=== PATIENT | female | born 1980 | race Caucasian/White ===

== ENCOUNTER 2019-12-28 07:46 | Inpatient (IN) ==
[2019-12-28] MEDS ORDERED: ONDANSETRON INJ 2 MG/ML 2 ML VIAL IV STA (08:17)
[2019-12-28] MEDS ORDERED: SODIUM CHLORIDE 0.9% 1000ML 1,000 ML IV ONE (08:17)
--- NOTE | 2019-12-28 08:29 | Emergency Department Note ---
History of Present Illness General Chief complaint: Mental Health Evaluation Stated complaint: MHMR Time Seen by Provider: 12/28/19 08:00 Source: patient Mode of arrival: other (Police) Limitations: no limitations History of Present Illness Provider complaint: Nausea/vomiting, psych eval Onset (ago): hour(s) 2 This is a 39-year-old female who presents to the ED with a chief complaint of nausea and vomiting as well as psych evaluation. Her primary reason for coming was a psych evaluation. She reportedly called police this morning because she wanted her boyfriend removed from her house. She states that her boyfriend was shutting doors and slamming them. She also states that he has a collection of knives. She states that knives should not be allowed in houses unless they are butter knives. The patient also states that her cats do not like him because he feeds them animal products. The patient stated to police that she thought that she was Alana Hernandez. She also stated to them that she talks to people through televisions and also that she was the head of the universe. She does have medications for clotting disorder as well as for paranoid schizophrenia. She has not been taking her medications recently. The patient denies being suicidal or homicidal. The father reports that she has been staying at their house this weekend and had some nausea and vomiting and poor p.o. intake. The patient has no additional complaints. Home Medications Home Medications Medication Instructions Recorded Confirmed Type clozapine 100 mg PO BID 12/28/19 12/28/19 History glycopyrrolate 2 mg PO TID 12/28/19 12/28/19 History hydroxyzine pamoate 50 mg PO HS 12/28/19 12/28/19 History prazosin 1 mg PO HS 12/28/19 12/28/19 History topiramate 25 mg PO BID 12/28/19 12/28/19 History trazodone 150 mg PO HS 12/28/19 12/28/19 History zolpidem 10 mg PO HS 12/28/19 12/28/19 History Allergies Allergy/AdvReac Type Severity Reaction Status Date / Time No Known Drug Allergies Allergy Unknown Verified 12/28/19 07:58 Past Med/Surg History Social History Feels Safe at Home: Hesitant to Answer Review of Systems A total of 10 systems reviewed and were otherwise negative Physical Exam Vital Signs Vital Signs - 24 hr 12/28/19 08:11 12/28/19 09:41 Temperature 37.4 C Temperature Source Oral Pulse Rate 76 Pulse Rate [Left Finger] 78 Respiratory Rate 18 18 Respiratory Effort / Characteristics Non-Labored Spontaneous Non-Labored Spontaneous Respiratory Depth Normal Normal Blood Pressure 108/76 Blood Pressure [Right Arm] 113/67 Blood Pressure Mean 86 Blood Pressure Mean [Right Arm] 82 Pulse Oximetry 96 100 Oxygen Delivery Method Room Air Room Air Sepsis Recent Fever Within 48 Hours No Sepsis New/Unexplained Change in Mental Status No Sepsis Action Taken by Nursing No Action Required CONSTITUTIONAL/VITAL SIGNS: Reviewed / noted above. GENERAL: Non-toxic in appearance. Somewhat unkempt appearance. INTEGUMENTARY: Warm, dry, and [place]. HEAD: Normocephalic. EYES: without scleral icterus or trauma. ENT/OROPHARYNX: clear and moist. LYMPHADENOPATHY/NECK: Is supple without lymphadenopathy or meningismus. RESPIRATORY: Lungs clear and equal. CARDIOVASCULAR: Regular rate and rhythm. GI/ABDOMEN: Soft and nontender. No organomegaly or pulsatile mass. No rebound or guarding. Normal bowel sounds. EXTREMITIES: Warm and well perfused. BACK: No CVA tenderness. NEUROLOGICAL: Intact without focal deficits. PSYCHIATRIC: Patient seems slightly withdrawn. Mildly paranoid. States that her father is her adopted father (not true). When asked about Alana Hernandez, she speaks as if she was Alana Hernandez and states that people were throwing her up in the air and that she was tired. Denies being suicidal or homicidal. MUSCULOSKELETAL: Normally developed with good muscle tone. TRIAGE NURSING DOCUMENTATION REVIEWED. Course Administered Medications Discontinued Medications Sodium Chloride (Nss 1000ml) 1,000 mls @ 999 mls/hr IV .Q1H1M ONE Stop: 12/28/19 09:17 Last Infusion: 12/28/19 09:56 Dose: 0 mls/hr Documented by: [id number] Admin: 12/28/19 08:48 Dose: 999 mls/hr Documented by: [id number] Ondansetron HCl (Zofran) 4 mg IV NOW STA Stop: 12/28/19 08:18 Last Admin: 12/28/19 08:51 Dose: 4 mg Documented by: [id number] Potassium Chloride (Klor-Con M10) 40 meq PO NOW STA Stop: 12/28/19 10:59 Last Admin: 12/28/19 11:21 Dose: 40 meq Documented by: [id number] Medical Decision Making Differential Diagnosis Gastroenteritis, food borne illness, infections, appendicitis, diverticulitis, inflammatory bowel disease, obstruction, GI bleed, biliary pathology, volvulus, as well as other pathologies. Mood disorder, infection, hypoglycemia, electrolyte abnormalities, cardiac sources, intracerebral event, toxicologic, trauma, neurologic, as well as other pathologies. Medical Records Attestation: I reviewed the patient's medical records. Home Medications Current Medication List: was personally reviewed by me Laboratory Data Attestation: I reviewed the patient's lab results. Result diagrams: 12/28/19 08:39 12/28/19 12:15 Lab Results 12/28/19 12/28/19 12/28/19 Range/Units 08:39 08:39 08:39 WBC 10.47 (4.8-10.8) K/uL RBC 4.45 (4.2-5.4) M/uL Hgb 15.4 (12.0-16.0) g/dL Hct 43.4 (37-47) % MCV 97.5 (80-100) fL MCH 34.6 H (25-34) pg MCHC 35.5 (32-36) g/dL RDW Std Deviation 44.7 (36.4-46.3) fL RDW Coeff of Ashanti 12.5 (11.5-14.5) % Plt Count 372 (130-400) K/uL MPV 9.0 (7.4-10.4) fL Immature Gran % (Auto) 0.3 % Neut % (Auto) 81.7 % Lymph % (Auto) 11.7 % Hood % (Auto) 6.1 % Eos % (Auto) 0.0 % Baso % (Auto) 0.2 % Immature Gran # (Auto) 0.03 H (0.00-0.02) K/uL Neut # (Auto) 8.55 H (1.4-6.5) K/uL Lymph # (Auto) 1.23 (1.2-3.4) K/uL Hood # (Auto) 0.64 H (0.11-0.59) K/uL Eos # (Auto) 0.00 (0-0.5) K/uL Baso # (Auto) 0.02 (0-0.2) K/uL Sodium 135 L (136-145) mmol/L Potassium 2.7 L (3.5-5.1) mmol/L Chloride 104 (98-107) mmol/L Carbon Dioxide 23 (21-32) mmol/L Anion Gap 9.0 (3-11) BUN 2 L (7-18) mg/dl Creatinine 0.91 (0.6-1.2) mg/dl Est Cr Clr Drug Dosing 68.8 ml/min Est GFR ( Amer) 91.5 Est GFR (Non-Af Amer) 78.9 BUN/Creatinine Ratio 1.7 L (10-20) Glucose 110 H (70-99) mg/dl Calcium 8.7 (8.5-10.1) mg/dl Total Bilirubin 0.6 (0.2-1) mg/dl AST 10 L (15-37) U/L ALT 18 (12-78) U/L Alkaline Phosphatase 101 (45-117) U/L Total Protein 7.1 (6.4-8.2) gm/dl Albumin 4.2 (3.4-5.0) gm/dl Globulin 2.9 (2.5-4.0) gm/dl Albumin/Globulin Ratio 1.4 (0.9-2) Lipase 140 (73-393) U/L TSH 1.330 (0.300-4.500) uIu/ml HCG, Qual Negative (Negative) Urine Color Urine Appearance (Clear) Urine pH (4.5-7.5) Ur Specific Elsie (1.000-1.030) Urine Protein (Negative) Urine Glucose (UA) (Negative) Urine Ketones (Negative) Urine Blood (Negative) Urine Nitrite (Negative) Urine Bilirubin (Negative) Urine Urobilinogen (Negative) Ur Leukocyte Esterase (Negative) Urine WBC (Auto) (0-5) /hpf Urine RBC (Auto) (0-4) /hpf U Hyaline Cast (Auto) (0-5) /lpf U Epithel Cells (Auto) (0-5) /lpf Urine Bacteria (Auto) (Negative) Urine Yeast Salicylates (2.8-20) mg/dl Urine Opiates Screen (Neg) Ur Methadone, Qual (Neg) Acetaminophen (10-30) ug/ml Urine Barbiturates (Neg) Ur Phencyclidine (PCP) (Neg) U Amphetamin/Meth Scrn (Neg) MDMA (Ecstasy) Screen (Neg) U Benzodiazepines Scrn (Neg) Ur Cocaine Metabolite (Neg) U Marijuana (THC) Screen (Neg) Ethyl Alcohol mg/dL (0-3) mg/dl 12/28/19 12/28/19 12/28/19 Range/Units 08:39 08:39 09:00 WBC (4.8-10.8) K/uL RBC (4.2-5.4) M/uL Hgb (12.0-16.0) g/dL Hct (37-47) % MCV (80-100) fL MCH (25-34) pg MCHC (32-36) g/dL RDW Std Deviation (36.4-46.3) fL RDW Coeff of Ashanti (11.5-14.5) % Plt Count (130-400) K/uL MPV (7.4-10.4) fL Immature Gran % (Auto) % Neut % (Auto) % Lymph % (Auto) % Hood % (Auto) % Eos % (Auto) % Baso % (Auto) % Immature Gran # (Auto) (0.00-0.02) K/uL Neut # (Auto) (1.4-6.5) K/uL Lymph # (Auto) (1.2-3.4) K/uL Hood # (Auto) (0.11-0.59) K/uL Eos # (Auto) (0-0.5) K/uL Baso # (Auto) (0-0.2) K/uL Sodium (136-145) mmol/L Potassium (3.5-5.1) mmol/L Chloride (98-107) mmol/L Carbon Dioxide (21-32) mmol/L Anion Gap (3-11) BUN (7-18) mg/dl Creatinine (0.6-1.2) mg/dl Est Cr Clr Drug Dosing ml/min Est GFR ( Amer) Est GFR (Non-Af Amer) BUN/Creatinine Ratio (10-20) Glucose (70-99) mg/dl Calcium (8.5-10.1) mg/dl Total Bilirubin (0.2-1) mg/dl AST (15-37) U/L ALT (12-78) U/L Alkaline Phosphatase (45-117) U/L Total Protein (6.4-8.2) gm/dl Albumin (3.4-5.0) gm/dl Globulin (2.5-4.0) gm/dl Albumin/Globulin Ratio (0.9-2) Lipase (73-393) U/L TSH (0.300-4.500) uIu/ml HCG, Qual (Negative) Urine Color Urine Appearance (Clear) Urine pH (4.5-7.5) Ur Specific Elsie (1.000-1.030) Urine Protein (Negative) Urine Glucose (UA) (Negative) Urine Ketones (Negative) Urine Blood (Negative) Urine Nitrite (Negative) Urine Bilirubin (Negative) Urine Urobilinogen (Negative) Ur Leukocyte Esterase (Negative) Urine WBC (Auto) (0-5) /hpf Urine RBC (Auto) (0-4) /hpf U Hyaline Cast (Auto) (0-5) /lpf U Epithel Cells (Auto) (0-5) /lpf Urine Bacteria (Auto) (Negative) Urine Yeast Salicylates 3.8 (2.8-20) mg/dl Urine Opiates Screen Neg (Neg) Ur Methadone, Qual Neg (Neg) Acetaminophen < 2 L (10-30) ug/ml Urine Barbiturates Neg (Neg) Ur Phencyclidine (PCP) Neg (Neg) U Amphetamin/Meth Scrn Neg (Neg) MDMA (Ecstasy) Screen Neg (Neg) U Benzodiazepines Scrn Neg (Neg) Ur Cocaine Metabolite Neg (Neg) U Marijuana (THC) Screen Neg (Neg) Ethyl Alcohol mg/dL < 3.0 (0-3) mg/dl 12/28/19 12/28/19 Range/Units 09:00 12:15 WBC (4.8-10.8) K/uL RBC (4.2-5.4) M/uL Hgb (12.0-16.0) g/dL Hct (37-47) % MCV (80-100) fL MCH (25-34) pg MCHC (32-36) g/dL RDW Std Deviation (36.4-46.3) fL RDW Coeff of Ashanti (11.5-14.5) % Plt Count (130-400) K/uL MPV (7.4-10.4) fL Immature Gran % (Auto) % Neut % (Auto) % Lymph % (Auto) % Hood % (Auto) % Eos % (Auto) % Baso % (Auto) % Immature Gran # (Auto) (0.00-0.02) K/uL Neut # (Auto) (1.4-6.5) K/uL Lymph # (Auto) (1.2-3.4) K/uL Hood # (Auto) (0.11-0.59) K/uL Eos # (Auto) (0-0.5) K/uL Baso # (Auto) (0-0.2) K/uL Sodium (136-145) mmol/L Potassium 3.2 L D (3.5-5.1) mmol/L Chloride (98-107) mmol/L Carbon Dioxide (21-32) mmol/L Anion Gap (3-11) BUN (7-18) mg/dl Creatinine (0.6-1.2) mg/dl Est Cr Clr Drug Dosing ml/min Est GFR ( Amer) Est GFR (Non-Af Amer) BUN/Creatinine Ratio (10-20) Glucose (70-99) mg/dl Calcium (8.5-10.1) mg/dl Total Bilirubin (0.2-1) mg/dl AST (15-37) U/L ALT (12-78) U/L Alkaline Phosphatase (45-117) U/L Total Protein (6.4-8.2) gm/dl Albumin (3.4-5.0) gm/dl Globulin (2.5-4.0) gm/dl Albumin/Globulin Ratio (0.9-2) Lipase (73-393) U/L TSH (0.300-4.500) uIu/ml HCG, Qual (Negative) Urine Color Yellow Urine Appearance Clear (Clear) Urine pH 5.5 (4.5-7.5) Ur Specific Elsie 1.005 (1.000-1.030) Urine Protein Negative (Negative) Urine Glucose (UA) Negative (Negative) Urine Ketones Negative (Negative) Urine Blood 3+ H (Negative) Urine Nitrite Negative (Negative) Urine Bilirubin Negative (Negative) Urine Urobilinogen Negative (Negative) Ur Leukocyte Esterase 1+ H (Negative) Urine WBC (Auto) >30 H (0-5) /hpf Urine RBC (Auto) 5-10 H (0-4) /hpf U Hyaline Cast (Auto) 1-5 (0-5) /lpf U Epithel Cells (Auto) >30 H (0-5) /lpf Urine Bacteria (Auto) 1+ H (Negative) Urine Yeast Not Reportable Salicylates (2.8-20) mg/dl Urine Opiates Screen (Neg) Ur Methadone, Qual (Neg) Acetaminophen (10-30) ug/ml Urine Barbiturates (Neg) Ur Phencyclidine (PCP) (Neg) U Amphetamin/Meth Scrn (Neg) MDMA (Ecstasy) Screen (Neg) U Benzodiazepines Scrn (Neg) Ur Cocaine Metabolite (Neg) U Marijuana (THC) Screen (Neg) Ethyl Alcohol mg/dL (0-3) mg/dl Imaging Data Attestation: I personally reviewed and interpreted this imaging study as follows: My Impression: No acute disease. Radiologist's Impression: Chest x-ray: IMPRESSION: No acute cardiopulmonary findings. ECG Data Attestation: I personally reviewed and interpreted this ECG as follows: Indication: + weakness Rate (beats per minute): 67 Rhythm: + normal sinus ECG ST segments: no ST elevation ECG Findings: no PVCs Blood Pressure Blood Pressure Findings: Normal blood pressure MDM Narrative This is a 39-year-old female who presents to the ED with a chief complaint of nausea and vomiting as well as psych evaluation. Her primary reason for coming was a psych evaluation. She reportedly called police this morning because she wanted her boyfriend removed from her house. She states that her boyfriend was shutting doors and slamming them. She also states that he has a collection of knives. She states that knives should not be allowed in houses unless they are butter knives. The patient also states that her cats do not like him because he feeds them animal products. The patient stated to police that she thought that she was Alana Hernandez. She also stated to them that she talks to people t [employer] and also that she was the head of the universe. She does have medications for clotting disorder as well as for paranoid schizophrenia. She has not been taking her medications recently. The patient denies being suicidal or homicidal. The father reports that she has been staying at their house this weekend and had some nausea and vomiting and poor p.o. intake. The patient has no additional complaints. The patient has a relatively benign exam. She appears unkempt. She is in no distress. She is not suicidal. She seems slightly or mildly paranoid. She has normal exam. Normal abdominal exam. The patient's EKG shows a normal sinus rhythm. CBC and chemistry panel was relatively unremarkable with exception of a potassium of 2.7. hCG was negative. Salicylate level was within normal limits. Tylenol and alcohol are negative. Urine appears to be contaminated. No clinical symptoms of UTI. Urine drug screen was negative. Chest x-ray is negative. The patient was evaluated by mental health delegate and because of the patient's paranoid schizophrenia, lack of medications and her acute symptoms, she will require inpatient evaluation via 302. She was treated orally with potassium here. A repeat potassium level was higher at 3.2. The patient will be admitted to 3 S. Impression & Plan Paranoid schizophrenia, Nausea & vomiting, Hypokalemia Discharge Plan Visit Data Chief Complaint: Mental Health Evaluation Stated Complaint: [facility] ED Provider: Yobani Phan Discharge Problem: Paranoid schizophrenia, Nausea & vomiting, Hypokalemia Patient Disposition: Transfer Behavioral Health Fac Forms Stand Alone Forms: [facility], Suicide Prevention Resources Prescriptions Prescriptions: No Action hydroxyzine pamoate 50 mg Capsule 50 mg PO HS RF: 0 zolpidem 10 mg Tablet 10 mg PO HS RF: 0 glycopyrrolate 2 mg Tablet 2 mg PO TID RF: 0 topiramate 25 mg Tablet 25 mg PO BID RF: 0 trazodone 150 mg Tablet 150 mg PO HS RF: 0 clozapine 100 mg Tablet 100 mg PO BID RF: 0 prazosin 1 mg Capsule 1 mg PO HS RF: 0 Referrals Referrals: Darci Cuello MD [Primary Care Provider] - Discharge Problem: Nausea & vomiting Qualifiers: Vomiting type: unspecified Vomiting Intractability: non-intractable Qualified Code(s): R11.2 - Nausea with vomiting, unspecified
--- NOTE | 2019-12-28 08:38 | XRay Report ---
XR chest 1V portable CLINICAL HISTORY: Weakness. COMPARISON STUDY: Chest CT December 13, 2015. FINDINGS: Lung volumes are normal. Lungs are clear. There is no pneumothorax or pleural effusion. Car diac size is normal. Mediastinal contours are normal. There is no evidence for pulmonary edema. Nippl e shadows project over the lower lungs. IMPRESSION: No acute cardiopulmonary findings. ACT 112: Negative or not required by law. Electronically signed by: Fredis Castellanos M.D. 12/28/2019 8:37 AM
[2019-12-28 08:55] LABS: Basophils # (auto) 0.02 K/uL (0-0.2); Basophils % (auto) 0.2 %; Hematocrit (blood only) 43.4 % (37-47); Hemoglobin 15.4 g/dL (12.0-16.0); Immature Granulocytes # (auto) 0.03 K/uL (0.00-0.02); Immature Granulocytes % (auto) 0.3 %; Lymphocytes # (auto) 1.23 K/uL (1.2-3.4); Lymphocytes % (auto) 11.7 %; Mean Corpuscular Hemoglobin 34.6 pg (25-34); Mean Corpuscular Hgb Conc 35.5 g/dL (32-36); Mean Corpuscular Volume 97.5 fL (80-100); Monocytes # (auto) 0.64 K/uL (0.11-0.59); Monocytes % (auto) 6.1 %; Neutrophils # (auto) 8.55 K/uL (1.4-6.5); Neutrophils % (auto) 81.7 %; Platelet Count 372 K/uL (130-400); RDW Coefficient of Variation 12.5 % (11.5-14.5); RDW Standard Deviation 44.7 fL (36.4-46.3); Red Blood Count 4.45 M/uL (4.2-5.4); White Blood Count 10.47 K/uL (4.8-10.8)
[2019-12-28 09:11] LABS: Appearance Urine Clear (Clear); Bilirubin Urine Negative (Negative); Blood Urine 3+ (Negative); Color Urine Yellow; Glucose Urine UA Negative (Negative); Ketones Urine Negative (Negative); Leukocyte Esterase Urine 1+ (Negative); Nitrite Urine Negative (Negative); Protein Urine Negative (Negative); Specific Gravity Urine 1.005 (1.000-1.030); Urobilinogen Urine Negative (Negative); pH Urine 5.5 (4.5-7.5)
[2019-12-28 09:17] LABS: Albumin Level 4.2 gm/dl (3.4-5.0); BUN Creatinine Ratio 1.7 (10-20); Calcium 8.7 mg/dl (8.5-10.1); Creatinine Clr Calc Pharmacy 68.8 ml/min; Est GFR (African American) 91.5; Est GFR (Non-African American) 78.9; Potassium 2.7 mmol/L (3.5-5.1)
[2019-12-28 09:24] LABS: Epithelial Cell Urine Auto >30 /lpf (0-5)
[2019-12-28 09:25] LABS: Bacteria Urine Automated 1+ (Negative); WBC Urine Automated >30 /hpf (0-5)
[2019-12-28 09:28] LABS: Albumin Globulin Ratio 1.4 (0.9-2); Bilirubin,Total 0.6 mg/dl (0.2-1); Globulin 2.9 gm/dl (2.5-4.0); Pregnancy Test, Serum Negative (Negative); Thyroid Stimulating Hormone 1.33 uIu/ml (0.300-4.500); Total Protein 7.1 gm/dl (6.4-8.2)
--- NOTE | 2019-12-28 09:38 | Electrocardiogram Report ---
Test Reason : Blood Pressure : / mmHG Vent. Rate : 067 BPM Atrial Rate : 067 BPM P-R Int : 154 ms QRS Dur : 084 ms QT Int : 404 ms P-R-T Axes : 044 071 059 degrees QTc Int : 426 ms Poor data quality, interpretation may be adversely affected Normal sinus rhythm Normal ECG When compared with ECG of 14-DEC-2015 06:34, Vent. rate has decreased BY 40 BPM T wave inversion no longer evident in Inferior leads T wave inversion no longer evident in Anterolateral leads Confirmed by Reece Pate ([id number]) on 12/28/2019 9:37:38 AM Referred By: REFERRED SELF Confirmed By:Reece Pate
[2019-12-28 09:47] LABS: Amphetamines+Metham, Urine Neg (Neg); Barbiturates, Urine Neg (Neg); Benzodiazepine, Urine Neg (Neg); Cocaine, Urine Neg (Neg); MDMA (Ecstacy), Urine Neg (Neg); Methadone, Urine Neg (Neg); Opiate, Urine Neg (Neg); Phencyclidine, Urine Neg (Neg)
[2019-12-28 09:53] LABS: Acetaminophen < 2 ug/ml (10-30); Salicylate 3.8 mg/dl (2.8-20)
[2019-12-28] MEDS ORDERED: POTASSIUM CHLORIDE 10 MEQ TABCR PO STA (10:58)
[2019-12-28] MEDS ORDERED: BISMUTH SUBSALICYLATE PER ML OMNICELL CHARGE PO PRN (12:58)
[2019-12-28] MEDS ORDERED: SODIUM CHLORIDE 0.65% NA SOLN 45 ML (OCEAN) PRN (12:58)
[2019-12-28] MEDS ORDERED: ALUMINUM/MAGNESIUM SUSP 30 ML UDC PO PRN (12:58)
[2019-12-28] MEDS ORDERED: ACETAMINOPHEN 325 MG TAB PO PRN (12:58)
[2019-12-28] MEDS ORDERED: MAGNESIUM HYDROXIDE SUSP 30 ML UDC PO PRN (12:58)
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
[2019-12-28] MEDS ORDERED: TRAZODONE HCL 50 MG TAB PO PRN (17:46)
[2019-12-28] MEDS ORDERED: ZOLPIDEM TARTRATE 10 MG TAB PO PRN (17:46)
[2019-12-28] MEDS ORDERED: haloperidoL 5 MG TAB PO PRN (17:47)
[2019-12-28] MEDS: cloZAPine 25 MG TAB PO SCH (20:28)
[2019-12-29 07:49] LABS: Glucose Fasting 95 mg/dl (70-99)
[2019-12-29 07:54] LABS: Chol HDL Ratio 3; Cholesterol 84 mg/dl (0-200); HDL Cholesterol 31 mg/dl; LDL Cholesterol Calculated 34 mg/dl; Triglycerides 94 mg/dl (0-150); VLDL Cholesterol 19 mg/dl
--- NOTE | 2019-12-29 08:20 | Psychiatric Progress Note ---
Date of Service December 29, 2019 Impression / Recommendations Impression 39-year-old female admitted involuntarily for inpatient psychiatric treatment on 12/28/2019 after being brought to the ED by police due to worsening psychosis and inability to care for herself. She had stopped all of her psychiatric medications, had increased delusions, paranoia, and disorganization, was not eating or sleeping, with increasingly erratic behavior, walking her boyfriend whom she lives with out of the house, telling police she was Alana Hernandez, and referring to herself as "the ruler of the world" in the ER. She had laboratory evidence of poor p.o. intake (potassium 2.7). She does not feel she needs medications or hospitalization, although did take clozapine as ordered last evening. She reports stopping her medication several days ago, but family believes it has been longer. She is refusing to sign releases for family, boyfriend, or outpatient psychiatrist. She recently fired her case specialist, and does not have a therapist. 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 She was on numerous psychotropic medications, but for now we have resumed the antipsychotic as it is the most important to target her current symptoms. She will have a 303 hearing on Thursday. She remains gravely disabled and unable to provide for her own basic needs without the care and assistance of others, and inpatient treatment is the least restrictive and appropriate venue available for treatment to occur. (1) Paranoid schizophrenia: 12/27 - Admitted to a locked inpatient behavioral health unit, on q15 minute safety checks - Recommending that patient resume medications to target her paranoia and delusions. Will attempt to gather collateral information from family and will request a current medication list from her outpatient psychiatrist. - In the interim, we will re-titrate clozapine beginning at 25mg BID. Re- titrate to home dose of 100mg BID. Will order prn doses of zolpidem and trazodone for sleep. Haloperidol will be available as needed for psychosis. - Encourage participation in group and recreational therapies - Gather collateral information from outpatient providers - Suggest family meeting to involve outpatient supports in safety planning - Arrange appropriate aftercare - re-establish case management services 12/28 -Continue clozapine titration, increasing to 50 mg twice daily. -FLP and fasting glucose reviewed today and within normal limits. -Patient has refused to sign releases for her parents, boyfriend, or outpatient psychiatrist. She indicates willingness to have a family meeting with her boyfriend. -File for a 303 involuntary commitment, and consider need for a 304 IOC, as she would benefit from case management and therapy, but has been noncompliant with all aspects of treatment, leading to her decompensation. (2) MTHFR mutation: 12/27 - Historical diagnosis of MTHFR mutation. Pt historically had been on Xarelto for chronic anticoagulation - It appears patient has not been taking the medication recently, as no re cord of the medication on external medication history - Will gather collateral information from family/outpatient providers regarding recommendations 12/28 -No outpatient records available from PCP in EMR to determine current medications/recommendations. Nursing staff contacted PCPs office to clarify whether she is supposed to be on an anticoagulant currently. She has reportedly been nonadherent with treatment, and PCP recommended inpatient medical consultation which will be requested today. -She will need a follow-up appointment after discharge. (3) Hypokalemia: 12/28 -potassium was 2.7 on presentation, likely due to poor oral intake for several days prior to admission. Repleted in the ER and improved slightly. Continue to monitor and encourage good nutrition. (4) Abnormal urinalysis: 12/28 - UA on admission notable for 3+ blood, 1+ leukocyte esterase, > 30 WBCs, 5-10 RBCs, > 30 epithelial cells, and 1+ bacteria. Asymptomatic, likely contaminated sample, antibiotics not currently indicated, but will follow up on culture results when available. Risk Factors Assessment Male: No : Yes Do You Have Access To A Gun?: No Mental Health Diagnoses: Yes Substance Use Disorders: No Previous Attempt: No Previous Psychiatric Hospitalization: Yes Hopelessness: No Smoker: Yes Protective Factors Assessment Pentecostal Beliefs: No : No Responsible for Young Children: No Employed: No (Pt is on disability due to MH DX) Supportive Family: Yes Interval History Identifying Information ROSMERY TALBERT is a 39-year-old F who currently lives in [place], [place] with her boyfriend, has a history of paranoid schizophrenia, and was admitted on 12/28/2019 on a 302 involuntary commitment for psychosis, inability to care for self, and non-compliance with psychiatric medications. Chief Complaint " Living a normal life". Review of Systems Sleep Information Total Hours of Sleep: 8 Meal Information Percent Meal Consumed - Dinner: 65 Subjective Subjective Patient was seen & assessed and interval progress reviewed with nursing and social work. Staff report she refused to sign ROIs for family and refused to sign her treatment plan, but talked with her mother on the phone. Although she said she didn't want to take medication, she did take the HS clozapine that was ordered with staff encouragement. She reported feeling depressed, paranoid, and suspicious. On my assessment, she was seen in her room, where she remains in bed midmorning. She states that she had not slept for days prior to coming into the hospital, but sleep has improved since admission. She says she has no idea why she is in the hospital, and is not sure if she has a mental illness, stating "I don't even know what that is" when asked about her previous diagnosis of schizophrenia. She admits to being on multiple psychotropic medications, but states she stopped them all "because I wanted to see how my head felt without taking them." She is noncommittal regarding her willingness to resume the clozapine at this time, but adamantly states she does not want to resume any of the other medications. She does not believe she is having any symptoms of mental illness, and states she called the police herself because she wanted her boyfriend to leave her apartment, and "they brought me here instead. They turned things around to make me look like the crazy one. I'm just a happy normal person, some people think they know more, labile, schooling is good." She reports improved p.o. intake, although refused breakfast this morning as she was tired. She is willing for a meeting with her boyfriend, stating she thinks it would be helpful if staff could sit with her while she calls him. She says that they have been together for a couple of years, met when they were residents at the [facility], and she has been trying to break up with him "lots of times," but feels bad asking him to leave as he has nowhere else to go. She states that her name is on the lease, but his is not. She says they got into an argument the day of presentation because he was upset that she did not want to be with him anymore, so was slamming doors, which "was kind of worrying me, so I locked him out of the house, and called the police." She says she asked her parents about moving into their basement with her 5 cats, and they initially said no, but then said they would think about it. The 302 petition was completed by her father and states the patient was not eating anything for 3 days prior to admission, was not sleeping, not taking any medications, locked doors to her apartment and locked her boyfriend out, state police had to break in 12/28/2019. In the ER, the case specialist contacted the patient's mother, who stated the patient had been noncompliant with medications for an unknown amount of time, fired her case specialist through [employer] a few months ago, and stopped taking a blood thinning medication which is required due to a blood clotting disorder. She had not been sleeping for the past week, and locked her boyfriend out of the apartment, who called the police. When the police arrived, she said she was Triny Hernandez. She had been living at the [facility] until 2 years ago, when she and her boyfriend got their own apartment. She has not been admitted psychiatrically since 01/2014. In the ER, when staff asked the patient why she locked her boyfriend out, she said "I am the ruler of the universe and he has a collection of knives, he should only have butter knives." She admitted to stopping her psychotropic medications, and that she had not been sleeping. Nursing staff contacted her PCPs office to determine if she is supposed to be on an anticoagulant. PCP reported concerns for noncompliance, and recommended inpatient medical consult. Physical Exam Psychiatric Orientation: alert and cooperative; + not oriented x 3 Did not know the day or date, thought she just arrived at the hospital this morning Apperance: appropriately dressed Thin, dressed in sweatpants and a hooded sweatshirt with a del angel pulled up, nose pierced. Seated in bed awake and in no acute distress. Eye Contact: + fair eye contact Motor Behavior: no abnormal motor movements Slowed, halting Affect: + blunted affect; + mood not congruent with affect "Fine" Thought Process: + tangential thought process and + looseness of associations Thought Content: + cognitive distortions Suicidal Thoughts: denies suicidal thoughts Homicidal Thoughts: denies homicidal thoughts Hallucinations: no auditory hallucinations Cognition: language grossly intact; + recent memory not intact and + attention not intact Insight: + impaired insight Judgement: + impaired judgement Vital Signs (Past 24 Hours) Last Vital Signs Temp 36.8 C 12/29/19 06:55 Pulse 79 12/29/19 06:56 Resp 16 12/29/19 06:55 BP 95/61 L 12/29/19 06:56 Pulse Ox 99 12/28/19 13:56 Results & Data ([facility]) Laboratory Results Laboratory Results - last 24 hr 12/28/19 12/28/19 12/28/19 08:39 08:39 08:39 WBC 10.47 RBC 4.45 Hgb 15.4 Hct 43.4 MCV 97.5 MCH 34.6 H MCHC 35.5 RDW Std Deviation 44.7 RDW Coeff of Ashanti 12.5 Plt Count 372 MPV 9.0 Immature Gran % (Auto) 0.3 Neut % (Auto) 81.7 Lymph % (Auto) 11.7 [place] % (Auto) 6.1 Eos % (Auto) 0.0 Baso % (Auto) 0.2 Immature Gran # (Auto) 0.03 H Neut # (Auto) 8.55 H Lymph # (Auto) 1.23 [place] # (Auto) 0.64 H Eos # (Auto) 0.00 Baso # (Auto) 0.02 Sodium 135 L Potassium 2.7 L Chloride 104 Carbon Dioxide 23 Anion Gap 9.0 BUN 2 L Creatinine 0.91 Est Cr Clr Drug Dosing 68.8 Est GFR ( Amer) 91.5 Est GFR (Non-Af Amer) 78.9 BUN/Creatinine Ratio 1.7 L Glucose 110 H Fasting Glucose Calcium 8.7 Total Bilirubin 0.6 AST 10 L ALT 18 Alkaline Phosphatase 101 Total Protein 7.1 Albumin 4.2 Globulin 2.9 Albumin/Globulin Ratio 1.4 Triglycerides Cholesterol LDL Cholesterol, Calc VLDL Cholesterol, Calc HDL Cholesterol Cholesterol/HDL Ratio Lipase 140 TSH 1.330 HCG, Qual Negative Urine Color Urine Appearance Urine pH Ur Specific [place] Urine Protein Urine Glucose (UA) Urine Ketones Urine Blood Urine Nitrite Urine Bilirubin Urine Urobilinogen Ur Leukocyte Esterase Urine WBC (Auto) Urine RBC (Auto) U Hyaline Cast (Auto) U Epithel Cells (Auto) Urine Bacteria (Auto) Urine Yeast Salicylates Urine Opiates Screen Ur Methadone, Qual Acetaminophen Urine Barbiturates Ur Phencyclidine (PCP) U Amphetamin/Meth Scrn MDMA (Ecstasy) Screen U Benzodiazepines Scrn Ur Cocaine Metabolite U Marijuana (THC) Screen Ethyl Alcohol mg/dL 12/28/19 12/28/19 12/28/19 08:39 08:39 09:00 WBC RBC Hgb Hct MCV MCH MCHC RDW Std Deviation RDW Coeff of Ashanti Plt Count MPV Immature Gran % (Auto) Neut % (Auto) Lymph % (Auto) [place] % (Auto) Eos % (Auto) Baso % (Auto) Immature Gran # (Auto) Neut # (Auto) Lymph # (Auto) [place] # (Auto) Eos # (Auto) Baso # (Auto) Sodium Potassium Chloride Carbon Dioxide Anion Gap BUN Creatinine Est Cr Clr Drug Dosing Est GFR ( Amer) Est GFR (Non-Af Amer) BUN/Creatinine Ratio Glucose Fasting Glucose Calcium Total Bilirubin AST ALT Alkaline Phosphatase Total Protein Albumin Globulin Albumin/Globulin Ratio Triglycerides Cholesterol LDL Cholesterol, Calc VLDL Cholesterol, Calc HDL Cholesterol Cholesterol/HDL Ratio Lipase TSH HCG, Qual Urine Color Urine Appearance Urine pH Ur Specific [place] Urine Protein Urine Glucose (UA) Urine Ketones Urine Blood Urine Nitrite Urine Bilirubin Urine Urobilinogen Ur Leukocyte Esterase Urine WBC (Auto) Urine RBC (Auto) U Hyaline Cast (Auto) U Epithel Cells (Auto) Urine Bacteria (Auto) Urine Yeast Salicylates 3.8 Urine Opiates Screen Neg Ur Methadone, Qual Neg Acetaminophen < 2 L Urine Barbiturates Neg Ur Phencyclidine (PCP) Neg U Amphetamin/Meth Scrn Neg MDMA (Ecstasy) Screen Neg U Benzodiazepines Scrn Neg Ur Cocaine Metabolite Neg U Marijuana (THC) Screen Neg Ethyl Alcohol mg/dL < 3.0 12/28/19 12/28/19 12/29/19 09:00 12:15 07:09 WBC RBC Hgb Hct MCV MCH MCHC RDW Std Deviation RDW Coeff of Ashanti Plt Count MPV Immature Gran % (Auto) Neut % (Auto) Lymph % (Auto) [place] % (Auto) Eos % (Auto) Baso % (Auto) Immature Gran # (Auto) Neut # (Auto) Lymph # (Auto) [place] # (Auto) Eos # (Auto) Baso # (Auto) Sodium Potassium 3.2 L D Chloride Carbon Dioxide Anion Gap BUN Creatinine Est Cr Clr Drug Dosing Est GFR ( Amer) Est GFR (Non-Af Amer) BUN/Creatinine Ratio Glucose Fasting Glucose 95 Calcium Total Bilirubin AST ALT Alkaline Phosphatase Total Protein Albumin Globulin Albumin/Globulin Ratio Triglycerides 94 Cholesterol 84 LDL Cholesterol, Calc 34 VLDL Cholesterol, Calc 19 HDL Cholesterol 31 Cholesterol/HDL Ratio 3 Lipase TSH HCG, Qual Urine Color Yellow Urine Appearance Clear Urine pH 5.5 Ur Specific [place] 1.005 Urine Protein Negative Urine Glucose (UA) Negative Urine Ketones Negative Urine Blood 3+ H Urine Nitrite Negative Urine Bilirubin Negative Urine Urobilinogen Negative Ur Leukocyte Esterase 1+ H Urine WBC (Auto) >30 H Urine RBC (Auto) 5-10 H U Hyaline Cast (Auto) 1-5 U Epithel Cells (Auto) >30 H Urine Bacteria (Auto) 1+ H Urine Yeast Not Reportable Salicylates Urine Opiates Screen Ur Methadone, Qual Acetaminophen Urine Barbiturates Ur Phencyclidine (PCP) U Amphetamin/Meth Scrn MDMA (Ecstasy) Screen U Benzodiazepines Scrn Ur Cocaine Metabolite U Marijuana (THC) Screen Ethyl Alcohol mg/dL Current Inpatient Medications Current Inpatient Medications: Current Inpatient Medications Acetaminophen (Tylenol) 650 mg PO Q4H PRN PRN Reason: Headache or Minor Fever Stop: 01/27/20 12:57 Al Hydrox/Mg Hydrox/Simethicone (Maalox) 30 ml PO Q4H PRN PRN Reason: GI Upset Stop: 01/27/20 12:57 Bismuth Subsalicylate (Kaopectate) 15 ml PO PRN PRN PRN Reason: Loose Stool Stop: 01/27/20 12:57 Clozapine (Clozaril) 25 mg PO BID SIMONA Stop: 01/27/20 20:59 Last Admin: 12/28/19 20:28 Dose: 25 mg Documented by: Haloperidol (Haldol) 5 mg PO Q4H PRN PRN Reason: psychosis Stop: 01/27/20 17:46 Hydroxyzine HCl (Vistaril) 50 mg PO HSZ PRN PRN Reason: Insomnia Stop: 01/27/20 12:57 Hydroxyzine HCl (Vistaril) 25 mg PO Q4H PRN PRN Reason: Anxiety Stop: 01/27/20 12:57 Magnesium Hydroxide (Milk Of Magnesia) 30 ml PO DAILY PRN PRN Reason: Constipation Stop: 01/27/20 12:57 Sodium Chloride ([place] Nasal) 1 - 2 sprays NA PRN PRN PRN Reason: Nasal Dryness/Congestion Stop: 01/27/20 12:57 Trazodone HCl (Desyrel) 150 mg PO HS PRN PRN Reason: insomnia Stop: 01/27/20 21:59 Zolpidem Tartrate (Ambien) 10 mg PO HS PRN PRN Reason: insomnia Stop: 01/27/20 21:59 Mental Health & Subst Abuse Tx Psychiatrist Name of Psychiatrist: [facility] - Dr. Williamson Psychiatrist's Psychiatric Appointment Comment: Luis Landerly [facility] [id number], [place] [address] Therapist Name of Therapist: None Instrument Assembler Name of Instrument Assembler: Previously had [facility] Discharge Appointments Primary Care Physician Name Of Family Doctor: KENAN Mcdowell Primary Care Provider Appointment Comment: Poncho Zafar, [place] Contact Information Discharge Discharge Address: [facility] [address] [place] [id number]
[2019-12-29] MEDS: cloZAPine 25 MG TAB PO SCH ×2 (11:04→21:04)
--- NOTE | 2019-12-29 12:26 | Hospitalist Consultation ---
Date of Consultation December 29, 2019 Assessment & Plan (1) Paranoid schizophrenia: Appears to largely be compliant, but stresses have caused her to stop taking her psychiatric medications. - Per primary team (2) DVT (deep venous thrombosis): Recurrent VTE with at least 3 separate episodes, all presumed to be unprovoked. The patient has a reported MTHFR mutation, though I do not see current evidence that this confers any real increased VTE risk. - NO indication of current VTE (legs non-swollen and equal in size, no shortness of breath or chest pain). - While hospitalized, would recommend VTE prophylaxis dosing with either: * Lovenox 40 mg SQ daily * or * Xarelto 20 mg PO daily * Of note, the Lovenox is DVT prophylaxis dosing while the Xarelto is full anticoagulation dosing. I believe this is acceptable as she does not have any evidence of active DVT/PE at present, and therapeutic Lovenox dosing would entail either large injections or BID dosing which poses more patient inconvenience and discomfort. - On discharge, would recommend return to therapeutic anticoagulation with either warfarin or Xarelto. * Warfarin pros: * Cheaper * Can miss a dose here or there without loss of treatment * Could be monitored for compliance * Can easily be reversed in case of overdose * Xarelto pros: * No monitoring required * Con: If the patient misses occasional doses, she actually is mildly hyper coagulable after the missed dose. * Con: Possibly more expensive Warfarin dosing would start at 2.5 mg PO daily and Xarelto at 20 mg PO daily. If warfarin is decided on, she would need follow up within 3-4 days to have an INR checked and adjusted. The [facility] could assist if the patient is willing to go. These factors will have to be weighed and considered with the patient. At present, she is not in a mental state to be able to discuss these options and was quite paranoid of me and only willing to speak for a limited time. (3) Vitamin B12 deficiency: Folate and B12 deficiency are associated with high homocysteine levels which is also associated with VTE. However, the causal link is unclear, and I am not sure if treating any defiency would reduce her chances of recurrent VTE. Regardless, her MCV is borderline elevated, and she could benefit from B12 and/or folic acid supplement if either is low. - Ordered B12/folate for AM labs. - If low, supplement with folic acid 1 mg PO daily and/or B12 500 mcg PO daily. Given medical stability, Hospital Medicine team will sign off. Please re-consult with any questions or concerns. Thank you for letting us assist in the care of this patient! History of Present Illness Attending Physician: Tiana Bustillos MD History of Present Illness 39yo F w/ hx of recurrent VTE (PE 2012, LLE DVT in 2015, and another subsequent PE) as well as paranoid schizophrenia who presents as a consult for recommendations on anticoagulation. Her last VTE event seems to have been prior to 2017. Per her PCP, she has been o n both warfarin and Xarelto in the past. Most recently, she appears to have been on Xarelto, but has been off it for at least a year. (The patient only reports "months" when asked how long she has been off of it.) When asked about having blood clots in the legs or lungs, she responded with, "No, I'm fine." but eventually does relent and say she thinks she had a clot in the legs or lungs in 2012. When asked if she had any issues with her blood thinner, she says, "No, why should I?" and denies any bleeding events. However, then, she follows this by saying, "I don't even see how you can thin my blood." She reports some weight gain and mild swelling in the legs, but reports no unilateral change in leg swelling, then follows by denying any leg swelling at all. Reports no fevers/chills, chest pain, shortness of breath, abdominal pain, nausea, or vomiting. Allergies Allergy/AdvReac Type Severity Reaction Status Date / Time No Known Drug Allergies Allergy Unknown Verified 12/28/19 07:58 Home Medications Home Medications Medication Instructions Recorded Confirmed Type clozapine 100 mg PO BID 12/28/19 12/28/19 History glycopyrrolate 2 mg PO TID 12/28/19 12/28/19 History hydroxyzine pamoate 50 mg PO HS 12/28/19 12/28/19 History prazosin 1 mg PO HS 12/28/19 12/28/19 History topiramate 25 mg PO BID 12/28/19 12/28/19 History trazodone 150 mg PO HS 12/28/19 12/28/19 History zolpidem 10 mg PO HS 12/28/19 12/28/19 History Patient History Medical History Abnormal urinalysis DVT (deep venous thrombosis) (Acute) In 2012, 2016, along with multiple PEs. Migraine (Acute) Paranoid schizophrenia (Acute) Family History Unknown VTE (venous thromboembolism) Unknown if any VTE in family Social History Preferred Language: Nepali Communication Ability: Effective Cuffing Machine Operator Required: No Beliefs That Will Affect Care: None Feels Safe at Home: Hesitant to Answer Smoking Status: Current every day smoker Tobacco Type: cigarettes (reports smoking 1ppd ) ; Review of Systems Review of Systems: All systems reviewed & are unremarkable except as noted in HPI & below Physical Exam Constitutional: WD/WN, vitals as above + behavioral limitations and + disheveled Eyes: EOM intact bilaterally; no conjunctival abnormality ENMT: external ear and nose normal, oropharynx normal Neck: trachea midline, no thyromegaly normal visual inspection Respiratory: normal respiratory effort, lungs clear to auscultation no respiratory distress Cardiovascular: Rate/Rhythm: regular rate Extremities: + edema (None in either leg) Gastrointestinal (Abdomen): Inspection/Auscultation: abdomen normal to inspection; abdomen not distended Musculoskeletal: no cyanosis or clubbing, extremities motor strength 5/5 Skin: no rashes, warm and dry Neurologic: moves all extremities and awake Psychiatric: Orientation: alert and oriented to person; + uncooperative Apperance: + disheveled Eye Contact: + fair eye contact Affect: + irritable affect and + constricted affect Mood: + anxious mood Results & Data Results & Data ([facility]) Vital Signs (Past 12 Hours) Vital Signs Temp Pulse Resp BP 12/29/19 06:56 79 95/61 L 12/29/19 06:55 36.8 C 71 16 93/60 L PG Care Time/CCT Total # of Minutes Spent Total Time Spent with Patient: Total time spent is greater than 50% in coordination of care (as documented) at patient's floor/unit and/or counseling patient: Coding Level of Care Code 83150 Inpt Consult Level 4 Diagnoses Paranoid schizophrenia F20.0 DVT (deep venous thrombosis) I82.409 Vitamin B12 deficiency E53.8
[2019-12-30 08:40] LABS: Folate (Folic Acid) 3.42 ng/ml (>5.38)
[2019-12-30] MEDS: cloZAPine 25 MG TAB PO SCH ×2 (08:51→20:45)
--- NOTE | 2019-12-30 09:39 | Psychiatric Progress Note ---
Date of Service December 30, 2019 Impression / Recommendations Impression 39-year-old female admitted involuntarily for inpatient psychiatric treatment on 12/28/2019 after being brought to the ED by police due to worsening psychosis and inability to care for herself. She had stopped all of her psychiatric medications, had increased delusions, paranoia, and disorganization, was not eating or sleeping, with increasingly erratic behavior, walking her boyfriend whom she lives with out of the house, telling police she was Alana Hernandez, and referring to herself as "the ruler of the world" in the ER. She had laboratory evidence of poor p.o. intake (potassium 2.7). She does not feel she needs medications or hospitalization, although did take clozapine as ordered last evening. She reports stopping her medication several days ago, but family believes it has been longer. She is refusing to sign releases for family, boyfriend, or outpatient psychiatrist. She recently fired her manager case, and does not have a therapist. 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 Evaluated by hospitalist yesterday, who suggested resuming anticoagulant and supplementation for B12 and folate deficiencies. She was on numerous psychotropic medications, but for now we have resumed the antipsychotic as it is the most important to target her current symptoms - planning to re-titrate clozapine to her home dose. She will have a 303 hearing on Thursday. She remains gravely disabled and unable to provide for her own basic needs without the care and assistance of others, and inpatient treatment is the least restrictive and appropriate venue available for treatment to occur. (1) Paranoid schizophrenia: 12/27 - Admitted to a locked inpatient behavioral health unit, on q15 minute safety checks - Recommending that patient resume medications to target her paranoia and delusions. Will attempt to gather collateral information from family and will request a current medication list from her outpatient psychiatrist. - In the interim, we will re-titrate clozapine beginning at 25mg BID. Re- titrate to home dose of 100mg BID. Will order prn doses of zolpidem and trazodone for sleep. Haloperidol will be available as needed for psychosis. - Encourage participation in group and recreational therapies - Gather collateral information from outpatient providers - Suggest family meeting to involve outpatient supports in safety planning - Arrange appropriate aftercare - re-establish case management services 12/28 -Continue clozapine titration, increasing to 50 mg twice daily. -FLP and fasting glucose reviewed today and within normal limits. -Patient has refused to sign releases for her parents, boyfriend, or outpatient psychiatrist. She indicates willingness to have a family meeting with her boyfriend. -File for a 303 involuntary commitment, and consider need for a 304 IOC, as she would benefit from case management and therapy, but has been noncompliant with all aspects of treatment, leading to her decompensation. 12/29 - Continue clozapine titration - will increase to 75mg BID; CBC w/diff ordered fro 01/03. - 303 hearing scheduled for 01/01. - Pt remains somewhat paranoid and suspicious, but admits to perceived improvement in clarity of thought after her evening dose last night. (2) MTHFR mutation: 12/27 - Historical diagnosis of MTHFR mutation. Pt historically had been on Xarelto for chronic anticoagulation - It appears patient has not been taking the medication recently, as no record of the medication on external medication history - Will gather collateral information from family/outpatient providers regarding recommendations 12/28 -No outpatient records available from PCP in EMR to determine current medications/recommendations. Nursing staff contacted PCPs office to clarify whether she is supposed to be on an anticoagulant currently. She has reportedly been nonadherent with treatment, and PCP recommended inpatient medical consultation which will be requested today. -She will need a follow-up appointment after discharge. 12/29 - Appreciate hospitalist consult and recommendations - B12 and Folate levels ordered - both levels are low at 130 and 3.42 respectively - see treatment below - Discussed recommendations with patient who continued to be somewhat suspicious of the need for a blood thinner, but was ultimately agreeable with Xarelto - Will need to monitor patient's willingness while in the hospital, as hospitalist recommendations suggest concern associated with inconsistent dosing of Xarelto and a hypercoagulable state. Pt was able to at least acknowledge that she is not interested in Warfarin or Lovenox due to her aversion to needles and limited willingness for routine monitoring. Pt did seem to understanding the importance of consistent use of Xarelto during conversation. (3) Hypokalemia: 12/28 -potassium was 2.7 on presentation, likely due to poor oral intake for several days prior to admission. Repleted in the ER and improved slightly. Con tinue to monitor and encourage good nutrition. (4) Abnormal urinalysis: 12/28 - UA on admission notable for 3+ blood, 1+ leukocyte esterase, > 30 WBCs, 5-10 RBCs, > 30 epithelial cells, and 1+ bacteria. Asymptomatic, likely contaminated sample, antibiotics not currently indicated, but will follow up on culture results when available. 12/29 - Preliminary culture resulting in pin-point growth, re-incubating (5) Vitamin B12 deficiency: 12/29 - Vitamin B12 is deficient at 130 (nml 211-911) - Ensuring adequate level may offer benefit for treatment of patient's MTHFR mutation - Vegetarian diet is likely also contributing to this deficiency - Will offer patient Vitamine B12 at 500mcg daily - at this time patient is agreeable - This level should continue to be monitored on an outpatient basis (6) Folate deficiency: 12/29 - Folic acid level is deficient at 3.42 (nml >5.38) - Again, deficiency may also be related to dietary choices - Will supplement with Folic acid 1mg daily - at this time patient is agreeable - This too should be monitored on an outpatient basis Risk Factors Assessment Male: No : Yes Do You Have Access To A Gun?: No Mental Health Diagnoses: Yes Substance Use Disorders: No Previous Attempt: No Previous Psychiatric Hospitalization: Yes Hopelessness: No Smoker: Yes Protective Factors Assessment Hoahaoism Beliefs: No : No Responsible for Young Children: No Employed: No (Pt is on disability due to MH DX) Supportive Family: Yes Interval History Identifying Information ROSMERY TALBERT is a 39-year-old F who currently lives in [place], [place] with her boyfriend, has a history of paranoid schizophrenia, and was admitted on 12/28/2019 on a 302 involuntary commitment for psychosis, inability to care for self, and non-compliance with psychiatric medications. Chief Complaint "Um, I'm ok. What's your name again?" Review of Systems Notes Constitutional: denied Cardiovascular: denied Respiratory: denied Gastrointestinal: denied Neurological: denied Psychiatric: denies symptoms other than stated above Total of at least 10 systems reviewed, pertinent positives as above and in HPI. Sleep Information Total Hours of Sleep: 7.25 Meal Information Percent Meal Consumed - Breakfast: 0 Percent Meal Consumed - Lunch: 90 Percent Meal Consumed - Dinner: 70 Subjective Subjective Patient was seen & assessed and interval progress reviewed with treatment team. Staff report the patient has been going to group programming, but continues to be confused about how she came to be in the hospital. Pt is scheduled for a 303 hearing on 01/01. Pt was evaluated by our hospitalist service yesterday, recommendations are appreciated. Pt was seen today to assess progress since admission. Pt states that she is "ok", but continues to ask this provider how she ended up in the hospital. Pt did participate in a conversation regarding recommendations made by hospitalist service. Pt continued to state that she does not need any medications, that "Dr. Williamson told me my medications were perfect. I was functioning, I was going to the store, I was seeing my family." This provider continued to offer that this reasoning is exactly why she would benefit from consistency with her medications. Pt states, "yeah, yeah...I have this conversation with my parents and sister all the time." This provider offered praise to the patient for being able to maintain stability for the period of time that she did, but encouraged her to return to this pattern by recognizing the importance of medications. Likewise, we discussed how poor compliance is affecting her medical issues - as she has not been taking her Xarelto either. Pt was able to participate in conversation about the importance of anticoagulant medications, and options for Lovenox, Xarelto, and Warfarin were reviewed. Pt declined Warfarin and Lovenox due to aversion to needles and limited interest in regular monitoring. Although patient agreed to Xarelto, verbalizing willingness for consistency with the medication, she also stated "I don't even think blood clots are a real thing, like, how does that even make sense?" Reviewed that patient had had several PE's in the past, and questioning her understanding of the risks of her genetic mutation and clotting concerns. Pt continued to state "I don't think that's even real." Pt denies SI today, and states she is willing to follow recommendations as "I'd like to get out of the hospital soon." Pt denies other needs or concerns from staff at this time. Physical Exam Psychiatric Orientation: alert and + guarded (superficially cooperative, but remains somewhat suspicious) Apperance: appropriately dressed (casually dressed, in hoodie and sweatpants ) Eye Contact: + fair eye contact Motor Behavior: no abnormal motor movements (observed while sitting on bed) Speech: normal rate/rhythm/volume of speech (questioning tone at times) Affect: + blunted affect Mood: no depressed mood ("I'm fine. Can you tell me again why I'm here?") Thought Process: goal directed thought process Thought Content: + preoccupation (with belief she does not need medications), + paranoid (suspicious, questioning why she was hospitalized) and + delusions Suicidal Thoughts: denies suicidal thoughts and denies suicidal intent Homicidal Thoughts: denies homicidal thoughts Hallucinations: no auditory hallucinations and no visual hallucinations Cognition: attention grossly intact and language grossly intact Estimated Intelligence: consistent with education level Insight: + impaired insight Judgement: + impaired judgement Vital Signs (Past 24 Hours) Last Vital Signs Temp 36.8 C 12/30/19 06:52 Pulse 88 12/30/19 06:53 Resp 16 12/30/19 06:52 BP 97/64 L 12/30/19 06:53 Pulse Ox 99 12/28/19 13:56 Results & Data ([facility]) Laboratory Results Laboratory Results - last 24 hr 12/30/19 07:47 Vitamin B12 130 L Folate 3.42 L Current Inpatient Medications Current Inpatient Medications: Current Inpatient Medications Acetaminophen (Tylenol) 650 mg PO Q4H PRN PRN Reason: Headache or Minor Fever Stop: 01/27/20 12:57 Al Hydrox/Mg Hydrox/Simethicone (Maalox) 30 ml PO Q4H PRN PRN Reason: GI Upset Stop: 01/27/20 12:57 Bismuth Subsalicylate (Kaopectate) 15 ml PO PRN PRN PRN Reason: Loose Stool Stop: 01/27/20 12:57 Clozapine (Clozaril) 50 mg PO BID SIMONA Stop: 01/28/20 20:59 Last Admin: 12/30/19 08:51 Dose: 50 mg Documented by: Haloperidol (Haldol) 5 mg PO Q4H PRN PRN Reason: psychosis Stop: 01/27/20 17:46 Hydroxyzine HCl (Vistaril) 50 mg PO HSZ PRN PRN Reason: Insomnia Stop: 01/27/20 12:57 Hydroxyzine HCl (Vistaril) 25 mg PO Q4H PRN PRN Reason: Anxiety Stop: 01/27/20 12:57 Magnesium Hydroxide (Milk Of Magnesia) 30 ml PO DAILY PRN PRN Reason: Constipation Stop: 01/27/20 12:57 Sodium Chloride ([place] Nasal) 1 - 2 sprays NA PRN PRN PRN Reason: Nasal Dryness/Congestion Stop: 01/27/20 12:57 Trazodone HCl (Desyrel) 150 mg PO HS PRN PRN Reason: insomnia Stop: 01/27/20 21:59 Zolpidem Tartrate (Ambien) 10 mg PO HS PRN PRN Reason: insomnia Stop: 01/27/20 21:59 Mental Health & Subst Abuse Tx Psychiatrist Name of Psychiatrist: [facility] - Dr. Williamson Psychiatrist's Psychiatric Appointment Comment: [id number], [place] [address] Therapist Name of Therapist: None Whip Operator Name of Whip Operator: Previously had [place] [facility] Discharge Appointments Primary Care Physician Name Of Family Doctor: KENAN Mcdowell Primary Care Provider Appointment Comment: [facility], [place] Contact Information Discharge Discharge Address: [facility] [address] [place] [id number]
[2019-12-30] MEDS: CYANOCOBALAMIN 500 MCG TABLET (VITAMIN B-12) PO SCH (10:55)
[2019-12-30] MEDS: FOLIC ACID 1 MG TAB PO SCH (10:55)
[2019-12-30] MEDS: RIVAROXABAN 20 MG TAB PO SCH (10:55)
--- NOTE | 2019-12-31 09:06 | Psychiatric Progress Note ---
Date of Service December 31, 2019 Impression / Recommendations Impression 39-year-old female admitted involuntarily for inpatient psychiatric treatment on 12/28/2019 after being brought to the ED by police due to worsening psychosis and inability to care for herself. She had stopped all of her psychiatric medications, had increased delusions, paranoia, and disorganization, was not eating or sleeping, with increasingly erratic behavior, walking her boyfriend whom she lives with out of the house, telling police she was Aalna Hernandez, and referring to herself as "the ruler of the world" in the ER. She had laboratory evidence of poor p.o. intake (potassium 2.7). She does not feel she needs medications or hospitalization, although did take clozapine as ordered last evening. She reports stopping her medication several days ago, but family believes it has been longer. She is refusing to sign releases for family, boyfriend, or outpatient psychiatrist. She recently fired her counseling case manager, and does not have a therapist. 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 Evaluated by hospitalist yesterday, who suggested resuming anticoagulant and supplementation for B12 and folate deficiencies. She was on numerous psychotropic medications, but for now we have resumed the antipsychotic as it is the most important to target her current symptoms - planning to re-titrate clozapine to her home dose. She will have a 303 hearing on Thursday. She remains gravely disabled and unable to provide for her own basic needs without the care and assistance of others, and inpatient treatment is the least restrictive and appropriate venue available for treatment to occur. (1) Paranoid schizophrenia: 12/27 - Admitted to a locked inpatient behavioral health unit, on q15 minute safety checks - Recommending that patient resume medications to target her paranoia and delusions. Will attempt to gather collateral information from family and will request a current medication list from her outpatient psychiatrist. - In the interim, we will re-titrate clozapine beginning at 25mg BID. Re- titrate to home dose of 100mg BID. Will order prn doses of zolpidem and trazodone for sleep. Haloperidol will be available as needed for psychosis. - Encourage participation in group and recreational therapies - Gather collateral information from outpatient providers - Suggest family meeting to involve outpatient supports in safety planning - Arrange appropriate aftercare - re-establish case management services 12/28 -Continue clozapine titration, increasing to 50 mg twice daily. -FLP and fasting glucose reviewed today and within normal limits. -Patient has refused to sign releases for her parents, boyfriend, or outpatient psychiatrist. She indicates willingness to have a family meeting with her boyfriend. -File for a 303 involuntary commitment, and consider need for a 304 IOC, as she would benefit from case management and therapy, but has been noncompliant with all aspects of treatment, leading to her decompensation. 12/29 - Continue clozapine titration - will increase to 75mg BID; CBC w/diff ordered fro 01/03. - 303 hearing scheduled for 01/01. - Pt remains somewhat paranoid and suspicious, but admits to perceived improvement in clarity of thought after her evening dose last night. 12/30 - Clozapine titrated back to recorded home dose of 100mg BID, to begin with this evening's dose - 303 hearing on 01/01 - Pt participated in a family meeting with her mother today, she continues to appears suspicious and paranoid and remains unable to articulate events that contributed to her decompensation and subsequent admission. (2) MTHFR mutation: 12/27 - Historical diagnosis of MTHFR mutation. Pt historically had been on Xarelto for chronic anticoagulation - It appears patient has not been taking the medication recently, as no record of the medication on external medication history - Will gather collateral information from family/outpatient providers regarding recommendations 12/28 -No outpatient records available from PCP in EMR to determine current medications/recommendations. Nursing staff contacted PCPs office to clarify whether she is supposed to be on an anticoagulant currently. She has reportedly been nonadherent with treatment, and PCP recommended inpatient medical consultation which will be requested today. -She will need a follow-up appointment after discharge. 12/29 - Appreciate hospitalist consult and recommendations - B12 and Folate levels ordered - both levels are low at 130 and 3.42 respectively - see treatment below - Discussed recommendations with patient who continued to be somewhat suspicious of the need for a blood thinner, but was ultimately agreeable with Xarelto - Will need to monitor patient's willingness while in the hospital, as hospitalist recommendations suggest concern associated with inconsistent dosing of Xarelto and a hypercoagulable state. Pt was able to at least acknowledge that she is not interested in Warfarin or Lovenox due to her aversion to needles and limited willingness for routine monitoring. Pt did seem to understanding the importance of consistent use of Xarelto during conversation. (3) Hypokalemia: 12/28 -potassium was 2.7 on presentation, likely due to poor oral intake for several days prior to admission. Repleted in the ER and improved slightly. Continue to monitor and encourage good nutrition. (4) Abnormal urinalysis: 12/28 - UA on admission notable for 3+ blood, 1+ leukocyte esterase, > 30 WBCs, 5-10 RBCs, > 30 epithelial cells, and 1+ bacteria. Asymptomatic, likely contaminated sample, antibiotics not currently indicated, but will follow up on culture results when available. 12/29 - Preliminary culture resulting in pin-point growth, re-incubating (5) Vitamin B12 deficiency: 12/29 - Vitamin B12 is deficient at 130 (nml 211-911) - Ensuring adequate level may offer benefit for treatment of patient's MTHFR mutation - Vegetarian diet is likely also contributing to this deficiency - Will offer patient Vitamine B12 at 500mcg daily - at this time patient is agreeable - This level should continue to be monitored on an outpatient basis (6) Folate deficiency: 12/29 - Folic acid level is deficient at 3.42 (nml >5.38) - Again, deficiency may also be related to dietary choices - Will supplement with Folic acid 1mg daily - at this time patient is agreeable - This too should be monitored on an outpatient basis Risk Factors Assessment Male: No : Yes Do You Have Access To A Gun?: No Mental Health Diagnoses: Yes Substance Use Disorders: No Previous Attempt: No Previous Psychiatric Hospitalization: Yes Hopelessness: No Smoker: Yes Protective Factors Assessment Sabianist Beliefs: No : No Responsible for Young Children: No Employed: No (Pt is on disability due to MH DX) Supportive Family: Yes Interval History Identifying Information ROSMERY TALBERT is a 39-year-old F who currently lives in [place], [place] with her boyfriend, has a history of paranoid schizophrenia, and was admitted on 12/28/2019 on a 302 involuntary commitment for psychosis, inability to care for self, and non-compliance with psychiatric medications. Chief Complaint "I'm still not quite yet awake." Review of Systems Notes Constitutional: reports increased fatigue Cardiovascular: denied Respiratory: denied Gastrointestinal: denied Neurological: denied Psychiatric: denies symptoms other than stated above Total of at least 10 systems reviewed, pertinent positives as above and in HPI. Sleep Information Total Hours of Sleep: 6.5 Sleep Comments: pt on q-15 minute checks Meal Information Percent Meal Consumed - Breakfast: 100 Percent Meal Consumed - Lunch: 90 Percent Meal Consumed - Dinner: 80 Subjective Subjective Patient was seen & assessed and interval progress reviewed with nursing and social work. Staff report the patient did not attend any group programming yesterday. She was reportedly rather isolative and slept most of the day. Pt implies she would like a meeting with her boyfriend to request that he move out, but states to staff she is not willing to do this before speaking with her brother who is an district attorney first. Pt was seen today to assess progress since admission. She states that she is still not yet awake, despite being seen after lunchtime. She continues to report confusion related to medication recommendations, stating she is not sure why her medications are increasing. She continues to appear confused even after this provider explained that our first step is simply to increase the clozapine to her home dose - which even she claims was "perfect just as it was." Pt remains suspicious of medication conversations, but is ultimately agreeable to increasing the clozapine back to 100mg BID. This provider attempted to discuss her family meeting with her mother, which the patient described as "great." This provider asked if her mother had provided any indication of the concerns leading to the patient's admission (this PA-C knowing that she had), to which the patient stated "I don't think so." Specifically patient was lead by questions to discuss her occasional belief that her father is not truly her father. Rather than commenting on this directly, the patient states "you know when people get in trouble so they change their names? 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 She states "this is just so unfair. Why can't everyone just do the right things. I'm the one that called the police because my boyfriend wouldn't leave, and now I'm the one in the hospital. It's just not fair." Pt denied other questions at this time and was reassured we are working with her toward a timely, but safe, discharge. She denied other needs and was offered to participate in the group activity occurring at that time, which she did. Physical Exam Psychiatric Orientation: alert, oriented to person, oriented to place and + guarded (remains suspicious and only superficially cooperative ) Apperance: appropriately dressed (casually, in a hoodie and sweat pants), appropriately groomed and appeared stated age Eye Contact: + fair eye contact Motor Behavior: no abnormal motor movements (observed while sitting crosslegged on her bed) Speech: normal rate/rhythm/volume of speech Affect: + blunted affect and + constricted affect Mood: no depressed mood ("I'm always happy, except when I'm sad") Thought Process: goal directed thought process and + concrete thought process Thought Content: + paranoid and + delusions Suicidal Thoughts: denies suicidal thoughts and denies suicidal intent Homicidal Thoughts: denies homicidal thoughts Hallucinations: no auditory hallucinations and no visual hallucinations Cognition: attention grossly intact and language grossly intact; + recent memory not intact Insight: + impaired insight Judgement: + impaired judgement Vital Signs (Past 24 Hours) Last Vital Signs Temp 36.7 C 12/31/19 06:45 Pulse 134 H 12/31/19 06:46 Resp 18 12/31/19 06:45 BP 118/81 12/31/19 06:46 Pulse Ox 99 12/28/19 13:56 Results & Data ([facility]) Current Inpatient Medications Current Inpatient Medications: Current Inpatient Medications Acetaminophen (Tylenol) 650 mg PO Q4H PRN PRN Reason: Headache or Minor Fever Stop: 01/27/20 12:57 Al Hydrox/Mg Hydrox/Simethicone (Maalox) 30 ml PO Q4H PRN PRN Reason: GI Upset Stop: 01/27/20 12:57 Bismuth Subsalicylate (Kaopectate) 15 ml PO PRN PRN PRN Reason: Loose Stool Stop: 01/27/20 12:57 Clozapine (Clozaril) 75 mg PO BID SIMONA Stop: 01/29/20 20:59 Last Admin: 12/30/19 20:45 Dose: 75 mg Documented by: Cyanocobalamin (Vitamin B-12) 500 mcg PO QAM SIMONA Stop: 01/29/20 10:29 Last Admin: 12/30/19 10:55 Dose: 500 mcg Documented by: Folic Acid (Folvite) 1 mg PO QAM SIMONA Stop: 01/29/20 10:29 Last Admin: 12/30/19 10:55 Dose: 1 mg Documented by: Haloperidol (Haldol) 5 mg PO Q4H PRN PRN Reason: psychosis Stop: 01/27/20 17:46 Hydroxyzine HCl (Vistaril) 50 mg PO HSZ PRN PRN Reason: Insomnia Stop: 01/27/20 12:57 Hydroxyzine HCl (Vistaril) 25 mg PO Q4H PRN PRN Reason: Anxiety Stop: 01/27/20 12:57 Magnesium Hydroxide (Milk Of Magnesia) 30 ml PO DAILY PRN PRN Reason: Constipation Stop: 01/27/20 12:57 Rivaroxaban (Xarelto) 20 mg PO DAILY SIMONA Stop: 01/29/20 10:29 Last Admin: 12/30/19 10:55 Dose: 20 mg Documented by: Sodium Chloride ([place] Nasal) 1 - 2 sprays NA PRN PRN PRN Reason: Nasal Dryness/Congestion Stop: 01/27/20 12:57 Trazodone HCl (Desyrel) 150 mg PO HS PRN PRN Reason: insomnia Stop: 01/27/20 21:59 Zolpidem Tartrate (Ambien) 10 mg PO HS PRN PRN Reason: insomnia Stop: 01/27/20 21:59 Mental Health & Subst Abuse Tx Psychiatrist Name of Psychiatrist: [facility] - Dr. Williamson Psychiat[facility]ment [facility] [id number] [place] [address] Therapist Name of Therapist: None Associate Professor Of Physics Name of Associate Professor Of Physics: Previously had [facility] Discharge Appointments Primary Care Physician Name Of Family Doctor: KENAN - Dr. Mcdowell Primary Care Provider Appointment Comment: [address], [place] Contact Information Discharge Discharge Address: [facility] [address] [place] [id number]
[2019-12-31] MEDS: RIVAROXABAN 20 MG TAB PO SCH (10:25)
[2019-12-31] MEDS: cloZAPine 25 MG TAB PO SCH (10:26)
[2019-12-31] MEDS: CYANOCOBALAMIN 500 MCG TABLET (VITAMIN B-12) PO SCH (10:26)
[2019-12-31] MEDS: FOLIC ACID 1 MG TAB PO SCH (10:30)
[2019-12-31] MEDS: cloZAPine 100 MG TAB PO SCH (21:38)
--- NOTE | 2020-01-01 09:37 | Psychiatric Progress Note ---
Date of Service January 01, 2020 Impression / Recommendations Impression 39-year-old female admitted involuntarily for inpatient psychiatric treatment on 12/28/2019 after being brought to the ED by police due to worsening psychosis and inability to care for herself. She had stopped all of her psychiatric medications, had increased delusions, paranoia, and disorganization, was not eating or sleeping, with increasingly erratic behavior, walking her boyfriend whom she lives with out of the house, telling police she was Alana Hernandez, and referring to herself as "the ruler of the world" in the ER. She had laboratory evidence of poor p.o. intake (potassium 2.7). She does not feel she needs medications or hospitalization, although did take clozapine as ordered last evening. She reports stopping her medication several days ago, but family believes it has been longer. She is refusing to sign releases for family, boyfriend, or outpatient psychiatrist. She recently fired her vocational case manager, and does not have a therapist. 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 Evaluated by hospitalist yesterday, who suggested resuming anticoagulant and supplementation for B12 and folate deficiencies. She was on numerous psychotropic medications, but for now we have resumed the antipsychotic as it is the most important to target her current symptoms - planning to re-titrate clozapine to her home dose. She will have a 303 hearing on Thursday. She remains gravely disabled and unable to provide for her own basic needs without the care and assistance of others, and inpatient treatment is the least restrictive and appropriate venue available for treatment to occur. (1) Paranoid schizophrenia: 12/27 - Admitted to a locked inpatient behavioral health unit, on q15 minute safety checks - Recommending that patient resume medications to target her paranoia and delusions. Will attempt to gather collateral information from family and will request a current medication list from her outpatient psychiatrist. - In the interim, we will re-titrate clozapine beginning at 25mg BID. Re- titrate to home dose of 100mg BID. Will order prn doses of zolpidem and trazodone for sleep. Haloperidol will be available as needed for psychosis. - Encourage participation in group and recreational therapies - Gather collateral information from outpatient providers - Suggest family meeting to involve outpatient supports in safety planning - Arrange appropriate aftercare - re-establish case management services 12/28 -Continue clozapine titration, increasing to 50 mg twice daily. -FLP and fasting glucose reviewed today and within normal limits. -Patient has refused to sign releases for her parents, boyfriend, or outpatient psychiatrist. She indicates willingness to have a family meeting with her boyfriend. -File for a 303 involuntary commitment, and consider need for a 304 IOC, as she would benefit from case management and therapy, but has been noncompliant with all aspects of treatment, leading to her decompensation. 12/29 - Continue clozapine titration - will increase to 75mg BID; CBC w/diff ordered fro 01/03. - 303 hearing scheduled for 01/01. - Pt remains somewhat paranoid and suspicious, but admits to perceived improvement in clarity of thought after her evening dose last night. 12/30 - Clozapine titrated back to recorded home dose of 100mg BID, to begin with this evening's dose - 303 hearing on 01/01 - Pt participated in a family meeting with her mother today, she continues to appears suspicious and paranoid and remains unable to articulate events that contributed to her decompensation and subsequent admission. 12/31 - Continue current medication regimen - pt back to home dose of clozapine at 100mg BID - 303 hearing scheduled for tomorrow morning - Discharge plans remain uncertain at this time; it is unclear if she will be able to stay with parents. She has an apartment, but would benefit from assistance from family. (2) MTHFR mutation: 12/27 - Historical diagnosis of MTHFR mutation. Pt historically had been on Xa relto for chronic anticoagulation - It appears patient has not been taking the medication recently, as no record of the medication on external medication history - Will gather collateral information from family/outpatient providers regarding recommendations 12/28 -No outpatient records available from PCP in EMR to determine current medications/recommendations. Nursing staff contacted PCPs office to clarify whether she is supposed to be on an anticoagulant currently. She has reportedly been nonadherent with treatment, and PCP recommended inpatient medical consultation which will be requested today. -She will need a follow-up appointment after discharge. 12/29 - Appreciate hospitalist consult and recommendations - B12 and Folate levels ordered - both levels are low at 130 and 3.42 respe ctively - see treatment below - Discussed recommendations with patient who continued to be somewhat suspicious of the need for a blood thinner, but was ultimately agreeable with Xarelto - Will need to monitor patient's willingness while in the hospital, as hospitalist recommendations suggest concern associated with inconsistent dosing of Xarelto and a hypercoagulable state. Pt was able to at least acknowledge that she is not interested in Warfarin or Lovenox due to her aversion to needles and limited willingness for routine monitoring. Pt did seem to understanding the importance of consistent use of Xarelto during conversation. 12/31 - Pt has been compliant with prescribed dosing of Xarelto (3) Hypokalemia: 12/28 -potassium was 2.7 on presentation, likely due to poor oral intake for several days prior to admission. Repleted in the ER and improved slightly. Continue to monitor and encourage good nutrition. (4) Abnormal urinalysis: 12/28 - UA on admission notable for 3+ blood, 1+ leukocyte esterase, > 30 WBCs, 5-10 RBCs, > 30 epithelial cells, and 1+ bacteria. Asymptomatic, likely contaminated sample, antibiotics not currently indicated, but will follow up on culture results when available. 12/29 - Preliminary culture resulting in pin-point growth, re-incubating (5) Vitamin B12 deficiency: 12/29 - Vitamin B12 is deficient at 130 (nml 211-911) - Ensuring adequate level may offer benefit for treatment of patient's MTHFR mutation - Vegetarian diet is likely also contributing to this deficiency - Will offer patient Vitamine B12 at 500mcg daily - at this time patient is agreeable - This level should continue to be monitored on an outpatient basis (6) Folate deficiency: 12/29 - Folate level is deficient at 3.42 (nml >5.38) - Again, deficiency may also be related to dietary choices - Will supplement with Folic acid 1mg daily - at this time patient is agreeable - This too should be monitored on an outpatient basis 12/31 - Pt has been refusing folic acid with morning medications - unable to provide explanation as to why this is the case other than "I feel fine" - Education was again provided to the patient on the recommendation for Folic acid. She verbalized understanding, but did not convincingly state she would take the medication moving forward - Continue to offer education and encouragement Risk Factors Assessment Male: No : Yes Do You Have Access To A Gun?: No Mental Health Diagnoses: Yes Substance Use Disorders: No Previous Attempt: No Previous Psychiatric Hospitalization: Yes Hopelessness: No Smoker: Yes Protective Factors Assessment Scientologist Beliefs: No : No Responsible for Young Children: No Employed: No (Pt is on disability due to MH DX) Supportive Family: Yes Interval History Identifying Information ROSMERY TALBERT is a 39-year-old F who currently lives in [place], [place] with her boyfriend, has a history of paranoid schizophrenia, and was admitted on 12/28/2019 on a 302 involuntary commitment for psychosis, inability to care for self, and non-compliance with psychiatric medications. Chief Complaint "In two days I'm gonna be shopping with my sister, shopping in [place]." Review of Systems Notes Constitutional: reports mild fatigue today Cardiovascular: denied Respiratory: denied Gastrointestinal: denied Neurological: denied Psychiatric: denies symptoms other than stated above Total of at least 10 systems reviewed, pertinent positives as above and in HPI. Sleep Information Total Hours of Sleep: 7.75 Sleep Comments: pt on q-15 minute checks Meal Information Percent Meal Consumed - Breakfast: 25 Percent Meal Consumed - Lunch: 100 Percent Meal Consumed - Dinner: 50 Subjective Subjective Patient was seen & assessed and interval progress reviewed with nursing and social work. Staff report the patient participated in a meeting with her mom yesterday, but there were conflicting opinions on how the meeting went. Pt felt the meeting went very well, but mother reported significant concerns that the patient was unable to address. Pt was out of her room yesterday afternoon and reportedly appeared more alert. Pt has a 303 hearing tomorrow. Pt was seen today to assess progress since admission. Pt is still under the impression that she will be discharged in time to attend her outpatient psychiatric appointment on Thursday, stating "in two days I'm gonna be shopping with my sister, shopping in [place]." Pt continues to be preoccupied with the idea of discharge. She states "I'm taking my medications, my mood is feeling more stable, I just want to go home." Pt reports feeling comfortable with continuing clozapine at her home dose of 100mg BID. We discussed her other scheduled medications: Xarelto, folic acid, and vitamin B12. Pt continues to refuse the folic acid, but does not provide explanation as to why this is the case. The only reason she provides is "I feel fine." Education was again provided regarding the reasons for these medications being added. Pt does request that her diet is switched to vegan as opposed to vegetarian. Pt denies SI/HI, but continues to be unable to recognize the reasons leading to her admission or any ways that her situation has improved over the course of her admission. Pt denies other needs or concerns today. Physical Exam Psychiatric Orientation: alert, oriented to person, oriented to place and + guarded (superficially cooperative ) Apperance: appropriately dressed (casually, wearing same hoodie and sweatpants since admission) and appropriately groomed Eye Contact: + fair eye contact Motor Behavior: no abnormal motor movements (observed while laying on bed) Speech: normal rate/rhythm/volume of speech Affect: + blunted affect Mood: + depressed mood (related to being in the hospital longer than she anticipated) Thought Process: + concrete thought process; + thought process not linear or logical Thought Content: + paranoid (remains suspicious) and + delusions Suicidal Thoughts: denies suicidal thoughts Homicidal Thoughts: denies homicidal thoughts Hallucinations: no auditory hallucinations and no visual hallucinations Cognition: attention grossly intact and language grossly intact Insight: + impaired insight Judgement: + impaired judgement Vital Signs (Past 24 Hours) Last Vital Signs Temp 36.9 C 01/01/20 06:50 Pulse 112 H 01/01/20 06:51 Resp 18 01/01/20 06:50 BP 93/66 L 01/01/20 06:51 Pulse Ox 99 12/28/19 13:56 Results & Data ([facility]) Current Inpatient Medications Current Inpatient Medications: Current Inpatient Medications Acetaminophen (Tylenol) 650 mg PO Q4H PRN PRN Reason: Headache or Minor Fever Stop: 01/27/20 12:57 Al Hydrox/Mg Hydrox/Simethicone (Maalox) 30 ml PO Q4H PRN PRN Reason: GI Upset Stop: 01/27/20 12:57 Bismuth Subsalicylate (Kaopectate) 15 ml PO PRN PRN PRN Reason: Loose Stool Stop: 01/27/20 12:57 Clozapine (Clozapine) 100 mg PO BID SIMONA Stop: 01/30/20 20:59 Last Admin: 12/31/19 21:38 Dose: 100 mg Documented by: Cyanocobalamin (Vitamin B-12) 500 mcg PO QAM SIMONA Stop: 01/29/20 10:29 Last Admin: 12/31/19 10:26 Dose: 500 mcg Documented by: Folic Acid (Folvite) 1 mg PO QAM SIMONA Stop: 01/29/20 10:29 Last Admin: 12/31/19 10:30 Dose: Not Given Documented by: Haloperidol (Haldol) 5 mg PO Q4H PRN PRN Reason: psychosis Stop: 01/27/20 17:46 Hydroxyzine HCl (Vistaril) 50 mg PO HSZ PRN PRN Reason: Insomnia Stop: 01/27/20 12:57 Hydroxyzine HCl (Vistaril) 25 mg PO Q4H PRN PRN Reason: Anxiety Stop: 01/27/20 12:57 Magnesium Hydroxide (Milk Of Magnesia) 30 ml PO DAILY PRN PRN Reason: Constipation Stop: 01/27/20 12:57 Rivaroxaban (Xarelto) 20 mg PO DAILY SIMONA Stop: 01/29/20 10:29 Last Admin: 12/31/19 10:25 Dose: 20 mg Documented by: Sodium Chloride ([place] Nasal) 1 - 2 sprays NA PRN PRN PRN Reason: Nasal Dryness/Congestion Stop: 01/27/20 12:57 Trazodone HCl (Desyrel) 150 mg PO HS PRN PRN Reason: insomnia Stop: 01/27/20 21:59 Zolpidem Tartrate (Ambien) 10 mg PO HS PRN PRN Reason: insomnia Stop: 01/27/20 21:59 Mental Health & Subst Abuse Tx Psychiatrist Name of Psychiatrist: [facility] - Dr. Williamson Psychiatrist's Psychiatric Appointment Comment: [id number], [place] [address] Therapist Name of Therapist: None Hot Stick Worker Name of Hot Stick Worker: Previously had [facility] Discharge Appointments Primary Care Physician Name Of Family Doctor: [facility] - Dr. Mcdowell Primary Care Provider Appointment Comment: [facility], [place] Contact Information Discharge Discharge Address: [facility] [address] [place] [id number]
[2020-01-01] MEDS: cloZAPine 100 MG TAB PO SCH ×2 (09:44→21:07)
[2020-01-01] MEDS: RIVAROXABAN 20 MG TAB PO SCH (09:44)
[2020-01-01] MEDS: CYANOCOBALAMIN 500 MCG TABLET (VITAMIN B-12) PO SCH (09:44)
[2020-01-01] MEDS: FOLIC ACID 1 MG TAB PO SCH (09:47)
[2020-01-01] MEDS ORDERED: NICOTINE POLACRILEX 2 MG GUM MT PRN (16:35)
--- NOTE | 2020-01-02 08:21 | Psychiatric Progress Note ---
Date of Service January 02, 2020 Impression / Recommendations Impression 39-year-old female admitted involuntarily for inpatient psychiatric treatment on 12/28/2019 after being brought to the ED by police due to worsening psychosis and inability to care for herself. She had stopped all of her psychiatric and medical medications, had increased delusions, paranoia, and disorganization, was not eating or sleeping, with increasingly erratic behavior, locking her boyfriend whom she lives with out of the house, telling police she was Alana Hernandez, and referring to herself as "the ruler of the world" in the ER. She had not been sleeping for several days, and had laboratory evidence of poor p.o. intake (potassium 2.7). She does not feel she needs medications or hospitalization, although she has been taking clozapine as ordered. She reports stopping her medication several days prior to admission, but family believes it has been longer. 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 Evaluated by hospitalist who recommended resuming anticoagulant and supplementation for B12 and folate deficiencies. She was on numerous psychotropic medications, but for now we have resumed the antipsychotic as it is the most important to target her current symptoms. She had a meeting with her mother who reported worsening delusions, and is on a 303 as of today. She remains gravely disabled and unable to provide for her own basic needs without the care and assistance of others, and inpatient treatment is the least restrictive and appropriate venue for treatment to occur. (1) Paranoid schizophrenia: 12/27 - Admitted to a locked inpatient behavioral health unit, on q15 minute safety checks - Recommending that patient resume medications to target her paranoia and delusions. Will attempt to gather collateral information from family and will request a current medication list from her outpatient psychiatrist. - In the interim, we will re-titrate clozapine beginning at 25mg BID. Re- titrate to home dose of 100mg BID. Will order prn doses of zolpidem and trazodone for sleep. Haloperidol will be available as needed for psychosis. - Encourage participation in group and recreational therapies - Gather collateral information from outpatient providers - Suggest family meeting to involve outpatient supports in safety planning - Arrange appropriate aftercare - re-establish case management services 12/28 -Continue clozapine titration, increasing to 50 mg twice daily. -FLP and fasting glucose reviewed today and within normal limits. -Patient has refused to sign releases for her parents, boyfriend, or outpatient psychiatrist. She indicates willingness to have a family meeting with her boyfriend. -File for a 303 involuntary commitment, and consider need for a 304 IOC, as she would benefit from case management and therapy, but has been noncompliant with all aspects of treatment, leading to her decompensation. 12/29 - Continue clozapine titration - will increase to 75mg BID; CBC w/diff ordered fro 01/03. - 303 hearing scheduled for 01/01. - Pt remains somewhat paranoid and suspicious, but admits to perceived improvement in clarity of thought after her evening dose last night. 12/30 - Clozapine titrated back to recorded home dose of 100mg BID, to begin with this evening's dose - 303 hearing on 01/01 - Pt participated in a family meeting with her mother today, she continues to appears suspicious and paranoid and remains unable to articulate events that contributed to her decompensation and subsequent admission. 12/31 - Continue current medication regimen - pt back to home dose of clozapine at 100mg BID - 303 hearing scheduled for tomorrow morning - Discharge plans remain uncertain at this time; it is unclear if she will be able to stay with parents. She has an apartment, but would benefit from ass istance from family. 01/01 - 303 hearing held and granted. - Continue clozapine and zolpidem. - Discharge plans remain unclear, patient vacillates in her stated plans (to stay w/ parents, return home w/ BF, or return home but live alone - although has not addressed issues w/ boyfriend directly. - Re-refer for BCM through [facility], where she previously had services. Recommend OP therapy, which she is declining. Consider 304 IOC due to severity of illness and lack of insight. (2) MTHFR mutation: 12/27 - Historical diagnosis of MTHFR mutation. Pt historically had been on Xarelto for chronic anticoagulation - It appears patient has not been taking the medication recently, as no record of the medication on external medication history - Will gather collateral information from family/outpatient providers regarding recommendations 12/28 -No outpatient records available from PCP in EMR to determine current medications/recommendations. Nursing staff contacted PCPs office to clarify whether she is supposed to be on an anticoagulant currently. She has reportedly been nonadherent with treatment, and PCP recommended inpatient medical consultation which will be requested today. -She will need a follow-up appointment after discharge. 12/29 - Appreciate hospitalist consult and recommendations - B12 and Folate levels ordered - both levels are low at 130 and 3.42 respectively - see treatment below - Discussed recommendations with patient who continued to be somewhat suspicious of the need for a blood thinner, but was ultimately agreeable with Xarelto - Will need to monitor patient's willingness while in the hospital, as hospitalist recommendations suggest concern associated with inconsistent dosing of Xarelto and a hypercoagulable state. Pt was able to at least acknowledge that she is not interested in Warfarin or Lovenox due to her aversion to needles and limited willingness for routine monitoring. Pt did seem to understanding the importance of consistent use of Xarelto during conversation. 12/31 - Pt has been compliant with prescribed dosing of Xarelto (3) Hypokalemia: 12/28 -potassium was 2.7 on presentation, likely due to poor oral intake for several days prior to admission. Repleted in the ER and improved slightly. Continue to monitor and encourage good nutrition. (4) Abnormal urinalysis: 12/28 - UA on admission notable for 3+ blood, 1+ leukocyte esterase, > 30 WBCs, 5-10 RBCs, > 30 epithelial cells, and 1+ bacteria. Asymptomatic, likely contaminated sample, antibiotics not currently indicated, but will follow up on culture results when available. 12/29 - Preliminary culture resulting in pin-point growth, re-incubating 01/01 - lactobacillus per culture, asymptomatic, no treatment indicated. (5) Vitamin B12 deficiency: 12/29 - Vitamin B12 is deficient at 130 (nml 211-911) - Ensuring adequate level may offer benefit for treatment of patient's MTHFR mutation - Vegetarian diet is likely also contributing to this deficiency - Will offer patient Vitamine B12 at 500mcg daily - at this time patient is agreeable - This level should continue to be monitored on an outpatient basis (6) Folate deficiency: 12/29 - Folate level is deficient at 3.42 (nml >5.38) - Again, deficiency may also be related to dietary choices - Will supplement with Folic acid 1mg daily - at this time patient is agreeable - This too should be monitored on an outpatient basis 12/31 - Pt has been refusing folic acid with morning medications - unable to provide explanation as to why this is the case other than "I feel fine" - Education was again provided to the patient on the recommendation for Folic acid. She verbalized understanding, but did not convincingly state she would take the medication moving forward - Continue to offer education and encouragement Risk Factors Assessment Male: No : Yes Do You Have Access To A Gun?: No Mental Health Diagnoses: Yes Substance Use Disorders: No Previous Attempt: No Previous Psychiatric Hospitalization: Yes Hopelessness: No Smoker: Yes Protective Factors Assessment Latter-Day Beliefs: No : No Responsible for Young Children: No Employed: No (Pt is on disability due to MH DX) Supportive Family: Yes Interval History Identifying Information ROSMERY TALBERT is a 39-year-old F who currently lives in [place], [place] with her boyfriend, has a history of paranoid schizophrenia, and was admitted on 12/28/2019 on a 302 involuntary commitment for psychosis, treatment noncompliance, inability to care for self, in the context of going off her medications. She is on a 303 as of 01/02/2020. Chief Complaint "I wasn't aware of this hearing, no one told me". Review of Systems Sleep Information Total Hours of Sleep: 7.5 Sleep Comments: pt on q-15 minute checks Meal Information Percent Meal Consumed - Breakfast: 10 Percent Meal Consumed - Lunch: 40 Percent Meal Consumed - Dinner: 90 Subjective Subjective Patient was seen & assessed and interval progress reviewed with treatment team. Staff report she refused lab work this morning (BMP ordered to recheck electrolytes), met with the public health social worker and participated in a phone call to the [facility] to establish case management services (awaiting callback from them to complete referral), and called her legal support manager in reference to her 303 hearing. She complained to staff that no one had told her about the need to call her legal support manager, although that information had been provided to her previously, and stated she did not want to have a hearing and refused to meet with me, stating she did not want to see the doctor. She ultimately did participate in the interview, was focused on her hearing and stating no one had told her about it. Reminded her of our conversation about it last week, and that staff also discussed it with her on multiple occasions since then, and gave her contact information for her legal support manager. She repeatedly states no one here has talked to her about "anything," that she doesn't know why she is here, doesn't have a mental illness and doesn't need treatment (although all of these issues have been discussed on a daily basis by multiple staff and clinicians). When asked about her understanding of the treatment recommendations, she states "I feel fi ne." "I understand when a parent is worried about their child, and have them come to a hospital." "I called the po-pos myself to get him off my property." She says no one has talked to her about her desire to have her boyfriend move out, and reminded her we discussed this extensively during her initial evaluation. Asked about progress on this, and states she is just going to return to her apartment where boyfriend is still living, and the situation has not been addressed at all. Asked about concerns her mother expressed during their meeting, including paranoia/delusions that her father is not really her father, and that she is the ruler of the universe, which she has had when acutely psychotic in the past. She denies that she ever made statements about being the ruler of the universe, and says people told her she was adopted and she isn't sure what is true. She says she hasn't had a case making machine operator for a year, but the [facility] reports she just recently dropped out of treatment within the past couple of months. Patient states she doesn't need a therapist, and really does not need any treatment at all. Asked about her noncompliance with anticoagulant medication, and she states she doesn't know what the medication is for, stating "they said I had sticky blood, I don't know what that is." Reviewed her diagnosis and h/o at least 3 episodes of VTE, which she acknowledges. Says she doesn't take her meds sometimes, "just if I need them to sleep." She continues to state she doesn't need or want treatment and wants to leave, would probably return home to her apartment. She attended her 303 hearing and requested that her mother be involved as well (by conference call). She stated she doesn't know why she's in the hospital, doesn't understand why the police brought her to the hospital. Brought a stack of papers and said she had "a lot of questions, but that probably isn't appropriate for the hearing." She repeatedly stated no one has told her why she's here, and that she is not ill so does not need to be here. Physical Exam Psychiatric Orientation: alert; + uncooperative Thin female, casually dressed, wearing a hooded sweatshirt with the del angel up. Eye Contact: + poor eye contact Filling out her menu throughout the assessment, ignores me at times. Motor Behavior: no abnormal motor movements minimal, irritated tone Affect: + irritable affect and + constricted affect; + mood not congruent with affect "Fine" Thought Process: + tangential thought process; + thought association not intact Thought Content: + paranoid, + delusions and + persecution; + delusional Suicidal Thoughts: denies suicidal thoughts Homicidal Thoughts: denies homicidal thoughts Hallucinations: no auditory hallucinations Cognition: + recent memory not intact (does not recall multiple conversations with staff since admission) and + attention not intact Insight: + impaired insight Judgement: + impaired judgement Vital Signs (Past 24 Hours) Last Vital Signs Temp 36.7 C 01/02/20 06:43 Pulse 114 H 01/02/20 06:43 Resp 18 01/02/20 06:43 BP 104/69 01/02/20 06:43 Pulse Ox 99 12/28/19 13:56 Results & Data (U) Current Inpatient Medications Current Inpatient Medications: Current Inpatient Medications Acetaminophen (Tylenol) 650 mg PO Q4H PRN PRN Reason: Headache or Minor Fever Stop: 01/27/20 12:57 Al Hydrox/Mg Hydrox/Simethicone (Maalox) 30 ml PO Q4H PRN PRN Reason: GI Upset Stop: 01/27/20 12:57 Bismuth Subsalicylate (Kaopectate) 15 ml PO PRN PRN PRN Reason: Loose Stool Stop: 01/27/20 12:57 Clozapine (Clozapine) 100 mg PO BID SIMONA Stop: 01/30/20 20:59 Last Admin: 01/01/20 21:07 Dose: 100 mg Documented by: Cyanocobalamin (Vitamin B-12) 500 mcg PO QAM SIMONA Stop: 01/29/20 10:29 Last Admin: 01/01/20 09:44 Dose: 500 mcg Documented by: Folic Acid (Folvite) 1 mg PO QAM SIMONA Stop: 01/29/20 10:29 Last Admin: 01/01/20 09:47 Dose: Not Given Documented by: Haloperidol (Haldol) 5 mg PO Q4H PRN PRN Reason: psychosis Stop: 01/27/20 17:46 Hydroxyzine HCl (Vistaril) 50 mg PO HSZ PRN PRN Reason: Insomnia Stop: 01/27/20 12:57 Hydroxyzine HCl (Vistaril) 25 mg PO Q4H PRN PRN Reason: Anxiety Stop: 01/27/20 12:57 Magnesium Hydroxide (Milk Of Magnesia) 30 ml PO DAILY PRN PRN Reason: Constipation Stop: 01/27/20 12:57 Nicotine Polacrilex (Nicorette 2mg) 1 piece MT PRN PRN PRN Reason: nicotine cravings Stop: 01/31/20 16:34 Rivaroxaban (Xarelto) 20 mg PO DAILY SIMONA Stop: 01/29/20 10:29 Last Admin: 01/01/20 09:44 Dose: 20 mg Documented by: Sodium Chloride ([place] Nasal) 1 - 2 sprays NA PRN PRN PRN Reason: Nasal Dryness/Congestion Stop: 01/27/20 12:57 Trazodone HCl (Desyrel) 150 mg PO HS PRN PRN Reason: insomnia Stop: 01/27/20 21:59 Zolpidem Tartrate (Ambien) 10 mg PO HS PRN PRN Reason: insomnia Stop: 01/27/20 21:59 Mental Health & Subst Abuse Tx Psychiatrist Name of Psychiatrist: [facility] - Dr. Williamson Psychiatrist's Psychiatric Appointment Comment: [phone], [place] [address] Therapist Name of Therapist: None Nursing Services Manager Name of Nursing Services Manager: Previously worked with Ciel[facility] at [facility] Post Discharge Appointments Primary Care Physician Name Of Family Doctor: [facility] - Dr. Mcdowell Primary Care Provider Appointment Comment: [phone], [place] Contact Information Discharge Discharge Address: [facility] [address] [place] [phone]
[2020-01-02] MEDS: CYANOCOBALAMIN 500 MCG TABLET (VITAMIN B-12) PO SCH (08:22)
[2020-01-02] MEDS: FOLIC ACID 1 MG TAB PO SCH (08:22)
[2020-01-02] MEDS: RIVAROXABAN 20 MG TAB PO SCH (08:22)
[2020-01-02] MEDS: cloZAPine 100 MG TAB PO SCH ×2 (08:22→21:07)
[2020-01-03 07:50] LABS: BUN Creatinine Ratio 7.8 (10-20); Calcium 8.7 mg/dl (8.5-10.1); Creatinine Clr Calc Pharmacy 85.7 ml/min; Est GFR (African American) 119.4
[2020-01-03] MEDS: RIVAROXABAN 20 MG TAB PO SCH (08:44)
[2020-01-03] MEDS: FOLIC ACID 1 MG TAB PO SCH ×2 (08:44→08:47)
[2020-01-03] MEDS: cloZAPine 100 MG TAB PO SCH ×2 (08:44→20:58)
[2020-01-03] MEDS: CYANOCOBALAMIN 500 MCG TABLET (VITAMIN B-12) PO SCH (08:44)
--- NOTE | 2020-01-03 09:05 | Psychiatric Progress Note ---
Date of Service January 03, 2020 Impression / Recommendations Impression 39-year-old female admitted involuntarily for inpatient psychiatric treatment on 12/28/2019 after being brought to the ED by police due to worsening psychosis and inability to care for herself. She had stopped all of her psychiatric and medical medications, had increased delusions, paranoia, and disorganization, was not eating or sleeping, with increasingly erratic behavior, locking her boyfriend whom she lives with out of the house, telling police she was Alana Hernandez, and referring to herself as "the ruler of the world" in the ER. She had not been sleeping for several days, and had laboratory evidence of poor p.o. intake (potassium 2.7). She does not feel she needs medications or hospitalization, although she has been taking clozapine as ordered. She reports stopping her medication several days prior to admission, but family believes it has been longer. She recently fired her case management director, and does not have a therapist. 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 Evaluated by hospitalist who recommended resuming anticoagulant and supplementation for B12 and folate deficiencies. She was on numerous psychotropic medications, but for now we have resumed the antipsychotic as it is the most important to target her current symptoms. She had a meeting with her mother who reported worsening delusions, and is on a 303 as of 01/01. It is anticipated that a 304 IOC will be pursued. She remains gravely disabled and unable to provide for her own basic needs without the care and assistance of others, and inpatient treatment is the least restrictive and appropriate venue for treatment to occur. (1) Paranoid schizophrenia: 12/27 - Admitted to a locked inpatient behavioral health unit, on q15 minute safety checks - Recommending that patient resume medications to target her paranoia and delusions. Will attempt to gather collateral information from family and will request a current medication list from her outpatient psychiatrist. - In the interim, we will re-titrate clozapine beginning at 25mg BID. Re- titrate to home dose of 100mg BID. Will order prn doses of zolpidem and trazodone for sleep. Haloperidol will be available as needed for psychosis. - Encourage participation in group and recreational therapies - Gather collateral information from outpatient providers - Suggest family meeting to involve outpatient supports in safety planning - Arrange appropriate aftercare - re-establish case management services 12/28 -Continue clozapine titration, increasing to 50 mg twice daily. -FLP and fasting glucose reviewed today and within normal limits. -Patient has refused to sign releases for her parents, boyfriend, or outpatient psychiatrist. She indicates willingness to have a family meeting with her boyfriend. -File for a 303 involuntary commitment, and consider need for a 304 IOC, as she would benefit from case management and therapy, but has been noncompliant with all aspects of treatment, leading to her decompensation. 12/29 - Continue clozapine titration - will increase to 75mg BID; CBC w/diff ordered fro 01/03. - 303 hearing scheduled for 01/01. - Pt remains somewhat paranoid and suspicious, but admits to perceived improvement in clarity of thought after her evening dose last night. 12/30 - Clozapine titrated back to recorded home dose of 100mg BID, to begin with this evening's dose - 303 hearing on 01/01 - Pt participated in a family meeting with her mother today, she continues to appears suspicious and paranoid and remains unable to articulate events that contributed to her decompensation and subsequent admission. 12/31 - Continue current medication regimen - pt back to home dose of clozapine at 100mg BID - 303 hearing scheduled for tomorrow morning - Discharge plans remain uncertain at this time; it is unclear if she will be able to stay with parents. She has an apartment, but would benefit from assistance from family. 01/01 - 303 hearing held and granted. - Continue clozapine and zolpidem. - Discharge plans remain unclear, patient vacillates in her stated plans (to stay w/ parents, return home w/ BF, or return home but live alone - although has not addressed issues w/ boyfriend directly. - Re-refer for BCM through [facility], where she previously had services. Recommend OP therapy, which she is declining. Consider 304 IOC due to severity of illness and lack of insight. 01/02 - Continue clozapine 100mg BID - Although patient continues to request rapid discharge, she lacks insight into the level of support necessary to develop a safe discharge plan. She remains unmotivated to involve her boyfriend in a meeting. - Pt did sit with our social work and fulfillment representative from the [facility] to complete case management intake, but was too suspicious of the paperwork to be willing to sign at this time. - Ongoing consideration to pursue 304 [facility] (2) MTHFR mutation: 12/27 - Historical diagnosis of MTHFR mutation. Pt historically had been on Xarelto for chronic anticoagulation - It appears patient has not been taking the medication recently, as no record of the medication on external medication history - Will gather collateral information from family/outpatient providers regarding recommendations 12/28 -No outpatient records available from PCP in EMR to determine current medications/recommendations. Nursing staff contacted PCPs office to clarify whether she is supposed to be on an anticoagulant currently. She has reportedly been nonadherent with treatment, and PCP recommended inpatient medical consultation which will be requested today. -She will need a follow-up appointment after discharge. 12/29 - Appreciate hospitalist consult and recommendations - B12 and Folate levels ordered - both levels are low at 130 and 3.42 respectively - see treatment below - Discussed recommendations with patient who continued to be somewhat suspicious of the need for a blood thinner, but was ultimately agreeable with Xarelto - Will need to monitor patient's willingness while in the hospital, as hospitalist recommendations suggest concern associated with inconsistent dosing of Xarelto and a hypercoagulable state. Pt was able to at least acknowledge that she is not interested in Warfarin or Lovenox due to her aversion to needles and limited willingness for routine monitoring. Pt did seem to understanding the importance of consistent use of Xarelto during conversation. 12/31 - Pt has been compliant with prescribed dosing of Xarelto (3) Hypokalemia: 12/28 -potassium was 2.7 on presentation, likely due to poor oral intake for several days prior to admission. Repleted in the ER and improved slightly. Continue to monitor and encourage good nutrition. 01/02 - BMP was ordered, with patient initially refusing to complete the blood work - She did complete this morning - potassium improved to 4.0 - Pt has been eating meals appropriately (4) Abnormal urinalysis: 12/28 - UA on admission notable for 3+ blood, 1+ leukocyte esterase, > 30 WBCs, 5-10 RBCs, > 30 epithelial cells, and 1+ bacteria. Asymptomatic, likely contaminated sample, antibiotics not currently indicated, but will follow up on culture results when available. 12/29 - Preliminary culture resulting in pin-point growth, re-incubating 01/01 - lactobacillus per culture, asymptomatic, no treatment indicated. (5) Vitamin B12 deficiency: 12/29 - Vitamin B12 is deficient at 130 (nml 211-911) - Ensuring adequate level may offer benefit for treatment of patient's MTHFR mutation - Vegetarian diet is likely also contributing to this deficiency - Will offer patient Vitamine B12 at 500mcg daily - at this time patient is agreeable - This level should continue to be monitored on an outpatient basis (6) Folate deficiency: 12/29 - Folate level is deficient at 3.42 (nml >5.38) - Again, deficiency may also be related to dietary choices - Will supplement with Folic acid 1mg daily - at this time patient is agreeable - This too should be monitored on an outpatient basis 12/31 - Pt has been refusing folic acid with morning medications - unable to provide explanation as to why this is the case other than "I feel fine" - Education was again provided to the patient on the recommendation for Folic acid. She verbalized understanding, but did not convincingly state she would take the medication moving forward - Continue to offer education and encouragement 01/02 - Pt continues to refuse folic acid - no explanation provided for this refusa l Risk Factors Assessment Male: No : Yes Do You Have Access To A Gun?: No Mental Health Diagnoses: Yes Substance Use Disorders: No Previous Attempt: No Previous Psychiatric Hospitalization: Yes Hopelessness: No Smoker: Yes Protective Factors Assessment Anabaptist Beliefs: No : No Responsible for Young Children: No Employed: No (Pt is on disability due to MH DX) Supportive Family: Yes Interval History Identifying Information ROSMERY TALBERT is a 39-year-old F who currently lives in [place], [place] with her boyfriend, has a history of paranoid schizophrenia, and was admitted on 12/28/2019 on a 302 involuntary commitment for psychosis, treatment noncompliance, inability to care for self, in the context of going off her medications. She is on a 303 as of 01/02/2020. Chief Complaint "Um, I'm fine. They were going to print off paperwork for me." Review of Systems Notes Constitutional: denied Cardiovascular: denied Respiratory: denied Gastrointestinal: denied Neurological: denied Psychiatric: denies symptoms other than stated above Total of at least 10 systems reviewed, pertinent positives as above and in HPI. Sleep Information Total Hours of Sleep: 7.25 Sleep Comments: pt on q-15 minute checks Meal Information Percent Meal Consumed - Breakfast: 100 Percent Meal Consumed - Lunch: 75 Percent Meal Consumed - Dinner: 75 Subjective Subjective Patient was seen & assessed and interval progress reviewed with nursing and social work. Staff report the patient continues to be frustrated with the fact that she is in the hospital, but has continued to attend groups. Pt continues to be paranoid with poor insight. She did complete requested blood work this morning, finally agreeing a day after it was originally ordered. Pt is on a 303 as of 01/01. Pt reports that she is fine and continues to verbalize a desire to return home. She states the meeting with the social media marketer and [facility] staff went "ok. They were going to print off paperwork for me." Pt admits that she was confused during the meeting and refused to sign any paperwork until she could review it herself. Pt states she is aware of the benefits a case management director has to offer, and she remains agreeable to participate in a meeting that has been rescheduled for tomorrow. Pt states that she had phone conversations with both her mother and her boyfriend yesterday. She states she has still not discussed her desire for her boyfriend to move out, but states "we decided we were just going to do whatever makes us both happy and work it out." Pt states she is happiest "when I'm left alone with my cats...and that doesn't make me a crazy cat lady!" Pt continues to have limited understanding of our safety concerns related to discharge. When discussing ways patient could ensure she is taking her medications regularly, she makes a confused face and said "I'm still not really sure I need them. I'm a natural girl." Pt continues to verbalize complaints about "everyone telling me what to do." This provider discussed patient's desire for independence, but encouraged her to consider that additional support may be necessary to help with her transition [facility]. Pt does not seem interested in considering this. Results of BMP reviewed with the patient, who was happy her results improved but is now upset that she has a CBC scheduled for tomorrow. Pt was reminded the CBC is a requirement of being on clozapine and that over time, with consistent medication compliance, the frequency of the blood work would likely decrease. Pt denies other needs or concerns today. Physical Exam Psychiatric Orientation: alert and oriented x 3 Apperance: appropriately dressed, + disheveled (hair appearing greasy, same clothes for several days) and appeared stated age Eye Contact: good eye contact Motor Behavior: no abnormal motor movements (observed while sitting in bed ) Speech: normal rate/rhythm/volume of speech Affect: + blunted affect Mood: + depressed mood (admits to feeling low, upset as she was supposed to go shopping today) Thought Process: goal directed thought process and + concrete thought process Thought Content: + preoccupation (with discharge and not needing medications) and + paranoid (remains suspicious) Suicidal Thoughts: denies suicidal thoughts Homicidal Thoughts: denies homicidal thoughts Hallucinations: no auditory hallucinations and no visual hallucinations Cognition: attention grossly intact and language grossly intact Insight: + impaired insight Judgement: + impaired judgement Vital Signs (Past 24 Hours) Last Vital Signs Temp 36.7 C 01/03/20 06:51 Pulse 116 H 01/03/20 06:51 Resp 18 01/03/20 06:51 BP 108/75 01/03/20 06:51 Pulse Ox 99 12/28/19 13:56 Results & Data ([facility]) Laboratory Results Laboratory Results - last 24 hr 01/03/20 06:52 Sodium 140 Potassium 4.0 Chloride 109 H Carbon Dioxide 24 Anion Gap 7.0 BUN 6 L Creatinine 0.73 Est Cr Clr Drug Dosing 85.7 Est GFR ( Amer) 119.4 Est GFR (Non-Af Amer) 103.0 BUN/Creatinine Ratio 7.8 L Glucose 90 Calcium 8.7 Current Inpatient Medications Current Inpatient Medications: Current Inpatient Medications Acetaminophen (Tylenol) 650 mg PO Q4H PRN PRN Reason: Headache or Minor Fever Stop: 01/27/20 12:57 Al Hydrox/Mg Hydrox/Simethicone (Maalox) 30 ml PO Q4H PRN PRN Reason: GI Upset Stop: 01/27/20 12:57 Bismuth Subsalicylate (Kaopectate) 15 ml PO PRN PRN PRN Reason: Loose Stool Stop: 01/27/20 12:57 Clozapine (Clozapine) 100 mg PO BID SIMONA Stop: 01/30/20 20:59 Last Admin: 01/03/20 08:44 Dose: 100 mg Documented by: Cyanocobalamin (Vitamin B-12) 500 mcg PO QAM SIMONA Stop: 01/29/20 10:29 Last Admin: 01/03/20 08:44 Dose: 500 mcg Documented by: Folic Acid (Folvite) 1 mg PO QAM SIMONA Stop: 01/29/20 10:29 Last Admin: 01/03/20 08:47 Dose: Not Given Documented by: Haloperidol (Haldol) 5 mg PO Q4H PRN PRN Reason: psychosis Stop: 01/27/20 17:46 Hydroxyzine HCl (Vistaril) 50 mg PO HSZ PRN PRN Reason: Insomnia Stop: 01/27/20 12:57 Hydroxyzine HCl (Vistaril) 25 mg PO Q4H PRN PRN Reason: Anxiety Stop: 01/27/20 12:57 Magnesium Hydroxide (Milk Of Magnesia) 30 ml PO DAILY PRN PRN Reason: Constipation Stop: 01/27/20 12:57 Nicotine Polacrilex (Nicorette 2mg) 1 piece MT PRN PRN PRN Reason: nicotine cravings Stop: 01/31/20 16:34 Rivaroxaban (Xarelto) 20 mg PO DAILY SIMONA Stop: 01/29/20 10:29 Last Admin: 01/03/20 08:44 Dose: 20 mg Documented by: Sodium Chloride ([place] Nasal) 1 - 2 sprays NA PRN PRN PRN Reason: Nasal Dryness/Congestion Stop: 01/27/20 12:57 Trazodone HCl (Desyrel) 150 mg PO HS PRN PRN Reason: insomnia Stop: 01/27/20 21:59 Zolpidem Tartrate (Ambien) 10 mg PO HS PRN PRN Reason: insomnia Stop: 01/27/20 21:59 Mental Health & Subst Abuse Tx Psychiatrist Name of Psychiatrist: [facility] - Dr. Williamson Psychiatrist's Psychiatric Appointment Comment: [id number], [place] [id number] Therapist Name of Therapist: None Barrel Rifler Name of Barrel Rifler: Previously worked with Cielo at [facility] Post Discharge Appointments Primary Care Physician Name Of Family Doctor: KEANN - Dr. Mcdowell Primary Care Provider Appointment Comment: [place] [facility], [place] Contact Information Discharge Discharge Address: [facility] [address] [place] [id number]
[2020-01-04] MEDS: CYANOCOBALAMIN 500 MCG TABLET (VITAMIN B-12) PO SCH (09:04)
[2020-01-04] MEDS: cloZAPine 100 MG TAB PO SCH ×2 (09:04→20:56)
[2020-01-04] MEDS: RIVAROXABAN 20 MG TAB PO SCH (09:04)
[2020-01-04] MEDS: FOLIC ACID 1 MG TAB PO SCH (09:08)
--- NOTE | 2020-01-04 10:54 | Psychiatric Progress Note ---
Date of Service January 04, 2020 Impression / Recommendations Impression 39-year-old female admitted involuntarily for inpatient psychiatric treatment on 12/28/2019 after being brought to the ED by police due to worsening psychosis and inability to care for herself. She had stopped all of her psychiatric and medical medications, had increased delusions, paranoia, and disorganization, was not eating or sleeping, with increasingly erratic behavior, locking her boyfriend whom she lives with out of the house, telling police she was Alana Hernandez, and referring to herself as "the ruler of the world" in the ER. She had not been sleeping for several days, and had laboratory evidence of poor p.o. intake (potassium 2.7). She does not feel she needs medications or hospitalization, although she has been taking clozapine as ordered. She reports stopping her medication several days prior to admission, but family believes it has been longer. She recently fired her case operator, and does not have a therapist. 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 Evaluated by hospitalist who recommended resuming anticoagulant and supplementation for B12 and folate deficiencies. She was on numerous psychotropic medications, but for now we have resumed the antipsychotic as it is the most important to target her current symptoms. She had a meeting with her mother who reported worsening delusions, and is on a 303 as of 01/01. It is anticipated that a 304 IOC will be pursued. She remains gravely disabled and unable to provide for her own basic needs without the care and assistance of others, and inpatient treatment is the least restrictive and appropriate venue for treatment to occur. (1) Paranoid schizophrenia: 12/27 - Admitted to a locked inpatient behavioral health unit, on q15 minute safety checks - Recommending that patient resume medications to target her paranoia and delusions. Will attempt to gather collateral information from family and will request a current medication list from her outpatient psychiatrist. - In the interim, we will re-titrate clozapine beginning at 25mg BID. Re- titrate to home dose of 100mg BID. Will order prn doses of zolpidem and trazodone for sleep. Haloperidol will be available as needed for psychosis. - Encourage participation in group and recreational therapies - Gather collateral information from outpatient providers - Suggest family meeting to involve outpatient supports in safety planning - Arrange appropriate aftercare - re-establish case management services 12/28 -Continue clozapine titration, increasing to 50 mg twice daily. -FLP and fasting glucose reviewed today and within normal limits. -Patient has refused to sign releases for her parents, boyfriend, or outpatient psychiatrist. She indicates willingness to have a family meeting with her boyfriend. -File for a 303 involuntary commitment, and consider need for a 304 IOC, as she would benefit from case management and therapy, but has been noncompliant with all aspects of treatment, leading to her decompensation. 12/29 - Continue clozapine titration - will increase to 75mg BID; CBC w/diff ordered fro 01/03. - 303 hearing scheduled for 01/01. - Pt remains somewhat paranoid and suspicious, but admits to perceived improvement in clarity of thought after her evening dose last night. 12/30 - Clozapine titrated back to recorded home dose of 100mg BID, to begin with this evening's dose - 303 hearing on 01/01 - Pt participated in a family meeting with her mother today, she continues to appears suspicious and paranoid and remains unable to articulate events that contributed to her decompensation and subsequent admission. 12/31 - Continue current medication regimen - pt back to home dose of clozapine at 100mg BID - 303 hearing scheduled for tomorrow morning - Discharge plans remain uncertain at this time; it is unclear if she will be able to stay with parents. She has an apartment, but would benefit from assistance from family. 01/01 - 303 hearing held and granted. - Continue clozapine and zolpidem. - Discharge plans remain unclear, patient vacillates in her stated plans (to stay w/ parents, return home w/ BF, or return home but live alone - although has not addressed issues w/ boyfriend directly. - Re-refer for BCM through [facility], where she previously had services. Recommend OP therapy, which she is declining. Consider 304 IOC due to severity of illness and lack of insight. 01/02 - Continue clozapine 100mg BID - Although patient continues to request rapid discharge, she lacks insight into the level of support necessary to develop a safe discharge plan. She remains unmotivated to involve her boyfriend in a meeting. - Pt did sit with our social work and outbound sales representative from the [facility] to complete case management intake, but was too suspicious of the paperwork to be willing to sign at this time. - Ongoing consideration to pursue 304 [facility] 01/03 - Continue clozapine 100mg BID - Pt refused CBC w/ diff ordered for this morning - phlebotomy plans to return intermittently to attempt again - Pt continues to be suspicious of paperwork for the case management process, and therefore has not signed - She continues to report suspicion of staff and is unable to appreciate the serious concerns related to her being discharged without an adequate safety plan (2) MTHFR mutation: 12/27 - Historical diagnosis of MTHFR mutation. Pt historically had been on Xarelto for chronic anticoagulation - It appears patient has not been taking the medication recently, as no record of the medication on external medication history - Will gather collateral information from family/outpatient providers regardi ng recommendations 12/28 -No outpatient records available from PCP in EMR to determine current medications/recommendations. Nursing staff contacted PCPs office to clarify whether she is supposed to be on an anticoagulant currently. She has reportedly been nonadherent with treatment, and PCP recommended inpatient medical consultation which will be requested today. -She will need a follow-up appointment after discharge. 12/29 - Appreciate hospitalist consult and recommendations - B12 and Folate levels ordered - both levels are low at 130 and 3.42 respectively - see treatment below - Discussed recommendations with patient who continued to be somewhat suspicious of the need for a blood thinner, but was ultimately agreeable with Xarelto - Will need to monitor patient's willingness while in the hospital, as hospitalist recommendations suggest concern associated with inconsistent dosing of Xarelto and a hypercoagulable state. Pt was able to at least acknowledge that she is not interested in Warfarin or Lovenox due to her aversion to needles and limited willingness for routine monitoring. Pt did seem to understanding the importance of consistent use of Xarelto during conversation. 12/31 - Pt has been compliant with prescribed dosing of Xarelto (3) Hypokalemia: 12/28 -potassium was 2.7 on presentation, likely due to poor oral intake for several days prior to admission. Repleted in the ER and improved slightly. Continue to monitor and encourage good nutrition. 01/02 - BMP was ordered, with patient initially refusing to complete the blood work - She did complete this morning - potassium improved to 4.0 - Pt has been eating meals appropriately (4) Abnormal urinalysis: 12/28 - UA on admission notable for 3+ blood, 1+ leukocyte esterase, > 30 WBCs, 5-10 RBCs, > 30 epithelial cells, and 1+ bacteria. Asymptomatic, likely contaminated sample, antibiotics not currently indicated, but will follow up on culture results when available. 12/29 - Preliminary culture resulting in pin-point growth, re-incubating 01/01 - lactobacillus per culture, asymptomatic, no treatment indicated. (5) Vitamin B12 deficiency: 12/29 - Vitamin B12 is deficient at 130 (nml 211-911) - Ensuring adequate level may offer benefit for treatment of patient's MTHFR mutation - Vegetarian diet is likely also contributing to this deficiency - Will offer patient Vitamine B12 at 500mcg daily - at this time patient is agreeable - This level should continue to be monitored on an outpatient basis (6) Folate deficiency: 12/29 - Folate level is deficient at 3.42 (nml >5.38) - Again, deficiency may also be related to dietary choices - Will supplement with Folic acid 1mg daily - at this time patient is agreeable - This too should be monitored on an outpatient basis 12/31 - Pt has been refusing folic acid with morning medications - unable to provide explanation as to why this is the case other than "I feel fine" - Education was again provided to the patient on the recommendation for Folic acid. She verbalized understanding, but did not convincingly state she would take the medication moving forward - Continue to offer education and encouragement 01/02 - Pt continues to refuse folic acid - no explanation provided for this refusal Risk Factors Assessment Male: No : Yes Do You Have Access To A Gun?: No Mental Health Diagnoses: Yes Substance Use Disorders: No Previous Attempt: No Previous Psychiatric Hospitalization: Yes Hopelessness: No Smoker: Yes Protective Factors Assessment Jew Beliefs: No : No Responsible for Young Children: No Employed: No (Pt is on disability due to MH DX) Supportive Family: Yes Interval History Identifying Information ROSMERY TALBERT is a 39-year-old F who currently lives in [place], [place] with her boyfriend, has a history of paranoid schizophrenia, and was admitted on 12/28/2019 on a 302 involuntary commitment for psychosis, treatment noncompliance, inability to care for self, in the context of going off her medications. She is on a 303 as of 01/02/2020. Chief Complaint "Um, I mean. I'm ok. I slept the whole night last night." Review of Systems Notes Constitutional: denied Cardiovascular: denied Respiratory: denied Gastrointestinal: denied Neurological: denied Psychiatric: denies symptoms other than stated above Total of at least 10 systems reviewed, pertinent positives as above and in HPI. Sleep Information Total Hours of Sleep: 7.5 Sleep Comments: pt on q-15 minute check Meal Information Percent Meal Consumed - Breakfast: 50 Percent Meal Consumed - Lunch: 75 Percent Meal Consumed - Dinner: 100 Subjective Subjective Patient was seen & assessed and interval progress reviewed with treatment team. Staff report the patient has been in good behavioral control, but remains suspicious. Pt is scheduled to meet with our licensed master social worker and case operator today to attempt to review referral information again. Pt remained suspicious, so this was cancelled for today. Pt refused to have her blood work taken for clozapine monitoring. Pt was seen today to assess progress since admission. Pt states she is "ok" today and reports "I slept the whole night last night." She indicates that at home, she generally does not go to bed until 4:00am and that she believes the sleep routine here has been helping. Pt rates her mood an 8/10 this morning. She continues to believe that she does not need hospitalization as "I was doing everything to take care of myself before I came here, why am I here?" Pt continues to believe that she is here unfairly and that she shouldn't have been brought to the hospital since she was the one to call police. Pt continues to have little insight as to what led to her recent decompensation. Pt reports willingness to continue medications as currently prescribed, but otherwise does not believe there is anything going wrong. Pt remains uninterested in allowing us to support her in a family meeting with her mother and (ex)boyfriend, stating "I can do that on my own." Pt denies physical concerns presently. She denies SI, stating "I've never thought that way." After our encounter, it was reported by staff that patient was commenting on the conversation with this provider. She had informed staff that the conversation was ok, but that she is still trying to figure out if this PA-C is "a good or bad person." Physical Exam Psychiatric Orientation: alert and oriented x 3 Apperance: appropriately dressed, + disheveled (appearing somewhat unkempt) and appeared stated age Eye Contact: good eye contact Motor Behavior: no abnormal motor movements (observed while sitting on bed) Speech: normal rate/rhythm/volume of speech Affect: + blunted affect Mood: no depressed mood ("Fine, I'm always happy") Thought Process: goal directed thought process, + perseveration (on discharge ) and + concrete thought process Thought Content: + preoccupation (with discharge ), + paranoid (ongoing suspicions ) and + persecution (still believes she is unfairly targeted; unsure of reason for admission ); no hopelessness Suicidal Thoughts: denies suicidal thoughts ("I've never had those thoughts") Homicidal Thoughts: denies homicidal thoughts Hallucinations: no auditory hallucinations and no visual hallucinations Cognition: attention grossly intact and language grossly intact Estimated Intelligence: consistent with education level Insight: + impaired insight Judgement: + impaired judgement Vital Signs (Past 24 Hours) Last Vital Signs Temp 36.6 C 01/04/20 06:44 Pulse 88 01/04/20 06:44 Resp 18 01/04/20 06:44 BP 110/78 01/04/20 06:44 Pulse Ox 99 12/28/19 13:56 Results & Data ([facility]) Current Inpatient Medications Current Inpatient Medications: Current Inpatient Medications Acetaminophen (Tylenol) 650 mg PO Q4H PRN PRN Reason: Headache or Minor Fever Stop: 01/27/20 12:57 Al Hydrox/Mg Hydrox/Simethicone (Maalox) 30 ml PO Q4H PRN PRN Reason: GI Upset Stop: 01/27/20 12:57 Bismuth Subsalicylate (Kaopectate) 15 ml PO PRN PRN PRN Reason: Loose Stool Stop: 01/27/20 12:57 Clozapine (Clozapine) 100 mg PO BID [facility] Stop: 01/30/20 20:59 Last Admin: 01/04/20 09:04 Dose: 100 mg Documented by: Cyanocobalamin (Vitamin B-12) 500 mcg PO QAM SIMONA Stop: 01/29/20 10:29 Last Admin: 01/04/20 09:04 Dose: 500 mcg Documented by: Folic Acid (Folvite) 1 mg PO QAM SIMONA Stop: 01/29/20 10:29 Last Admin: 01/04/20 09:08 Dose: Not Given Documented by: Haloperidol (Haldol) 5 mg PO Q4H PRN PRN Reason: psychosis Stop: 01/27/20 17:46 Hydroxyzine HCl (Vistaril) 50 mg PO HSZ PRN PRN Reason: Insomnia Stop: 01/27/20 12:57 Hydroxyzine HCl (Vistaril) 25 mg PO Q4H PRN PRN Reason: Anxiety Stop: 01/27/20 12:57 Magnesium Hydroxide (Milk Of Magnesia) 30 ml PO DAILY PRN PRN Reason: Constipation Stop: 01/27/20 12:57 Nicotine Polacrilex (Nicorette 2mg) 1 piece MT PRN PRN PRN Reason: nicotine cravings Stop: 01/31/20 16:34 Rivaroxaban (Xarelto) 20 mg PO DAILY SIMONA Stop: 01/29/20 10:29 Last Admin: 01/04/20 09:04 Dose: 20 mg Documented by: Sodium Chloride ([place] Nasal) 1 - 2 sprays NA PRN PRN PRN Reason: Nasal Dryness/Congestion Stop: 01/27/20 12:57 Trazodone HCl (Desyrel) 150 mg PO HS PRN PRN Reason: insomnia Stop: 01/27/20 21:59 Zolpidem Tartrate (Ambien) 10 mg PO HS PRN PRN Reason: insomnia Stop: 01/27/20 21:59 Mental Health & Subst Abuse Tx Psychiatrist Name of Psychiatrist: [facility] - Dr. Williamson Psychiatrist's Date of Appointment with Psychiatrist: 01/12/20 Time of Appointment with Psychiatrist: 4:10 p.m. Psychiatric Appointment Comment: [phone], [place] [address] Therapist Name of Therapist: None Automotive Instructor Name of Automotive Instructor: [employer] Phone Number for Automotive Instructor: [phone] Post Discharge Appointments Primary Care Physician Name Of Family Doctor: KENAN Mcdowell Primary Care Provider Appointment Comment: [phone], [place] Contact Information Discharge Discharge Address: [facility] [address] [place] [id number]
[2020-01-05] MEDS: FOLIC ACID 1 MG TAB PO SCH (08:58)
[2020-01-05] MEDS: CYANOCOBALAMIN 500 MCG TABLET (VITAMIN B-12) PO SCH (08:58)
[2020-01-05] MEDS: RIVAROXABAN 20 MG TAB PO SCH (08:58)
[2020-01-05] MEDS: cloZAPine 100 MG TAB PO SCH ×2 (08:58→21:19)
[2020-01-05 11:11] LABS: Basophils # (auto) 0.02 K/uL (0-0.2); Basophils % (auto) 0.5 %; Hematocrit (blood only) 43.1 % (37-47); Hemoglobin 14.8 g/dL (12.0-16.0); Immature Granulocytes # (auto) 0.01 K/uL (0.00-0.02); Immature Granulocytes % (auto) 0.2 %; Lymphocytes # (auto) 1.35 K/uL (1.2-3.4); Lymphocytes % (auto) 30.9 %; Mean Corpuscular Hemoglobin 34.5 pg (25-34); Mean Corpuscular Hgb Conc 34.3 g/dL (32-36); Mean Corpuscular Volume 100.5 fL (80-100); Monocytes # (auto) 0.37 K/uL (0.11-0.59); Monocytes % (auto) 8.5 %; Neutrophils # (auto) 2.62 K/uL (1.4-6.5); Neutrophils % (auto) 59.9 %; Platelet Count 251 K/uL (130-400); RDW Coefficient of Variation 12.3 % (11.5-14.5); RDW Standard Deviation 45.1 fL (36.4-46.3); Red Blood Count 4.29 M/uL (4.2-5.4); White Blood Count 4.37 K/uL (4.8-10.8)
--- NOTE | 2020-01-05 12:15 | Psychiatric Progress Note ---
Date of Service January 05, 2020 Impression / Recommendations Impression 39-year-old female admitted involuntarily for inpatient psychiatric treatment on 12/28/2019 after being brought to the ED by police due to worsening psychosis and inability to care for herself. She had stopped all of her psychiatric and medical medications, had increased delusions, paranoia, and disorganization, was not eating or sleeping, with increasingly erratic behavior, locking her boyfriend whom she lives with out of the house, telling police she was Alana Hernandez, and referring to herself as "the ruler of the world." She had not been sleeping for several days, and had laboratory evidence of poor p.o. intake (potassium 2.7). She does not believe she has schizophrenia, needs medications or hospitalization, and although she has been taking clozapine as ordered, indicates she does not like medications and would very likely be noncompliant with it if discharged at this time. She recently fired her case finishing machine adjuster, and does not have a therapist. 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 Evaluated by hospitalist who recommended resuming Xarelto and supplementation for B12 and folate deficiencies. She was on numerous psychotropic medications, but for now we have resumed the antipsychotic as it is the most important to target her current symptoms. She had a meeting with her mother who reported worsening delusions, and is on a 303 as of 01/01. She is refusing recommendations for a family meeting with her boyfriend, and increased outpatient treatment including a case finishing machine adjuster and therapist. We are recommending a 304 IOC. She remains paranoid, delusional, gravely disabled and unable to provide for her own basic needs without the care and assistance of others, and inpatient treatment is the least restrictive and appropriate venue for treatment to occur. (1) Paranoid schizophrenia: 12/27 - Admitted to a locked inpatient behavioral health unit, on q15 minute safety checks - Recommending that patient resume medications to target her paranoia and delusions. Will attempt to gather collateral information from family and will request a current medication list from her outpatient psychiatrist. - In the interim, we will re-titrate clozapine beginning at 25mg BID. Re- titrate to home dose of 100mg BID. Will order prn doses of zolpidem and trazodone for sleep. Haloperidol will be available as needed for psychosis. - Encourage participation in group and recreational therapies - Gather collateral information from outpatient providers - Suggest family meeting to involve outpatient supports in safety planning - Arrange appropriate aftercare - re-establish case management services 12/28 -Continue clozapine titration, increasing to 50 mg twice daily. -FLP and fasting glucose reviewed today and within normal limits. -Patient has refused to sign releases for her parents, boyfriend, or [facility]. She indicates willingness to have a family meeting with her boyfriend. -File for a 303 involuntary commitment, and consider need for a 304 IOC, as she would benefit from case management and therapy, but has been noncompliant with all aspects of treatment, leading to her decompensation. 12/29 - Continue clozapine titration - will increase to 75mg BID; CBC w/diff ordered fro 01/03. - 303 hearing scheduled for 01/01. - Pt remains somewhat paranoid and suspicious, but admits to perceived improvement in clarity of thought after her evening dose last night. 12/30 - Clozapine titrated back to recorded home dose of 100mg BID, to begin with this evening's dose - 303 hearing on 01/01 - Pt participated in a family meeting with her mother today, she continues to appears suspicious and paranoid and remains unable to articulate events that contributed to her decompensation and subsequent admission. 12/31 - Continue current medication regimen - pt back to home dose of clozapine at 100mg BID - 303 hearing scheduled for tomorrow morning - Discharge plans remain uncertain at this time; it is unclear if she will be able to stay with parents. She has an apartment, but would benefit from assistance from family. 01/01 - 303 hearing held and granted. - Continue clozapine and zolpidem. - Discharge plans remain unclear, patient vacillates in her stated plans (to stay w/ parents, return home w/ BF, or return home but live alone - although has not addressed issues w/ boyfriend directly. - Re-refer for BCM through [facility], where she previously had services. Recommend OP therapy, which she is declining. Consider 304 IOC due to severity of illness and lack of insight. 01/02 - Continue clozapine 100mg BID - Although patient continues to request rapid discharge, she lacks insight into the level of support necessary to develop a safe discharge plan. She remains unmotivated to involve her boyfriend in a meeting. - Pt did sit with our social work and fuels sales representative from the [facility] to complete case management intake, but was too suspicious of the paperwork to be willing to sign at this time. - Ongoing consideration to pursue 304 IOC 01/03 - Continue clozapine 100mg BID - Pt refused CBC w/ diff ordered for this morning - phlebotomy plans to return intermittently to attempt again - Pt continues to be suspicious of paperwork for the case management process, and therefore has not signed - She continues to report suspicion of staff and is unable to appreciate the serious concerns related to her being discharged without an adequate safety plan. 01/04 -With staff encouragement, patient consented to blood draw for CBC: ANC 2.62. Continue clozapine. Discussed the need for medication with her, she continues to display very poor insight, stating she does not have schizophrenia nor does she need medication. Discussed recommendations for a long-acting injectable antipsychotic, which she is opposed to. If at any time she is uncooperative with the clozapine or required blood draws, would recommend transition to an RAMON, and medications over objection if necessary, as she has a longstanding diagnosis of schizophrenia, has active psychotic symptoms, and her symptoms have responded well to antipsychotic medication in the past. She is unlikely to recover without medication. -Social work will try to complete the case management referral with her again today; this is the third attempt, as she has been resistant and uncooperative. -She continues to refuse outpatient therapy and a family meeting with her boyfriend. We are recommending a 304 involuntary outpatient commitment, given the severity of her symptoms, lack of insight, and unwillingness for treatment. (2) MTHFR mutation: 12/27 - Historical diagnosis of MTHFR mutation. Pt historically had been on Xarelto for chronic anticoagulation - It appears patient has not been taking the medication recently, as no record of the medication on external medication history - Will gather collateral information from family/outpatient providers regarding recommendations 12/28 -No outpatient records available from PCP in EMR to determine current medications/recommendations. Nursing staff contacted PCPs office to clarify whether she is supposed to be on an anticoagulant currently. She has reportedly been nonadherent with treatment, and PCP recommended inpatient medical consultation which will be requested today. -She will need a follow-up appointment after discharge. 12/29 - Appreciate hospitalist consult and recommendations - B12 and Folate levels ordered - both levels are low at 130 and 3.42 respectively - see treatment below - Discussed recommendations with patient who continued to be somewhat suspicious of the need for a blood thinner, but was ultimately agreeable with Xarelto - Will need to monitor patient's willingness while in the hospital, as hospitalist recommendations suggest concern associated with inconsistent dosing of Xarelto and a hypercoagulable state. Pt was able to at least acknowledge that she is not interested in Warfarin or Lovenox due to her aversion to needles and limited willingness for routine monitoring. Pt did seem to understanding the importance of consistent use of Xarelto during conversation. 12/31 - Pt has been compliant with prescribed dosing of Xarelto (3) Hypokalemia: 12/28 -potassium was 2.7 on presentation, likely due to poor oral intake for several days prior to admission. Repleted in the ER and improved slightly. Continue to monitor and encourage good nutrition. 01/02 - BMP was ordered, with patient initially refusing to complete the blood work - She did complete this morning - potassium improved to 4.0 - Pt has been eating meals appropriately (4) Abnormal urinalysis: 12/28 - UA on admission notable for 3+ blood, 1+ leukocyte esterase, > 30 WBCs, 5-10 RBCs, > 30 epithelial cells, and 1+ bacteria. Asymptomatic, likely contaminated sample, antibiotics not currently indicated, but will follow up on culture results when available. 12/29 - Preliminary culture resulting in pin-point growth, re-incubating 01/01 - lactobacillus per culture, asymptomatic, no treatment indicated. (5) Vitamin B12 deficiency: 12/29 - Vitamin B12 is deficient at 130 (nml 211-911) - Ensuring adequate level may offer benefit for treatment of patient's MTHFR mutation - Vegetarian diet is likely also contributing to this deficiency - Will offer patient Vitamine B12 at 500mcg daily - at this time patient is agreeable - This level should continue to be monitored on an outpatient basis (6) Folate deficiency: 12/29 - Folate level is deficient at 3.42 (nml >5.38) - Again, deficiency may also be related to dietary choices - Will supplement with Folic acid 1mg daily - at this time patient is agreeable - This too should be monitored on an outpatient basis 12/31 - Pt has been refusing folic acid with morning medications - unable to provide explanation as to why this is the case other than "I feel fine" - Education was again provided to the patient on the recommendation for Folic acid. She verbalized understanding, but did not convincingly state she would take the medication moving forward - Continue to offer education and encouragement 01/02 - Pt continues to refuse folic acid - no explanation provided for this refusal Risk Factors Assessment Male: No : Yes Do You Have Access To A Gun?: No Mental Health Diagnoses: Yes Substance Use Disorders: No Previous Attempt: No Previous Psychiatric Hospitalization: Yes Hopelessness: No Smoker: Yes Protective Factors Assessment Rastafari Beliefs: No : No Responsible for Young Children: No Employed: No (Pt is on disability due to MH DX) Supportive Family: Yes Interval History Identifying Information ROSMERY TALBERT is a 39-year-old F who currently lives in [place], [place] with her boyfriend, has a history of paranoid schizophrenia, and was admitted on 12/28/2019 on a 302 involuntary commitment for psychosis, treatment noncompliance, inability to care for self, in the context of going off her medications. She is on a 303 as of 01/02/2020. Chief Complaint " Good". Review of Systems Sleep Information Total Hours of Sleep: 6.5 Sleep Comments: pt on q-15 minute check Meal Information Percent Meal Consumed - Breakfast: 100 Percent Meal Consumed - Lunch: 95 Percent Meal Consumed - Dinner: 85 Subjective Subjective Patient was seen & assessed and interval progress reviewed with nursing and social work. Staff reports she refused to complete the case management referral (has had 2 attempts, uncooperative with both), refused to allow a blood draw for her CBC due to being on clozapine, and continues to refuse recommendations for a family meeting involving her boyfriend whom she lives with. She met with a counselor last evening and reiterated her believes that she does not have a mental illness or need treatment. She stated that a high school classmate can control her thoughts and tell her to do things she does not want to do, like have sex with someone. This high school classmate used to follow the band [employer], and the patient believes she and other fans of [employer] can communicate with her telepathically, read her thoughts, and choose her boyfriends. She said that she cannot break-up with her current boyfriend even though she wants to, because they have not told her to do so. She hears voices of the members of [facility], which tell her to do things, and states they told her to go for a walk at 4 AM the night prior to presentation. She did this, and in the process let her cats out, which led to the fight between she and her boyfriend. On my assessment, she states that she is fine, and does not need to be here. She says she has been talking to her mother and boyfriend on the phone, and does not want to have a meeting with her boyfriend because things are "good," although later says that things between them are "the same." She says she is unsure if they will break up or if she still wants him to move out, stating "we need to talk about it," and will not explain why she does not want to address that issue here. She denies side effects to medications, but states she does not want to put anything that is "not natural" in her body, including medications or needles. She says she will not get any blood work because she does not need it, and claims her outpatient psychiatrist told her she no longer needed to get CBCs despite being on clozapine. Explained the clozapine REMS program and that due to the risk of agranulocytosis, CBCs are required in order to get the medication, and that per hospital policy they must be done weekly. Discussed alternatives if she is unwilling to comply with this, including switching to a different antipsychotic, as well as recommendations for a long-acting injectable antipsychotic. She decl ined to discuss this further, stating she does not believe she has schizophrenia and "I don't believe in putting anything unnatural in my body." Nursing staff was eventually able to get her to consent to the blood draw. Physical Exam Psychiatric Orientation: alert and cooperative (Partially, vague answers at times) Apperance: appropriately dressed (Wearing the same clothes since admission, hooded sweatshirt with a del angel pulled up), appropriately groomed and appeared stated age Thin WF seated crosslegged on bed in NAD Eye Contact: + poor eye contact Motor Behavior: no abnormal motor movements Speech: normal rate/rhythm/volume of speech Affect: + blunted affect and + irritable affect; + mood not congruent with affect appears suspicious "Fine" Thought Process: goal directed thought process; + thought process not clear or coherent Thought Content: + paranoid, + delusions and + persecution Suicidal Thoughts: denies suicidal thoughts Homicidal Thoughts: denies homicidal thoughts Hallucinations: no auditory hallucinations (but told staff she hears the voices of [employer] band members telling her to do) Cognition: attention grossly intact and language grossly intact Estimated Intelligence: consistent with education level Insight: + poor insight Judgement: + poor judgement Vital Signs (Past 24 Hours) Last Vital Signs Temp 36.6 C 01/05/20 06:47 Pulse 94 H 01/05/20 06:48 Resp 16 01/05/20 06:47 BP 99/70 L 01/05/20 06:48 Pulse Ox 99 12/28/19 13:56 Results & Data ([facility]) Laboratory Results Laboratory Results - last 24 hr 01/05/20 11:00 WBC 4.37 L RBC 4.29 Hgb 14.8 Hct 43.1 MCV 100.5 H MCH 34.5 H MCHC 34.3 RDW Std Deviation 45.1 RDW Coeff of Ashanti 12.3 Plt Count 251 MPV 9.0 Immature Gran % (Auto) 0.2 Neut % (Auto) 59.9 Lymph % (Auto) 30.9 [place] % (Auto) 8.5 Eos % (Auto) 0.0 Baso % (Auto) 0.5 Immature Gran # (Auto) 0.01 Neut # (Auto) 2.62 Lymph # (Auto) 1.35 [place] # (Auto) 0.37 Eos # (Auto) 0.00 Baso # (Auto) 0.02 Current Inpatient Medications Current Inpatient Medications: Current Inpatient Medications Acetaminophen (Tylenol) 650 mg PO Q4H PRN PRN Reason: Headache or Minor Fever Stop: 01/27/20 12:57 Al Hydrox/Mg Hydrox/Simethicone (Maalox) 30 ml PO Q4H PRN PRN Reason: GI Upset Stop: 01/27/20 12:57 Bismuth Subsalicylate (Kaopectate) 15 ml PO PRN PRN PRN Reason: Loose Stool Stop: 01/27/20 12:57 Clozapine (Clozapine) 100 mg PO BID SIMONA Stop: 01/30/20 20:59 Last Admin: 01/05/20 08:58 Dose: 100 mg Documented by: Cyanocobalamin (Vitamin B-12) 500 mcg PO QAM SIMONA Stop: 01/29/20 10:29 Last Admin: 01/05/20 08:58 Dose: 500 mcg Documented by: Folic Acid (Folvite) 1 mg PO QAM SIMONA Stop: 01/29/20 10:29 Last Admin: 01/05/20 08:58 Dose: 1 mg Documented by: Haloperidol (Haldol) 5 mg PO Q4H PRN PRN Reason: psychosis Stop: 01/27/20 17:46 Hydroxyzine HCl (Vistaril) 50 mg PO HSZ PRN PRN Reason: Insomnia Stop: 01/27/20 12:57 Hydroxyzine HCl (Vistaril) 25 mg PO Q4H PRN PRN Reason: Anxiety Stop: 01/27/20 12:57 Magnesium Hydroxide (Milk Of Magnesia) 30 ml PO DAILY PRN PRN Reason: Constipation Stop: 01/27/20 12:57 Nicotine Polacrilex (Nicorette 2mg) 1 piece MT PRN PRN PRN Reason: nicotine cravings Stop: 01/31/20 16:34 Rivaroxaban (Xarelto) 20 mg PO DAILY SIMONA Stop: 01/29/20 10:29 Last Admin: 01/05/20 08:58 Dose: 20 mg Documented by: Sodium Chloride ([place] Nasal) 1 - 2 sprays NA PRN PRN PRN Reason: Nasal Dryness/Congestion Stop: 01/27/20 12:57 Trazodone HCl (Desyrel) 150 mg PO HS PRN PRN Reason: insomnia Stop: 01/27/20 21:59 Zolpidem Tartrate (Ambien) 10 mg PO HS PRN PRN Reason: insomnia Stop: 01/27/20 21:59 Mental Health & Subst Abuse Tx Psychiatrist Name of Psychiatrist: [facility] - Dr. Williamson Psychiatrist's Date of Appointment with Psychiatrist: 01/12/20 Time of Appointment with Psychiatrist: 4:10 p.m. Psychiatric Appointment Comment: [id number], [place] [address] Therapist Name of Therapist: None Manufacturing Operations Manager Name of Manufacturing Operations Manager: [employer] Phone Number for Manufacturing Operations Manager: [phone] Post Discharge Appointments Primary Care Physician Name Of Family Doctor: KENAN Mcdowell Primary Care Provider Appointment Comment: [address]John Zafar, [place] Contact Information Discharge Discharge Address: [facility] [address] [place] [id number]
--- NOTE | 2020-01-06 09:16 | Psychiatric Progress Note ---
Date of Service January 06, 2020 Impression / Recommendations Impression 39-year-old female admitted involuntarily for inpatient psychiatric treatment on 12/28/2019 after being brought to the ED by police due to worsening psychosis and inability to care for herself. She had stopped all of her psychiatric and medical medications, had increased delusions, paranoia, and disorganization, was not eating or sleeping, with increasingly erratic behavior, locking her boyfriend whom she lives with out of the house, telling police she was Alana Hernandez, and referring to herself as "the ruler of the world." She had not been sleeping for several days, and had laboratory evidence of poor p.o. intake (potassium 2.7). She does not believe she has schizophrenia, needs medications or hospitalization, and although she has been taking clozapine as ordered, indicates she does not like medications and would very likely be noncompliant with it if discharged at this time. She recently fired her test case developer, and does not have a therapist. 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 Evaluated by hospitalist who recommended resuming Xarelto and supplementation for B12 and folate deficiencies. She was on numerous psychotropic medications, but for now we have resumed the antipsychotic as it is the most important to target her current symptoms. She had a meeting with her mother who reported worsening delusions, and is on a 303 as of 01/01. She is refusing recommendations for a family meeting with her boyfriend, and increased outpatient treatment including a test case developer and therapist. We are recommending a 304 IOC. She remains paranoid, delusional, gravely disabled and unable to provide for her own basic needs without the care and assistance of others, and inpatient treatment is the least restrictive and appropriate venue for treatment to occur. (1) Paranoid schizophrenia: 12/27 - Admitted to a locked inpatient behavioral health unit, on q15 minute safety checks - Recommending that patient resume medications to target her paranoia and delusions. Will attempt to gather collateral information from family and will request a current medication list from her outpatient psychiatrist. - In the interim, we will re-titrate clozapine beginning at 25mg BID. Re- titrate to home dose of 100mg BID. Will order prn doses of zolpidem and trazodone for sleep. Haloperidol will be available as needed for psychosis. - Encourage participation in group and recreational therapies - Gather collateral information from outpatient providers - Suggest family meeting to involve outpatient supports in safety planning - Arrange appropriate aftercare - re-establish case management services 12/28 -Continue clozapine titration, increasing to 50 mg twice daily. -FLP and fasting glucose reviewed today and within normal limits. -Patient has refused to sign releases for her parents, boyfriend, or [facility]. She indicates willingness to have a family meeting with her boyfriend. -File for a 303 involuntary commitment, and consider need for a 304 IOC, as she would benefit from case management and therapy, but has been noncompliant with all aspects of treatment, leading to her decompensation. 12/29 - Continue clozapine titration - will increase to 75mg BID; CBC w/diff ordered fro 01/03. - 303 hearing scheduled for 01/01. - Pt remains somewhat paranoid and suspicious, but admits to perceived improvement in clarity of thought after her evening dose last night. 12/30 - Clozapine titrated back to recorded home dose of 100mg BID, to begin with this evening's dose - 303 hearing on 01/01 - Pt participated in a family meeting with her mother today, she continues to appears suspicious and paranoid and remains unable to articulate events that contributed to her decompensation and subsequent admission. 12/31 - Continue current medication regimen - pt back to home dose of clozapine at 100mg BID - 303 hearing scheduled for tomorrow morning - Discharge plans remain uncertain at this time; it is unclear if she will be able to stay with parents. She has an apartment, but would benefit from assistance from family. 01/01 - 303 hearing held and granted. - Continue clozapine and zolpidem. - Discharge plans remain unclear, patient vacillates in her stated plans (to stay w/ parents, return home w/ BF, or return home but live alone - although has not addressed issues w/ boyfriend directly. - Re-refer for BCM through [facility], where she previously had services. Recommend OP therapy, which she is declining. Consider 304 IOC due to severity of illness and lack of insight. 01/02 - Continue clozapine 100mg BID - Although patient continues to request rapid discharge, she lacks insight into the level of support necessary to develop a safe discharge plan. She remains unmotivated to involve her boyfriend in a meeting. - Pt did sit with our social work and commercial sales representative from the [facility] to complete case management intake, but was too suspicious of the paperwork to be willing to sign at this time. - Ongoing consideration to pursue 304 IOC 01/03 - Continue clozapine 100mg BID - Pt refused CBC w/ diff ordered for this morning - phlebotomy plans to return intermittently to attempt again - Pt continues to be suspicious of paperwork for the case management process, and therefore has not signed - She continues to report suspicion of staff and is unable to appreciate the serious concerns related to her being discharged without an adequate safety plan. 01/04 -With staff encouragement, patient consented to blood draw for CBC: ANC 2.62. Continue clozapine. Discussed the need for medication with her, she continues to display very poor insight, stating she does not have schizophrenia nor does she need medication. Discussed recommendations for a long-acting injectable antipsychotic, which she is opposed to. If at any time she is uncooperative with the clozapine or required blood draws, would recommend transition to an RAMON, and medications over objection if necessary, as she has a longstanding diagnosis of schizophrenia, has active psychotic symptoms, and her symptoms have responded well to antipsychotic medication in the past. She is unlikely to recover without medication. -Social work will try to complete the case management referral with her again today; this is the third attempt, as she has been resistant and uncooperative. -She continues to refuse outpatient therapy and a family meeting with her boyfriend. We are recommending a 304 involuntary outpatient commitment, given the severity of her symptoms, lack of insight, and unwillingness for treatment. 01/05 - Titrating clozapine to 100mg qAM and 150mg qHS - ongoing titration as indicated. Pt continues to verbalize that she feels "stable and normal" on present dose, limited insight continues. Pt did consent to CBC w/ diff yesterday. Agree with above, patient may require conversion to an atypical antipsychotic and eventual conversion to an RAMON (though patient has an aversion to needles). - Pt did complete intake with [facility] for case management after several attempted meetings and significant suspicion. She remains reluctant to agree with other treatment recommendations, including proper adjustments of medications, referral for a therapist, and a phone meeting to involve mother and boyfriend in discharge planning - as patient maintains she plans to return to her apartment. (2) MTHFR mutation: 12/27 - Historical diagnosis of MTHFR mutation. Pt historically had been on Xarelto for chronic anticoagulation - It appears patient has not been taking the medication recently, as no record of the medication on external medication history - Will gather collateral information from family/outpatient providers regarding recommendations 12/28 -No outpatient records available from PCP in EMR to determine current medications/recommendations. Nursing staff contacted PCPs office to clarify whether she is supposed to be on an anticoagulant currently. She has reportedly been nonadherent with treatment, and PCP recommended inpatient medical consultation which will be requested today. -She will need a follow-up appointment after discharge. 12/29 - Appreciate hospitalist consult and recommendations - B12 and Folate levels ordered - both levels are low at 130 and 3.42 respectively - see treatment below - Discussed recommendations with patient who continued to be somewhat suspicious of the need for a blood thinner, but was ultimately agreeable with Xarelto - Will need to monitor patient's willingness while in the hospital, as hospitalist recommendations suggest concern associated with inconsistent dosing of Xarelto and a hypercoagulable state. Pt was able to at least acknowledge that she is not interested in Warfarin or Lovenox due to her aversion to needles and limited willingness for routine monitoring. Pt did seem to understanding the importance of consistent use of Xarelto during conversation. 12/31 - Pt has been compliant with prescribed dosing of Xarelto (3) Hypokalemia: 12/28 -potassium was 2.7 on presentation, likely due to poor oral intake for several days prior to admission. Repleted in the ER and improved slightly. Continue to monitor and encourage good nutrition. 01/02 - BMP was ordered, with patient initially refusing to complete the blood work - She did complete this morning - potassium improved to 4.0 - Pt has been eating meals appropriately (4) Abnormal urinalysis: 12/28 - UA on admission notable for 3+ blood, 1+ leukocyte esterase, > 30 WBCs, 5-10 RBCs, > 30 epithelial cells, and 1+ bacteria. Asymptomatic, likely contaminated sample, antibiotics not currently indicated, but will follow up on culture results when available. 12/29 - Preliminary culture resulting in pin-point growth, re-incubating 01/01 - lactobacillus per culture, asymptomatic, no treatment indicated. (5) Vitamin B12 deficiency: 12/29 - Vitamin B12 is deficient at 130 (nml 211-911) - Ensuring adequate level may offer benefit for treatment of patient's MTHFR mutation - Vegetarian diet is likely also contributing to this deficiency - Will offer patient Vitamine B12 at 500mcg daily - at this time patient is agreeable - This level should continue to be monitored on an outpatient basis (6) Folate deficiency: 12/29 - Folate level is deficient at 3.42 (nml >5.38) - Again, deficiency may also be related to dietary choices - Will supplement with Folic acid 1mg daily - at this time patient is agreeable - This too should be monitored on an outpatient basis 12/31 - Pt has been refusing folic acid with morning medications - unable to provide explanation as to why this is the case other than "I feel fine" - Education was again provided to the patient on the recommendation for Folic acid. She verbalized understanding, but did not convincingly state she would take the medication moving forward - Continue to offer education and encouragement 01/02 - Pt continues to refuse folic acid - no explanation provided for this refusal Risk Factors Assessment Male: No : Yes Do You Have Access To A Gun?: No Mental Health Diagnoses: Yes Substance Use Disorders: No Previous Attempt: No Previous Psychiatric Hospitalization: Yes Hopelessness: No Smoker: Yes Protective Factors Assessment Orthodoxy Beliefs: No : No Responsible for Young Children: No Employed: No (Pt is on disability due to MH DX) Supportive Family: Yes Interval History Identifying Information ROSMERY TALBERT is a 39-year-old F who currently lives in [place], [place] with her boyfriend, has a history of paranoid schizophrenia, and was admitted on 12/28/2019 on a 302 involuntary commitment for psychosis, treatment noncompliance, inability to care for self, in the context of going off her medications. She is on a 303 as of 01/02/2020. Chief Complaint "I don't know how much more stable and normal I can get." Review of Systems Notes Constitutional: denied Cardiovascular: denied Respiratory: denied Gastrointestinal: denied Neurological: denied Psychiatric: denies symptoms other than stated above Total of at least 10 systems reviewed, pertinent positives as above and in HPI. Sleep Information Total Hours of Sleep: 6.25 Sleep Comments: pt on q-15 minute check Meal Information Percent Meal Consumed - Breakfast: 100 Percent Meal Consumed - Lunch: 75 Percent Meal Consumed - Dinner: 80 Subjective Subjective Patient was seen & assessed and interval progress reviewed with treatment team. Staff report the patient has been behaviorally appropriate, but remains suspicious of staff. She reported to staff that she believes our psychiatrist is a "Phish girl" and continues to discuss belief that the "Phish kids" are controlling her life. Pt was seen today to assess progress since admission. Pt continues to verbalize frustration related to her continued hospitalization. She maintains that she is doing well and is ready for discharge, stating "I don't know how much more stable and normal I can get." This provider candidly discussed her reports to staff that she is suspicious of her treatment and believes we are affiliated with the "Phish kids." Pt states, "well...that doctor was about the right age..." When asked about her reports that these individuals are controlling her life, she initially states "I shouldn't even be talking about this with you." Pt was encouraged to share her thoughts and was reminded she can discuss stressors with clinicians, or any unit staff as necessary. Pt states "everyone just keeps wanting me to join them, and people aren't nice." Pt was asked how these "people" are contacting her (i.e. phone, text, voices in her head, speaking through devices, etc.). She deflects the question by stating only "I don't like to think about people who have hurt me." Pt continues to state "I feel good. I'm supposed to be honest with people, and you're supposed to listen to me. I feel good. What more do you want?" We discussed our concerns that her thoughts are not yet as stable as she believes them to be and that additional medication is recommended. This provider gave a clear explanation of concerns related to the thoughts she is reporting. Pt was observed to be taking notes on our conversation, but when attempting to summarize would only report "so you're saying you want to give me more medication so I will sleep...? 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 Pt continues to report feeling this is unnecessary, but does not refuse the change. She denies other needs or concerns at this time. Physical Exam Psychiatric Orientation: alert, oriented to person, oriented to place and + guarded (superficially pleasant, but argumentative ) Apperance: appropriately dressed, + disheveled and appeared stated age Eye Contact: + fair eye contact Motor Behavior: no abnormal motor movements (observed while sitting upright in bed) Speech: normal rate/rhythm/volume of speech Affect: + blunted affect Mood: no depressed mood (states she is "happy", "stable" and "normal", but frustrated with admission) Thought Process: goal directed thought process; + thought process not clear or coherent Thought Content: + paranoid, + delusions and + persecution Suicidal Thoughts: denies suicidal thoughts and denies suicidal intent Homicidal Thoughts: denies homicidal thoughts Hallucinations: no auditory hallucinations (but has informed staff that "Phish kids" are telling her what to do ) and no visual hallucinations Cognition: attention grossly intact and language grossly intact Insight: + poor insight Judgement: + poor judgement Vital Signs (Past 24 Hours) Last Vital Signs Temp 36.5 C 01/06/20 06:40 Pulse 114 H 01/06/20 06:41 Resp 16 01/06/20 06:40 BP 111/78 01/06/20 06:41 Pulse Ox 99 12/28/19 13:56 Results & Data ([facility]) Laboratory Results Laboratory Results - last 24 hr 01/05/20 11:00 WBC 4.37 L RBC 4.29 Hgb 14.8 Hct 43.1 MCV 100.5 H MCH 34.5 H MCHC 34.3 RDW Std Deviation 45.1 RDW Coeff of Ashanti 12.3 Plt Count 251 MPV 9.0 Immature Gran % (Auto) 0.2 Neut % (Auto) 59.9 Lymph % (Auto) 30.9 [place] % (Auto) 8.5 Eos % (Auto) 0.0 Baso % (Auto) 0.5 Immature Gran # (Auto) 0.01 Neut # (Auto) 2.62 Lymph # (Auto) 1.35 [place] # (Auto) 0.37 Eos # (Auto) 0.00 Baso # (Auto) 0.02 Current Inpatient Medications Current Inpatient Medications: Current Inpatient Medications Acetaminophen (Tylenol) 650 mg PO Q4H PRN PRN Reason: Headache or Minor Fever Stop: 01/27/20 12:57 Al Hydrox/Mg Hydrox/Simethicone (Maalox) 30 ml PO Q4H PRN PRN Reason: GI Upset Stop: 01/27/20 12:57 Bismuth Subsalicylate (Kaopectate) 15 ml PO PRN PRN PRN Reason: Loose Stool Stop: 01/27/20 12:57 Clozapine (Clozapine) 100 mg PO BID [facility] Stop: 01/30/20 20:59 Last Admin: 01/05/20 21:19 Dose: 100 mg Documented by: Cyanocobalamin (Vitamin B-12) 500 mcg PO QAM [facility] Stop: 01/29/20 10:29 Last Admin: 01/05/20 08:58 Dose: 500 mcg Documented by: Folic Acid (Folvite) 1 mg PO QAM [facility] Stop: 01/29/20 10:29 Last Admin: 01/05/20 08:58 Dose: 1 mg Documented by: Haloperidol (Haldol) 5 mg PO Q4H PRN PRN Reason: psychosis Stop: 01/27/20 17:46 Hydroxyzine HCl (Vistaril) 50 mg PO HSZ PRN PRN Reason: Insomnia Stop: 01/27/20 12:57 Hydroxyzine HCl (Vistaril) 25 mg PO Q4H PRN PRN Reason: Anxiety Stop: 01/27/20 12:57 Magnesium Hydroxide (Milk Of Magnesia) 30 ml PO DAILY PRN PRN Reason: Constipation Stop: 01/27/20 12:57 Nicotine Polacrilex (Nicorette 2mg) 1 piece MT PRN PRN PRN Reason: nicotine cravings Stop: 01/31/20 16:34 Rivaroxaban (Xarelto) 20 mg PO DAILY [facility] Stop: 01/29/20 10:29 Last Admin: 01/05/20 08:58 Dose: 20 mg Documented by: Sodium Chloride ([place] Nasal) 1 - 2 sprays NA PRN PRN PRN Reason: Nasal Dryness/Congestion Stop: 01/27/20 12:57 Trazodone HCl (Desyrel) 150 mg PO HS PRN PRN Reason: insomnia Stop: 01/27/20 21:59 Zolpidem Tartrate (Ambien) 10 mg PO HS PRN PRN Reason: insomnia Stop: 01/27/20 21:59 Mental Health & Subst Abuse Tx Psychiatrist Name of Psychiatrist: [facility] - Dr. Williamson Psychiatrist's Date of Appointment with Psychiatrist: 01/12/20 Time of Appointment with Psychiatrist: 4:10 p.m. Psychiatric Appointment Comment: [facility] [id number], [place] [address] Therapist Name of Therapist: None Packaging Assembler Name of Packaging Assembler: [facility] - [place] (Melvin Amador) Phone Number for Packaging Assembler: [phone] Post Discharge Appointments Primary Care Physician Name Of Family Doctor: KENAN - Dr. Mcdowell Primary Care Provider Appointment Comment: Poncho Zafar, [place] Contact Information Discharge Discharge Address: [facility] [address] [place] [id number]
[2020-01-06] MEDS: CYANOCOBALAMIN 500 MCG TABLET (VITAMIN B-12) PO SCH (09:31)
[2020-01-06] MEDS: RIVAROXABAN 20 MG TAB PO SCH (09:31)
[2020-01-06] MEDS: cloZAPine 100 MG TAB PO SCH ×2 (09:31→21:26)
[2020-01-06] MEDS: FOLIC ACID 1 MG TAB PO SCH (09:36)
[2020-01-06] MEDS: cloZAPine 25 MG TAB PO SCH (21:26)
[2020-01-07] MEDS: FOLIC ACID 1 MG TAB PO SCH (08:30)
[2020-01-07] MEDS: cloZAPine 100 MG TAB PO SCH (08:30)
[2020-01-07] MEDS: CYANOCOBALAMIN 500 MCG TABLET (VITAMIN B-12) PO SCH (08:30)
[2020-01-07] MEDS: RIVAROXABAN 20 MG TAB PO SCH (08:30)
--- NOTE | 2020-01-07 15:39 | Psychiatric Progress Note ---
Date of Service January 07, 2020 Impression / Recommendations Impression 39-year-old female admitted involuntarily for inpatient psychiatric treatment on 12/28/2019 after being brought to the ED by police due to worsening psychosis and inability to care for herself. She had stopped all of her psychiatric and medical medications, had increased delusions, paranoia, and disorganization, was not eating or sleeping, with increasingly erratic behavior, locking her boyfriend whom she lives with out of the house, telling police she was Alana Hernandez, and referring to herself as "the ruler of the world." She had not been sleeping for several days, and had laboratory evidence of poor p.o. intake (potassium 2.7). She does not believe she has schizophrenia, needs medications or hospitalization, and although she has been taking clozapine as ordered, indicates she does not like medications and would very likely be noncompliant with it if discharged at this time. She recently fired her watch case polisher, and does not have a therapist. 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 Evaluated by hospitalist who recommended resuming Xarelto and supplementation for B12 and folate deficiencies. She was on numerous psychotropic medications, but for now we have resumed the antipsychotic as it is the most important to target her current symptoms. She had a meeting with her mother who reported worsening delusions, and is on a 303 as of 01/01. She is refusing recommendations for a family meeting with her boyfriend, and increased outpatient treatment including a watch case polisher and therapist. We are recommending a 304 IOC. She remains paranoid, delusional, gravely disabled and unable to provide for her own basic needs without the care and assistance of others, and inpatient treatment is the least restrictive and appropriate venue for treatment to occur. (1) Paranoid schizophrenia: 12/27 - Admitted to a locked inpatient behavioral health unit, on q15 minute safety checks - Recommending that patient resume medications to target her paranoia and delusions. Will attempt to gather collateral information from family and will request a current medication list from her outpatient psychiatrist. - In the interim, we will re-titrate clozapine beginning at 25mg BID. Re- titrate to home dose of 100mg BID. Will order prn doses of zolpidem and trazodone for sleep. Haloperidol will be available as needed for psychosis. - Encourage participation in group and recreational therapies - Gather collateral information from outpatient providers - Suggest family meeting to involve outpatient supports in safety planning - Arrange appropriate aftercare - re-establish case management services 12/28 -Continue clozapine titration, increasing to 50 mg twice daily. -FLP and fasting glucose reviewed today and within normal limits. -Patient has refused to sign releases for her parents, boyfriend, or [facility]. She indicates willingness to have a family meeting with her boyfriend. -File for a 303 involuntary commitment, and consider need for a 304 IOC, as she would benefit from case management and therapy, but has been noncompliant with all aspects of treatment, leading to her decompensation. 12/29 - Continue clozapine titration - will increase to 75mg BID; CBC w/diff ordered fro 01/03. - 303 hearing scheduled for 01/01. - Pt remains somewhat paranoid and suspicious, but admits to perceived improvement in clarity of thought after her evening dose last night. 12/30 - Clozapine titrated back to recorded home dose of 100mg BID, to begin with this evening's dose - 303 hearing on 01/01 - Pt participated in a family meeting with her mother today, she continues to appears suspicious and paranoid and remains unable to articulate events that contributed to her decompensation and subsequent admission. 12/31 - Continue current medication regimen - pt back to home dose of clozapine at 100mg BID - 303 hearing scheduled for tomorrow morning - Discharge plans remain uncertain at this time; it is unclear if she will be able to stay with parents. She has an apartment, but would benefit from assistance from family. 01/01 - 303 hearing held and granted. - Continue clozapine and zolpidem. - Discharge plans remain unclear, patient vacillates in her stated plans (to stay w/ parents, return home w/ BF, or return home but live alone - although has not addressed issues w/ boyfriend directly. - Re-refer for BCM through [facility], where she previously had services. Recommend OP therapy, which she is declining. Consider 304 IOC due to severity of illness and lack of insight. 01/02 - Continue clozapine 100mg BID - Although patient continues to request rapid discharge, she lacks insight into the level of support necessary to develop a safe discharge plan. She remains unmotivated to involve her boyfriend in a meeting. - Pt did sit with our social work and dental detail representative from the [facility] to complete case management intake, but was too suspicious of the paperwork to be willing to sign at this time. - Ongoing consideration to pursue 304 IOC 01/03 - Continue clozapine 100mg BID - Pt refused CBC w/ diff ordered for this morning - phlebotomy plans to return intermittently to attempt again - Pt continues to be suspicious of paperwork for the case management process, and therefore has not signed - She continues to report suspicion of staff and is unable to appreciate the serious concerns related to her being discharged without an adequate safety plan. 01/04 -With staff encouragement, patient consented to blood draw for CBC: ANC 2.62. Continue clozapine. Discussed the need for medication with her, she continues to display very poor insight, stating she does not have schizophrenia nor does she need medication. Discussed recommendations for a long-acting injectable antipsychotic, which she is opposed to. If at any time she is uncooperative with the clozapine or required blood draws, would recommend transition to an RAMON, and medications over objection if necessary, as she has a longstanding diagnosis of schizophrenia, has active psychotic symptoms, and her symptoms have responded well to antipsychotic medication in the past. She is unlikely to recover without medication. -Social work will try to complete the case management referral with her again today; this is the third attempt, as she has been resistant and uncooperative. -She continues to refuse outpatient therapy and a family meeting with her boyfriend. We are recommending a 304 involuntary outpatient commitment, given the severity of her symptoms, lack of insight, and unwillingness for treatment. 01/05 - Titrating clozapine to 100mg qAM and 150mg qHS - ongoing titration as indicated. Pt continues to verbalize that she feels "stable and normal" on present dose, limited insight continues. Pt did consent to CBC w/ diff yesterday. Agree with above, patient may require conversion to an atypical antipsychotic and eventual conversion to an RAMON (though patient has an aversion to needles). - Pt did complete intake with [facility] for case management after several attempted meetings and significant suspicion. She remains reluctant to agree with other treatment recommendations, including proper adjustments of medications, referral for a therapist, and a phone meeting to involve mother and boyfriend in discharge planning - as patient maintains she plans to return to her apartment. 01/06 -Continue clozapine as above. Patient complains of feeling a little more drowsy today but appears fully alert and conversant (2) MTHFR mutation: 12/27 - Historical diagnosis of MTHFR mutation. Pt historically had been on Xarelto for chronic anticoagulation - It appears patient has not been taking the medication recently, as no record of the medication on external medication history - Will gather collateral information from family/outpatient providers regarding recommendations 12/28 -No outpatient records available from PCP in EMR to determine current medications/recommendations. Nursing staff contacted PCPs office to clarify whether she is supposed to be on an anticoagulant currently. She has reportedly been nonadherent with treatment, and PCP recommended inpatient medical consultation which will be requested today. -She will need a follow-up appointment after discharge. 12/29 - Appreciate hospitalist consult and recommendations - B12 and Folate levels ordered - both levels are low at 130 and 3.42 respectively - see treatment below - Discussed recommendations with patient who continued to be somewhat suspicious of the need for a blood thinner, but was ultimately agreeable with Xarelto - Will need to monitor patient's willingness while in the hospital, as hospitalist recommendations suggest concern associated with inconsistent dosing of Xarelto and a hypercoagulable state. Pt was able to at least acknowledge that she is not interested in Warfarin or Lovenox due to her aversion to needles and limited willingness for routine monitoring. Pt did seem to understanding the importance of consistent use of Xarelto during conversation. 12/31 - Pt has been compliant with prescribed dosing of Xarelto (3) Hypokalemia: 12/28 -potassium was 2.7 on presentation, likely due to poor oral intake for several days prior to admission. Repleted in the ER and improved slightly. Continue to monitor and encourage good nutrition. 01/02 - BMP was ordered, with patient initially refusing to complete the blood work - She did complete this morning - potassium improved to 4.0 - Pt has been eating meals appropriately (4) Abnormal urinalysis: 12/28 - UA on admission notable for 3+ blood, 1+ leukocyte esterase, > 30 WBCs, 5-10 RBCs, > 30 epithelial cells, and 1+ bacteria. Asymptomatic, likely contaminated sample, antibiotics not currently indicated, but will follow up on culture results when available. 12/29 - Preliminary culture resulting in pin-point growth, re-incubating 01/01 - lactobacillus per culture, asymptomatic, no treatment indicated. (5) Vitamin B12 deficiency: 12/29 - Vitamin B12 is deficient at 130 (nml 211-911) - Ensuring adequate level may offer benefit for treatment of patient's MTHFR mutation - Vegetarian diet is likely also contributing to this deficiency - Will offer patient Vitamine B12 at 500mcg daily - at this time patient is agreeable - This level should continue to be monitored on an outpatient basis (6) Folate deficiency: 12/29 - Folate level is deficient at 3.42 (nml >5.38) - Again, deficiency may also be related to dietary choices - Will supplement with Folic acid 1mg daily - at this time patient is agreeable - This too should be monitored on an outpatient basis 12/31 - Pt has been refusing folic acid with morning medications - unable to provide explanation as to why this is the case other than "I feel fine" - Education was again provided to the patient on the recommendation for Folic acid. She verbalized understanding, but did not convincingly state she would take the medication moving forward - Continue to offer education and encouragement 01/02 - Pt continues to refuse folic acid - no explanation provided for this refusal Risk Factors Assessment Male: No : Yes Do You Have Access To A Gun?: No Mental Health Diagnoses: Yes Substance Use Disorders: No Previous Attempt: No Previous Psychiatric Hospitalization: Yes Hopelessness: No Smoker: Yes Protective Factors Assessment Zoroastrian Beliefs: No : No Responsible for Young Children: No Employed: No (Pt is on disability due to MH DX) Supportive Family: Yes Interval History Identifying Information ROSMERY TALBERT is a 39-year-old F who currently lives in [place], [place] with her boyfriend, has a history of paranoid schizophrenia, and was admitted on 12/28/2019 on a 302 involuntary commitment for psychosis, treatment noncompliance, inability to care for self, in the context of going off her medications. She is on a 303 as of 01/02/2020. Chief Complaint " They adjusted my medicine again and now I am more sleepy". Review of Systems Sleep Information Total Hours of Sleep: 7.5 Sleep Comments: pt on q-15 minute check Meal Information Percent Meal Consumed - Breakfast: 100 Percent Meal Consumed - Lunch: 100 Percent Meal Consumed - Dinner: 90 Subjective Subjective Patient was seen & assessed and interval progress reviewed with treatment team. Clozapine titrated to 100 mg in the morning and 150 mg at bedtime yesterday. Patient was compliant with oral medication (apart from folic acid.) CBC's drawn on 12/28/2019 and 01/05/2020. Neut's ok. Apart from feeling a little sleepier this morning patient is without acute complaints. She describes her mood as good but states that she is sad to have to be in the hospital. Physical Exam Psychiatric Orientation: alert and cooperative Apperance: + disheveled Eye Contact: + fair eye contact Motor Behavior: no abnormal motor movements Speech: normal rate/rhythm/volume of speech Affect: + blunted affect Mood: no depressed mood (But feels to be in the hospital) Thought Process: + tangential thought process Thought Content: + paranoid Suicidal Thoughts: denies suicidal thoughts Homicidal Thoughts: denies homicidal thoughts Hallucinations: no auditory hallucinations Cognition: language grossly intact Insight: + poor insight Judgement: + poor judgement Vital Signs (Past 24 Hours) Last Vital Signs Temp 36.6 C 01/07/20 06:00 Pulse 70 01/07/20 06:00 Resp 16 01/07/20 06:00 BP 103/69 01/07/20 06:00 Pulse Ox 99 12/28/19 13:56 Results & Data ([facility]) Current Inpatient Medications Current Inpatient Medications: Current Inpatient Medications Acetaminophen (Tylenol) 650 mg PO Q4H PRN PRN Reason: Headache or Minor Fever Stop: 01/27/20 12:57 Al Hydrox/Mg Hydrox/Simethicone (Maalox) 30 ml PO Q4H PRN PRN Reason: GI Upset Stop: 01/27/20 12:57 Bismuth Subsalicylate (Kaopectate) 15 ml PO PRN PRN PRN Reason: Loose Stool Stop: 01/27/20 12:57 Clozapine (Clozapine) 100 mg PO QAM SIMONA Stop: 02/06/20 08:59 Last Admin: 01/07/20 08:30 Dose: 100 mg Documented by: Clozapine (Clozaril) 150 mg PO HS SIMONA Stop: 02/05/20 21:59 Last Admin: 01/06/20 21:26 Dose: 150 mg Documented by: Cyanocobalamin (Vitamin B-12) 500 mcg PO QAM SIMONA Stop: 01/29/20 10:29 Last Admin: 01/07/20 08:30 Dose: 500 mcg Documented by: Folic Acid (Folvite) 1 mg PO QAM SIMONA Stop: 01/29/20 10:29 Last Admin: 01/07/20 08:30 Dose: 1 mg Documented by: Haloperidol (Haldol) 5 mg PO Q4H PRN PRN Reason: psychosis Stop: 01/27/20 17:46 Hydroxyzine HCl (Vistaril) 50 mg PO HSZ PRN PRN Reason: Insomnia Stop: 01/27/20 12:57 Hydroxyzine HCl (Vistaril) 25 mg PO Q4H PRN PRN Reason: Anxiety Stop: 01/27/20 12:57 Magnesium Hydroxide (Milk Of Magnesia) 30 ml PO DAILY PRN PRN Reason: Constipation Stop: 01/27/20 12:57 Nicotine Polacrilex (Nicorette 2mg) 1 piece MT PRN PRN PRN Reason: nicotine cravings Stop: 01/31/20 16:34 Rivaroxaban (Xarelto) 20 mg PO DAILY SIMONA Stop: 01/29/20 10:29 Last Admin: 01/07/20 08:30 Dose: 20 mg Documented by: Sodium Chloride ([place] Nasal) 1 - 2 sprays NA PRN PRN PRN Reason: Nasal Dryness/Congestion Stop: 01/27/20 12:57 Trazodone HCl (Desyrel) 150 mg PO HS PRN PRN Reason: insomnia Stop: 01/27/20 21:59 Zolpidem Tartrate (Ambien) 10 mg PO HS PRN PRN Reason: insomnia Stop: 01/27/20 21:59 Mental Health & Subst Abuse Tx Psychiatrist Name of Psychiatrist: [facility] - Dr. Williamson Psychiatrist's Date of Appointment with Psychiatrist: 01/12/20 Time of Appointment with Psychiatrist: 4:10 p.m. Psychiatric Appointment Comment: [id number], [place] [address] Therapist Name of Therapist: None Non Ferrous Material Handler Name of Non Ferrous Material Handler: [facility] [place] (Melvin Amador) Phone Number for Non Ferrous Material Handler: [phone] Post Discharge Appointments Primary Care Physician Name Of Family Doctor: KENAN - Dr. Mcdowell Primary Care Provider Appointment Comment: Poncho Zafar, [place] Contact Information Discharge Discharge Address: [facility] [address] [place] [address], [place] [address]
[2020-01-07] MEDS: cloZAPine 25 MG TAB PO SCH (21:18)
[2020-01-08] MEDS: cloZAPine 100 MG TAB PO SCH (08:17)
[2020-01-08] MEDS: FOLIC ACID 1 MG TAB PO SCH (08:17)
[2020-01-08] MEDS: CYANOCOBALAMIN 500 MCG TABLET (VITAMIN B-12) PO SCH (08:18)
[2020-01-08] MEDS: RIVAROXABAN 20 MG TAB PO SCH (08:18)
--- NOTE | 2020-01-08 11:39 | Psychiatric Progress Note ---
Date of Service January 08, 2020 Impression / Recommendations Impression 39-year-old female admitted involuntarily for inpatient psychiatric treatment on 12/28/2019 after being brought to the ED by police due to worsening psychosis and inability to care for herself. She had stopped all of her psychiatric and medical medications, had increased delusions, paranoia, and disorganization, was not eating or sleeping, with increasingly erratic behavior, locking her boyfriend whom she lives with out of the house, telling police she was Alana Hernandez, and referring to herself as "the ruler of the world." She had not been sleeping for several days, and had laboratory evidence of poor p.o. intake (potassium 2.7). She does not believe she has schizophrenia, needs medications or hospitalization, and although she has been taking clozapine as ordered, indicates she does not like medications and would very likely be noncompliant with it if discharged at this time. She recently fired her case managers, and does not have a therapist. 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 Evaluated by hospitalist who recommended resuming Xarelto and supplementation for B12 and folate deficiencies. She was on numerous psychotropic medications, but for now we have resumed the antipsychotic as it is the most important to target her current symptoms. She had a meeting with her mother who reported worsening delusions, and is on a 303 as of 01/01. She is refusing recommendations for a family meeting with her boyfriend, and increased outpatient treatment including a case managers and therapist. We are recommending a 304 IOC. She remains paranoid, delusional, gravely disabled and unable to provide for her own basic needs without the care and assistance of others, and inpatient treatment is the least restrictive and appropriate venue for treatment to occur. (1) Paranoid schizophrenia: 12/27 - Admitted to a locked inpatient behavioral health unit, on q15 minute safety checks - Recommending that patient resume medications to target her paranoia and delusions. Will attempt to gather collateral information from family and will request a current medication list from her outpatient psychiatrist. - In the interim, we will re-titrate clozapine beginning at 25mg BID. Re- titrate to home dose of 100mg BID. Will order prn doses of zolpidem and trazodone for sleep. Haloperidol will be available as needed for psychosis. - Encourage participation in group and recreational therapies - Gather collateral information from outpatient providers - Suggest family meeting to involve outpatient supports in safety planning - Arrange appropriate aftercare - re-establish case management services 12/28 -Continue clozapine titration, increasing to 50 mg twice daily. -FLP and fasting glucose reviewed today and within normal limits. -Patient has refused to sign releases for her parents, boyfriend, or [facility]. She indicates willingness to have a family meeting with her boyfriend. -File for a 303 involuntary commitment, and consider need for a 304 IOC, as she would benefit from case management and therapy, but has been noncompliant with all aspects of treatment, leading to her decompensation. 12/29 - Continue clozapine titration - will increase to 75mg BID; CBC w/diff ordered fro 01/03. - 303 hearing scheduled for 01/01. - Pt remains somewhat paranoid and suspicious, but admits to perceived improvement in clarity of thought after her evening dose last night. 12/30 - Clozapine titrated back to recorded home dose of 100mg BID, to begin with this evening's dose - 303 hearing on 01/01 - Pt participated in a family meeting with her mother today, she continues to appears suspicious and paranoid and remains unable to articulate events that contributed to her decompensation and subsequent admission. 12/31 - Continue current medication regimen - pt back to home dose of clozapine at 100mg BID - 303 hearing scheduled for tomorrow morning - Discharge plans remain uncertain at this time; it is unclear if she will be able to stay with parents. She has an apartment, but would benefit from assistance from family. 01/01 - 303 hearing held and granted. - Continue clozapine and zolpidem. - Discharge plans remain unclear, patient vacillates in her stated plans (to stay w/ parents, return home w/ BF, or return home but live alone - although has not addressed issues w/ boyfriend directly. - Re-refer for BCM through [facility], where she previously had services. Recommend OP therapy, which she is declining. Consider 304 IOC due to severity of illness and lack of insight. 01/02 - Continue clozapine 100mg BID - Although patient continues to request rapid discharge, she lacks insight into the level of support necessary to develop a safe discharge plan. She remains unmotivated to involve her boyfriend in a meeting. - Pt did sit with our social work and lead customer service representative from the [facility] to complete case management intake, but was too suspicious of the paperwork to be willing to sign at this time. - Ongoing consideration to pursue 304 IOC 01/03 - Continue clozapine 100mg BID - Pt refused CBC w/ diff ordered for this morning - phlebotomy plans to return intermittently to attempt again - Pt continues to be suspicious of paperwork for the case management process, and therefore has not signed - She continues to report suspicion of staff and is unable to appreciate the serious concerns related to her being discharged without an adequate safety plan. 01/04 -With staff encouragement, patient consented to blood draw for CBC: ANC 2.62. Continue clozapine. Discussed the need for medication with her, she continues to display very poor insight, stating she does not have schizophrenia nor does she need medication. Discussed recommendations for a long-acting injectable antipsychotic, which she is opposed to. If at any time she is uncooperative with the clozapine or required blood draws, would recommend transition to an RAMON, and medications over objection if necessary, as she has a longstanding diagnosis of schizophrenia, has active psychotic symptoms, and her symptoms have responded well to antipsychotic medication in the past. She is unlikely to recover without medication. -Social work will try to complete the case management referral with her again today; this is the third attempt, as she has been resistant and uncooperative. -She continues to refuse outpatient therapy and a family meeting with her boyfriend. We are recommending a 304 involuntary outpatient commitment, given the severity of her symptoms, lack of insight, and unwillingness for treatment. 01/05 - Titrating clozapine to 100mg qAM and 150mg qHS - ongoing titration as indicated. Pt continues to verbalize that she feels "stable and normal" on present dose, limited insight continues. Pt did consent to CBC w/ diff yesterday. Agree with above, patient may require conversion to an atypical antipsychotic and eventual conversion to an RAMON (though patient has an aversion to needles). - Pt did complete intake with [facility] for case management after several attempted meetings and significant suspicion. She remains reluctant to agree with other treatment recommendations, including proper adjustments of medications, referral for a therapist, and a phone meeting to involve mother and boyfriend in discharge planning - as patient maintains she plans to return to her apartment. 01/06 -Continue clozapine as above. Patient complains of feeling a little more drowsy today but appears fully alert and conversant 01/07 -Patient remains somewhat illogical and paranoid but sounds to be significantly improved from initial presentation and has been compliant with oral medication over the weekend. -When the primary team is back on Thursday we can try to assess" she is to her typical baseline (2) MTHFR mutation: 12/27 - Historical diagnosis of MTHFR mutation. Pt historically had been on Xarelto for chronic anticoagulation - It appears patient has not been taking the medication recently, as no record of the medication on external medication history - Will gather collateral information from family/outpatient providers regarding recommendations 12/28 -No outpatient records available from PCP in EMR to determine current medic ations/recommendations. Nursing staff contacted PCPs office to clarify whether she is supposed to be on an anticoagulant currently. She has reportedly been nonadherent with treatment, and PCP recommended inpatient medical consultation which will be requested today. -She will need a follow-up appointment after discharge. 12/29 - Appreciate hospitalist consult and recommendations - B12 and Folate levels ordered - both levels are low at 130 and 3.42 respectively - see treatment below - Discussed recommendations with patient who continued to be somewhat suspicious of the need for a blood thinner, but was ultimately agreeable with Xarelto - Will need to monitor patient's willingness while in the hospital, as hospitalist recommendations suggest concern associated with inconsistent dosing of Xarelto and a hypercoagulable state. Pt was able to at least acknowledge that she is not interested in Warfarin or Lovenox due to her aversion to needles and limited willingness for routine monitoring. Pt did seem to understanding the importance of consistent use of Xarelto during conversation. 12/31 - Pt has been compliant with prescribed dosing of Xarelto (3) Hypokalemia: 12/28 -potassium was 2.7 on presentation, likely due to poor oral intake for several days prior to admission. Repleted in the ER and improved slightly. Continue to monitor and encourage good nutrition. 01/02 - BMP was ordered, with patient initially refusing to complete the blood work - She did complete this morning - potassium improved to 4.0 - Pt has been eating meals appropriately (4) Abnormal urinalysis: 12/28 - UA on admission notable for 3+ blood, 1+ leukocyte esterase, > 30 WBCs, 5-10 RBCs, > 30 epithelial cells, and 1+ bacteria. Asymptomatic, likely contaminated sample, antibiotics not currently indicated, but will follow up on culture results when available. 12/29 - Preliminary culture resulting in pin-point growth, re-incubating 01/01 - lactobacillus per culture, asymptomatic, no treatment indicated. (5) Vitamin B12 deficiency: 12/29 - Vitamin B12 is deficient at 130 (nml 211-911) - Ensuring adequate level may offer benefit for treatment of patient's MTHFR mutation - Vegetarian diet is likely also contributing to this deficiency - Will offer patient Vitamine B12 at 500mcg daily - at this time patient is agreeable - This level should continue to be monitored on an outpatient basis (6) Folate deficiency: 12/29 - Folate level is deficient at 3.42 (nml >5.38) - Again, deficiency may also be related to dietary choices - Will supplement with Folic acid 1mg daily - at this time patient is agreeable - This too should be monitored on an outpatient basis 12/31 - Pt has been refusing folic acid with morning medications - unable to provide explanation as to why this is the case other than "I feel fine" - Education was again provided to the patient on the recommendation for Folic acid. She verbalized understanding, but did not convincingly state she would take the medication moving forward - Continue to offer education and encouragement 01/02 - Pt continues to refuse folic acid - no explanation provided for this refusal 01/07 -Last 2 days has accepted oral supplement Risk Factors Assessment Male: No : Yes Do You Have Access To A Gun?: No Mental Health Diagnoses: Yes Substance Use Disorders: No Previous Attempt: No Previous Psychiatric Hospitalization: Yes Hopelessness: No Smoker: Yes Protective Factors Assessment Cheondoism Beliefs: No : No Responsible for Young Children: No Employed: No (Pt is on disability due to MH DX) Supportive Family: Yes Interval History Identifying Information ROSMERY TALBERT is a 39-year-old F who currently lives in [place], [place] with her boyfriend, has a history of paranoid schizophrenia, and was admitted on 12/28/2019 on a 302 involuntary commitment for psychosis, treatment noncompliance, inability to care for self, in the context of going off her medications. She is on a 303 as of 01/02/2020. Chief Complaint " I feel great, perfectly normal". Review of Systems Notes Denies command hallucinations, suicidal or homicidal ideations Sleep Information Total Hours of Sleep: 7 Sleep Comments: pt on q-15 minute check Meal Information Percent Meal Consumed - Breakfast: 75 Percent Meal Consumed - Lunch: 100 Percent Meal Consumed - Dinner: 75 Subjective Subjective Patient was seen & assessed and interval progress reviewed with treatment team. Patient doing well within the context of milieu per staff. Going to programming. Taking oral medications. She is pleasant and appears eager to talk this morning on interview. Superficially she is calm and euthymic but appears sad when discussing her cats and missing her apartment. She minimizes discord with boyfriend but confirms that they plan for him to move out. She minimizes any concerns regarding safety and feels she is ready for discharge. She demonstrates evidence of residual mild paranoia and delusions this morning identifying the nursing staff as possibly related to the band [employer] but does not directly relate this to herself this morning. 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." Physical Exam Psychiatric Orientation: alert and cooperative Apperance: + disheveled Eye Contact: + fair eye contact Motor Behavior: steady gait and station and no abnormal motor movements Speech: normal rate/rhythm/volume of speech Affect is mildly labile appearing initially quite tearful and then abruptly saddened but appropriate within the context of conversation "Perfectly normal" Thought Process: + tangential thought process Thought Content: + paranoid Suicidal Thoughts: denies suicidal thoughts Homicidal Thoughts: denies homicidal thoughts Hallucinations: no auditory hallucinations Cognition: language grossly intact Insight: + limited insight Judgement: + limited judgement Vital Signs (Past 24 Hours) Last Vital Signs Temp 36.7 C 01/08/20 06:34 Pulse 104 H 01/08/20 06:34 Resp 16 01/08/20 06:34 BP 104/74 01/08/20 06:34 Pulse Ox 99 12/28/19 13:56 Results & Data (U) Current Inpatient Medications Current Inpatient Medications: Current Inpatient Medications Acetaminophen (Tylenol) 650 mg PO Q4H PRN PRN Reason: Headache or Minor Fever Stop: 01/27/20 12:57 Al Hydrox/Mg Hydrox/Simethicone (Maalox) 30 ml PO Q4H PRN PRN Reason: GI Upset Stop: 01/27/20 12:57 Bismuth Subsalicylate (Kaopectate) 15 ml PO PRN PRN PRN Reason: Loose Stool Stop: 01/27/20 12:57 Clozapine (Clozapine) 100 mg PO QAM [facility] Stop: 02/06/20 08:59 Last Admin: 01/08/20 08:17 Dose: 100 mg Documented by: Clozapine (Clozaril) 150 mg PO HS SIMONA Stop: 02/05/20 21:59 Last Admin: 01/07/20 21:18 Dose: 150 mg Documented by: Cyanocobalamin (Vitamin B-12) 500 mcg PO QAM [facility] Stop: 01/29/20 10:29 Last Admin: 01/08/20 08:18 Dose: 500 mcg Documented by: Folic Acid (Folvite) 1 mg PO QAM [facility] Stop: 01/29/20 10:29 Last Admin: 01/08/20 08:17 Dose: 1 mg Documented by: Haloperidol (Haldol) 5 mg PO Q4H PRN PRN Reason: psychosis Stop: 01/27/20 17:46 Hydroxyzine HCl (Vistaril) 50 mg PO HSZ PRN PRN Reason: Insomnia Stop: 01/27/20 12:57 Hydroxyzine HCl (Vistaril) 25 mg PO Q4H PRN PRN Reason: Anxiety Stop: 01/27/20 12:57 Magnesium Hydroxide (Milk Of Magnesia) 30 ml PO DAILY PRN PRN Reason: Constipation Stop: 01/27/20 12:57 Nicotine Polacrilex (Nicorette 2mg) 1 piece MT PRN PRN PRN Reason: nicotine cravings Stop: 01/31/20 16:34 Rivaroxaban (Xarelto) 20 mg PO DAILY [facility] Stop: 01/29/20 10:29 Last Admin: 01/08/20 08:18 Dose: 20 mg Documented by: Sodium Chloride (Driggs Nasal) 1 - 2 sprays NA PRN PRN PRN Reason: Nasal Dryness/Congestion Stop: 01/27/20 12:57 Trazodone HCl (Desyrel) 150 mg PO HS PRN PRN Reason: insomnia Stop: 01/27/20 21:59 Zolpidem Tartrate (Ambien) 10 mg PO HS PRN PRN Reason: insomnia Stop: 01/27/20 21:59 Mental Health & Subst Abuse Tx Psychiatrist Name of Psychiatrist: [facility] - Dr. Williamson Psychiatrist's Date of Appointment with Psychiatrist: 01/12/20 Time of Appointment with Psychiatrist: 4:10 p.m. Psychiatric Appointment Comment: [id number], [place] [address] Therapist Name of Therapist: None Shoe Cleaner Name of Shoe Cleaner: [facility] - Yuliet (Melvin Amador) Phone Number for Shoe Cleaner: [phone] Post Discharge Appointments Primary Care Physician Name Of Family Doctor: KENAN - Dr. Mcdowell Primary Care Provider Appointment Comment: [id number], [place] Contact Information Discharge Discharge Address: [facility] [address] [place] [id number]
[2020-01-08] MEDS: cloZAPine 25 MG TAB PO SCH (20:59)
[2020-01-09] MEDS: FOLIC ACID 1 MG TAB PO SCH (09:02)
[2020-01-09] MEDS: CYANOCOBALAMIN 500 MCG TABLET (VITAMIN B-12) PO SCH (09:02)
[2020-01-09] MEDS: RIVAROXABAN 20 MG TAB PO SCH (09:02)
[2020-01-09] MEDS: cloZAPine 100 MG TAB PO SCH (09:02)
--- NOTE | 2020-01-09 09:58 | Psychiatric Progress Note ---
Date of Service January 09, 2020 Impression / Recommendations Impression 39-year-old female admitted involuntarily for inpatient psychiatric treatment on 12/28/2019 after being brought to the ED by police due to worsening psychosis and inability to care for herself. She had stopped all of her psychiatric and medical medications, had increased delusions, paranoia, and disorganization, was not eating or sleeping, with increasingly erratic behavior, locking her boyfriend whom she lives with out of the house, telling police she was Alana Hernandez, and referring to herself as "the ruler of the world." She had not been sleeping for several days, and had laboratory evidence of poor p.o. intake (potassium 2.7). She does not believe she has schizophrenia, needs medications or hospitalization, and although she has been taking clozapine as ordered, indicates she does not like medications and would very likely be noncompliant with it if discharged at this time. She recently fired her manager case management, and does not have a therapist. 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 Evaluated by hospitalist who recommended resuming Xarelto and supplementation for B12 and folate deficiencies. She was on numerous psychotropic medications, but for now we have resumed the antipsychotic as it is the most important to target her current symptoms. She had a meeting with her mother who reported worsening delusions, and is on a 303 as of 01/01. She is refusing recommendations for a family meeting with her boyfriend, and increased outpatient treatment including a manager case management and therapist. We are recommending a 304 IOC. Paranoia and delusions are less prominent; however, patient continues to demonstrate limited insight into the need for various steps in the discharge planning process. She is not yet agreeable with an additional support meeting and continues to refuse outpatient therapy referral. At this time, inpatient treatment remains the leas t restrictive and appropriate venue for treatment to occur. (1) Paranoid schizophrenia: 12/27 - Admitted to a locked inpatient behavioral health unit, on q15 minute safety checks - Recommending that patient resume medications to target her paranoia and delusions. Will attempt to gather collateral information from family and will request a current medication list from her outpatient psychiatrist. - In the interim, we will re-titrate clozapine beginning at 25mg BID. Re- titrate to home dose of 100mg BID. Will order prn doses of zolpidem and traz odone for sleep. Haloperidol will be available as needed for psychosis. - Encourage participation in group and recreational therapies - Gather collateral information from outpatient providers - Suggest family meeting to involve outpatient supports in safety planning - Arrange appropriate aftercare - re-establish case management services 12/28 -Continue clozapine titration, increasing to 50 mg twice daily. -FLP and fasting glucose reviewed today and within normal limits. -Patient has refused to sign releases for her parents, boyfriend, or outpatient psychiatrist. She indicates willingness to have a family meeting with her boyfriend. -File for a 303 involuntary commitment, and consider need for a 304 IOC, as she would benefit from case management and therapy, but has been noncompliant with all aspects of treatment, leading to her decompensation. 12/29 - Continue clozapine titration - will increase to 75mg BID; CBC w/diff ordered fro 01/03. - 303 hearing scheduled for 01/01. - Pt remains somewhat paranoid and suspicious, but admits to perceived improvement in clarity of thought after her evening dose last night. 12/30 - Clozapine titrated back to recorded home dose of 100mg BID, to begin with this evening's dose - 303 hearing on 01/01 - Pt participated in a family meeting with her mother today, she continues to appears suspicious and paranoid and remains unable to articulate events that contributed to her decompensation and subsequent admission. 12/31 - Continue current medication regimen - pt back to home dose of clozapine at 100mg BID - 303 hearing scheduled for tomorrow morning - Discharge plans remain uncertain at this time; it is unclear if she will be able to stay with parents. She has an apartment, but would benefit from assistance from family. 01/01 - 303 hearing held and granted. - Continue clozapine and zolpidem. - Discharge plans remain unclear, patient vacillates in her stated plans (to stay w/ parents, return home w/ BF, or return home but live alone - although has not addressed issues w/ boyfriend directly. - Re-refer for BCM through [facility], where she previously had services. Recommend OP therapy, which she is declining. Consider 304 IOC due to severity of illness and lack of insight. 01/02 - Continue clozapine 100mg BID - Although patient continues to request rapid discharge, she lacks insight into the level of support necessary to develop a safe discharge plan. She remains unmotivated to involve her boyfriend in a meeting. - Pt did sit with our social work and quality audit representative from the [facility] to complete case management intake, but was too suspicious of the paperwork to be willing to sign at this time. - Ongoing consideration to pursue 304 IO 01/03 - Continue clozapine 100mg BID - Pt refused CBC w/ diff ordered for this morning - phlebotomy plans to return intermittently to attempt again - Pt continues to be suspicious of paperwork for the case management process, and therefore has not signed - She continues to report suspicion of staff and is unable to appreciate the serious concerns related to her being discharged without an adequate safety plan. 01/04 -With staff encouragement, patient consented to blood draw for CBC: ANC 2.62. Continue clozapine. Discussed the need for medication with her, she continues to display very poor insight, stating she does not have schizophrenia nor does she need medication. Discussed recommendations for a long-acting injectable antipsychotic, which she is opposed to. If at any time she is uncooperative with the clozapine or required blood draws, would recommend transition to an RAMON, and medications over objection if necessary, as she has a longstanding diagnosis of schizophrenia, has active psychotic symptoms, and her symptoms have responded well to antipsychotic medication in the past. She is unlikely to recover without medication. -Social work will try to complete the case management referral with her again today; this is the third attempt, as she has been resistant and uncooperative. -She continues to refuse outpatient therapy and a family meeting with her boyfriend. We are recommending a 304 involuntary outpatient commitment, given the severity of her symptoms, lack of insight, and unwillingness for treatment. 01/05 - Titrating clozapine to 100mg qAM and 150mg qHS - ongoing titration as indicated. Pt continues to verbalize that she feels "stable and normal" on present dose, limited insight continues. Pt did consent to CBC w/ diff yesterday. Agree with above, patient may require conversion to an atypical antipsychotic and eventual conversion to an RAMON (though patient has an aversion to needles). - Pt did complete intake with [facility] for case management after several attempted meetings and significant suspicion. She remains reluctant to agree with other treatment recommendations, including proper adjustments of medications, referral for a therapist, and a phone meeting to involve mother and boyfriend in discharge planning - as patient maintains she plans to return to her apartment. 01/06 -Continue clozapine as above. Patient complains of feeling a little more drowsy today but appears fully alert and conversant 01/07 -Patient remains somewhat illogical and paranoid but sounds to be significantly improved from initial presentation and has been compliant with oral medication over the weekend. -When the primary team is back on Thursday we can try to assess" she is to her typical baseline 01/08 - Continue clozapine at 100mg qAM and 150mg qHS, patient has been compliant with medications - Pt scheduled to meet again with [facility] staff regarding case management and anticipated 304 IOC. Pt continues to report limited willingness for outpatient therapy or assistance with medication management. She is only agreeable with continued visits with Dr. Williamson. - Pt encouraged to consider another support meeting to discuss discharge and safety planning. It is likely she will involve her boyfriend, with whom she lives, though has yet to be willing to schedule this meeting. (2) MTHFR mutation: 12/27 - Historical diagnosis of MTHFR mutation. Pt historically had been on Xarel to for chronic anticoagulation - It appears patient has not been taking the medication recently, as no record of the medication on external medication history - Will gather collateral information from family/outpatient providers regarding recommendations 12/28 -No outpatient records available from PCP in EMR to determine current medications/recommendations. Nursing staff contacted PCPs office to clarify whether she is supposed to be on an anticoagulant currently. She has reportedly been nonadherent with treatment, and PCP recommended inpatient medical consultation which will be requested today. -She will need a follow-up appointment after discharge. 12/29 - Appreciate hospitalist consult and recommendations - B12 and Folate levels ordered - both levels are low at 130 and 3.42 respectively - see treatment below - Discussed recommendations with patient who continued to be somewhat suspicious of the need for a blood thinner, but was ultimately agreeable with Xarelto - Will need to monitor patient's willingness while in the hospital, as hospitalist recommendations suggest concern associated with inconsistent dosing of Xarelto and a hypercoagulable state. Pt was able to at least acknowledge that she is not interested in Warfarin or Lovenox due to her aversion to needles and limited willingness for routine monitoring. Pt did seem to understanding the importance of consistent use of Xarelto during conversation. 12/31 - Pt has been compliant with prescribed dosing of Xarelto (3) Hypokalemia: 12/28 -potassium was 2.7 on presentation, likely due to poor oral intake for several days prior to admission. Repleted in the ER and improved slightly. Continue to monitor and encourage good nutrition. 01/02 - BMP was ordered, with patient initially refusing to complete the blood work - She did complete this morning - potassium improved to 4.0 - Pt has been eating meals appropriately (4) Abnormal urinalysis: 12/28 - UA on admission notable for 3+ blood, 1+ leukocyte esterase, > 30 WBCs, 5-10 RBCs, > 30 epithelial cells, and 1+ bacteria. Asymptomatic, likely contaminated sample, antibiotics not currently indicated, but will follow up on culture results when available. 12/29 - Preliminary culture resulting in pin-point growth, re-incubating 01/01 - lactobacillus per culture, asymptomatic, no treatment indicated. (5) Vitamin B12 deficiency: 12/29 - Vitamin B12 is deficient at 130 (nml 211-911) - Ensuring adequate level may offer benefit for treatment of patient's MTHFR mutation - Vegetarian diet is likely also contributing to this deficiency - Will offer patient Vitamine B12 at 500mcg daily - at this time patient is agreeable - This level should continue to be monitored on an outpatient basis 01/08 - Pt has demonstrated compliance with scheduled doses of Vitamin B12 (6) Folate deficiency: 12/29 - Folate level is deficient at 3.42 (nml >5.38) - Again, deficiency may also be related to dietary choices - Will supplement with Folic acid 1mg daily - at this time patient is agreeable - This too should be monitored on an outpatient basis 12/31 - Pt has been refusing folic acid with morning medications - unable to provide explanation as to why this is the case other than "I feel fine" - Education was again provided to the patient on the recommendation for Folic acid. She verbalized understanding, but did not convincingly state she would take the medication moving forward - Continue to offer education and encouragement 01/02 - Pt continues to refuse folic acid - no explanation provided for this refusal 01/07 -Last 2 days has accepted oral supplement 01/08 - Continue compliance with scheduled folic acid supplementation Risk Factors Assessment Male: No : Yes Do You Have Access To A Gun?: No Mental Health Diagnoses: Yes Substance Use Disorders: No Previous Attempt: No Previous Psychiatric Hospitalization: Yes Hopelessness: No Smoker: Yes Protective Factors Assessment Mosque Beliefs: No : No Responsible for Young Children: No Employed: No (Pt is on disability due to MH DX) Supportive Family: Yes Interval History Identifying Information ROSMERY TALBERT is a 39-year-old F who currently lives in [place], [place] with her boyfriend, has a history of paranoid schizophrenia, and was admitted on 12/28/2019 on a 302 involuntary commitment for psychosis, treatment noncompliance, inability to care for self, in the context of going off her medications. She is on a 303 as of 01/02/2020. Chief Complaint "I'm ok. I was just up writing a little bit, but my back hurt so I laid down." Review of Systems Notes Constitutional: denied Cardiovascular: denied Respiratory: denied Gastrointestinal: denied Neurological: denied Psychiatric: denies symptoms other than stated above Total of at least 10 systems reviewed, pertinent positives as above and in HPI. Sleep Information Total Hours of Sleep: 6.75 Sleep Comments: pt on q-15 minute check Meal Information Percent Meal Consumed - Breakfast: 100 Percent Meal Consumed - Lunch: 100 Percent Meal Consumed - Dinner: 95 Subjective Subjective Patient was seen & assessed and interval progress reviewed with treatment team. Staff report the patient continues to be pleasant, but limited in her willingness to comply with discharge planning recommendations. Pt continues to speak with her boyfriend via phone, but remains hesitant to involve him in a support meeting. Pt is scheduled to participate in a phone call with the [facility] regarding case management services tomorrow. Pt was seen today to assess progress since admission. Pt states she is doing well. She reports that the weekend went well and denies any concerns related to her clozapine being titrated prior to the weekend. She continues to states "I just don't get why...I thought I was fine with the dose Dr. Williamson had me on." We discussed potential to return to the previous dose, if her outpatient provider should agree, once she has transitioned home and is stable. Pt states she is to have another phone call about case management tomorrow, and feels "Dr. Williamson and the [facility] are enough, I don't need therapy or anything else right now." Pt was again reminded of recommendation to have a discharge planning meeting with a support (offered either mother or boyfriend). Pt did not commit to a meeting at this time, but did suggest she would consider. Pt remains largely focused on discharge, but seemed happy to review the steps she has already completed and tolerated review of steps we are still working toward. Pt did direct this provider to a letter she had given to staff this morning outlining her mood, appetite and activity level for 01/07/2020. Pt reported on this paper that her mood was "great" and that she is "friendly, talkative, nice." She reports her activity is good - documenting that she is attending groups, reading magazines, walking, and doing puzzles. Pt states "I am sleeping through the night" on the paper as well. Pt continues to deny SI or other mood related concerns. Pt did mention today "I'm starting to feel like myself again, and that feels really nice." Pt denied other needs or concerns at this time. Physical Exam Psychiatric Orientation: alert, oriented x 3 and cooperative Apperance: appropriately dressed, appropriately groomed and appeared stated age Eye Contact: good eye contact Motor Behavior: no abnormal motor movements (observed while sitting in bed) Speech: normal rate/rhythm/volume of speech Affect: + blunted affect and mood congruent with affect Mood: no depressed mood Thought Process: goal directed thought process and + concrete thought process Thought Content: + preoccupation (with discharge ); no delusions (no overt delusional statements made during encounter) and no hopelessness Suicidal Thoughts: denies suicidal thoughts Homicidal Thoughts: denies homicidal thoughts Hallucinations: no auditory hallucinations and no visual hallucinations Cognition: attention grossly intact and language grossly intact Insight: + limited insight Judgement: + limited judgement Vital Signs (Past 24 Hours) Last Vital Signs Temp 36.6 C 01/09/20 06:50 Pulse 89 01/09/20 06:50 Resp 16 01/09/20 06:50 BP 118/84 01/09/20 06:50 Pulse Ox 99 12/28/19 13:56 Results & Data ([facility]) Current Inpatient Medications Current Inpatient Medications: Current Inpatient Medications Acetaminophen (Tylenol) 650 mg PO Q4H PRN PRN Reason: Headache or Minor Fever Stop: 01/27/20 12:57 Al Hydrox/Mg Hydrox/Simethicone (Maalox) 30 ml PO Q4H PRN PRN Reason: GI Upset Stop: 01/27/20 12:57 Bismuth Subsalicylate (Kaopectate) 15 ml PO PRN PRN PRN Reason: Loose Stool Stop: 01/27/20 12:57 Clozapine (Clozapine) 100 mg PO QAM [facility] Stop: 02/06/20 08:59 Last Admin: 01/09/20 09:02 Dose: 100 mg Documented by: Clozapine (Clozaril) 150 mg PO HS [facility] Stop: 02/05/20 21:59 Last Admin: 01/08/20 20:59 Dose: 150 mg Documented by: Cyanocobalamin (Vitamin B-12) 500 mcg PO QAM [facility] Stop: 01/29/20 10:29 Last Admin: 01/09/20 09:02 Dose: 500 mcg Documented by: Folic Acid (Folvite) 1 mg PO QAM [facility] Stop: 01/29/20 10:29 Last Admin: 01/09/20 09:02 Dose: 1 mg Documented by: Haloperidol (Haldol) 5 mg PO Q4H PRN PRN Reason: psychosis Stop: 01/27/20 17:46 Hydroxyzine HCl (Vistaril) 50 mg PO HSZ PRN PRN Reason: Insomnia Stop: 01/27/20 12:57 Hydroxyzine HCl (Vistaril) 25 mg PO Q4H PRN PRN Reason: Anxiety Stop: 01/27/20 12:57 Magnesium Hydroxide (Milk Of Magnesia) 30 ml PO DAILY PRN PRN Reason: Constipation Stop: 01/27/20 12:57 Nicotine Polacrilex (Nicorette 2mg) 1 piece MT PRN PRN PRN Reason: nicotine cravings Stop: 01/31/20 16:34 Rivaroxaban (Xarelto) 20 mg PO DAILY [facility] Stop: 01/29/20 10:29 Last Admin: 01/09/20 09:02 Dose: 20 mg Documented by: Sodium Chloride ([place] Nasal) 1 - 2 sprays NA PRN PRN PRN Reason: Nasal Dryness/Congestion Stop: 01/27/20 12:57 Trazodone HCl (Desyrel) 150 mg PO HS PRN PRN Reason: insomnia Stop: 01/27/20 21:59 Zolpidem Tartrate (Ambien) 10 mg PO HS PRN PRN Reason: insomnia Stop: 01/27/20 21:59 Mental Health & Subst Abuse Tx Psychiatrist Name of Psychiatrist: [facility] - Dr. Williamson Psychiatrist's Date of Appointment with Psychiatrist: 01/12/20 Time of Appointment with Psychiatrist: 4:10 p.m. [facility]iatric [facility]ment [facility] [id number] [place] [address] Therapist Name of Therapist: None Civil Engineering Design Draftsperson Name of Civil Engineering Design Draftsperson: [facility] - [place] (Melvin Amador) Phone Number for Civil Engineering Design Draftsperson: [phone] Post Discharge Appointments Primary Care Physician Name Of Family Doctor: KENAN - Dr. Mcdowell Primary Care Provider Appointment Comment: Poncho Zafar, [place] Contact Information Discharge Discharge Address: [facility] [address] [place] [id number]
[2020-01-09] MEDS: cloZAPine 25 MG TAB PO SCH (21:22)
[2020-01-10] MEDS: CYANOCOBALAMIN 500 MCG TABLET (VITAMIN B-12) PO SCH (08:36)
[2020-01-10] MEDS: RIVAROXABAN 20 MG TAB PO SCH (08:36)
[2020-01-10] MEDS: FOLIC ACID 1 MG TAB PO SCH (08:36)
--- NOTE | 2020-01-10 08:36 | Psychiatric Progress Note ---
Date of Service January 10, 2020 Impression / Recommendations Impression 39-year-old female admitted involuntarily for inpatient psychiatric treatment on 12/28/2019 after being brought to the ED by police due to worsening psychosis and inability to care for herself. She had stopped all of her psychiatric and medical medications, had increased delusions, paranoia, and disorganization, was not eating or sleeping, with increasingly erratic behavior, locking her boyfriend whom she lives with out of the house, telling police she was Alana Hernandez, and referring to herself as "the ruler of the world." She had not been sleeping for several days, and had laboratory evidence of poor p.o. intake (potassium 2.7). She does not believe she has schizophrenia, needs medications or hospitalization, and although she has been taking clozapine as ordered, indicates she does not like medications and is at high risk for noncompliance with it if discharged at this time. She recently fired her transplant case manager, and does not have a therapist. 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 Evaluated by hospitalist who recommended resuming Xarelto and supplementation for B12 and folate deficiencies. She was on numerous psychotropic medications, but for now we have resumed the antipsychotic as it is the most important to target her current symptoms. She had a meeting with her mother who reported worsening delusions, and is on a 303 as of 01/01. Due to her lack of insight and poor treatment compliance, we have filed for a 304 IOC. She is refusing recommendations for increased outpatient supports/treatment including therapy and mobile med management. Paranoia and delusions are less prominent; however, patient continues to demonstrate limited insight, stating she does not have a mental illness or need treatment. At this time, inpatient treatment remains the least restrictive and appropriate venue for treatment to occur. (1) Paranoid schizophrenia: 12/27 - Admitted to a locked inpatient behavioral health unit, on q15 minute safety checks - Recommending that patient resume medications to target her paranoia and delusions. Will attempt to gather collateral information from family and will request a current medication list from her outpatient psychiatrist. - In the interim, we will re-titrate clozapine beginning at 25mg BID. Re- titrate to home dose of 100mg BID. Will order prn doses of zolpidem and trazodone for sleep. Haloperidol will be available as needed for psychosis. - Encourage participation in group and recreational therapies - Gather collateral information from outpatient providers - Suggest family meeting to involve outpatient supports in safety planning - Arrange appropriate aftercare - re-establish case management services 12/28 -Continue clozapine titration, increasing to 50 mg twice daily. -FLP and fasting glucose reviewed today and within normal limits. -Patient has refused to sign releases for her parents, boyfriend, or outpatient psychiatrist. She indicates willingness to have a family meeting with her boyfriend. -File for a 303 involuntary commitment, and consider need for a 304 IOC, as she would benefit from case management and therapy, but has been noncompliant with all aspects of treatment, leading to her decompensation. 12/29 - Continue clozapine titration - will increase to 75mg BID; CBC w/diff ordered fro 01/03. - 303 hearing scheduled for 01/01. - Pt remains somewhat paranoid and suspicious, but admits to perceived improvement in clarity of thought after her evening dose last night. 12/30 - Clozapine titrated back to recorded home dose of 100mg BID, to begin with this evening's dose - 303 hearing on 01/01 - Pt participated in a family meeting with her mother today, she continues to appears suspicious and paranoid and remains unable to articulate events that contributed to her decompensation and subsequent admission. 12/31 - Continue current medication regimen - pt back to home dose of clozapine at 100mg BID - 303 hearing scheduled for tomorrow morning - Discharge plans remain uncertain at this time; it is unclear if she will be able to stay with parents. She has an apartment, but would benefit from assistance from family. 01/01 - 303 hearing held and granted. - Continue clozapine and zolpidem. - Discharge plans remain unclear, patient vacillates in her stated plans (to stay w/ parents, return home w/ BF, or return home but live alone - although has not addressed issues w/ boyfriend directly. - Re-refer for BCM through [facility], where she previously had services. Recommend OP therapy, which she is declining. Consider 304 IOC due to severity of illness and lack of insight. 01/02 - Continue clozapine 100mg BID - Although patient continues to request rapid discharge, she lacks insight into the level of support necessary to develop a safe discharge plan. She remains unmotivated to involve her boyfriend in a meeting. - Pt did sit with our social work and operations support representative from the [facility] to complete case management intake, but was too suspicious of the paperwork to be willing to sign at this time. - Ongoing consideration to pursue 304 [facility] 01/03 - Continue clozapine 100mg BID - Pt refused CBC w/ diff ordered for this morning - phlebotomy plans to return intermittently to attempt again - Pt continues to be suspicious of paperwork for the case management process, and therefore has not signed - She continues to report suspicion of staff and is unable to appreciate the serious concerns related to her being discharged without an adequate safety plan. 01/04 -With staff encouragement, patient consented to blood draw for CBC: ANC 2.62. Continue clozapine. Discussed the need for medication with her, she continues to display very poor insight, stating she does not have schizophrenia nor does she need medication. Discussed recommendations for a long-acting injectable antipsychotic, which she is opposed to. If at any time she is uncooperative with the clozapine or required blood draws, would recommend transition to an RAMON, and medications over objection if necessary, as she has a longstanding diagnosis of schizophrenia, has active psychotic symptoms, and her symptoms have responded well to antipsychotic medication in the past. She is unlikely to recover without medication. -Social work will try to complete the case management referral with her again today; this is the third attempt, as she has been resistant and uncooperative. -She continues to refuse outpatient therapy and a family meeting with her boyfriend. We are recommending a 304 involuntary outpatient commitment, given the severity of her symptoms, lack of insight, and unwillingness for treatment. 01/05 - Titrating clozapine to 100mg qAM and 150mg qHS - ongoing titration as indicated. Pt continues to verbalize that she feels "stable and normal" on present dose, limited insight continues. Pt did consent to CBC w/ diff yesterday. Agree with above, patient may require conversion to an atypical antipsychotic and eventual conversion to an RAMON (though patient has an aversion to needles). - Pt did complete intake with [facility] for case management after several attempted meetings and significant suspicion. She remains reluctant to agree with other treatment recommendations, including proper adjustments of medications, referral for a therapist, and a phone meeting to involve mother and boyfriend in discharge planning - as patient maintains she plans to return to her apartment. 01/06 -Continue clozapine as above. Patient complains of feeling a little more drowsy today but appears fully alert and conversant 01/07 -Patient remains somewhat illogical and paranoid but sounds to be significantly improved from initial presentation and has been compliant with oral medication over the weekend. -When the primary team is back on Thursday we can try to assess" she is to her typical baseline 01/08 - Continue clozapine at 100mg qAM and 150mg qHS, patient has been compliant with medications - Pt scheduled to meet again with [facility] staff regarding case management and anticipated 304 IOC. Pt continues to report limited willingness for outpatient therapy or assistance with medication management. She is only agreeable with continued visits with Dr. Williamson. - Pt encouraged to consider another support meeting to discuss discharge and safety planning. It is likely she will involve her boyfriend, with whom she lives, though has yet to be willing to schedule this meeting. 01/09 -Patient completed intake for outpatient blended case management services. Filed for a 304 IOC hearing. Continue to encourage increased outpatient supports, including individual psychotherapy, mobile med management, and a disch arge planning meeting with her boyfriend, which she has so far refused. (2) MTHFR mutation: 12/27 - Historical diagnosis of MTHFR mutation. Pt historically had been on Xarelto for chronic anticoagulation - It appears patient has not been taking the medication recently, as no record of the medication on external medication history - Will gather collateral information from family/outpatient providers regarding recommendations 12/28 -No outpatient records available from PCP in EMR to determine current medications/recommendations. Nursing staff contacted PCPs office to clarify whether she is supposed to be on an anticoagulant currently. She has reportedly been nonadherent with treatment, and PCP recommended inpatient medical consultation which will be requested today. -She will need a follow-up appointment after discharge. 12/29 - Appreciate hospitalist consult and recommendations - B12 and Folate levels ordered - both levels are low at 130 and 3.42 respectively - see treatment below - Discussed recommendations with patient who continued to be somewhat suspicious of the need for a blood thinner, but was ultimately agreeable with Xarelto - Will need to monitor patient's willingness while in the hospital, as hospitalist recommendations suggest concern associated with inconsistent dosing of Xarelto and a hypercoagulable state. Pt was able to at least acknowledge that she is not interested in Warfarin or Lovenox due to her aversion to needles and limited willingness for routine monitoring. Pt did seem to understanding the importance of consistent use of Xarelto during conversation. 12/31 - Pt has been compliant with prescribed dosing of Xarelto (3) Hypokalemia: 12/28 -potassium was 2.7 on presentation, likely due to poor oral intake for several days prior to admission. Repleted in the ER and improved slightly. Continue to monitor and encourage good nutrition. 01/02 - BMP was ordered, with patient initially refusing to complete the blood work - She did complete this morning - potassium improved to 4.0 - Pt has been eating meals appropriately (4) Abnormal urinalysis: 12/28 - UA on admission notable for 3+ blood, 1+ leukocyte esterase, > 30 WBCs, 5-10 RBCs, > 30 epithelial cells, and 1+ bacteria. Asymptomatic, likely contaminated sample, antibiotics not currently indicated, but will follow up on culture results when available. 12/29 - Preliminary culture resulting in pin-point growth, re-incubating 01/01 - lactobacillus per culture, asymptomatic, no treatment indicated. (5) Vitamin B12 deficiency: 12/29 - Vitamin B12 is deficient at 130 (nml 211-911) - Ensuring adequate level may offer benefit for treatment of patient's MTHFR mutation - Vegetarian diet is likely also contributing to this deficiency - Will offer patient Vitamine B12 at 500mcg daily - at this time patient is agreeable - This level should continue to be monitored on an outpatient basis 01/08 - Pt has demonstrated compliance with scheduled doses of Vitamin B12 (6) Folate deficiency: 12/29 - Folate level is deficient at 3.42 (nml >5.38) - Again, deficiency may also be related to dietary choices - Will supplement with Folic acid 1mg daily - at this time patient is agreeable - This too should be monitored on an outpatient basis 12/31 - Pt has been refusing folic acid with morning medications - unable to provide explanation as to why this is the case other than "I feel fine" - Education was again provided to the patient on the recommendation for Folic acid. She verbalized understanding, but did not convincingly state she would take the medication moving forward - Continue to offer education and encouragement 01/02 - Pt continues to refuse folic acid - no explanation provided for this refusal 01/07 -Last 2 days has accepted oral supplement 01/08 - Continue compliance with scheduled folic acid supplementation Risk Factors Assessment Male: No : Yes Do You Have Access To A Gun?: No Mental Health Diagnoses: Yes Substance Use Disorders: No Previous Attempt: No Previous Psychiatric Hospitalization: Yes Hopelessness: No Smoker: Yes Protective Factors Assessment Christian Beliefs: No : No Responsible for Young Children: No Employed: No (Pt is on disability due to MH DX) Supportive Family: Yes Interval History Identifying Information ROSMERY TALBERT is a 39-year-old F who currently lives in [place], [place] with her boyfriend, has a history of paranoid schizophrenia, and was admitted on 12/28/2019 on a 302 involuntary commitment for psychosis, treatment noncompliance, inability to care for self, in the context of going off her medications. She is on a 303 as of 01/02/2020. Chief Complaint "Um, good". Review of Systems Sleep Information Total Hours of Sleep: 5.5 Sleep Comments: pt on q-15 minute checks Meal Information Percent Meal Consumed - Breakfast: 100 Percent Meal Consumed - Lunch: 100 Percent Meal Consumed - Dinner: 100 Subjective Subjective Patient was seen & assessed and interval progress reviewed with nursing and social work. Staff report she is now agreeing to a meeting with her boyfriend whom she lives with, but said she does not want to discuss her wish for him to move out. She is still refusing recommendations for mobile med management and outpatient therapy, stating she doesn't have a mental illness and doesn't need it. She completed a phone intake for outpatient case management today. On my assessment, she reports she is "doing good," denies problems with sleep and appetite, and states she is ready to leave the hospital. She states she is willing to have a phone call with her boyfriend Tunde, but says they are "more like just friends now." She denies hallucinations and thoughts of harming herself or others. She states she is only in the hospital because of a fight with her boyfriend and wanting him to move out, stating "I wasn't brought in here because of anything psychotic." She continues to state she does not have a mental illness, and is upset that she is involuntarily committed. Reviewed the recommendations for a 304 IOC, and she asks to know why this is recommended. Reviewed her presenting symptoms and nonadherence with medications and outpatient treatment, which she denies, stating she only stopped 1 medication, gabapentin, prior to admission. She had previously reported that she was not taking any of her psychotropic medications. She insists that "everyone else told me I was leaving in a day or 2," and asks "why are you pushing for this? You do not like me." Again explained our concerns for relapse if she does not adhere to treatment, and that the [facility] is to assist her in engaging in services/treatment so that she can stay stable and stay out of the hospital. Physical Exam Psychiatric Orientation: alert and cooperative Thin female dressed in a baggy sweatshirt with a del angel pulled up. Seated crosslegged in no acute distress. Has stacks of papers and notes that she refers to throughout the interview. Eye Contact: + fair eye contact Motor Behavior: steady gait and station and no abnormal motor movements Speech: normal rate/rhythm/volume of speech Affect: + irritable affect; + mood not congruent with affect "Good." Thought Process: goal directed thought process Thought Content: + preoccupation (With discharge) Suicidal Thoughts: denies suicidal thoughts Homicidal Thoughts: denies homicidal thoughts Hallucinations: no auditory hallucinations and no visual hallucinations Cognition: + recent memory not intact (Does not remember conversations we had last week, or details reviewed in her treatment plan as recently as yesterday) and + attention not intact (Asks the same questions repeatedly) Insight: + impaired insight Judgement: + impaired judgement Vital Signs (Past 24 Hours) Last Vital Signs Temp 36.6 C 01/10/20 06:50 Pulse 93 H 01/10/20 06:50 Resp 18 01/10/20 06:50 BP 101/73 01/10/20 06:50 Pulse Ox 99 12/28/19 13:56 Results & Data ([facility]) Current Inpatient Medications Current Inpatient Medications: Current Inpatient Medications Acetaminophen (Tylenol) 650 mg PO Q4H PRN PRN Reason: Headache or Minor Fever Stop: 01/27/20 12:57 Al Hydrox/Mg Hydrox/Simethicone (Maalox) 30 ml PO Q4H PRN PRN Reason: GI Upset Stop: 01/27/20 12:57 Bismuth Subsalicylate (Kaopectate) 15 ml PO PRN PRN PRN Reason: Loose Stool Stop: 01/27/20 12:57 Clozapine (Clozapine) 100 mg PO QAM [facility] Stop: 02/06/20 08:59 Last Admin: 01/09/20 09:02 Dose: 100 mg Documented by: Clozapine (Clozaril) 150 mg PO HS [facility] Stop: 02/05/20 21:59 Last Admin: 01/09/20 21:22 Dose: 150 mg Documented by: Cyanocobalamin (Vitamin B-12) 500 mcg PO QAM [facility] Stop: 01/29/20 10:29 Last Admin: 01/09/20 09:02 Dose: 500 mcg Documented by: Folic Acid (Folvite) 1 mg PO QAM [facility] Stop: 01/29/20 10:29 Last Admin: 01/09/20 09:02 Dose: 1 mg Documented by: Haloperidol (Haldol) 5 mg PO Q4H PRN PRN Reason: psychosis Stop: 01/27/20 17:46 Hydroxyzine HCl (Vistaril) 50 mg PO HSZ PRN PRN Reason: Insomnia Stop: 01/27/20 12:57 Hydroxyzine HCl (Vistaril) 25 mg PO Q4H PRN PRN Reason: Anxiety Stop: 01/27/20 12:57 Magnesium Hydroxide (Milk Of Magnesia) 30 ml PO DAILY PRN PRN Reason: Constipation Stop: 01/27/20 12:57 Nicotine Polacrilex (Nicorette 2mg) 1 piece MT PRN PRN PRN Reason: nicotine cravings Stop: 01/31/20 16:34 Rivaroxaban (Xarelto) 20 mg PO DAILY [facility] Stop: 01/29/20 10:29 Last Admin: 01/09/20 09:02 Dose: 20 mg Documented by: Sodium Chloride ([place] Nasal) 1 - 2 sprays NA PRN PRN PRN Reason: Nasal Dryness/Congestion Stop: 01/27/20 12:57 Trazodone HCl (Desyrel) 150 mg PO HS PRN PRN Reason: insomnia Stop: 01/27/20 21:59 Zolpidem Tartrate (Ambien) 10 mg PO HS PRN PRN Reason: insomnia Stop: 01/27/20 21:59 Mental Health & Subst Abuse Tx Psychiatrist Name of Psychiatrist: [facility] - Dr. Williamson Psychiatrist's Date of Appointment with Psychiatrist: 01/17/20 Time of Appointment with Psychiatrist: 4:10 p.m. Psychiatric Appointment Comment: [id number], [place] [address] Therapist Name of Therapist: None Aluminum Welder Name of Aluminum Welder: [facility] - [facility] (Melvin Amador) Phone Number for Aluminum Welder: [phone] Post Discharge Appointments Primary Care Physician Name Of Family Doctor: KENAN - Dr. Mcdowell Primary Care Provider Appointment Comment: [address], [place] Contact Information Discharge Discharge Address: [facility] [address] [place] [id number]
[2020-01-10] MEDS: cloZAPine 100 MG TAB PO SCH (08:37)
[2020-01-10] MEDS: cloZAPine 25 MG TAB PO SCH (21:08)
[2020-01-11] MEDS: CYANOCOBALAMIN 500 MCG TABLET (VITAMIN B-12) PO SCH (09:11)
[2020-01-11] MEDS: cloZAPine 100 MG TAB PO SCH (09:11)
[2020-01-11] MEDS: RIVAROXABAN 20 MG TAB PO SCH (09:11)
[2020-01-11] MEDS: FOLIC ACID 1 MG TAB PO SCH (09:11)
--- NOTE | 2020-01-11 09:14 | Psychiatric Progress Note ---
Date of Service January 11, 2020 Impression / Recommendations Impression 39-year-old female admitted involuntarily for inpatient psychiatric treatment on 12/28/2019 after being brought to the ED by police due to worsening psychosis and inability to care for herself. She had stopped all of her psychiatric and medical medications, had increased delusions, paranoia, and disorganization, was not eating or sleeping, with increasingly erratic behavior, locking her boyfriend whom she lives with out of the house, telling police she was Alana Hernandez, and referring to herself as "the ruler of the world." She had not been sleeping for several days, and had laboratory evidence of poor p.o. intake (potassium 2.7). She does not believe she has schizophrenia, needs medications or hospitalization, and although she has been taking clozapine as ordered, indicates she does not like medications and is at high risk for noncompliance with it if discharged at this time. She recently fired her case loader operator, and does not have a therapist. 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 Evaluated by hospitalist who recommended resuming Xarelto and supplementation for B12 and folate deficiencies. She was on numerous psychotropic medications, but for now we have resumed the antipsychotic as it is the most important to target her current symptoms. She had a meeting with her mother who reported worsening delusions, and is on a 303 as of 01/01. Due to her lack of insight and poor treatment compliance, we have filed for a 304 IOC. She is refusing recommendations for increased outpatient supports/treatment including therapy and mobile med management. Paranoia and delusions are less prominent; however, patient continues to demonstrate limited insight, stating she does not have a mental illness or need treatment. 304 IOC hearing has been scheduled for 01/11/2020 with discharge tomorrow following the hearing. (1) Paranoid schizophrenia: 12/27 - Admitted to a locked inpatient behavioral health unit, on q15 minute safety checks - Recommending that patient resume medications to target her paranoia and delusions. Will attempt to gather collateral information from family and will request a current medication list from her outpatient psychiatrist. - In the interim, we will re-titrate clozapine beginning at 25mg BID. Re- titrate to home dose of 100mg BID. Will order prn doses of zolpidem and trazodone for sleep. Haloperidol will be available as needed for psychosis. - Encourage participation in group and recreational therapies - Gather collateral information from outpatient providers - Suggest family meeting to involve outpatient supports in safety planning - Arrange appropriate aftercare - re-establish case management services 12/28 -Continue clozapine titration, increasing to 50 mg twice daily. -FLP and fasting glucose reviewed today and within normal limits. -Patient has refused to sign releases for her parents, boyfriend, or outpatient psychiatrist. She indicates willingness to have a family meeting with her boyfriend. -File for a 303 involuntary commitment, and consider need for a 304 IOC, as she would benefit from case management and therapy, but has been noncompliant with all aspects of treatment, leading to her decompensation. 12/29 - Continue clozapine titration - will increase to 75mg BID; CBC w/diff ordered fro 01/03. - 303 hearing scheduled for 01/01. - Pt remains somewhat paranoid and suspicious, but admits to perceived improvement in clarity of thought after her evening dose last night. 12/30 - Clozapine titrated back to recorded home dose of 100mg BID, to begin with this evening's dose - 303 hearing on 01/01 - Pt participated in a family meeting with her mother today, she continues to appears suspicious and paranoid and remains unable to articulate events that contributed to her decompensation and subsequent admission. 12/31 - Continue current medication regimen - pt back to home dose of clozapine at 100mg BID - 303 hearing scheduled for tomorrow morning - Discharge plans remain uncertain at this time; it is unclear if she will be able to stay with parents. She has an apartment, but would benefit from assistance from family. 01/01 - 303 hearing held and granted. - Continue clozapine and zolpidem. - Discharge plans remain unclear, patient vacillates in her stated plans (to stay w/ parents, return home w/ BF, or return home but live alone - although has not addressed issues w/ boyfriend directly. - Re-refer for BCM through [facility], where she previously had services. Recommend OP therapy, which she is declining. Consider 304 IOC due to severity of illness and lack of insight. 01/02 - Continue clozapine 100mg BID - Although patient continues to request rapid discharge, she lacks insight into the level of support necessary to develop a safe discharge plan. She remains unmotivated to involve her boyfriend in a meeting. - Pt did sit with our social work and airline security representative from the [facility] to complete case management intake, but was too suspicious of the paperwork to be willing to sign at this time. - Ongoing consideration to pursue 304 IOC 01/03 - Continue clozapine 100mg BID - Pt refused CBC w/ diff ordered for this morning - phlebotomy plans to return intermittently to attempt again - Pt continues to be suspicious of paperwork for the case management process, and therefore has not signed - She continues to report suspicion of staff and is unable to appreciate the serious concerns related to her being discharged without an adequate safety plan. 01/04 -With staff encouragement, patient consented to blood draw for CBC: ANC 2.62. Continue clozapine. Discussed the need for medication with her, she continues to display very poor insight, stating she does not have schizophrenia nor does she need medication. Discussed recommendations for a long-acting injectable antipsychotic, which she is opposed to. If at any time she is uncooperative with the clozapine or required blood draws, would recommend transition to an RAMON, and medications over objection if necessary, as she has a longstanding diagnosis of schizophrenia, has active psychotic symptoms, and her symptoms have responded well to antipsychotic medication in the past. She is unlikely to recover without medication. -Social work will try to complete the case management referral with her again today; this is the third attempt, as she has been resistant and uncooperative. -She continues to refuse outpatient therapy and a family meeting with her boyfriend. We are recommending a 304 involuntary outpatient commitment, given the severity of her symptoms, lack of insight, and unwillingness for treatment. 01/05 - Titrating clozapine to 100mg qAM and 150mg qHS - ongoing titration as indicated. Pt continues to verbalize that she feels "stable and normal" on present dose, limited insight continues. Pt did consent to CBC w/ diff yesterday. Agree with above, patient may require conversion to an atypical antipsychotic and eventual conversion to an RAMON (though patient has an aversion to needles). - Pt did complete intake with [facility] for case management after several attempted meetings and significant suspicion. She remains reluctant to agree with other treatment recommendations, including proper adjustments of medications, referral for a therapist, and a phone meeting to involve mother and boyfriend in discharge planning - as patient maintains she plans to return to her apartment. 01/06 -Continue clozapine as above. Patient complains of feeling a little more drowsy today but appears fully alert and conversant 01/07 -Patient remains somewhat illogical and paranoid but sounds to be significantly improved from initial presentation and has been compliant with oral medication over the weekend. -When the primary team is back on Thursday we can try to assess" she is to her typical baseline 01/08 - Continue clozapine at 100mg qAM and 150mg qHS, patient has been compliant with medications - Pt scheduled to meet again with [facility] staff regarding case management and anticipated 304 IOC. Pt continues to report limited willingness for outpatient therapy or assistance with medication management. She is only agreeable with continued visits with Dr. Williamson. - Pt encouraged to consider another support meeting to discuss discharge and safety planning. It is likely she will involve her boyfriend, with whom she lives, though has yet to be willing to schedule this meeting. 01/09 -Patient completed intake for outpatient blended case management services. Filed for a 304 IOC hearing. Continue to encourage increased outpatient supports, including individual psychotherapy, mobile med management, and a discharge planning meeting with her boyfriend, which she has so far refused. 01/10 - Continue current medication regimen. - 304 IOC hearing scheduled for 01/12/2020 at 09:30 - pt to be discharged following hearing (2) MTHFR mutation: 12/27 - Historical diagnosis of MTHFR mutation. Pt historically had been on Xarelto for chronic anticoagulation - It appears patient has not been taking the medication recently, as no record of the medication on external medication history - Will gather collateral information from family/outpatient providers regarding recommendations 12/28 -No outpatient records available from PCP in EMR to determine current medications/recommendations. Nursing staff contacted PCPs office to clarify whether she is supposed to be on an anticoagulant currently. She has reportedly been nonadherent with treatment, and PCP recommended inpatient medical consultation which will be requested today. -She will need a follow-up appointment after discharge. 12/29 - Appreciate hospitalist consult and recommendations - B12 and Folate levels ordered - both levels are low at 130 and 3.42 respectively - see treatment below - Discussed recommendations with patient who continued to be somewhat suspicious of the need for a blood thinner, but was ultimately agreeable with Xarelto - Will need to monitor patient's willingness while in the hospital, as ho spitalist recommendations suggest concern associated with inconsistent dosing of Xarelto and a hypercoagulable state. Pt was able to at least acknowledge that she is not interested in Warfarin or Lovenox due to her aversion to needles and limited willingness for routine monitoring. Pt did seem to understanding the importance of consistent use of Xarelto during conversation. 12/31 - Pt has been compliant with prescribed dosing of Xarelto 01/10 - Will call to schedule PCP appointment for ongoing management (3) Hypokalemia: 12/28 -potassium was 2.7 on presentation, likely due to poor oral intake for several days prior to admission. Repleted in the ER and improved slightly. Continue to monitor and encourage good nutrition. 01/02 - BMP was ordered, with patient initially refusing to complete the blood work - She did complete this morning - potassium improved to 4.0 - Pt has been eating meals appropriately (4) Abnormal urinalysis: 12/28 - UA on admission notable for 3+ blood, 1+ leukocyte esterase, > 30 WBCs, 5-10 RBCs, > 30 epithelial cells, and 1+ bacteria. Asymptomatic, likely contaminated sample, antibiotics not currently indicated, but will follow up on culture results when available. 12/29 - Preliminary culture resulting in pin-point growth, re-incubating 01/01 - lactobacillus per culture, asymptomatic, no treatment indicated. (5) Vitamin B12 deficiency: 12/29 - Vitamin B12 is deficient at 130 (nml 211-911) - Ensuring adequate level may offer benefit for treatment of patient's MTHFR mutation - Vegetarian diet is likely also contributing to this deficiency - Will offer patient Vitamine B12 at 500mcg daily - at this time patient is agreeable - This level should continue to be monitored on an outpatient basis 01/08 - Pt has demonstrated compliance with scheduled doses of Vitamin B12 (6) Folate deficiency: 12/29 - Folate level is deficient at 3.42 (nml >5.38) - Again, deficiency may also be related to dietary choices - Will supplement with Folic acid 1mg daily - at this time patient is agreeable - This too should be monitored on an outpatient basis 12/31 - Pt has been refusing folic acid with morning medications - unable to provide explanation as to why this is the case other than "I feel fine" - Education was again provided to the patient on the recommendation for Folic acid. She verbalized understanding, but did not convincingly state she would take the medication moving forward - Continue to offer education and encouragement 01/02 - Pt continues to refuse folic acid - no explanation provided for this refusal 01/07 -Last 2 days has accepted oral supplement 01/08 - Continue compliance with scheduled folic acid supplementation Risk Factors Assessment Male: No : Yes Do You Have Access To A Gun?: No Mental Health Diagnoses: Yes Substance Use Disorders: No Previous Attempt: No Previous Psychiatric Hospitalization: Yes Hopelessness: No Smoker: Yes Protective Factors Assessment Zoroastrian Beliefs: No : No Responsible for Young Children: No Employed: No (Pt is on disability due to MH DX) Supportive Family: Yes Interval History Identifying Information ROSMERY TALBERT is a 39-year-old F who currently lives in [place], [place] with her boyfriend, has a history of paranoid schizophrenia, and was admitted on 12/28/2019 on a 302 involuntary commitment for psychosis, treatment noncompliance, inability to care for self, in the context of going off her medications. She is on a 303 as of 01/02/2020 - 304 IO hearing scheduled for 01/12/2020. Chief Complaint "I'm ok. How are you?" Review of Systems Notes Constitutional: denied Cardiovascular: denied Respiratory: denied Gastrointestinal: denied Neurological: denied Psychiatric: denies symptoms other than stated above Total of at least 10 systems reviewed, pertinent positives as above and in HPI. Sleep Information Total Hours of Sleep: 6.5 Sleep Comments: pt on q-15 minute checks Meal Information Percent Meal Consumed - Breakfast: 100 Percent Meal Consumed - Lunch: 90 Percent Meal Consumed - Dinner: 75 Subjective Subjective Patient was seen & assessed and interval progress reviewed with treatment team. Staff report the patient has continued to engage in group programming. She did agree to a discharge planning meeting with her boyfriend this afternoon. Pt states she is doing well and is aware of 304 IO hearing scheduled for tomorrow. Pt was seen today to assess progress since admission. Pt states that she is "so excited" to return to her apartment. Pt did admit that she is still upset with the statements written on her 303 paperwork, but was able to appreciate that these statements were written over a week ago and that she has demonstrated some improvement since that time. Pt denies any paranoia or delusions and continues to report feeling "stable". Pt remains agreeable to a meeting with her boyfriend to discuss discharge planning and reports ongoing willingness to work with her outpatient psychiatrist and the [facility] after discharge. She continues to decline our attempts to make referrals for therapy, though is aware this is a recommendation for her [address] [place] [address]. Pt continues to deny SI/HI and denies other needs at this time. Physical Exam Psychiatric Orientation: alert, oriented x 3 and cooperative Apperance: appropriately dressed and appropriately groomed Eye Contact: good eye contact Motor Behavior: no abnormal motor movements (observed while sitting upright in bed) Speech: normal rate/rhythm/volume of speech Affect: + blunted affect (appearing mildly sedated this morning) Mood: no depressed mood and no anxious mood Thought Process: goal directed thought process and thought association intact Thought Content: reality based without delusions (does not verbalize any delusional statements today) Suicidal Thoughts: denies suicidal thoughts Homicidal Thoughts: denies homicidal thoughts Hallucinations: no auditory hallucinations and no visual hallucinations Cognition: attention grossly intact and language grossly intact Insight: + limited insight Judgement: + limited judgement Vital Signs (Past 24 Hours) Last Vital Signs Temp 36.7 C 01/11/20 06:43 Pulse 102 H 01/11/20 06:44 Resp 18 01/11/20 06:43 BP 102/73 01/11/20 06:44 Pulse Ox 99 12/28/19 13:56 Results & Data ([facility]) Current Inpatient Medications Current Inpatient Medications: Current Inpatient Medications Acetaminophen (Tylenol) 650 mg PO Q4H PRN PRN Reason: Headache or Minor Fever Stop: 01/27/20 12:57 Al Hydrox/Mg Hydrox/Simethicone (Maalox) 30 ml PO Q4H PRN PRN Reason: GI Upset Stop: 01/27/20 12:57 Bismuth Subsalicylate (Kaopectate) 15 ml PO PRN PRN PRN Reason: Loose Stool Stop: 01/27/20 12:57 Clozapine (Clozapine) 100 mg PO QAM SIMONA Stop: 02/06/20 08:59 Last Admin: 01/11/20 09:11 Dose: 100 mg Documented by: Clozapine (Clozaril) 150 mg PO HS SIMONA Stop: 02/05/20 21:59 Last Admin: 01/10/20 21:08 Dose: 150 mg Documented by: Cyanocobalamin (Vitamin B-12) 500 mcg PO QAM SIMONA Stop: 01/29/20 10:29 Last Admin: 01/11/20 09:11 Dose: 500 mcg Documented by: Folic Acid (Folvite) 1 mg PO QAM SIMONA Stop: 01/29/20 10:29 Last Admin: 01/11/20 09:11 Dose: 1 mg Documented by: Haloperidol (Haldol) 5 mg PO Q4H PRN PRN Reason: psychosis Stop: 01/27/20 17:46 Hydroxyzine HCl (Vistaril) 50 mg PO HSZ PRN PRN Reason: Insomnia Stop: 01/27/20 12:57 Hydroxyzine HCl (Vistaril) 25 mg PO Q4H PRN PRN Reason: Anxiety Stop: 01/27/20 12:57 Magnesium Hydroxide (Milk Of Magnesia) 30 ml PO DAILY PRN PRN Reason: Constipation Stop: 01/27/20 12:57 Nicotine Polacrilex (Nicorette 2mg) 1 piece MT PRN PRN PRN Reason: nicotine cravings Stop: 01/31/20 16:34 Rivaroxaban (Xarelto) 20 mg PO DAILY SIMONA Stop: 01/29/20 10:29 Last Admin: 01/11/20 09:11 Dose: 20 mg Documented by: Sodium Chloride ([place] Nasal) 1 - 2 sprays NA PRN PRN PRN Reason: Nasal Dryness/Congestion Stop: 01/27/20 12:57 Trazodone HCl (Desyrel) 150 mg PO HS PRN PRN Reason: insomnia Stop: 01/27/20 21:59 Zolpidem Tartrate (Ambien) 10 mg PO HS PRN PRN Reason: insomnia Stop: 01/27/20 21:59 Mental Health & Subst Abuse Tx Psychiatrist Name of Psychiatrist: [facility] - Dr. Williamson Psychiatrist's Date of Appointment with Psychiatrist: 01/17/20 Time of Appointment with Psychiatrist: 4:10 p.m. Psychiatric Appointment Comment: [id number], [place] [address] Therapist Name of Therapist: None Supervisor [employer] Name of Supervisor [employer] Efficiency: [facility] - [place] (Melvin Amador) Phone Number for Supervisor Cell Efficiency: [phone] Date of Appointment with Supervisor [employer] Efficiency: 01/13/20 Time of Appointment with Supervisor [employer] Efficiency: 10:30am Case Management Appointment Comment: They will call you Thursday at 10:30am Post Discharge Appointments Primary Care Physician Name Of Family Doctor: KENAN Mcdowell Primary Care Provider Appointment Comment: [address], [place] Contact Information Discharge Discharge Address: [facility] [address] [place] [id number]
[2020-01-11] MEDS: cloZAPine 25 MG TAB PO SCH (21:20)
[2020-01-12] MEDS: cloZAPine 100 MG TAB PO SCH (08:59)
[2020-01-12] MEDS: FOLIC ACID 1 MG TAB PO SCH (08:59)
[2020-01-12] MEDS: CYANOCOBALAMIN 500 MCG TABLET (VITAMIN B-12) PO SCH (08:59)
[2020-01-12] MEDS: RIVAROXABAN 20 MG TAB PO SCH (08:59)
--- NOTE | 2020-01-12 09:43 | Discharge Summary ---
Date of Service January 12, 2020 History of Present Illness Arianna Sierra is a 39-year-old female admitted involuntarily for inpatient psychiatric treatment on 12/28/2019 after presenting to the ED for a mental health evaluation. It is reported that a 302 petitioning statement was completed by the patient's father due to increased delusions and paranoia related to poor compliance with psychotropic medication regimen. It was reported that patient had significantly decompensated and she is demonstrating evidence of inability to care for self. ED documentation suggests the patient had been living with her boyfriend in an apartment in [place]. It is reported that the patient offered several unrelated reasons as to why she could not longer live with him, and apparently at one point locked him out of their apartment. Documentation suggests the patient had been living with her parents most recently, but her mental health continued to deteriorate. Although cooperative in the ED, she was unwilling for psychiatric admission and was therefore referred for admission on a 302 involuntary commitment. Father's 302 petitioning statement reads: "Not eating anything last (3) days. 5-3-20, 5-4-20, 5-5-20. Sick and dry heaving. Not taking any med. Locked doors to her apt. 12/28/19. State police had to break-in 12/28/19. (Locked boyfriend out) (Tunde Hutchison). No sleep?" Pt was cooperative with psychiatric evaluation, though is a rather poor historian. She reports frustration regarding her admission, stating "I can't believe I'm back here again." Pt was observed to be asking all staff members "is someone going to explain to me why I'm here and what's going on?" This estevan cruz inquired of the patient why she felt hospitalization would have been recommended. She states "it's because I can't just stay by myself. Pt states she has a lot of interests she would like to pursue, but gets frustrated that "they keep saying, 'come do this with me, come meet us here, can we come see you?' Pt admits that she has not been sleeping well, believing this is because, "it's the only time I'm not bothered by people, I can be by myself." Pt states "I don't know how long it's been since I've slept." Pt states that she does not feel tired, and even states "I don't even know if I'm sleeping, how do you know if you sleep?" Pt frequently pauses during our conversation to state "I lost my thought, sorry." Pt implies "I think Mago and Nikki started messing with my head. Someone said they learned out to read minds, that's so weird." She repeatedly says, "I also think that people are trying to hear my thoughts without me knowing it." When patient was asked to explain this thought, she is only able to state "it's like when you're sitting next to someone having a conversation. They say 'what are you looking at?' and you're like both looking a t the same thing...I don't know what I'm saying. I lost my thought, I'm sorry." Pt denies SI at this time, and is not able to clearly describe any auditory or visual hallucinations. She does frequently mention statements including "they", but is unable to explain who "they" are. She denies history of suicide attempts or self harm behavior. Pt states that she stopped her medications "3 days ago" stating "I think they make me sick." Pt does admit to dry heaving for several days, but states this is now resolved. Pt is not convinced that she requires medications, as "I am me, my mind is clear." Pt states "I don't even think the medications were doing anything." Pt was strongly encouraged to resume medications, and was informed that her family was concerned about some of the changes they were noticing prior to admission. Pt states "I'm the one that called the police. I called cause my boyfriend was yelling. And somehow I'm the one that is handcuffed and dragged out of my apartment." Physical Exam Psychiatric Orientation: alert, oriented x 3 and cooperative Apperance: appropriately dressed, appropriately groomed and appeared stated age Eye Contact: + fair eye contact Motor Behavior: steady gait and station and no abnormal motor movements Speech: normal rate/rhythm/volume of speech Affect: euthymic affect and mood congruent with affect "Really good." Thought Process: goal directed thought process Thought Content: reality based without delusions Suicidal Thoughts: denies suicidal thoughts Homicidal Thoughts: denies homicidal thoughts Hallucinations: no auditory hallucinations and no visual hallucinations Cognition: attention grossly intact and language grossly intact; + recent memory not intact (poor recall of events leading up to hospitalization ) Estimated Intelligence: average estimated intelligence Insight: + impaired insight Judgement: + impaired judgement Vital Signs (Past 24 Hours) Last Vital Signs Temp 36.8 C 01/12/20 09:11 Pulse 79 01/12/20 09:11 Resp 18 01/12/20 09:11 BP 103/69 01/12/20 09:11 Pulse Ox 99 01/12/20 09:11 Principal Diagnosis Schizophrenia Treatment nonadherence Psychiatric Data The patient was hospitalized for 15 days. On admission, she endorsed paranoia, believes that others could read her mind/hear her thoughts, disorganized thinking, and delusions of persecution. She said she had stopped all me dications several days prior to presentation, although her family reported she had been noncompliant for a longer period of time. She was restarted on clozapine, and as it was unclear how long she had been off the medication, was re-titrated while monitoring neutrophil count. She had been on 100 mg twice daily at home, and while here the medication was increased to 100 mg every morning and 150 mg at bedtime to target psychotic symptoms. She tolerated this medication well. She had been prescribed several other psychotropic medications, including prazosin, hydroxyzine, trazodone, topiramate, and zolpidem, which initially she stated she did not need and had not been taking, so none of them were resumed, as it was felt that the clozapine was the most crucial medication for her to be taking in order to control psychotic symptoms. On the day of discharge, she indicated that she takes these medications as needed, so her home supplies were returned to her. She was initially admitted on a 302 involuntary commitment, and had a 303 hearing on 01/02/2020, and a 304 involuntary outpatient commitment hearing on the day of discharge. This was done due to persistent poor insight, repeatedly stating she did not have a mental illness and did not believe she needed treatment, and resistance to recommendations for outpatient mental health services. She improved throughout her hospitalization, and ultimately agreed to re-referral for case management services. We also recommended psych rehab, individual therapy, and mobile medication management, all of which she declined. She was somewhat guarded with staff, trying to rationalize the reasons for her hospitalization, and maintained that she did not have a psychotic illness. At one point, she disclosed to staff that she believed that a high school classmate can control her thoughts and tell her to do things she does not want to do, like have sex with someone. This high school classmate used to follow the band [employer], and the patient believes she and other fans of [employer] can communicate with her telepathically, read her thoughts, and choose her boyfriends. She said that she cannot break-up with her current boyfriend even though she wants to, because they have not told her to do so. She hears voices of the members of [employer], which tell her to do things, and states they told her to go for a walk at 4 AM the night prior to presentation. She did this, and in the process let her cats out, which led to the fight between she and her boyfriend. She initially stated that she wanted her boyfriend to leave, but by the end of her hospital stay, stated they had reconciled and would continue to live together. She had a family meeting with her mother and the elementary school social worker, during which her mother stated the patient had been more paranoid and delusional, expressing believes that her father was not really her father, which she has had in the past when psychotic. She had also been talking about being the ruler of the universe. She had a family meeting with her boyfriend the day prior to discharge, during which they discussed safety concerns (both denied acute safety concerns with the patient coming home), importance of medication adherence (discussed use of her daily pillbox as a way to keep track and monitor medications), and a fight that they had prior to admission, triggered by 2 of their cats getting out of the house. On admission, it was noted that she had previously been prescribed Xarelto for a clotting disorder, and had a history of DVTs and PEs, but was no longer on the medication. Her PCP was contacted and indicated the patient had missed multiple appointments, needed to be on medication to prevent further blood clots, and recommended a hospitalist consultation which was obtained on 12/29/2019. Xarelto was resumed, and outpatient follow-up with her PCP was scheduled. Day of Discharge Assessment Staff report the patient is attending a participating in groups and therapy, and stating excitement for discharge and return home. She is taking medication as prescribed and tolerating it well, eating and sleeping well, and performing ADLs independently. On my assessment, she states that her mood is "really good, excited." She denies paranoia, hallucinations, and thoughts of harming herself or others. She denies side effects to medications. She states agreement with the recommendations for outpatient treatment, and states she was taking almost all of her psychotropic medications as needed, although they were not all prescribed that way. Advised her to discuss this with her outpatient psychiatrist at her appointment in 5 days, as some of these medications may be discontinued if she does not feel she needs them (glycopyrrolate, prazosin, topiramate, zolpidem, hydroxyzine). Advised her of recommendations for individual therapy, and that this can be arranged with the assistance of her director case. She states she is looking forward to spending time with her cats, and a family camping trip this weekend. The patient attended her 304 involuntary outpatient commitment hearing, and testified that she "had a hearing on the 11 while in the hospital, and my registered nursing professor, magistrate judge and most of the doctors said I would be getting out in 7-10 days, and today is the 10th day, so everyone has kept their word on that." She stated willingness to follow up with outpatient treatment as outlined, and read a several page statement stating treatment was helpful and she was excited to go home. Transition of Care Transition Of Care Record: was reviewed with the patient Advance Directives Advance Directives Information Provided: Yes Advance Directives: No Mental Health Advance Directive: No Advance Directives on File: No Living Will: No Power of Broaching Machine Repairer: No Advance Directives Reason:: Declines as Mental Health Visit. Risk Factors Assessment Risk factors were mitigated by admission to the locked inpatient unit, resumption of antipsychotic medication, psychoeducation about her diagnosis and treatment recommendations, involvement of her family and boyfriend in treatment, medical consult and resumption of medications needed for medical conditions, re- referral to outpatient case management, involvement in groups and therapy, and working on healthy coping skills and a discharge safety plan. The patient is taking medications as prescribed, actively participating in groups and therapy, has been calm and cooperative, and consistently denying thoughts of harming herself or anyone else. She is on a 304 involuntary outpatient commitment as of today, so will have mandated outpatient treatment, which hopefully will result in improved adherence and oversight. She is no longer endorsing psychotic symptoms, is more organized and reality based in her thinking and speech. She is no longer at acute risk of harm to herself, and cannot be managed as an outpatient. She does not have a history of violence to others, has not been violent, aggressive, or threatening here, and is not at increased risk of harm to others. Male: No : Yes Do You Have Access To A Gun?: No Health Problems: Yes Mental Health Diagnoses: Yes Substance Use Disorders: No Previous Attempt: No Family History of Suicide: No Previous Psychiatric Hospitalization: Yes Hopelessness: No Smoker: Yes Protective Factors Assessment Jehovah'S Witness Beliefs: No : No Responsible for Young Children: No Employed: No (Pt is on disability due to MH DX) Stable Relationships: No Supportive Family: Yes Good Rapport with Provider: Yes Tobacco Cessation at Discharge Tobacco Cessation Medication Prescribed at Discharge: Offered & Prescribed Practical counseling provided including: recognizing danger situations, developing coping skills and providing basic information about quitting Tobacco Cessation Outpatient Followup: Outpatient referral made to (PCP Dr. Mcdowell) Total Time Total Time Spent: Greater Than 30 Minutes Total Time Includes: Examination of the patient, Discharge Planning, Medication Reconciliation, Communication with other providers and As well as (304 IOC hearing) Discharge Data Consultations 12/29/19 11:37 Consult Hospitalist Routine Lab Results 12/28/19 12/28/19 12/28/19 08:39 08:39 08:39 WBC 10.47 RBC 4.45 Hgb 15.4 Hct 43.4 MCV 97.5 MCH 34.6 H MCHC 35.5 RDW Std Deviation 44.7 RDW Coeff of Ashanti 12.5 Plt Count 372 MPV 9.0 Immature Gran % (Auto) 0.3 Neut % (Auto) 81.7 Lymph % (Auto) 11.7 Meagher % (Auto) 6.1 Eos % (Auto) 0.0 Baso % (Auto) 0.2 Immature Gran # (Auto) 0.03 H Neut # (Auto) 8.55 H Lymph # (Auto) 1.23 Meagher # (Auto) 0.64 H Eos # (Auto) 0.00 Baso # (Auto) 0.02 Sodium 135 L Potassium 2.7 L Chloride 104 Carbon Dioxide 23 Anion Gap 9.0 BUN 2 L Creatinine 0.91 Est Cr Clr Drug Dosing 68.8 Est GFR ( Amer) 91.5 Est GFR (Non-Af Amer) 78.9 BUN/Creatinine Ratio 1.7 L Glucose 110 H Fasting Glucose Calcium 8.7 Total Bilirubin 0.6 AST 10 L ALT 18 Alkaline Phosphatase 101 Total Protein 7.1 Albumin 4.2 Globulin 2.9 Albumin/Globulin Ratio 1.4 Triglycerides Cholesterol LDL Cholesterol, Calc VLDL Cholesterol, Calc HDL Cholesterol Cholesterol/HDL Ratio Lipase 140 Vitamin B12 Folate TSH 1.330 HCG, Qual Negative Urine Color Urine Appearance Urine pH Ur Specific [place] Urine Protein Urine Glucose (UA) Urine Ketones Urine Blood Urine Nitrite Urine Bilirubin Urine Urobilinogen Ur Leukocyte Esterase Urine WBC (Auto) Urine RBC (Auto) U Hyaline Cast (Auto) U Epithel Cells (Auto) Urine Bacteria (Auto) Urine Yeast Salicylates Urine Opiates Screen Ur Methadone, Qual Acetaminophen Urine Barbiturates Ur Phencyclidine (PCP) U Amphetamin/Meth Scrn MDMA (Ecstasy) Screen U Benzodiazepines Scrn Ur Cocaine Metabolite U Marijuana (THC) Screen Ethyl Alcohol mg/dL 12/28/19 12/28/19 12/28/19 08:39 08:39 09:00 WBC RBC Hgb Hct MCV MCH MCHC RDW Std Deviation RDW Coeff of Ashanti Plt Count MPV Immature Gran % (Auto) Neut % (Auto) Lymph % (Auto) Meagher % (Auto) Eos % (Auto) Baso % (Auto) Immature Gran # (Auto) Neut # (Auto) Lymph # (Auto) Meagher # (Auto) Eos # (Auto) Baso # (Auto) Sodium Potassium Chloride Carbon Dioxide Anion Gap BUN Creatinine Est Cr Clr Drug Dosing Est GFR ( Amer) Est GFR (Non-Af Amer) BUN/Creatinine Ratio Glucose Fasting Glucose Calcium Total Bilirubin AST ALT Alkaline Phosphatase Total Protein Albumin Globulin Albumin/Globulin Ratio Triglycerides Cholesterol LDL Cholesterol, Calc VLDL Cholesterol, Calc HDL Cholesterol Cholesterol/HDL Ratio Lipase Vitamin B12 Folate TSH HCG, Qual Urine Color Urine Appearance Urine pH Ur Specific [place] Urine Protein Urine Glucose (UA) Urine Ketones Urine Blood Urine Nitrite Urine Bilirubin Urine Urobilinogen Ur Leukocyte Esterase Urine WBC (Auto) Urine RBC (Auto) U Hyaline Cast (Auto) U Epithel Cells (Auto) Urine Bacteria (Auto) Urine Yeast Salicylates 3.8 Urine Opiates Screen Neg Ur Methadone, Qual Neg Acetaminophen < 2 L Urine Barbiturates Neg Ur Phencyclidine (PCP) Neg U Amphetamin/Meth Scrn Neg MDMA (Ecstasy) Screen Neg U Benzodiazepines Scrn Neg Ur Cocaine Metabolite Neg U Marijuana (THC) Screen Neg Ethyl Alcohol mg/dL < 3.0 12/28/19 12/28/19 12/29/19 09:00 12:15 07:09 WBC RBC Hgb Hct MCV MCH MCHC RDW Std Deviation RDW Coeff of Ashanti Plt Count MPV Immature Gran % (Auto) Neut % (Auto) Lymph % (Auto) Meagher % (Auto) Eos % (Auto) Baso % (Auto) Immature Gran # (Auto) Neut # (Auto) Lymph # (Auto) Meagher # (Auto) Eos # (Auto) Baso # (Auto) Sodium Potassium 3.2 L D Chloride Carbon Dioxide Anion Gap BUN Creatinine Est Cr Clr Drug Dosing Est GFR ( Amer) Est GFR (Non-Af Amer) BUN/Creatinine Ratio Glucose Fasting Glucose 95 Calcium Total Bilirubin AST ALT Alkaline Phosphatase Total Protein Albumin Globulin Albumin/Globulin Ratio Triglycerides 94 Cholesterol 84 LDL Cholesterol, Calc 34 VLDL Cholesterol, Calc 19 HDL Cholesterol 31 Cholesterol/HDL Ratio 3 Lipase Vitamin B12 Folate TSH HCG, Qual Urine Color Yellow Urine Appearance Clear Urine pH 5.5 Ur Specific [place] 1.005 Urine Protein Negative Urine Glucose (UA) Negative Urine Ketones Negative Urine Blood 3+ H Urine Nitrite Negative Urine Bilirubin Negative Urine Urobilinogen Negative Ur Leukocyte Esterase 1+ H Urine WBC (Auto) >30 H Urine RBC (Auto) 5-10 H U Hyaline Cast (Auto) 1-5 U Epithel Cells (Auto) >30 H Urine Bacteria (Auto) 1+ H Urine Yeast Not Reportable Salicylates Urine Opiates Screen Ur Methadone, Qual Acetaminophen Urine Barbiturates Ur Phencyclidine (PCP) U Amphetamin/Meth Scrn MDMA (Ecstasy) Screen U Benzodiazepines Scrn Ur Cocaine Metabolite U Marijuana (THC) Screen Ethyl Alcohol mg/dL 12/30/19 01/03/20 01/05/20 07:47 06:52 11:00 WBC 4.37 L RBC 4.29 Hgb 14.8 Hct 43.1 MCV 100.5 H MCH 34.5 H MCHC 34.3 RDW Std Deviation 45.1 RDW Coeff of Ashanti 12.3 Plt Count 251 MPV 9.0 Immature Gran % (Auto) 0.2 Neut % (Auto) 59.9 Lymph % (Auto) 30.9 Meagher % (Auto) 8.5 Eos % (Auto) 0.0 Baso % (Auto) 0.5 Immature Gran # (Auto) 0.01 Neut # (Auto) 2.62 Lymph # (Auto) 1.35 Meagher # (Auto) 0.37 Eos # (Auto) 0.00 Baso # (Auto) 0.02 Sodium 140 Potassium 4.0 Chloride 109 H Carbon Dioxide 24 Anion Gap 7.0 BUN 6 L Creatinine 0.73 Est Cr Clr Drug Dosing 85.7 Est GFR ( Amer) 119.4 Est GFR (Non-Af Amer) 103.0 BUN/Creatinine Ratio 7.8 L Glucose 90 Fasting Glucose Calcium 8.7 Total Bilirubin AST ALT Alkaline Phosphatase Total Protein Albumin Globulin Albumin/Globulin Ratio Triglycerides Cholesterol LDL Cholesterol, Calc VLDL Cholesterol, Calc HDL Cholesterol Cholesterol/HDL Ratio Lipase Vitamin B12 130 L Folate 3.42 L TSH HCG, Qual Urine Color Urine Appearance Urine pH Ur Specific [place] Urine Protein Urine Glucose (UA) Urine Ketones Urine Blood Urine Nitrite Urine Bilirubin Urine Urobilinogen Ur Leukocyte Esterase Urine WBC (Auto) Urine RBC (Auto) U Hyaline Cast (Auto) U Epithel Cells (Auto) Urine Bacteria (Auto) Urine Yeast Salicylates Urine Opiates Screen Ur Methadone, Qual Acetaminophen Urine Barbiturates Ur Phencyclidine (PCP) U Amphetamin/Meth Scrn MDMA (Ecstasy) Screen U Benzodiazepines Scrn Ur Cocaine Metabolite U Marijuana (THC) Screen Ethyl Alcohol mg/dL Hospital Course (1) Paranoid schizophrenia: 5/6 - Admitted to a locked inpatient behavioral health unit, on q15 minute safety checks - Recommending that patient resume medications to target her paranoia and delusions. Will attempt to gather collateral information from family and will request a current medication list from her outpatient psychiatrist. - In the interim, we will re-titrate clozapine beginning at 25mg BID. Re- titrate to home dose of 100mg BID. Will order prn doses of zolpidem and trazodone for sleep. Haloperidol will be available as needed for psychosis. - Encourage participation in group and recreational therapies - Gather collateral information from outpatient providers - Suggest family meeting to involve outpatient supports in safety planning - Arrange appropriate aftercare - re-establish case management services 12/28 -Continue clozapine titration, increasing to 50 mg twice daily. -FLP and fasting glucose reviewed today and within normal limits. -Patient has refused to sign releases for her parents, boyfriend, or outpatient psychiatrist. She indicates willingness to have a family meeting with her boyfriend. -File for a 303 involuntary commitment, and consider need for a 304 IOC, as she would benefit from case management and therapy, but has been noncompliant with all aspects of treatment, leading to her decompensation. 12/29 - Continue clozapine titration - will increase to 75mg BID; CBC w/diff ordered fro 01/03. - 303 hearing scheduled for 01/01. - Pt remains somewhat paranoid and suspicious, but admits to perceived improvement in clarity of thought after her evening dose last night. 12/30 - Clozapine titrated back to recorded home dose of 100mg BID, to begin with this evening's dose - 303 hearing on 01/01 - Pt participated in a family meeting with her mother today, she continues to appears suspicious and paranoid and remains unable to articulate events that contributed to her decompensation and subsequent admission. 12/31 - Continue current medication regimen - pt back to home dose of clozapine at 100mg BID - 303 hearing scheduled for tomorrow morning - Discharge plans remain uncertain at this time; it is unclear if she will be able to stay with parents. She has an apartment, but would benefit from assistance from family. 01/01 - 303 hearing held and granted. - Continue clozapine and zolpidem. - Discharge plans remain unclear, patient vacillates in her stated plans (to stay w/ parents, return home w/ BF, or return home but live alone - although has not addressed issues w/ boyfriend directly. - Re-refer for [facility] through [facility], where she previously had services. Recommend OP therapy, which she is declining. Consider 304 IOC due to severity of illness and lack of insight. 01/02 - Continue clozapine 100mg BID - Although patient continues to request rapid discharge, she lacks insight into the level of support necessary to develop a safe discharge plan. She remains unmotivated to involve her boyfriend in a meeting. - Pt did sit with our social work and senior outside sales representative from the [facility] to complete case management intake, but was too suspicious of the paperwork to be willing to sign at this time. - Ongoing consideration to pursue 304 IO 01/03 - Continue clozapine 100mg BID - Pt refused CBC w/ diff ordered for this morning - phlebotomy plans to return intermittently to attempt again - Pt continues to be suspicious of paperwork for the case management process, and therefore has not signed - She continues to report suspicion of staff and is unable to appreciate the serious concerns related to her being discharged without an adequate safety plan. 01/04 -With staff encouragement, patient consented to blood draw for CBC: ANC 2.62. Continue clozapine. Discussed the need for medication with her, she continues to display very poor insight, stating she does not have schizophrenia nor does she need medication. Discussed recommendations for a long-acting injectable antipsychotic, which she is opposed to. If at any time she is uncooperative w ith the clozapine or required blood draws, would recommend transition to an RAMON, and medications over objection if necessary, as she has a longstanding diagnosis of schizophrenia, has active psychotic symptoms, and her symptoms have responded well to antipsychotic medication in the past. She is unlikely to recover without medication. -Social work will try to complete the case management referral with her again today; this is the third attempt, as she has been resistant and uncooperative. -She continues to refuse outpatient therapy and a family meeting with her boyfriend. We are recommending a 304 involuntary outpatient commitment, given the severity of her symptoms, lack of insight, and unwillingness for treatment. 01/05 - Titrating clozapine to 100mg qAM and 150mg qHS - ongoing titration as indicated. Pt continues to verbalize that she feels "stable and normal" on present dose, limited insight continues. Pt did consent to CBC w/ diff yesterday. Agree with above, patient may require conversion to an atypical antipsychotic and eventual conversion to an RAMON (though patient has an aversion to needles). - Pt did complete intake with [facility] for case management after several attempted meetings and significant suspicion. She remains reluctant to agree with other treatment recommendations, including proper adjustments of medications, referral for a therapist, and a phone meeting to involve mother and boyfriend in discharge planning - as patient maintains she plans to return to her apartment. 01/06 -Continue clozapine as above. Patient complains of feeling a little more drowsy today but appears fully alert and conversant 01/07 -Patient remains somewhat illogical and paranoid but sounds to be significantly improved from initial presentation and has been compliant with oral medication over the weekend. -When the primary team is back on Thursday we can try to assess" she is to her typical baseline 01/08 - Continue clozapine at 100mg qAM and 150mg qHS, patient has been compliant with medications - Pt scheduled to meet again with [facility] staff regarding case management and anticipated 304 IOC. Pt continues to report limited willingness for outpatient therapy or assistance with medication management. She is only agreeable with continued visits with Dr. Williamson. - Pt encouraged to consider another support meeting to discuss discharge and safety planning. It is likely she will involve her boyfriend, with whom she lives, though has yet to be willing to schedule this meeting. 01/09 -Patient completed intake for outpatient blended case management services. Filed for a 304 IOC hearing. Continue to encourage increased outpatient supports, including individual psychotherapy, mobile med management, and a discharge planning meeting with her boyfriend, which she has so far refused. 01/10 - Continue current medication regimen. - 304 IOC hearing scheduled for 01/12/2020 at 09:30 - pt to be discharged following hearing 01/11 - Patient discharged on 304 IOC. Home psychotropic medications returned to her; clozapine dose increase and has sufficient supply to last until her next outpatient appointment next week. She will need to resume CBC with differential as per outpatient schedule. - Patient was also prescribed several psychotropics including zolpidem, trazodone, prazosin, hydroxyzine, gabapentin, and topiramate; she initially indicated she had not been taking these medications at all, but later stated she took them "as needed." It is not clear to me that she requires all of these medications, as she is doing quite well here on the clozapine alone. Encouraged her to discuss her medication regimen with her outpatient psychiatrist next week when she follows up, as it may be able to be streamlined which will limit side effects and compliance issues. - Patient has follow-up appointment scheduled with her psychiatrist and director case. We have also recommended therapy, and this is part of her involuntary outpatient commitment. She will need to work with her director case to schedule with a therapist. - She may also benefit from psych rehab, clubhouse, mobile psych rehab, peers support, and mobile med management. Due to her history of nonadherence with medications, we encouraged her to allow us to refer her to [place] [facility], but she declined. (2) MTHFR mutation: 12/27 - Historical diagnosis of MTHFR mutation. Pt historically had been on Xarelto for chronic anticoagulation - It appears patient has not been taking the medication recently, as no record of the medication on external medication history - Will gather collateral information from family/outpatient providers regarding recommendations 12/28 -No outpatient records available from PCP in EMR to determine current medications/recommendations. Nursing staff contacted PCPs office to clarify whether she is supposed to be on an anticoagulant currently. She has reportedly been nonadherent with treatment, and PCP recommended inpatient medical consultation which will be requested today. -She will need a follow-up appointment after discharge. 12/29 - Appreciate hospitalist consult and recommendations - B12 and Folate levels ordered - both levels are low at 130 and 3.42 respectively - see treatment below - Discussed recommendations with patient who continued to be somewhat suspicious of the need for a blood thinner, but was ultimately agreeable with Xarelto - Will need to monitor patient's willingness while in the hospital, as hospitalist recommendations suggest concern associated with inconsistent dosing of Xarelto and a hypercoagulable state. Pt was able to at least acknowledge that she is not interested in Warfarin or Lovenox due to her aversion to needles and limited willingness for routine monitoring. Pt did seem to understanding the importance of consistent use of Xarelto during conversation. 12/31 - Pt has been compliant with prescribed dosing of Xarelto 01/10 - Will call to schedule PCP appointment for ongoing management (3) Hypokalemia: 12/28 -potassium was 2.7 on presentation, likely due to poor oral intake for several days prior to admission. Repleted in the ER and improved slightly. Continue to monitor and encourage good nutrition. 01/02 - BMP was ordered, with patient initially refusing to complete the blood work - She did complete this morning - potassium improved to 4.0 - Pt has been eating meals appropriately (4) Abnormal urinalysis: 12/28 - UA on admission notable for 3+ blood, 1+ leukocyte esterase, > 30 WBCs, 5-10 RBCs, > 30 epithelial cells, and 1+ bacteria. Asymptomatic, likely contaminated sample, antibiotics not currently indicated, but will follow up on culture results when available. 12/29 - Preliminary culture resulting in pin-point growth, re-incubating 01/01 - lactobacillus per culture, asymptomatic, no treatment indicated. (5) Vitamin B12 deficiency: 12/29 - Vitamin B12 is deficient at 130 (nml 211-911) - Ensuring adequate level may offer benefit for treatment of patient's MTHFR mutation - Vegetarian diet is likely also contributing to this deficiency - Will offer patient Vitamine B12 at 500mcg daily - at this time patient is agreeable - This level should continue to be monitored on an outpatient basis 01/08 - Pt has demonstrated compliance with scheduled doses of Vitamin B12 (6) Folate deficiency: 12/29 - Folate level is deficient at 3.42 (nml >5.38) - Again, deficiency may also be related to dietary choices - Will supplement with Folic acid 1mg daily - at this time patient is agreeable - This too should be monitored on an outpatient basis 12/31 - Pt has been refusing folic acid with morning medications - unable to provide explanation as to why this is the case other than "I feel fine" - Education was again provided to the patient on the recommendation for Folic acid. She verbalized understanding, but did not convincingly state she would take the medication moving forward - Continue to offer education and encouragement 01/02 - Pt continues to refuse folic acid - no explanation provided for this refusal 01/07 -Last 2 days has accepted oral supplement 01/08 - Continue compliance with scheduled folic acid supplementation Mental Health & Subst Abuse Tx Psychiatrist Name of Psychiatrist: [facility] - Dr. Williamson Psychiatrist's Date of Appointment with Psychiatrist: 01/17/20 Time of Appointment with Psychiatrist: 4:10 p.m. Psychiatric [facility]ment [facility] [id number] [place] [address] Therapist Name of Therapist: None Clay Thrower Name of Clay Thrower: [facility] [place] (Melvin Amador) Phone Number for Clay Thrower: [phone] Date of Appointment with Clay Thrower: 01/13/20 Time of Appointment with Clay Thrower: 10:30am Case Management Appointment Comment: They will call you Thursday at 10:30am Post Discharge Appointments Primary Care Physician Name Of Family Doctor: KENAN - Dr. [facility] Date of Appointment with PCP: 01/19/20 Time of Appointment with PCP: 11:30 Provider Appointment Comment: [address] [place] [address] Smoking Cessation Counseling Tobacco Cessation Medication Prescribed at Discharge: Offered & Prescribed Tobacco Cessation Counseling: Offered and Refused Contact Information Discharge Discharge Address: [facility] [address] [place] [id number] Discharge Plan Discharge Items Patient Disposition: Home - Self-Care Reason For Visit: PARANOIA, SCHIZOPHRENIA Discharge Diagnosis: Schizophrenia Treatment nonadherence Activity: Per Instructions section Non-emergency contact: Primary Care Provider, Psychiatrist, Therapist and [employer] Call non-emergency contact if: you have any medication questions and your symptoms worsen Follow-up/Referrals: Darci Cuello MD [Primary Care Provider] - Diet: Regular Addtl Attending Provider Instructions: SPECIAL CARE INSTRUCTIONS: You are being discharged on a 304 involuntary outpatient commitment, please see paperwork specific to that for details. 1. Follow through with your scheduled aftercare appointments. If unable to keep an appointment, please call to reschedule. 2. Take your medication only as prescribed. Medication should not be changed or stopped without the approval of your doctor. In the event of worsening symptoms or concerns about side effects, contact your doctor immediately. *You will need to get blood work to check your blood counts regularly. *There were multiple medications prescribed by her outpatient psychiatrist that you reported taking as needed. Please discuss proper use of these medications with your outpatient psychiatrist at your appointment next week. 3. Utilize new healthy coping skills, anger management skills, and stress management skills learned during your hospitalization. Journal feelings and process them with a support person. Identify stressors or situations that may result in relapse, deterioration or inappropriate behaviors and develop a plan to deal with those issues. 4. If your coping skills are ineffective and you are in crisis, contact your outpatient providers for direction. If unable to reach your providers, please call the CAN HELP LINE AT or go to the closest Emergency Room. 5. Avoid alcohol and un-prescribed drugs. 6. You have been provided with the Mental Health Advance Directives Pamphlet for your review. AFTERCARE APPOINTMENTS: * Please call your insurance company prior to your scheduled appointment to confirm your aftercare providers are covered. Take your insurance information to your appointments. WHO TO CALL AND WHEN: Medical Emergencies: For questions or emergencies related to your hospital stay, please contact the Inpatient Behavioral Health Unit at [phone]. A supervisor functional testing is on-call 16/03 for the Behavioral Health Unit for emergencies At any time you feel your situation is an emergency, you may also call 911 immediately. Your Doctors Instructions noted above were prepared by provider Tiana Bustillos MD. Pending Studies at Discharge: No Stand-Alone Forms: My [facility], Smoking Cessation, Suicide Prevention Resources Medications and DC Order Prescriptions: New nicotine (polacrilex) [Nicorelief] 2 mg Gum 2 mg MT PRN PRN (Reason: cravings) Qty: 1 RF: 0 Xarelto 20 mg Tablet 20 mg PO DAILY Qty: 30 RF: 0 cyanocobalamin (vitamin B-12) 500 mcg Tablet 500 mcg PO QAM Qty: 30 RF: 0 folic acid 1 mg Tablet 1 mg PO QAM Qty: 30 RF: 0 Continued prazosin [Minipress] 1 mg capsule RF: 0 hydroxyzine pamoate [Vistaril] 50 mg capsule RF: 0 topiramate [Topamax] 25 mg tablet RF: 0 zolpidem [Ambien] 10 mg tablet 10 mg PO HS PRN (Reason: Insomnia) RF: 0 glycopyrrolate 2 mg tablet RF: 0 trazodone 150 mg tablet 150 mg PO HS PRN (Reason: Insomnia) RF: 0 Changed clozapine 100 mg Tablet 100 mg PO UD Qty: 0 RF: 0 Discontinued hydroxyzine pamoate 50 mg Capsule 50 mg PO HS RF: 0 zolpidem 10 mg Tablet 10 mg PO HS RF: 0 glycopyrrolate 2 mg Tablet 2 mg PO TID RF: 0 topiramate 25 mg Tablet 25 mg PO BID RF: 0 trazodone 150 mg Tablet 150 mg PO HS RF: 0 prazosin 1 mg Capsule 1 mg PO HS RF: 0 No Action clozapine 100 mg tablet 100 mg PO .COMPLEX RF: 0 zolpidem [Ambien] 10 mg tablet 10 mg PO HS PRN (Reason: insomnia) RF: 0 trazodone 150 mg tablet 150 mg PO HS RF: 0 hydroxyzine HCl 50 mg tablet 50 mg PO HS RF: 0 Discharge Orders: Discharge Order (Routine); Ordered 01/12/20 Ordered By: Tiana Israel/Other Patient Handouts: Tips Cardiovascular Quit Smoking, DVT Prevention, Vitamin and Mineral Supplements, Vitamin B-12 Admission Data Admit Date/Time: 12/28/19 13:57 Attending Provider: Tiana Bustillos Admit Provider: Tiana Bustillos Primary Care Provider: Darci Cuello V. Other Providers: Alonso Quick Other Interventions: Discharge Summary Assessment (RN) Last Done: 01/12/20 09:11 PSY Interdisciplinary Discharge Planning Last Done: 01/12/20 09:31 Coding Level of Care Code 86992 D/C day mgmt > 30 min Diagnoses Paranoid schizophrenia F20.0 MTHFR mutation E72.12 Hypokalemia E87.6 Abnormal urinalysis R82.90 Vitamin B12 deficiency E53.8 Folate deficiency E53.8
[2020-01-12 10:45] LABS: Basophils # (auto) 0.01 K/uL (0-0.2); Basophils % (auto) 0.2 %; Hematocrit (blood only) 45.4 % (37-47); Hemoglobin 15.4 g/dL (12.0-16.0); Lymphocytes # (auto) 1.34 K/uL (1.2-3.4); Lymphocytes % (auto) 26.7 %; Mean Corpuscular Hemoglobin 34.5 pg (25-34); Mean Corpuscular Hgb Conc 33.9 g/dL (32-36); Mean Corpuscular Volume 101.8 fL (80-100); Mean Platelet Volume 9.4 fL (7.4-10.4); Monocytes # (auto) 0.38 K/uL (0.11-0.59); Monocytes % (auto) 7.6 %; Neutrophils # (auto) 3.29 K/uL (1.4-6.5); Neutrophils % (auto) 65.5 %; Platelet Count 253 K/uL (130-400); RDW Coefficient of Variation 12.2 % (11.5-14.5); RDW Standard Deviation 45.2 fL (36.4-46.3); Red Blood Count 4.46 M/uL (4.2-5.4); White Blood Count 5.02 K/uL (4.8-10.8)
== END 2020-01-12 11:25 | disposition home or self-care (01) | DRG 885 ==
LOC: ED 07:46 → 3S 13:56

== ENCOUNTER 2020-05-22 19:20 | Inpatient (IN) ==
[2020-05-22 20:10] LABS: Pregnancy Test, Urine Negative (Negative)
[2020-05-22 20:20] LABS: Appearance Urine Clear (Clear); Bilirubin Urine Negative (Negative); Blood Urine Trace (Negative); Color Urine Yellow; Glucose Urine UA Negative (Negative); Ketones Urine Negative (Negative); Leukocyte Esterase Urine Negative (Negative); Nitrite Urine Negative (Negative); Protein Urine Negative (Negative); Specific Gravity Urine 1.004 (1.000-1.030); Urobilinogen Urine Negative (Negative); pH Urine 6.5 (4.5-7.5)
[2020-05-22 20:24] LABS: Basophils # (auto) 0.01 K/uL (0-0.2); Basophils % (auto) 0.1 %; Eosinophils # (auto) 0.01 K/uL (0-0.5); Eosinophils % (auto) 0.1 %; Hematocrit (blood only) 41.2 % (37-47); Hemoglobin 15.2 g/dL (12.0-16.0); Immature Granulocytes # (auto) 0.02 K/uL (0.00-0.02); Immature Granulocytes % (auto) 0.2 %; Lymphocytes # (auto) 1.19 K/uL (1.2-3.4); Lymphocytes % (auto) 13.8 %; Mean Corpuscular Hgb Conc 36.9 g/dL (32-36); Mean Corpuscular Volume 94.9 fL (80-100); Mean Platelet Volume 8.8 fL (7.4-10.4); Monocytes # (auto) 0.74 K/uL (0.11-0.59); Monocytes % (auto) 8.6 %; Neutrophils # (auto) 6.66 K/uL (1.4-6.5); Neutrophils % (auto) 77.2 %; Platelet Count 314 K/uL (130-400); RDW Coefficient of Variation 12.7 % (11.5-14.5); RDW Standard Deviation 43.9 fL (36.4-46.3); Red Blood Count 4.34 M/uL (4.2-5.4); White Blood Count 8.63 K/uL (4.8-10.8)
--- NOTE | 2020-05-22 20:27 | Emergency Department Note ---
History of Present Illness General Chief complaint: Mental Health Evaluation Source: patient, RN notes reviewed, old records reviewed and police Mode of arrival: other (police) Limitations: no limitations History of Present Illness Provider complaint: not taking medications Onset (ago): day(s) 1 Treatments prior to arrival: none This is a 39-year-old female who was noted by the police today to be walking several miles in the rain that presents here to the emergency department under a 302 warrant. The patient has a history of paranoid schizophrenia. Her mother f illed out the warrant over concerns that the patient has not been taking her medicines for at least 1 day. The patient herself reports that she was looking for a place to live today and had been walking in the rain for miles. Police noticed her and picked her up. Finding out that she was under the warrant they brought her to the emergency department. The patient reports she has not been taking her medicines and takes only natural supplements. She has not taken anything today. The patient is supposed to be chronically anticoagulated with Xarelto but she reports at least not taking it since yesterday. Patient denies any suicidality or homicidal ideation. Home Medications Home Medications Medication Instructions Recorded Confirmed Type cyanocobalamin (vitamin B-12) 500 mcg PO QAM #30 tab 01/12/20 05/22/20 Rx zolpidem [Ambien] 10 mg PO HS PRN 01/12/20 05/22/20 History clozapine 50 mg PO HS 05/22/20 05/22/20 History clozapine [Clozaril] 100 mg PO QAM 05/22/20 05/22/20 History folic acid 20 mg PO DAILY 05/22/20 05/22/20 History rivaroxaban [Xarelto] 15 mg PO DAILY 05/22/20 05/22/20 History Allergies Allergy/AdvReac Type Severity Reaction Status Date / Time No Known Allergies Allergy Verified 05/22/20 21:33 Past Med/Surg History Medical History (Updated 05/24/20 @ 00:27 by Yobani Decker MD) Abnormal urinalysis DVT (deep venous thrombosis) In 2012, 2015, along with multiple PEs. Hypokalemia Hypokalemia Migraine Nausea & vomiting Paranoid schizophrenia Family History Unknown VTE (venous thromboembolism) Unknown if any VTE in family Social History Smoking Status: Current every day smoker Tobacco Type: Cigarettes Preferred Language: Citizen Of [place] Communication Ability: Effective Consumer Marketing Manager Required: No Beliefs That Will Affect Care: None Feels Safe at Home: Hesitant to Answer Assistive Devices: None Review of Systems A total of 10 systems reviewed and were otherwise negative Physical Exam Vital Signs Vital Signs - 24 hr 05/22/20 19:26 Temperature 37.6 C H Temperature Source Oral Pulse Rate 92 H Pulse Rhythm Regular Respiratory Rate 18 Respiratory Effort / Characteristics Non-Labored Respiratory Depth Normal Respiratory Pattern Regular Blood Pressure 135/71 Blood Pressure Mean 92 Pulse Oximetry 96 Oxygen Delivery Method Room Air Sepsis Recent Fever Within 48 Hours No Sepsis New/Unexplained Change in Mental Status N/A Sepsis Action Taken by Nursing No Action Required VITAL SIGNS - Vital signs and nursing notes were reviewed. GENERAL - 39-year-old female appearing stated age who is in no acute distress. Slow to answer, appears distracted. SKIN - Without rashes. HEAD - NC/AT. EYES - PERRL with EOMI bilaterally. Sclera anicteric. Palpebral conjunctiva pink and moist with no injection noted. EARS - No deformities of external structures noted on gross examination bilaterally. No pain elicited with palpation of the tragus bilaterally. External auditory canals without discharge or otorrhea. Tympanic membranes pearly sweet without retraction or bulging. No fluid or purulent material visualized behind the TM. Handle of malleus, umbo, cone of light, pars tensa/flaccid all easily visualized. NOSE - Midline and without cyanosis. No epistaxis or purulent drainage noted. Septum midline without deviation or septal hematoma noted. MOUTH/OROPHARYNX - Without perioral cyanosis. Buccal mucosa pink and moist and without leukoplakia. Tongue midline with equal elevation of palate bilaterally. No tonsillar hypertrophy, erythema, or exudates noted. dentition noted. NECK - Neck with FROM. Supple to palpation. lymphadenopathy noted. No nuchal rigidity. LUNGS - Chest wall symmetric without accessory muscle use, intercostals retractions, or central cyanosis. Normal vesicular breath sounds CTA B/L. No wheezes, rales, or rhonchi appreciated. CARDIAC - RRR with S1/S2. No murmur, rubs, or gallops appreciated. ABDOMEN - Abdominal contour without pulsations or visible masses. BS normo active all four quadrants. No tenderness, palpable masses, hepatosplenomegaly, or ascites noted. EXTREMITIES - No clubbing or peripheral cyanosis. No pretibial edema present. +3/5 radial, posterior tibial, and dorsalis pedis pulses palpated throughout. +5/5 strength noted in UE/LE bilaterally. NEUROLOGIC - Cranial nerves II through XII grossly intact. Sensory intact to light touch throughout. Patellar reflexes +2/4. PSYCH - A&Ox3 and cooperates fully with examiner. Pt is very pleasant and int eracts well with examiner. Course Administered Medications Clozapine (Clozapine 25 Mg Tab) 25 mg PO QAM SIMONA Stop: 06/22/20 12:29 Last Admin: 05/23/20 12:39 Dose: Not Given Documented by: [id number] Nicotine (Nicotine 21 Mg/24 Hr Tdsy) 21 mg TD QAM SIMONA Stop: 06/22/20 08:59 Last Admin: 05/23/20 09:00 Dose: Not Given Documented by: [id number] Rivaroxaban (Rivaroxaban 15 Mg Tab) 15 mg PO QDD SIMONA Stop: 06/22/20 17:44 Last Admin: 05/23/20 17:43 Dose: Not Given Documented by: [id number] Discontinued Medications Potassium Chloride (Potassium Chloride 20 Meq Tabcr) 40 meq PO NOW STA Stop: 05/22/20 21:02 Last Admin: 05/22/20 22:01 Dose: 40 meq Documented by: [id number] Potassium Chloride (Potassium Chloride 20 Meq/15 Ml Udc) 40 meq PO NOW STA Stop: 05/22/20 23:03 Last Admin: 05/22/20 23:43 Dose: 40 meq Documented by: [id number] Medical Decision Making Differential Diagnosis Mood disorder, infection, hypoglycemia, electrolyte abnormalities, cardiac sources, intracerebral event, toxicologic, trauma, neurologic, as well as other pathologies. Medical Records Attestation: I reviewed the patient's medical records. Home Medications Current Medication List: was personally reviewed by me Laboratory Data Attestation: I reviewed the patient's lab results. Result diagrams: 05/22/20 20:03 05/22/20 20:03 Lab Results 05/22/20 05/22/20 05/22/20 Range/Units 19:57 19:57 19:57 WBC (4.8-10.8) K/uL RBC (4.2-5.4) M/uL Hgb (12.0-16.0) g/dL Hct (37-47) % MCV (80-100) fL MCH (25-34) pg MCHC (32-36) g/dL RDW Std Deviation (36.4-46.3) fL RDW Coeff of Ashanti (11.5-14.5) % Plt Count (130-400) K/uL MPV (7.4-10.4) fL Immature Gran % (Auto) % Neut % (Auto) % Lymph % (Auto) % Gordon % (Auto) % Eos % (Auto) % Baso % (Auto) % Neut # (Auto) (1.4-6.5) K/uL Lymph # (Auto) (1.2-3.4) K/uL Gordon # (Auto) (0.11-0.59) K/uL Eos # (Auto) (0-0.5) K/uL Baso # (Auto) (0-0.2) K/uL Immature Gran # (Auto) (0.00-0.02) K/uL Sodium (136-145) mmol/L Potassium (3.5-5.1) mmol/L Chloride (98-107) mmol/L Carbon Dioxide (21-32) mmol/L Anion Gap (3-11) BUN (7-18) mg/dl Creatinine (0.6-1.2) mg/dl Est Cr Clr Drug Dosing ml/min Est GFR ( Amer) Est GFR (Non-Af Amer) BUN/Creatinine Ratio (10-20) Glucose (70-99) mg/dl Calcium (8.5-10.1) mg/dl Total Bilirubin (0.2-1) mg/dl AST (15-37) U/L ALT (12-78) U/L Alkaline Phosphatase (45-117) U/L Total Creatine Kinase (26-192) U/L Total Protein (6.4-8.2) gm/dl Albumin (3.4-5.0) gm/dl Globulin (2.5-4.0) gm/dl Albumin/Globulin Ratio (0.9-2) TSH (0.300-4.500) uIu/ml Urine Color Yellow Urine Appearance Clear (Clear) Urine pH 6.5 (4.5-7.5) Ur Specific Murdock 1.004 (1.000-1.030) Urine Protein Negative (Negative) Urine Glucose (UA) Negative (Negative) Urine Ketones Negative (Negative) Urine Blood Trace H (Negative) Urine Nitrite Negative (Negative) Urine Bilirubin Negative (Negative) Urine Urobilinogen Negative (Negative) Ur Leukocyte Esterase Negative (Negative) Urine WBC (Auto) 0 (0-5) /hpf Urine RBC (Auto) 0-4 (0-4) /hpf U Hyaline Cast (Auto) 0 (0-5) /lpf U Epithel Cells (Auto) 5-10 H (0-5) /lpf Urine Bacteria (Auto) Negative (Negative) Urine Test Negative (Negative) Salicylates (2.8-20) mg/dl Urine Opiates Screen Neg (Neg) Ur Methadone, Qual Neg (Neg) Acetaminophen (10-30) ug/ml Urine Barbiturates Neg (Neg) Ur Phencyclidine (PCP) Neg (Neg) U Amphetamin/Meth Scrn Neg (Neg) MDMA (Ecstasy) Screen Neg (Neg) U Benzodiazepines Scrn Neg (Neg) Ur Cocaine Metabolite Neg (Neg) U Marijuana (THC) Screen Neg (Neg) Ethyl Alcohol mg/dL (0-3) mg/dl COVID-19 Eval Order COVID-19 PCR (Negative) 05/22/20 05/22/20 05/22/20 Range/Units 20:03 20:03 20:03 WBC 8.63 (4.8-10.8) K/uL RBC 4.34 (4.2-5.4) M/uL Hgb 15.2 (12.0-16.0) g/dL Hct 41.2 (37-47) % MCV 94.9 (80-100) fL MCH 35.0 H (25-34) pg MCHC 36.9 H (32-36) g/dL RDW Std Deviation 43.9 (36.4-46.3) fL RDW Coeff of Ashanti 12.7 (11.5-14.5) % Plt Count 314 (130-400) K/uL MPV 8.8 (7.4-10.4) fL Immature Gran % (Auto) 0.2 % Neut % (Auto) 77.2 % Lymph % (Auto) 13.8 % Gordon % (Auto) 8.6 % Eos % (Auto) 0.1 % Baso % (Auto) 0.1 % Neut # (Auto) 6.66 H (1.4-6.5) K/uL Lymph # (Auto) 1.19 L (1.2-3.4) K/uL Gordon # (Auto) 0.74 H (0.11-0.59) K/uL Eos # (Auto) 0.01 (0-0.5) K/uL Baso # (Auto) 0.01 (0-0.2) K/uL Immature Gran # (Auto) 0.02 (0.00-0.02) K/uL Sodium 136 (136-145) mmol/L Potassium 2.6 L (3.5-5.1) mmol/L Chloride 102 (98-107) mmol/L Carbon Dioxide 28 (21-32) mmol/L Anion Gap 7.0 (3-11) BUN 1 L (7-18) mg/dl Creatinine 0.81 (0.6-1.2) mg/dl Est Cr Clr Drug Dosing 82.6 ml/min Est GFR ( Amer) 105.3 Est GFR (Non-Af Amer) 90.8 BUN/Creatinine Ratio 1.6 L (10-20) Glucose 95 (70-99) mg/dl Calcium 9.5 (8.5-10.1) mg/dl Total Bilirubin 1.0 (0.2-1) mg/dl AST 35 (15-37) U/L ALT 23 (12-78) U/L Alkaline Phosphatase 101 (45-117) U/L Total Creatine Kinase 825 H (26-192) U/L Total Protein 7.4 (6.4-8.2) gm/dl Albumin 4.0 (3.4-5.0) gm/dl Globulin 3.4 (2.5-4.0) gm/dl Albumin/Globulin Ratio 1.2 (0.9-2) TSH 1.300 (0.300-4.500) uIu/ml Urine Color Urine Appearance (Clear) Urine pH (4.5-7.5) Ur Specific [place] (1.000-1.030) Urine Protein (Negative) Urine Glucose (UA) (Negative) Urine Ketones (Negative) Urine Blood (Negative) Urine Nitrite (Negative) Urine Bilirubin (Negative) Urine Urobilinogen (Negative) Ur Leukocyte Esterase (Negative) Urine WBC (Auto) (0-5) /hpf Urine RBC (Auto) (0-4) /hpf U Hyaline Cast (Auto) (0-5) /lpf U Epithel Cells (Auto) (0-5) /lpf Urine Bacteria (Auto) (Negative) Urine Test (Negative) Salicylates 3.8 (2.8-20) mg/dl Urine Opiates Screen (Neg) Ur Methadone, Qual (Neg) Acetaminophen < 2 L (10-30) ug/ml Urine Barbiturates (Neg) Ur Phencyclidine (PCP) (Neg) U Amphetamin/Meth Scrn (Neg) MDMA (Ecstasy) Screen (Neg) U Benzodiazepines Scrn (Neg) Ur Cocaine Metabolite (Neg) U Marijuana (THC) Screen (Neg) Ethyl Alcohol mg/dL (0-3) mg/dl COVID-19 Eval Order COVID-19 PCR (Negative) 05/22/20 05/22/20 05/22/20 Range/Units 20:03 21:56 21:56 WBC (4.8-10.8) K/uL RBC (4.2-5.4) M/uL Hgb (12.0-16.0) g/dL Hct (37-47) % MCV (80-100) fL MCH (25-34) pg MCHC (32-36) g/dL RDW Std Deviation (36.4-46.3) fL RDW Coeff of Ashanti (11.5-14.5) % Plt Count (130-400) K/uL MPV (7.4-10.4) fL Immature Gran % (Auto) % Neut % (Auto) % Lymph % (Auto) % Gordon % (Auto) % Eos % (Auto) % Baso % (Auto) % Neut # (Auto) (1.4-6.5) K/uL Lymph # (Auto) (1.2-3.4) K/uL Gordon # (Auto) (0.11-0.59) K/uL Eos # (Auto) (0-0.5) K/uL Baso # (Auto) (0-0.2) K/uL Immature Gran # (Auto) (0.00-0.02) K/uL Sodium (136-145) mmol/L Potassium (3.5-5.1) mmol/L Chloride (98-107) mmol/L Carbon Dioxide (21-32) mmol/L Anion Gap (3-11) BUN (7-18) mg/dl Creatinine (0.6-1.2) mg/dl Est Cr Clr Drug Dosing ml/min Est GFR ( Amer) Est GFR (Non-Af Amer) BUN/Creatinine Ratio (10-20) Glucose (70-99) mg/dl Calcium (8.5-10.1) mg/dl Total Bilirubin (0.2-1) mg/dl AST (15-37) U/L ALT (12-78) U/L Alkaline Phosphatase (45-117) U/L Total Creatine Kinase (26-192) U/L Total Protein (6.4-8.2) gm/dl Albumin (3.4-5.0) gm/dl Globulin (2.5-4.0) gm/dl Albumin/Globulin Ratio (0.9-2) TSH (0.300-4.500) uIu/ml Urine Color Urine Appearance (Clear) Urine pH (4.5-7.5) Ur Specific [place] (1.000-1.030) Urine Protein (Negative) Urine Glucose (UA) (Negative) Urine Ketones (Negative) Urine Blood (Negative) Urine Nitrite (Negative) Urine Bilirubin (Negative) Urine Urobilinogen (Negative) Ur Leukocyte Esterase (Negative) Urine WBC (Auto) (0-5) /hpf Urine RBC (Auto) (0-4) /hpf U Hyaline Cast (Auto) (0-5) /lpf U Epithel Cells (Auto) (0-5) /lpf Urine Bacteria (Auto) (Negative) Urine Test (Negative) Salicylates (2.8-20) mg/dl Urine Opiates Screen (Neg) Ur Methadone, Qual (Neg) Acetaminophen (10-30) ug/ml Urine Barbiturates (Neg) Ur Phencyclidine (PCP) (Neg) U Amphetamin/Meth Scrn (Neg) MDMA (Ecstasy) Screen (Neg) U Benzodiazepines Scrn (Neg) Ur Cocaine Metabolite (Neg) U Marijuana (THC) Screen (Neg) Ethyl Alcohol mg/dL < 3.0 (0-3) mg/dl COVID-19 Eval Order Covid19 Done at [facility] COVID-19 PCR NEGATIVE (Negative) MDM Narrative Patient was seen and evaluated as above in room A5. Review was performed of nursing notes and vital signs. I did review pertinent previous visits and patient history. After obtaining a thorough history and physical examination the above work up was performed. This is a 39-year-old female who presents emergency department over concerns that she has not been taking her medicines at home. The patient was medically cleared by me. The patient herself has no complaints. Her potassium was repleted here in the emergency department. I did discuss the case with 3 S. liaison. The patient was subsequently admitted to S. The patient was evaluated during the global COVID-19 pandemic, and that diagnosis was suspected/considered upon their initial presentation. Their evaluation, treatment and testing was consistent with current guidelines for patients who present with complaints or symptoms that may be related to COVID- 19. Impression & Plan Mood disorder, Acute hypokalemia Discharge Plan Visit Data Chief Complaint: Mental Health Evaluation ED Provider: Yobani Decker Discharge Problem: Mood disorder, Acute hypokalemia Patient Disposition: Admitted As Inpatient Discharge Instructions Interventions: ED Discharge Assessment Last Done: 05/23/20 00:49
[2020-05-22 20:33] LABS: Bacteria Urine Automated Negative (Negative); Cast Urine Automated 0 /lpf (0-5); RBC Urine Automated 0-4 /hpf (0-4); WBC Urine Automated 0 /hpf (0-5)
[2020-05-22 20:40] LABS: Amphetamines+Metham, Urine Neg (Neg); Barbiturates, Urine Neg (Neg); Benzodiazepine, Urine Neg (Neg); Cocaine, Urine Neg (Neg); MDMA (Ecstacy), Urine Neg (Neg); Methadone, Urine Neg (Neg); Opiate, Urine Neg (Neg); Phencyclidine, Urine Neg (Neg)
[2020-05-22 20:48] LABS: Acetaminophen < 2 ug/ml (10-30); Salicylate 3.8 mg/dl (2.8-20)
[2020-05-22 20:51] LABS: Albumin Globulin Ratio 1.2 (0.9-2); BUN Creatinine Ratio 1.6 (10-20); Calcium 9.5 mg/dl (8.5-10.1); Creatinine Clr Calc Pharmacy 82.6 ml/min; Est GFR (African American) 105.3; Est GFR (Non-African American) 90.8; Globulin 3.4 gm/dl (2.5-4.0); Potassium 2.6 mmol/L (3.5-5.1); Thyroid Stimulating Hormone 1.3 uIu/ml (0.300-4.500); Total Protein 7.4 gm/dl (6.4-8.2)
[2020-05-22] MEDS: POTASSIUM CHLORIDE 20 MEQ TABCR PO STA ×3 (21:15→22:01)
[2020-05-22] MEDS ORDERED: POTASSIUM CHLORIDE 20 MEQ/15 ML UDC PO STA (23:02)
[2020-05-23] MEDS ORDERED: ACETAMINOPHEN 325 MG TAB PO PRN (01:14)
[2020-05-23] MEDS ORDERED: BISMUTH SUBSALICYLATE LIQD 236 ML PO PRN (01:14)
[2020-05-23] MEDS ORDERED: hydrOXYzine HCl 25 MG TAB PO PRN ×2 (01:14)
[2020-05-23] MEDS ORDERED: ALUMINUM/MAGNESIUM SUSP 30 ML UDC PO PRN (01:14)
[2020-05-23] MEDS ORDERED: MAGNESIUM HYDROXIDE SUSP 30 ML UDC PO PRN (01:14)
[2020-05-23] MEDS ORDERED: SODIUM CHLORIDE 0.65% NA SOLN 45 ML (OCEAN) PRN (01:14)
--- NOTE | 2020-05-23 08:21 | History & Physical ---
Date of Service May 23, 2020 Impression / Recommendations Impression 39-year-old female who lives with her boyfriend in [place], has a long history of schizophrenia and treatment noncompliance, who presents with psychosis in the context of noncompliance with antipsychotic medication. She was found by police walking for hours in the rain, with creatinine kinase of 825, and potassium of 2.6, indicating poor p.o. intake. She said she was trying to find a space ship to take her to outer space, and per family had made comments about taking her young nephew with her. She has been engaging in erratic and unsafe behavior in the context of psychosis, including walking long distances, not eating or sleeping, hitchhiking, and refusing to take her psychotropic and anticoagulant medication. She has a history of multiple DVTs and PEs, and requires lifelong anticoagulation. She locked her boyfriend, whom she lives with, in her room in their home prior to leaving. She is disorganized, paranoid, delusional, and hallucinating, and is clearly unable to provide for her own safety, health, welfare, jail, and nutrition without the care and assistance of others. Ongoing involuntary treatment on a 303 is recommended, with medications over objection, and we will schedule the hearing for tomorrow. (1) Paranoid schizophrenia: 05/23 -admitted with delusions, hallucinations, paranoia, and erratic behavior. Unable to reality test, refusing all antipsychotic medications. Patient is at imminent risk to both herself and others without treatment with antipsychotic medication to address her psychotic symptoms. Recommend medicatio ns over objection, as she has responded positively to treatment with antipsychotics in the past, and her symptoms are unlikely to remit without said treatment. -She has reportedly been noncompliant with clozapine for months, so will have to be re-titrated starting with 25 mg daily. She is unfortunately refusing all medications at this time, and is also refusing blood work. We may need to consider a long-acting injectable antipsychotic if she remains nonadherent. -I have called outpatient psychiatrist, Dr. Williamson's, office, explaining that the patient is here involuntarily, refusing to sign all releases, and that we are requesting records in order to treat her emergency medical condition. -Coordinate care with her BCM, Yuliet, and family/boyfriend. -Medically necessary private room due to psychosis and acting on delusional thoughts. -File for 303 involuntary commitment, hearing to be held tomorrow. (2) MTHFR mutation: 05/23 -patient has a history of multiple DVTs and PE, at least 2 requiring hospitalization. She has been informed multiple times in the past that she will need to be on lifelong anticoagulant medication, but has repeatedly been noncompliant with it when psychotic. -Xarelto has been reordered, if patient remains unwilling to take it, may have to consult the hospitalist and explore other options. PT/INR ordered, but patient refused. -Coordinate care with PCP, Dr. Mcdowell, and patient will need follow-up after discharge. (3) Pulmonary embolism: (4) Hypokalemia: 05/23 - Potassium was 2.6 in the ER, patient received po potassium chloride 40meq x 2. Refusing additional labs today, but will continue to encourage compliance and will re-order for tomorrow. Monitor PO intake and encourage good nutrition. (5) Vitamin B12 deficiency: 05/23 -patient started on vitamin B12 500 mcg daily during last hospitalization, when she was seen by the hospitalist service for recommendations regarding her anticoagulant. Folate and vitamin B12 were checked due to their association with high homocystine levels, which is associated with VTE. Vitamin B12 was low at 130. -We will hold off on resuming vitamin B12 and folic acid, as patient is currently refusing all medications and want to focus on her antipsychotic and anticoagulant first, but can resume these once she is less psychotic/more adherent. (6) Folate deficiency: 05/23 -folate checked during December hospitalization due to the above, was low at 3.42, and folic acid 20 mg daily was started. (7) Nicotine dependence: 05/23 -patient unable to participate in smoking cessation education due to severity of psychosis. Offer patch and gum as needed for cravings. Risk Factors Assessment Male: No : Yes Do You Have Access To A Gun?: No Protective Factors Assessment Employed: No Psychiatric History Identifying Data ROSMERY TALBERT is a 39-year-old F who currently lives in [place] with her boyfriend, has a history of schizophrenia and treatment noncompliance, and was admitted on 05/23/20 00:19 on a 302 involuntary commitment for psychosis and erratic and unsafe behavior in the context of treatment noncompliance. Chief Complaint "I'm all right". History of Present Illness Patient is well-known to me from multiple previous hospitalizations, most recently on our unit for 15 days in December, and discharged on a 304 IOC, on clozapine 100 mg daily and Xarelto 20 mg daily, due to chronic clotting disorder with a history of multiple DVTs and PEs. She presented to the ER yesterday, 05/22/2020, with police on a 302 warrant, after she walked for hours in the rain, and said she needed to say goodbye to her family as she was going into outer space. Her Blended Electrical Maintenance Man Yuliet Kaminski completed a petitioning statement that reads: I am Rosmery Fela Blended Electrical Maintenance Man and I received a CIT report from police stating Rosmery was in [place] and called dispatch stating she needed a ride [place] of [place] and into space. Rosmery told BCM that she call police and needed a ride to [place] because she wanted to say goodbye to her family, when BCM asked what she meant, Rosmery stated she was probably moving. When asked why she was in [place] Rosmery said to check things out but would not explain what she meant. Rosmery was previously on a 304 IOC that ended in March 2020 and is showing a lot of decompensation. Rosmery told BCM Just tell them they are ready but would not clarify what she meant. Negrito mother states that Rosmery is not taking her medications or sleeping and she is on Xarelto for blood clots and told her mother on 05/21 that her legs were swollen. Negrito mother states she has not slept for a few days. Due to her vast history with non-compliance and lethality if she discontinues her blood thinner medication, I believe that if she is not treated it would result in , especially due to her hx of critical blood clots. She also has been taking rides from strangers and had police called on her because she was going around trying to open car doors on various vehicles." The special skills officer that brought her in reported she was delusional and paranoid, said she was not taking medication, and had locked her boyfriend in a room in the residence. The patient told ER staff that she will not take medications will use only "natural things." she reported she had not slept in days, and appeared to be hallucinating. She endorsed delusions that "things were being pumped into the air," and that her vein would break if blood was drawn. Her mother was contacted by the ER caser, and said the patient had not taken her medications for the past 6 months, had been taking rides with people "to go nowhere," and has been talking about taking her nephew away with her on a space ship. She believes this patient is coming to get her, and has been asking people to take her to a motel to wait for this patient. She has been advised that she needs to stay on an anticoagulant for the rest of her life due to at least 2 hospitalizations for blood clots, but has not been taking that medication either. The patient was a limited historian and unable/unwilling to provide information, appeared preoccupied, looking around the room as if responding to unseen others. She was admitted involuntarily. Admission labs notable for potassium of 2.6, creatinine kinase of 825, TSH 1.300, UA with trace blood and 5-10 epithelial cells, negative test, negative UDS, and negative COVID-19. She received potassium chloride 40 mEq X2 doses yesterday. Repeat CK, PT/INR, APTT, and clozapine level were ordered for this morning, but patient has adamantly refused to allow a blood draw. She was restarted on clozapine 25 mg daily, and Xarelto was ordered, but she is refusing medications. She also refused to sign releases for anyone, including outpatient clinicians or family. She told staff she was waiting for a spaceship to come get her, then moments later denied saying this. She was observed laughing and smiling inappropriately, appears to be hallucinating. Her BCM was involved in her involuntary commitment, and is coming to see her this afternoon. On my assessment, the patient was seen in her room, where she is seated crosslegged on her bed, looking at paperwork. She avoided eye contact, and was poorly cooperative with the assessment, answering questions vaguely or with "I don't know," and conflicting reports, and was generally not forthcoming with information. She said she is here because "everyone saw me walking, were concerned, called the alum mixer." When informed that the records indicates she herself called police, she said "well I thought about it," but seems unsure about whether she called them or not. She says that she was walking all around [place] and then [place], going to different businesses, "trying to find a place to live." She cannot explain how walking around different businesses would help her find housing, or how she got from [place] to [place]. She says she wants to move because "it's time for me to live my life without my mom and dad, without my family, it's time for me to do that. I tried to move to [place], but my parents followed me there. It's time for me to get new people in my life." She states that the man she lives with is not her boyfriend, and denied that she locked him in a room. She says she has not seen her outpatient psychiatrist or caser in months, and has not taken any medications in months, because "I decided that meds are harmful to the human body." She denies recreational drug and caffeine use, but reports smoking heavily. She admits to not sleeping in days, unable to be more specific, "a while." Sleep was better last night, and she describes mood as "all right I guess." She endorses anxiety about moving, stated she is "worried about moving, getting all my stuff there. I really need a vehicle." She says she has a meals on wheels driver's license, and has been looking for a car; "there is all these empty car sitting in parking lots around [place], why could not they just give me one for free?" She admits that she was walking around trying to get in different cars, and does not see this behavior as problematic. Is unwilling to sign releases for outpatient clinicians her family, starting she does not need treatment and does not need her family to be involved in her life. She is refusing to take medications, both Xarelto and antipsychotic medication, and is refusing blood draws, despite repeated explanations of the risks if she refuses. Past Psychiatric History Previous Psych History: Patient was discharged from our unit on 01/11/2020 on a 304 IOC, due to noncompliance with treatment. History of numerous inpatient psychiatric hospitalizations. Res[facility] at [facility] until 2-3 years ago. Most recent progress note from her outpatient psychiatrist was received and reviewed (from 05/08/2020): states patient was denying all symptoms and was stable, and was continued on clozapine 100mg bid. Current Psychiatric Diagnosis: Paranoid schizophrenia, treatment nonadherence Outpatient Services: Psychiatrist Dr. Clay CALLE: Yuliet Kaminski No therapist or other OP services such as psych rehab, mobile med management, etc. Previous Psych Admissions: Admissions to [facility] in: 10/2004, 02/2008, 12/2010, three times in 2014 in November, December, and 12/2019 Do You Have Access To A Gun?: No History of Previous Suicide Attempt: No Past Medication Trials: Include but not limited to: 1. Risperdal 2. Haldol 3. Cogentin 4. Vistaril 5. Ambien 6. Seroquel 7. Clozaril 8. Prazosin 9. Topamax 10. Trazodone 11. Glycopyrrolate 12. Clozapine Allergies Allergy/AdvReac Type Severity Reaction Status Date / Time No Known Allergies Allergy Verified 05/22/20 21:33 Home Medications Home Medications Medication Instructions Recorded Confirmed Type cyanocobalamin (vitamin B-12) 500 mcg PO QAM #30 tab 01/12/20 05/22/20 Rx zolpidem [Ambien] 10 mg PO HS PRN 01/12/20 05/22/20 History clozapine 50 mg PO HS 05/22/20 05/22/20 History clozapine [Clozaril] 100 mg PO QAM 05/22/20 05/22/20 History folic acid 20 mg PO DAILY 05/22/20 05/22/20 History rivaroxaban [Xarelto] 15 mg PO DAILY 05/22/20 05/22/20 History Family History Family History of: Other Mood Disorders and Psychosis/ThoughtDisorder (Twin sister with schizophrenia, suicide attempt) Alcohol History Hx of Alcohol Use Over the Past 12 Months: No Smoking Use Have You Smoked or Used Tobacco Products in the Last 30 Days: Yes tobacco type: cigarettes Smoking Status: Current every day smoker Smoking packs per day: 1 Substance History Hx of Prescription Med Misuse Over the Past 12 Months: No Hx of Over the Counter Med Misuse Over the Past 12 Months: No Hx of Inhalent Misuse Over the Past 12 Months: No Hx of Organic Substance Use Over the Past 12 Months: No Hx of Illegal Substances/Street Drug Use Over Past 12 Months: No Problems as a Result of Past Substance Use: None Identified Personal History Living Arrangements: Apartment Living Arrangements Comments: In [place] with her boyfriend, parents also live nearby Childhood: From [place], raised by parents. One younger sister, Ramonita, and a nephew, Juanjo. Older half sister and half brother. Employment Status: Disabled (has not worked since 2002) Marital Status: Living w/ Signif. Other Number Of Children: 0 Beliefs That Will Affect Care: None Current Legal Problems: No Legal Problems Comment: But police were called due to reports she was checking doors on cars in [place] Hx Legal Problems: No Hx Traumatic Life Events: No Patient History Medical History (Updated 05/23/20 @ 13:36 by Tiana Bustillos MD) Abnormal urinalysis DVT (deep venous thrombosis) In 2012, 2016, along with multiple PEs. Hypokalemia Hypokalemia Migraine Nausea & vomiting Paranoid schizophrenia Family History Unknown VTE (venous thromboembolism) Unknown if any VTE in family Social History Smoking Status: Current every day smoker Tobacco Type: Cigarettes Preferred Language: Setswana Communication Ability: Effective [place] Required: No Beliefs That Will Affect Care: None Feels Safe at Home: Hesitant to Answer Assistive Devices: None Review of Systems Review of Systems: All systems reviewed & are unremarkable except as noted in Subjective Physical Exam Psychiatric: Orientation: alert; + uncooperative vague, evasive, not forthcoming Thin, unkempt, dressed in scrub pants and several layered tops. Hair cut short, unwashed, limited hygiene and grooming. Seated cross-legged on her bed, looking at paperwork. Eye Contact: + poor eye contact Very little eye contact. Motor Behavior: steady gait and station and no abnormal motor movements Minimal speech, short, clipped answers. Affect: + blunted affect and + irritable affect "alright I guess" Thought Process: + tangential thought process paucity of thought content, often states "I don't know." Suicidal Thoughts: denies suicidal thoughts Homicidal Thoughts: denies homicidal thoughts Hallucinations: no auditory hallucinations (patient denies, but repeatedly observed responding to unseen others.) Cognition: language grossly intact; + recent memory not intact and + attention not intact Estimated Intelligence: average estimated intelligence Insight: + severely impaired insight Judgement: + severely impaired judgement Vital Signs (Past 24 Hours): Last Vital Signs Temp 36.6 C 05/23/20 06:33 Pulse 99 H 05/23/20 06:34 Resp 18 05/23/20 06:33 BP 109/76 05/23/20 06:34 Pulse Ox 98 05/23/20 01:05 Exam Statement: A physical exam was performed in the ER prior to admission to the unit by Dr. Yobani Decker. I accept that physical as correct/medical clearance for the inpatient physical exam. Results & Data ([facility]) Laboratory Results Laboratory Results - last 24 hr 05/22/20 05/22/20 05/22/20 19:57 19:57 19:57 WBC RBC Hgb Hct MCV MCH MCHC RDW Std Deviation RDW Coeff of Ashanti Plt Count MPV Immature Gran % (Auto) Neut % (Auto) Lymph % (Auto) [place] % (Auto) Eos % (Auto) Baso % (Auto) Neut # (Auto) Lymph # (Auto) [place] # (Auto) Eos # (Auto) Baso # (Auto) Immature Gran # (Auto) Sodium Potassium Chloride Carbon Dioxide Anion Gap BUN Creatinine Est Cr Clr Drug Dosing Est GFR ( Amer) Est GFR (Non-Af Amer) BUN/Creatinine Ratio Glucose Calcium Total Bilirubin AST ALT Alkaline Phosphatase Total Creatine Kinase Total Protein Albumin Globulin Albumin/Globulin Ratio TSH Urine Color Yellow Urine Appearance Clear Urine pH 6.5 Ur Specific English 1.004 Urine Protein Negative Urine Glucose (UA) Negative Urine Ketones Negative Urine Blood Trace H Urine Nitrite Negative Urine Bilirubin Negative Urine Urobilinogen Negative Ur Leukocyte Esterase Negative Urine WBC (Auto) 0 Urine RBC (Auto) 0-4 U Hyaline Cast (Auto) 0 U Epithel Cells (Auto) 5-10 H Urine Bacteria (Auto) Negative Urine Test Negative Salicylates Urine Opiates Screen Neg Ur Methadone, Qual Neg Acetaminophen Urine Barbiturates Neg Ur Phencyclidine (PCP) Neg U Amphetamin/Meth Scrn Neg MDMA (Ecstasy) Screen Neg U Benzodiazepines Scrn Neg Ur Cocaine Metabolite Neg U Marijuana (THC) Screen Neg Ethyl Alcohol mg/dL COVID-19 Eval Order COVID-19 PCR 09/29/20 09/29/20 09/29/20 20:03 20:03 20:03 WBC 8.63 RBC 4.34 Hgb 15.2 Hct 41.2 MCV 94.9 MCH 35.0 H MCHC 36.9 H RDW Std Deviation 43.9 RDW Coeff of Ashanti 12.7 Plt Count 314 MPV 8.8 Immature Gran % (Auto) 0.2 Neut % (Auto) 77.2 Lymph % (Auto) 13.8 [place] % (Auto) 8.6 Eos % (Auto) 0.1 Baso % (Auto) 0.1 Neut # (Auto) 6.66 H Lymph # (Auto) 1.19 L [place] # (Auto) 0.74 H Eos # (Auto) 0.01 Baso # (Auto) 0.01 Immature Gran # (Auto) 0.02 Sodium 136 Potassium 2.6 L Chloride 102 Carbon Dioxide 28 Anion Gap 7.0 BUN 1 L Creatinine 0.81 Est Cr Clr Drug Dosing 82.6 Est GFR ( Amer) 105.3 Est GFR (Non-Af Amer) 90.8 BUN/Creatinine Ratio 1.6 L Glucose 95 Calcium 9.5 Total Bilirubin 1.0 AST 35 ALT 23 Alkaline Phosphatase 101 Total Creatine Kinase 825 H Total Protein 7.4 Albumin 4.0 Globulin 3.4 Albumin/Globulin Ratio 1.2 TSH 1.300 Urine Color Urine Appearance Urine pH Ur Specific English Urine Protein Urine Glucose (UA) Urine Ketones Urine Blood Urine Nitrite Urine Bilirubin Urine Urobilinogen Ur Leukocyte Esterase Urine WBC (Auto) Urine RBC (Auto) U Hyaline Cast (Auto) U Epithel Cells (Auto) Urine Bacteria (Auto) Urine Test Salicylates 3.8 Urine Opiates Screen Ur Methadone, Qual Acetaminophen < 2 L Urine Barbiturates Ur Phencyclidine (PCP) U Amphetamin/Meth Scrn MDMA (Ecstasy) Screen U Benzodiazepines Scrn Ur Cocaine Metabolite U Marijuana (THC) Screen Ethyl Alcohol mg/dL COVID-19 Eval Order COVID-19 PCR 05/22/20 05/22/20 05/22/20 20:03 21:56 21:56 WBC RBC Hgb Hct MCV MCH MCHC RDW Std Deviation RDW Coeff of Ashanti Plt Count MPV Immature Gran % (Auto) Neut % (Auto) Lymph % (Auto) [place] % (Auto) Eos % (Auto) Baso % (Auto) Neut # (Auto) Lymph # (Auto) [place] # (Auto) Eos # (Auto) Baso # (Auto) Immature Gran # (Auto) Sodium Potassium Chloride Carbon Dioxide Anion Gap BUN Creatinine Est Cr Clr Drug Dosing Est GFR ( Amer) Est GFR (Non-Af Amer) BUN/Creatinine Ratio Glucose Calcium Total Bilirubin AST ALT Alkaline Phosphatase Total Creatine Kinase Total Protein Albumin Globulin Albumin/Globulin Ratio TSH Urine Color Urine Appearance Urine pH Ur Specific English Urine Protein Urine Glucose (UA) Urine Ketones Urine Blood Urine Nitrite Urine Bilirubin Urine Urobilinogen Ur Leukocyte Esterase Urine WBC (Auto) Urine RBC (Auto) U Hyaline Cast (Auto) U Epithel Cells (Auto) Urine Bacteria (Auto) Urine Test Salicylates Urine Opiates Screen Ur Methadone, Qual Acetaminophen Urine Barbiturates Ur Phencyclidine (PCP) U Amphetamin/Meth Scrn MDMA (Ecstasy) Screen U Benzodiazepines Scrn Ur Cocaine Metabolite U Marijuana (THC) Screen Ethyl Alcohol mg/dL < 3.0 COVID-19 Eval Order Covid19 Done at [facility] COVID-19 PCR NEGATIVE Current Inpatient Medications Current Inpatient Medications: Current Inpatient Medications Acetaminophen (Acetaminophen 325 Mg Tab) 650 mg PO Q4H PRN PRN Reason: Headache or Minor Fever Stop: 06/22/20 01:13 Al Hydrox/Mg Hydrox/Simethicone (Aluminum/Magnesium Susp 30 Ml Udc) 30 ml PO Q4H PRN PRN Reason: GI Upset Stop: 06/22/20 01:13 Bismuth Subsalicylate (Bismuth Subsalicylate Liqd 236 Ml) 15 ml PO PRN PRN PRN Reason: Loose Stool Stop: 06/22/20 01:13 Clozapine (Clozapine 25 Mg Tab) 25 mg PO QAM SIMONA Stop: 06/22/20 08:59 Hydroxyzine HCl (Hydroxyzine Hcl 25 Mg Tab) 50 mg PO HSZ PRN PRN Reason: Insomnia Stop: 06/22/20 01:13 Hydroxyzine HCl (Hydroxyzine Hcl 25 Mg Tab) 25 mg PO Q4H PRN PRN Reason: Anxiety Stop: 06/22/20 01:13 Magnesium Hydroxide (Magnesium Hydroxide Susp 30 Ml Udc) 30 ml PO DAILY PRN PRN Reason: Constipation Stop: 06/22/20 01:13 Miscellaneous (Remove Nicoderm Patch) 1 ea N/A DAILY@[id number] [facility] Stop: 06/23/20 08:58 Nicotine (Nicotine 21 Mg/24 Hr Tdsy) 21 mg TD QAM [facility] Stop: 06/22/20 08:59 Rivaroxaban (Rivaroxaban 15 Mg Tab) 15 mg PO QDD [facility] Stop: 06/22/20 17:44 Sodium Chloride (Sodium Chloride 0.65% Na Soln 45 Ml ([place])) 1 - 2 sprays NA PRN PRN PRN Reason: Nasal Dryness/Congestion Stop: 06/22/20 01:13
[2020-05-23] MEDS: NICOTINE 21 MG/24 HR TDSY TD SCH (09:00)
[2020-05-23] MEDS: cloZAPine 25 MG TAB PO SCH (12:39)
[2020-05-23] MEDS: RIVAROXABAN 15 MG TAB PO SCH (17:43)
--- NOTE | 2020-05-24 07:58 | Psychiatric Progress Note ---
Date of Service May 24, 2020 Impression / Recommendations Impression 39-year-old female who lives with her boyfriend in [place], has a long history of schizophrenia and treatment noncompliance, who presents with psychosis in the context of noncompliance with antipsychotic medication. She was found by police walking for hours in the rain, with creatinine kinase of 825, and potassium of 2.6, indicating poor p.o. intake. She said she was trying to find a space ship to take her to outer space, and per family had made comments about taking her young nephew with her. Here she is expressing delusions that her father is following her, wants to harm her, and that the staff here are not real doctors and nurses. She has been engaging in erratic and unsafe behavior in the context of psychosis, including walking long distances, not eating or sleeping, hitchhiking, trying to steal a car, and refusing to take her psychotropic and anticoagulant medication. She has a history of multiple DVTs and PEs, and requires lifelong anticoagulation. She locked her boyfriend, whom she lives with, in her room in their home prior to leaving. She is disorganized, paranoid, delusional, and hallucinating, and is clearly unable to provide for her own safety, health, welfare, halfway, and nutrition without the care and assistance of others. She is on a 303 involuntary commitment as of today, with a first recommendation for medications over objection. (1) Paranoid schizophrenia: 05/23 -admitted with delusions, hallucinations, paranoia, and erratic behavior. Unable to reality test, refusing all antipsychotic medications. Patient is at imminent risk to both herself and others without treatment with antipsychotic medication to address her psychotic symptoms. Recommend medications over objection, as she has responded positively to treatment with antipsychotics in the past, and her symptoms are unlikely to remit without said treatment. -She has reportedly been noncompliant with clozapine for months, so will have to be re-titrated starting with 25 mg daily. She is unfortunately refusing all medications at this time, and is also refusing blood work. We may need to consider a long-acting injectable antipsychotic if she remains nonadherent. -I have called outpatient psychiatrist, Dr. Williamson's, office, explaining that the patient is here involuntarily, refusing to sign all releases, and that we are requesting records in order to treat her emergency medical condition. -Coordinate care with her BCM, Yuliet, and family/boyfriend. -Medically necessary private room due to psychosis and acting on delusional thoughts. -File for 303 involuntary commitment, hearing to be held tomorrow. 05/24 -303 hearing held and granted. -Continue to encourage her to take medications orally, which she is adamantly refusing. I recommend medications over objection to target her psychotic symptoms, as she has schizophrenia, presents with paranoia, delusions, hallucinations, and is acting on these thoughts, has no insight or ability to reality test, and symptoms have responded to antipsychotics in the past. She is at acute risk of harm to both herself and others if her symptoms are not treated, due to her behavior (not eating adequately with hypokalemia, walking long distances with rhabdomyolysis, hitchhiking, no concern for her own safety, attempting to steal a car, and believing that if spaceship is taking her to outer space and she wants to take her nephew with her). She does not feel safe returning to her home in [place] due to persecute Simon delusions, and is likely to flee the area if released and her current mental state. She has responded well to clozapine in the past, but is it is not available in an injectable form, we will have to utilize another agent such as haloperidol or olanzapine, which is available as an immediate release IM. We could also consider placing her on a long-acting injectable antipsychotic, given her history of repeated nonadherence with treatment. -Reviewed case with Yuliet, her test case developer through [facility], who believes the patient needs an involuntary outpatient commitment, and states her outpatient psychiatrist would not complete paperwork and said he was unable to do so. (2) MTHFR mutation: 05/23 -patient has a history of multiple DVTs and PE, at least 2 requiring hospitalization. She has been informed multiple times in the past that she will need to be on lifelong anticoagulant medication, but has repeatedly been noncompliant with it when psychotic. -Xarelto has been reordered, if patient remains unwilling to take it, may have to consult the hospitalist and explore other options. PT/INR ordered, but patient refused. -Coordinate care with PCP, Dr. Mcdowell, and patient will need follow-up after discharge. 05/24 -patient continues to refuse to take any anticoagulant medication or allow a blood draw for PT/INR. (3) Pulmonary embolism: (4) Hypokalemia: 05/23 - Potassium was 2.6 in the ER, patient received po potassium chloride 40meq x 2. Refusing additional labs today, but will continue to encourage compliance and will re-order for tomorrow. Monitor PO intake and encourage good nutrition. 05/24 -patient is eating some food here, but refusing to allow a blood draw to recheck potassium. (5) Vitamin B12 deficiency: 05/23 -patient started on vitamin B12 500 mcg daily during last hospitalization, when she was seen by the hospitalist service for recommendations regarding her anticoagulant. Folate and vitamin B12 were check ed due to their association with high homocystine levels, which is associated with VTE. Vitamin B12 was low at 130. -We will hold off on resuming vitamin B12 and folic acid, as patient is currently refusing all medications and want to focus on her antipsychotic and anticoagulant first, but can resume these once she is less psychotic/more adherent. (6) Folate deficiency: 05/23 -folate checked during December hospitalization due to the above, was low at 3.42, and folic acid 20 mg daily was started. (7) Nicotine dependence: 05/23 -patient unable to participate in smoking cessation education due to severity of psychosis. Offer patch and gum as needed for cravings. Risk Factors Assessment Male: No : Yes Do You Have Access To A Gun?: No Health Problems: Yes Mental Health Diagnoses: Yes Substance Use Disorders: No Previous Attempt: No Family History of Suicide: No Previous Psychiatric Hospitalization: Yes Hopelessness: No Smoker: Yes Protective Factors Assessment : No Responsible for Young Children: No Employed: No Stable Relationships: No Supportive Family: Yes Good Rapport with Provider: No Interval History Identifying Information ROSMERY TALBERT is a 39-year-old F who currently lives in [place] with her boyfriend, has a history of schizophrenia and treatment noncompliance, and was admitted on 05/23/20 00:19 on a 302 involuntary commitment for psychosis and erratic and unsafe behavior in the context of treatment noncompliance. Chief Complaint "Uh alright". Review of Systems Notes 10 systems reviewed; all negative. Sleep Information Total Hours of Sleep: 5.5 Sleep Comments: pt appeared to be asleep @0400 and thereafter. pt remained in her room most of the night. pt on q-15 minute checks Meal Information Percent Meal Consumed - Breakfast: 0 Percent Meal Consumed - Lunch: 10 Percent Meal Consumed - Dinner: 80 Subjective Subjective Patient was seen & assessed and interval progress reviewed with nursing and social work. Staff report she continues to refuse all medication (clozapine and Xarelto), labs, and ROIs. She told her test case developer that the medical staff here and not really doctors and nurses, and that she didn't want to see her family because they have been trying to harm her. Staff called her pharmacy ([facility]) who stated that Rosmery was just in the pharmacy this Thursday but said "I'm good" when asked if she required any medication. She last filled her Clozaril 100mg on April 16, 2020; Clozaril 50mg on April 10; her Xarelto last filled April 10, 2020; and last filled Ambien January 19, 2020 with a 90 day supply. On my assessment today, when asked how she has been doing since yesterday, she states "watched a movie last night, and had green beans for dinner, so that was good." She says she talked to her test case developer yesterday and told her that she "doesn't want to be anywhere near my parents anymore, because my dad keeps coming by, always trying to send me to the hospital, people tell me he's following me everywhere I go. I just want to find a new place to live and maybe work somewhere, make new friends." She continues to refuse any medications, stating "I only want natural things." She does not believe she has a mental illness, and laughs when asked about her previous diagnosis of schizophrenia, "I am fine." She denies hallucinations, but appears extremely distracted, with delayed responses, sometimes repeating the question out loud after it is asked, and struggling to answer questions appropriately. Again reviewed the recommended treatment, including resuming her clozapine, reflected that she has done very well on this medication in the past and offered to discuss other options, but she was unwilling. She cannot identify any specific issues with the medication, other than her believe that she does not need medication. She was again informed of her 303 commitment hearing this morning, and was unable to make up her mind as to whether or not she would attend. She ultimately declined to attend, and the 303 commitment was granted. Physical Exam Psychiatric Orientation: alert; + uncooperative Apperance: appropriately dressed Thin white female appearing younger than her stated age, short hair that appears unwashed/greasy, dressed in fleece pajama pants and several sweatshirt's, with a del angel pulled up. Seated on her bed in no acute distress, with gaze averted Eye Contact: + poor eye contact Motor Behavior: steady gait and station and no abnormal motor movements Minimal, flippant tone Affect: + irritable affect and mood congruent with affect "Alright." Thought Process: goal directed thought process Thought Content: + paranoid and + delusions Suicidal Thoughts: denies suicidal thoughts Homicidal Thoughts: denies homicidal thoughts Hallucinations: + auditory hallucinations (patient denies, but appears to be responding to internal stimuli) Cognition: language grossly intact Insight: + severely impaired insight Judgement: + severely impaired judgement Vital Signs (Past 24 Hours) Last Vital Signs Temp 36.8 C 05/24/20 06:39 Pulse 103 H 05/24/20 06:39 Resp 16 05/24/20 06:39 BP 98/62 L 05/24/20 06:39 Pulse Ox 98 05/23/20 01:05 Results & Data ([facility]) Current Inpatient Medications Current Inpatient Medications: Current Inpatient Medications Acetaminophen (Acetaminophen 325 Mg Tab) 650 mg PO Q4H PRN PRN Reason: Headache or Minor Fever Stop: 06/22/20 01:13 Al Hydrox/Mg Hydrox/Simethicone (Aluminum/Magnesium Susp 30 Ml Udc) 30 ml PO Q4H PRN PRN Reason: GI Upset Stop: 06/22/20 01:13 Bismuth Subsalicylate (Bismuth Subsalicylate Liqd 236 Ml) 15 ml PO PRN PRN PRN Reason: Loose Stool Stop: 06/22/20 01:13 Clozapine (Clozapine 25 Mg Tab) 25 mg PO QAM SIMONA Stop: 06/22/20 12:29 Last Admin: 05/23/20 12:39 Dose: Not Given Documented by: Hydroxyzine HCl (Hydroxyzine Hcl 25 Mg Tab) 50 mg PO HSZ PRN PRN Reason: Insomnia Stop: 06/22/20 01:13 Hydroxyzine HCl (Hydroxyzine Hcl 25 Mg Tab) 25 mg PO Q4H PRN PRN Reason: Anxiety Stop: 06/22/20 01:13 Magnesium Hydroxide (Magnesium Hydroxide Susp 30 Ml Udc) 30 ml PO DAILY PRN PRN Reason: Constipation Stop: 06/22/20 01:13 Miscellaneous (Remove Nicoderm Patch) 1 ea N/A DAILY@0859 [facility] Stop: 06/23/20 08:58 Nicotine (Nicotine 21 Mg/24 Hr Tdsy) 21 mg TD QAM [facility] Stop: 06/22/20 08:59 Last Admin: 05/23/20 09:00 Dose: Not Given Documented by: Rivaroxaban (Rivaroxaban 15 Mg Tab) 15 mg PO QDD [facility] Stop: 06/22/20 17:44 Last Admin: 05/23/20 17:43 Dose: Not Given Documented by: Sodium Chloride (Sodium Chloride 0.65% Na Soln 45 Ml ([place])) 1 - 2 sprays NA PRN PRN PRN Reason: Nasal Dryness/Congestion Stop: 06/22/20 01:13 Mental Health & Subst Abuse Tx Psychiatrist Name of Psychiatrist: Dr [facility] Psychiatrist's Psychiatric Appointment Comment: [facility] [address], [place], [place] In Processing Instructor Name of In Processing Instructor: Nelia Phone Number for In Processing Instructor: [phone] Case Management Appointment Comment: [id number], [address], [place], [place] Post Discharge Appointments Primary Care Physician Name Of Family Doctor: Dr. Mcadams Primary Care Provider Appointment Comment: [id number] [facility], [place], [place]
[2020-05-24] MEDS: cloZAPine 25 MG TAB PO SCH (09:14)
[2020-05-24] MEDS: NICOTINE 21 MG/24 HR TDSY TD SCH (09:14)
[2020-05-24] MEDS: RIVAROXABAN 15 MG TAB PO SCH (09:14)
[2020-05-25] MEDS: cloZAPine 25 MG TAB PO SCH (10:35)
[2020-05-25] MEDS: NICOTINE 21 MG/24 HR TDSY TD SCH (11:57)
[2020-05-25] MEDS: RIVAROXABAN 15 MG TAB PO SCH (17:49)
[2020-05-25] MEDS ORDERED: HALOPERIDOL LACTATE 5 MG/ML 1 ML VIAL IM PRN (19:59)
--- NOTE | 2020-05-25 19:59 | Psychiatric Progress Note ---
Date of Service May 25, 2020 Impression / Recommendations Impression 39-year-old female who lives with her boyfriend in [place], has a long history of schizophrenia and treatment noncompliance, who presents with psychosis in the context of noncompliance with antipsychotic medication. She was found by police walking for hours in the rain, with creatinine kinase of 825, and potassium of 2.6, indicating poor p.o. intake. She said she was trying to find a space ship to take her to outer space, and per family had made comments about taking her young nephew with her. Here she is expressing delusions that her father is following her, wants to harm her, and that the staff here are not real doctors and nurses. She has been engaging in erratic and unsafe behavior in the context of psychosis, including walking long distances, not eating or sleeping, hitchhiking, trying to steal a car, and refusing to take her psychotropic and anticoagulant medication. She has a history of multiple DVTs and PEs, and requires lifelong anticoagulation. She locked her boyfriend, whom she lives with, in her room in their home prior to leaving. She is disorganized, paranoid, delusional, and hallucinating, and is clearly unable to provide for her own safety, health, welfare, snf, and nutrition without the care and assistance of others. She is on a 303 involuntary commitment as of today, with a first recommendation for medications over objection. (1) Paranoid schizophrenia: 05/23 -admitted with delusions, hallucinations, paranoia, and erratic behavior. Unable to reality test, refusing all antipsychotic medications. Patient is at imminent risk to both herself and others without treatment with antipsychotic medication to address her psychotic symptoms. Recommend medications over objection, as she has responded positively to treatment with antipsychotics in the past, and her symptoms are unlikely to remit without said treatment. -She has reportedly been noncompliant with clozapine for months, so will have to be re-titrated starting with 25 mg daily. She is unfortunately refusing all medications at this time, and is also refusing blood work. We may need to consider a long-acting injectable antipsychotic if she remains nonadherent. -I have called outpatient psychiatrist, Dr. Williamson's, office, explaining that the patient is here involuntarily, refusing to sign all releases, and that we are requesting records in order to treat her emergency medical condition. -Coordinate care with her BCM, Yuliet, and family/boyfriend. -Medically necessary private room due to psychosis and acting on delusional thoughts. -File for 303 involuntary commitment, hearing to be held tomorrow. 05/24 -303 hearing held and granted. -Continue to encourage her to take medications orally, which she is adamantly refusing. I recommend medications over objection to target her psychotic symptoms, as she has schizophrenia, presents with paranoia, delusions, hallucinations, and is acting on these thoughts, has no insight or ability to reality test, and symptoms have responded to antipsychotics in the past. She is at acute risk of harm to both herself and others if her symptoms are not treated, due to her behavior (not eating adequately with hypokalemia, walking long distances with rhabdomyolysis, hitchhiking, no concern for her own safety, attempting to steal a car, and believing that if spaceship is taking her to outer space and she wants to take her nephew with her). She does not feel safe returning to her home in [place] due to persecute [place] delusions, and is likely to flee the area if released and her current mental state. She has responded well to clozapine in the past, but is it is not available in an injectable form, we will have to utilize another agent such as haloperidol or olanzapine, which is available as an immediate release IM. We could also consider placing her on a long-acting injectable antipsychotic, given her history of repeated nonadherence with treatment. -Reviewed case with Yuliet, her case making machine operator through [facility], who believes the patient needs an involuntary outpatient commitment, and states her outpatient psychiatrist would not complete paperwork and said he was unable to do so. 05/25 -Today, the patient did agree to take a single dose of clozapine, although she indicated that she believed that we were giving her a placebo and refused to believe the nurses explanation that, in fact, she was being given clozapine. The patient was not shown the label of the medication, and it is not clear if she took the medication because she thought it was a placebo or because she real ized what it was and wanted to take it. She did say, "my psychiatrist wants me to take clozapine." -The patient is currently floridly psychotic and unable to evidence a reasonable choice in terms of whether or not to take psychiatric medications. She has repeatedly told us that she would refuse to take her medications, including her anticoagulant medication and any psychiatric medicine. She notes that she only is willing to consume "natural things, like herbs." In my opinion, the patient is suffering from a severe mental illness, namely schizophrenia. She is delusional, dangerous to herself as a function of her inability to care for herself, and she is unlikely to enjoy any substantial improvement without the use of psychiatric medications. I agree with the finding that the patient will require medications, if necessary over objection, and intramuscular form, and that antipsychotic medications over objection are medically necessary and appropriate in this case. I will order Haldol 5 mg by mouth twice a day, and will also order Haldol 5 mg intramuscularly by mouth twice a day as needed for refusal of p.o. Haldol. (2) MTHFR mutation: 05/23 -patient has a history of multiple DVTs and PE, at least 2 requiring hospitalization. She has been informed multiple times in the past that she will need to be on lifelong anticoagulant medication, but has repeatedly been noncompliant with it when psychotic. -Xarelto has been reordered, if patient remains unwilling to take it, may have to consult the hospitalist and explore other options. PT/INR ordered, but patient refused. -Coordinate care with PCP, Dr. Mcdowell, and patient will need follow-up after discharge. 05/24 -patient continues to refuse to take any anticoagulant medication or allow a blood draw for PT/INR. 05/24 -The patient is continuing to refuse to take anticoagulant medication or allow blood draws. This is 1 of the reasons why we are convinced that medications over objection are medically necessary in this case in order to stabilize the patient's condition and improve her insight and the need for treatment. (3) Pulmonary embolism: (4) Hypokalemia: 05/23 - Potassium was 2.6 in the ER, patient received po potassium chloride 40meq x 2. Refusing additional labs today, but will continue to encourage compliance and will re-order for tomorrow. Monitor PO intake and encourage good nutrition. 05/24 -patient is eating some food here, but refusing to allow a blood draw to recheck potassium. 05/25 -the patient is continuing to eat on the unit, but is still refusing to allow blood draws to recheck her potassium. (5) Vitamin B12 deficiency: 05/23 -patient started on vitamin B12 500 mcg daily during last hospitalization, when she was seen by the hospitalist service for recommendations regarding her anticoagulant. Folate and vitamin B12 were checked due to their association with high homocystine levels, which is associated with VTE. Vitamin B12 was low at 130. -We will hold off on resuming vitamin B12 and folic acid, as patient is currently refusing all medications and want to focus on her antipsychotic and anticoagulant first, but can resume these once she is less psychotic/more adherent. (6) Folate deficiency: 05/23 -folate checked during December hospitalization due to the above, was low at 3.42, and folic acid 20 mg daily was started. (7) Nicotine dependence: 05/23 -patient unable to participate in smoking cessation education due to severity of psychosis. Offer patch and gum as needed for cravings. Risk Factors Assessment Male: No : Yes Do You Have Access To A Gun?: No Health Problems: Yes Mental Health Diagnoses: Yes Substance Use Disorders: No Previous Attempt: No Family History of Suicide: No Previous Psychiatric Hospitalization: Yes Hopelessness: No Smoker: Yes Protective Factors Assessment : No Responsible for Young Children: No Employed: No Stable Relationships: No Supportive Family: Yes Good Rapport with Provider: No Interval History Identifying Information ROSMERY TALBERT is a 39-year-old F who currently lives in [place] with her boyfriend, has a history of schizophrenia and treatment noncompliance, and was admitted on 05/23/20 00:19 on a 302 involuntary commitment for psychosis and erratic and unsafe behavior in the context of treatment noncompliance. Chief Complaint " I like to take walks.". Review of Systems Sleep Information Total Hours of Sleep: 0.75 Sleep Comments: pt appeared to be asleep @0400 and thereafter. pt remained in her room most of the night. pt on q-15 minute checks Meal Information Percent Meal Consumed - Breakfast: 100 Percent Meal Consumed - Lunch: 70 Percent Meal Consumed - Dinner: 85 Subjective Subjective Patient was seen & assessed and interval progress reviewed with treatment team. I met individually with the patient in order to assess her current mental status, evaluate her response to treatment, coordinate any necessary changes in the patient's treatment regimen with the patient, and address issues questions and concerns that may arise. The patient only periodically responded to questions, and often turned her back to me while I interviewed her. She attempted to tell me the circumstances that led to her admission, but was not able to provide a coherent description. She said "I was walking, and some people came and took me here." She knows she is in the hospital, and she knows that she is in [place], but she does not know the name of the hospital. She does, however, give the correct date. She also tells me that she knows that she has been given a diagnosis of schizophrenia, but adds "I do not believe that. I just need someone to find a new place for me to live." She states that she lives in [place] with a boyfriend, but "cannot go back." I asked her if she was being mistreated in any way at home or if she did not feel safe with her boyfriend, and she said, fairly convincingly, "no." She did not respond to questions for clarification as to why she would want to leave, but eventually nodded in the affirmative when I suggested that she was simply tired of the relationship. She had a, "I really do not need anything other than a professor of social work or a therapist." I tried to get her to talk about what sorts of issues she would like to work on in therapy, but she perseverated with her desire to find a new place to live. We talked about the fact that she has been consistently refusing medications, with just one exception. The patient said that she would continue to refuse medications because she "likes natural things like herbs." However, she is not able to identify any particular herb that she believes will treat her condition. She also referenced believing that there was a space ship that was intending to "take me into space," but she declined to elaborate. Also, the patient told me that she does not experience auditory hallucinations, but seem to be clearly hallucinating while I was talking to her. For example, she interrupted me in the middle of a sentence, turned her head in the opposite direction and said "what did you say?" When I inquired as to to wh om she was speaking, she said "oh, never mind." Physical Exam Psychiatric Orientation: alert, oriented to person, oriented to place (Oriented to town but not to the hospital. She is also not oriented to situation.) and oriented to time Apperance: + disheveled and appeared stated age Eye Contact: + poor eye contact Motor Behavior: + psychomotor retardation Generally nonspontaneous and sparse. Affect: + flat affect "Okay." Thought Process: + looseness of associations Thought Content: + delusions (As referenced spaceships and I believe that she is about to be transported into space.) Suicidal Thoughts: denies suicidal thoughts Homicidal Thoughts: denies homicidal thoughts Hallucinations: + auditory hallucinations (The patient tells me that she does not "hear voices that other people do not hear," but shortly thereafter seem to clearly demonstrate that she was experiencing auditory hallucinations when she turned her head suddenly); no visual hallucinations Cognitive assessment was difficult because the patient's associations were very loose and she often gave nonsensical responses. Estimated Intelligence: average estimated intelligence Insight: + severely impaired insight Judgement: + poor judgement Vital Signs (Past 24 Hours) Last Vital Signs Temp 36.4 C L 05/25/20 06:32 Pulse 96 H 05/25/20 06:33 Resp 16 05/25/20 06:32 BP 126/84 05/25/20 06:33 Pulse Ox 98 05/23/20 01:05 Results & Data ([facility]) Current Inpatient Medications Current Inpatient Medications: Current Inpatient Medications Acetaminophen (Acetaminophen 325 Mg Tab) 650 mg PO Q4H PRN PRN Reason: Headache or Minor Fever Stop: 06/22/20 01:13 Al Hydrox/Mg Hydrox/Simethicone (Aluminum/Magnesium Susp 30 Ml Udc) 30 ml PO Q4H PRN PRN Reason: GI Upset Stop: 06/22/20 01:13 Bismuth Subsalicylate (Bismuth Subsalicylate Liqd 236 Ml) 15 ml PO PRN PRN PRN Reason: Loose Stool Stop: 06/22/20 01:13 Clozapine (Clozapine 25 Mg Tab) 25 mg PO QAM SIMONA Stop: 06/22/20 12:29 Last Admin: 05/25/20 10:35 Dose: 25 mg Documented by: Hydroxyzine HCl (Hydroxyzine Hcl 25 Mg Tab) 50 mg PO HSZ PRN PRN Reason: Insomnia Stop: 06/22/20 01:13 Hydroxyzine HCl (Hydroxyzine Hcl 25 Mg Tab) 25 mg PO Q4H PRN PRN Reason: Anxiety Stop: 06/22/20 01:13 Magnesium Hydroxide (Magnesium Hydroxide Susp 30 Ml Udc) 30 ml PO DAILY PRN PRN Reason: Constipation Stop: 06/22/20 01:13 Miscellaneous (Remove Nicoderm Patch) 1 ea N/A DAILY@[id number] [facility] Stop: 06/23/20 08:58 Last Admin: 05/25/20 11:56 Dose: Not Given Documented by: Nicotine (Nicotine 21 Mg/24 Hr Tdsy) 21 mg TD QAM [facility] Stop: 06/22/20 08:59 Last Admin: 05/25/20 11:57 Dose: Not Given Documented by: Rivaroxaban (Rivaroxaban 15 Mg Tab) 15 mg PO QDD [facility] Stop: 06/22/20 17:44 Last Admin: 05/25/20 17:49 Dose: 15 mg Documented by: Sodium Chloride (Sodium Chloride 0.65% Na Soln 45 Ml ([place])) 1 - 2 sprays NA PRN PRN PRN Reason: Nasal Dryness/Congestion Stop: 06/22/20 01:13 Mental Health & Subst Abuse Tx Psychiatrist Name of Psychiatrist: Dr [facility] Psychiatrist's Psychiatric Appointment Comment: [address], [place], [place] Lunch Cook Name of Lunch Cook: Nelia Phone Number for Lunch Cook: [phone] Case Management Appointment Comment: [address] [facility], [address], [place], [place] Post Discharge Appointments Primary Care Physician Name Of Family Doctor: Dr. Mcadams Primary Care Provider Appointment Comment: [address] [facility], [place]
[2020-05-25] MEDS ORDERED: BENZTROPINE MESYLATE 1 MG/ML 2 ML AMP IM PRN (20:09)
[2020-05-25] MEDS: haloperidoL 5 MG TAB PO SCH (21:14)
[2020-05-26] MEDS ORDERED: HALOPERIDOL LACTATE 5 MG/ML 1 ML VIAL IM PRN ×2 (09:13→10:13)
[2020-05-26] MEDS: haloperidoL 5 MG TAB PO SCH ×2 (09:13→20:56)
[2020-05-26] MEDS: cloZAPine 25 MG TAB PO SCH ×2 (09:13→20:56)
[2020-05-26] MEDS: NICOTINE 21 MG/24 HR TDSY TD SCH (09:13)
--- NOTE | 2020-05-26 11:08 | Psychiatric Progress Note ---
Date of Service May 26, 2020 Impression / Recommendations Impression 39-year-old female who lives with her boyfriend in [place], has a long history of schizophrenia and treatment noncompliance, who presents with psychosis in the context of noncompliance with antipsychotic medication. She was found by police walking for hours in the rain, with creatinine kinase of 825, and potassium of 2.6, indicating poor p.o. intake. She said she was trying to find a space ship to take her to outer space, and per family had made comments about taking her young nephew with her. Here she is expressing delusions that her father is following her, wants to harm her, and that the staff here are not real doctors and nurses. She has been engaging in erratic and unsafe behavior in the context of psychosis, including walking long distances, not eating or sleeping, hitchhiking, trying to steal a car, and refusing to take her psychotropic and anticoagulant medication. She has a history of multiple DVTs and PEs, and requires lifelong anticoagulation. She locked her boyfriend, whom she lives with, in her room in their home prior to leaving. She is disorganized, paranoid, delusional, and hallucinating, and is clearly unable to provide for her own safety, health, welfare, correction, and nutrition without the care and assistance of others. She is on a 303 involuntary commitment as of today, with a first recommendation for medications over objection. Reviewed 05/26/2020. (1) Paranoid schizophrenia: 05/23 -admitted with delusions, hallucinations, paranoia, and erratic behavior. Unable to reality test, refusing all antipsychotic medications. Patient is at imminent risk to both herself and others without treatment with antipsychotic medication to address her psychotic symptoms. Recommend medications over objection, as she has responded positively to treatment with antipsychotics in the past, and her symptoms are unlikely to remit without said treatment. -She has reportedly been noncompliant with clozapine for months, so will have to be re-titrated starting with 25 mg daily. She is unfortunately refusing all medications at this time, and is also refusing blood work. We may need to consider a long-acting injectable antipsychotic if she remains nonadherent. -I have called outpatient psychiatrist, Dr. Williamson's, office, explaining that the patient is here involuntarily, refusing to sign all releases, and that we are requesting records in order to treat her emergency medical condition. -Coordinate care with her BCM, Yuliet, and family/boyfriend. -Medically necessary private room due to psychosis and acting on delusional thoughts. -File for 303 involuntary commitment, hearing to be held tomorrow. 05/24 -303 hearing held and granted. -Continue to encourage her to take medications orally, which she is adamantly refusing. I recommend medications over objection to target her psychotic symptoms, as she has schizophrenia, presents with paranoia, delusions, hallucinations, and is acting on these thoughts, has no insight or ability to reality test, and symptoms have responded to antipsychotics in the past. She is at acute risk of harm to both herself and others if her symptoms are not treated, due to her behavior (not eating adequately with hypokalemia, walking long distances with rhabdomyolysis, hitchhiking, no concern for her own safety, attempting to steal a car, and believing that if spaceship is taking her to outer space and she wants to take her nephew with her). She does not feel safe returning to her home in [place] due to persecute Sergio delusions, and is likely to flee the area if released and her current mental state. She has responded well to clozapine in the past, but is it is not available in an injectable form, we will have to utilize another agent such as haloperidol or olanzapine, which is available as an immediate release IM. We could also consider placing her on a long-acting injectable antipsychotic, given her history of repeated nonadherence with treatment. -Reviewed case with Yuliet, her case sealer through [facility], who believes the patient needs an involuntary outpatient commitment, and states her outpatient psychiatrist would not complete paperwork and said he was unable to do so. 05/25 -Today, the patient did agree to take a single dose of clozapine, although she indicated that she believed that we were giving her a placebo and refused to be lieve the nurses explanation that, in fact, she was being given clozapine. The patient was not shown the label of the medication, and it is not clear if she took the medication because she thought it was a placebo or because she realized what it was and wanted to take it. She did say, "my psychiatrist wants me to take clozapine." -The patient is currently floridly psychotic and unable to evidence a reasonable choice in terms of whether or not to take psychiatric medications. She has repeatedly told us that she would refuse to take her medications, including her anticoagulant medication and any psychiatric medicine. She notes that she only is willing to consume "natural things, like herbs." In my opinion, the patient is suffering from a severe mental illness, namely schizophrenia. She is delusional, dangerous to herself as a function of her inability to care for herself, and she is unlikely to enjoy any substantial improvement without the use of psychiatric medications. I agree with the finding that the patient will require medications, if necessary over objection, and intramuscular form, and that antipsychotic medications over objection are medically necessary and appropriate in this case. I will order Haldol 5 mg by mouth twice a day, and will also order Haldol 5 mg intramuscularly by mouth twice a day as needed for refusal of p.o. Haldol. Reviewed 05/26/2020. Seems more cooperative today, will increase Clozaril to 25 mg BID as per Dr. Zuniga, titration may be limited if refuses labs. Will keep Haldol ordered BID as well while titrating Clozaril but only inject in am if objects rather than BID as not acutely agitated. (2) MTHFR mutation: 05/23 -patient has a history of multiple DVTs and PE, at least 2 requiring hospitalization. She has been informed multiple times in the past that she will need to be on lifelong anticoagulant medication, but has repeatedly been noncompliant with it when psychotic. -Xarelto has been reordered, if patient remains unwilling to take it, may have to consult the hospitalist and explore other options. PT/INR ordered, but patient refused. -Coordinate care with PCP, Dr. Mcdowell, and patient will need follow-up after discharge. 05/24 -patient continues to refuse to take any anticoagulant medication or allow a blood draw for PT/INR. 05/24 -The patient is continuing to refuse to take anticoagulant medication or allow blood draws. This is 1 of the reasons why we are convinced that medications over objection are medically necessary in this case in order to stabilize the patient's condition and improve her insight and the need for treatment. Reviewed 05/26/2020. (3) Pulmonary embolism: (4) Hypokalemia: 05/23 - Potassium was 2.6 in the ER, patient received po potassium chloride 40meq x 2. Refusing additional labs today, but will continue to encourage compliance and will re-order for tomorrow. Monitor PO intake and encourage good nutrition. 05/24 -patient is eating some food here, but refusing to allow a blood draw to recheck potassium. 05/25 -the patient is continuing to eat on the unit, but is still refusing to allow blood draws to recheck her potassium. Reviewed 05/26/2020. (5) Vitamin B12 deficiency: 05/23 -patient started on vitamin B12 500 mcg daily during last hospitalization, when she was seen by the hospitalist service for recommendations regarding her anticoagulant. Folate and vitamin B12 were checked due to their association with high homocystine levels, which is associated with VTE. Vitamin B12 was low at 130. -We will hold off on resuming vitamin B12 and folic acid, as patient is currently refusing all medications and want to focus on her antipsychotic and anticoagulant first, but can resume these once she is less psychotic/more adherent. Reviewed 05/26/2020. (6) Folate deficiency: 05/23 -folate checked during December hospitalization due to the above, was low at 3.42, and folic acid 20 mg daily was started. Reviewed 05/26/2020. (7) Nicotine dependence: 05/23 -patient unable to participate in smoking cessation education due to severity of psychosis. Offer patch and gum as needed for cravings. Reviewed 05/26/2020. Risk Factors Assessment Male: No : Yes Do You Have Access To A Gun?: No Health Problems: Yes Mental Health Diagnoses: Yes Substance Use Disorders: No Previous Attempt: No Family History of Suicide: No Previous Psychiatric Hospitalization: Yes Hopelessness: No Smoker: Yes Protective Factors Assessment : No Responsible for Young Children: No Employed: No Stable Relationships: No Supportive Family: Yes Good Rapport with Provider: No Interval History Identifying Information ROSMERY TALBERT is a 39-year-old F who currently lives in [place] with her boyfriend, has a history of schizophrenia and treatment noncompliance, and was admitted on 05/23/20 00:19 on a 302 involuntary commitment for psychosis and erratic and unsafe behavior in the context of treatment noncompliance. Reviewed 05/26/2020. Chief Complaint "I don't need anything, I'm taking medicine now". Review of Systems Sleep Information Total Hours of Sleep: 5.25 Sleep Comments: pt appeared to be asleep @0400 and thereafter. pt remained in her room most of the night. pt on q-15 minute checks Meal Information Percent Meal Consumed - Breakfast: 100 Percent Meal Consumed - Lunch: 70 Percent Meal Consumed - Dinner: 85 Subjective Subjective Patient was seen & assessed and interval progress reviewed with nursing and social work. Taking PO meds with much encouragement. Had refused labs but agreeing to complete later today. She did take anticoagulant. Attending group this am. Eating meals in common area. More organized in direct conversation. Physical Exam Psychiatric Orientation: alert and oriented to person Apperance: + disheveled and appeared stated age Eye Contact: + poor eye contact Motor Behavior: steady gait and station and no abnormal motor movements Affect: + flat affect, + blunted affect and mood congruent with affect Thought Process: + tangential thought process Thought Content: + paranoid and + delusions Suicidal Thoughts: denies suicidal thoughts Homicidal Thoughts: denies homicidal thoughts Hallucinations: no auditory hallucinations and no visual hallucinations Cognition: language grossly intact; + recent memory not intact and + attention not intact Estimated Intelligence: average estimated intelligence Insight: + severely impaired insight Judgement: + severely impaired judgement Vital Signs (Past 24 Hours) Last Vital Signs Temp 36.7 C 05/26/20 06:29 Pulse 79 05/26/20 06:29 Resp 18 05/26/20 06:29 BP 108/74 05/26/20 06:29 Pulse Ox 98 05/23/20 01:05 Results & Data ([facility]) Current Inpatient Medications Current Inpatient Medications: Current Inpatient Medications Acetaminophen (Acetaminophen 325 Mg Tab) 650 mg PO Q4H PRN PRN Reason: Headache or Minor Fever Stop: 06/22/20 01:13 Al Hydrox/Mg Hydrox/Simethicone (Aluminum/Magnesium Susp 30 Ml Udc) 30 ml PO Q4H PRN PRN Reason: GI Upset Stop: 06/22/20 01:13 Benztropine Mesylate (Benztropine Mesylate 1 Mg Tab) 2 mg PO BID PRN PRN Reason: Dystonia Stop: 06/24/20 20:08 Benztropine Mesylate (Benztropine Mesylate 1 Mg/Ml 2 Ml Amp) 2 mg IM BID PRN PRN Reason: Dystonic Reaction Stop: 06/24/20 20:08 Bismuth Subsalicylate (Bismuth Subsalicylate Liqd 236 Ml) 15 ml PO PRN PRN PRN Reason: Loose Stool Stop: 06/22/20 01:13 Clozapine (Clozapine 25 Mg Tab) 25 mg PO BID [facility] Stop: 06/25/20 20:59 Haloperidol (Haloperidol 5 Mg Tab) 5 mg PO BID [facility] Stop: 06/24/20 20:59 Last Admin: 05/26/20 09:13 Dose: 5 mg Documented by: Haloperidol Lactate (Haloperidol Lactate 5 Mg/Ml 1 Ml Vial) 5 mg IM QAM PRN PRN Reason: Refusal of PO meds Stop: 06/25/20 09:12 Hydroxyzine HCl (Hydroxyzine Hcl 25 Mg Tab) 50 mg PO HSZ PRN PRN Reason: Insomnia Stop: 06/22/20 01:13 Hydroxyzine HCl (Hydroxyzine Hcl 25 Mg Tab) 25 mg PO Q4H PRN PRN Reason: Anxiety Stop: 06/22/20 01:13 Magnesium Hydroxide (Magnesium Hydroxide Susp 30 Ml Udc) 30 ml PO DAILY PRN PRN Reason: Constipation Stop: 06/22/20 01:13 Miscellaneous (Remove Nicoderm Patch) 1 ea N/A DAILY@0859 [facility] Stop: 06/23/20 08:58 Last Admin: 05/26/20 09:13 Dose: Not Given Documented by: Nicotine (Nicotine 21 Mg/24 Hr Tdsy) 21 mg TD QAM [facility] Stop: 06/22/20 08:59 Last Admin: 05/26/20 09:13 Dose: Not Given Documented by: Rivaroxaban (Rivaroxaban 15 Mg Tab) 15 mg PO QDD [facility] Stop: 06/22/20 17:44 Last Admin: 05/25/20 17:49 Dose: 15 mg Documented by: Sodium Chloride (Sodium Chloride 0.65% Na Soln 45 Ml ([place])) 1 - 2 sprays NA PRN PRN PRN Reason: Nasal Dryness/Congestion Stop: 06/22/20 01:13 Mental Health & Subst Abuse Tx Psychiatrist Name of Psychiatrist: Dr [facility] Psychiatrist's Psychiatric Appointment Comment: [address], [place], [place] Kindergarten Tutor Name of Kindergarten Tutor: Nelia Phone Number for Kindergarten Tutor: [phone] Case Management Appointment Comment: [id number], [address], [place], [place] Post Discharge Appointments Primary Care Physician Name Of Family Doctor: Dr. Mcadams Primary Care Provider Appointment Comment: [id number], [place], [place]
[2020-05-26] MEDS: RIVAROXABAN 15 MG TAB PO SCH (17:14)
[2020-05-27] MEDS: haloperidoL 5 MG TAB PO SCH ×2 (08:48→21:16)
[2020-05-27] MEDS: cloZAPine 25 MG TAB PO SCH (08:48)
[2020-05-27] MEDS: NICOTINE 21 MG/24 HR TDSY TD SCH (08:51)
--- NOTE | 2020-05-27 09:41 | Psychiatric Progress Note ---
Date of Service May 27, 2020 Impression / Recommendations Impression 39-year-old female who lives with her boyfriend in [place], has a long history of schizophrenia and treatment noncompliance, who presents with psychosis in the context of noncompliance with antipsychotic medication. She was found by police walking for hours in the rain, with creatinine kinase of 825, and potassium of 2.6, indicating poor p.o. intake. She said she was trying to find a space ship to take her to outer space, and per family had made comments about taking her young nephew with her. Here she is expressing delusions that her father is following her, wants to harm her, and that the staff here are not real doctors and nurses. She has been engaging in erratic and unsafe behavior in the context of psychosis, including walking long distances, not eating or sleeping, hitchhiking, trying to steal a car, and refusing to take her psychotropic and anticoagulant medication. She has a history of multiple DVTs and PEs, and requires lifelong anticoagulation. She locked her boyfriend, whom she lives with, in her room in their home prior to leaving. She is disorganized, paranoid, delusional, and hallucinating, and is clearly unable to provide for her own safety, health, welfare, mcfp, and nutrition without the care and assistance of others. She is on a 303 involuntary commitment as of today, with a first recommendation for medications over objection. Reviewed 05/26/2020. (1) Paranoid schizophrenia: 05/23 -admitted with delusions, hallucinations, paranoia, and erratic behavior. Unable to reality test, refusing all antipsychotic medications. Patient is at imminent risk to both herself and others without treatment with antipsychotic medication to address her psychotic symptoms. Recommend medications over objection, as she has responded positively to treatment with antipsychotics in the past, and her symptoms are unlikely to remit without said treatment. -She has reportedly been noncompliant with clozapine for months, so will have to be re-titrated starting with 25 mg daily. She is unfortunately refusing all medications at this time, and is also refusing blood work. We may need to consider a long-acting injectable antipsychotic if she remains nonadherent. -I have called outpatient psychiatrist, Dr. Williamson's, office, explaining that the patient is here involuntarily, refusing to sign all releases, and that we are requesting records in order to treat her emergency medical condition. -Coordinate care with her BCM, Yuliet, and family/boyfriend. -Medically necessary private room due to psychosis and acting on delusional thoughts. -File for 303 involuntary commitment, hearing to be held tomorrow. 05/24 -303 hearing held and granted. -Continue to encourage her to take medications orally, which she is adamantly refusing. I recommend medications over objection to target her psychotic symptoms, as she has schizophrenia, presents with paranoia, delusions, hallucinations, and is acting on these thoughts, has no insight or ability to reality test, and symptoms have responded to antipsychotics in the past. She is at acute risk of harm to both herself and others if her symptoms are not treated, due to her behavior (not eating adequately with hypokalemia, walking long distances with rhabdomyolysis, hitchhiking, no concern for her own safety, attempting to steal a car, and believing that if spaceship is taking her to outer space and she wants to take her nephew with her). She does not feel safe returning to her home in [place] due to persecute Sergio delusions, and is likely to flee the area if released and her current mental state. She has responded well to clozapine in the past, but is it is not available in an injectable form, we will have to utilize another agent such as haloperidol or olanzapine, which is available as an immediate release IM. We could also consider placing her on a long-acting injectable antipsychotic, given her history of repeated nonadherence with treatment. -Reviewed case with Yuliet, her manager of training and development through [facility], who believes the patient needs an involuntary outpatient commitment, and states her outpatient psychiatrist would not complete paperwork and said he was unable to do so. 05/25 -Today, the patient did agree to take a single dose of clozapine, although she indicated that she believed that we were giving her a placebo and refused to be lieve the nurses explanation that, in fact, she was being given clozapine. The patient was not shown the label of the medication, and it is not clear if she took the medication because she thought it was a placebo or because she realized what it was and wanted to take it. She did say, "my psychiatrist wants me to take clozapine." -The patient is currently floridly psychotic and unable to evidence a reasonable choice in terms of whether or not to take psychiatric medications. She has repeatedly told us that she would refuse to take her medications, including her anticoagulant medication and any psychiatric medicine. She notes that she only is willing to consume "natural things, like herbs." In my opinion, the patient is suffering from a severe mental illness, namely schizophrenia. She is delusional, dangerous to herself as a function of her inability to care for herself, and she is unlikely to enjoy any substantial improvement without the use of psychiatric medications. I agree with the finding that the patient will require medications, if necessary over objection, and intramuscular form, and that antipsychotic medications over objection are medically necessary and appropriate in this case. I will order Haldol 5 mg by mouth twice a day, and will also order Haldol 5 mg intramuscularly by mouth twice a day as needed for refusal of p.o. Haldol. Reviewed 05/26/2020. Seems more cooperative today, will increase Clozaril to 25 mg BID as per Dr. Zuniga, titration may be limited if refuses labs. Will keep Haldol ordered BID as well while titrating Clozaril but only inject in am if objects rather than BID as not acutely agitated. 05/27--d/c Clozaril as will not comply with labs and seems quite sedating, Haldol can be adjusted and hope is for conversion to RAMON (atypical vs Haldol). (2) MTHFR mutation: 05/23 -patient has a history of multiple DVTs and PE, at least 2 requiring hospitalization. She has been informed multiple times in the past that she will need to be on lifelong anticoagulant medication, but has repeatedly been noncompliant with it when psychotic. -Xarelto has been reordered, if patient remains unwilling to take it, may have to consult the hospitalist and explore other options. PT/INR ordered, but patient refused. -Coordinate care with PCP, Dr. Mcdowell, and patient will need follow-up after discharge. 05/24 -patient continues to refuse to take any anticoagulant medication or allow a blood draw for PT/INR. 05/24 -The patient is continuing to refuse to take anticoagulant medication or allow blood draws. This is 1 of the reasons why we are convinced that medications over objection are medically necessary in this case in order to stabilize the patient's condition and improve her insight and the need for treatment. Reviewed 05/26/2020. (3) Pulmonary embolism: (4) Hypokalemia: 05/23 - Potassium was 2.6 in the ER, patient received po potassium chloride 40meq x 2. Refusing additional labs today, but will continue to encourage compliance and will re-order for tomorrow. Monitor PO intake and encourage good nutrition. 05/24 -patient is eating some food here, but refusing to allow a blood draw to recheck potassium. 05/25 -the patient is continuing to eat on the unit, but is still refusing to allow blood draws to recheck her potassium. Reviewed 05/26/2020. 05/27--patient refused lab draw. (5) Vitamin B12 deficiency: 05/23 -patient started on vitamin B12 500 mcg daily during last hospitalization, when she was seen by the hospitalist service for recommendations regarding her anticoagulant. Folate and vitamin B12 were checked due to their association with high homocystine levels, which is associated with VTE. Vitamin B12 was low at 130. -We will hold off on resuming vitamin B12 and folic acid, as patient is currently refusing all medications and want to focus on her antipsychotic and anticoagulant first, but can resume these once she is less psychotic/more adherent. Reviewed 05/26/2020. (6) Folate deficiency: 05/23 -folate checked during December hospitalization due to the above, was low at 3.42, and folic acid 20 mg daily was started. Reviewed 05/26/2020. (7) Nicotine dependence: 05/23 -patient unable to participate in smoking cessation education due to severity of psychosis. Offer patch and gum as needed for cravings. Reviewed 05/26/2020. Risk Factors Assessment Male: No : Yes Do You Have Access To A Gun?: No Health Problems: Yes Mental Health Diagnoses: Yes Substance Use Disorders: No Previous Attempt: No Family History of Suicide: No Previous Psychiatric Hospitalization: Yes Hopelessness: No Smoker: Yes Protective Factors Assessment : No Responsible for Young Children: No Employed: No Stable Relationships: No Supportive Family: Yes Good Rapport with Provider: No Interval History Identifying Information ROSMERY TALBERT is a 39-year-old F who currently lives in [place] with her boyfriend, has a history of schizophrenia and treatment noncompliance, and was admitted on 05/23/20 00:19 on a 302 involuntary commitment for psychosis and erratic and unsafe behavior in the context of treatment noncompliance. Reviewed 05/26/2020. Chief Complaint "I'm feeling some better but don't tell Dr. Bustillos". Review of Systems Sleep Information Total Hours of Sleep: 6 Sleep Comments: pt appeared to be asleep @0400 and thereafter. pt remained in her room most of the night. pt on q-15 minute checks Meal Information Percent Meal Consumed - Breakfast: 100 Percent Meal Consumed - Lunch: 0 Percent Meal Consumed - Dinner: 85 Nutrition Comment: pt. asleep. meal dated labeled and refrigerated Subjective Subjective Patient was seen & assessed and interval progress reviewed with nursing and social work. Will not cooperate with bloodwork despite multiple attempts. Spent much of day in bed sleeping yesterday but easy to arouse. Is taking scheduled medications (clozaril, haldol, anticoagulant). Physical Exam Psychiatric Orientation: alert, oriented to person and oriented to time Apperance: appropriately dressed and + disheveled Eye Contact: + poor eye contact Motor Behavior: steady gait and station and no abnormal motor movements Affect: mood congruent with affect (more spontaneous "mood good") Thought Process: + tangential thought process Thought Content: + paranoid Suicidal Thoughts: denies suicidal thoughts Homicidal Thoughts: denies homicidal thoughts Hallucinations: no auditory hallucinations (but appears internally preoccupied) and no visual hallucinations Cognition: language grossly intact; + recent memory not intact and + attention not intact Estimated Intelligence: average estimated intelligence Insight: + severely impaired insight Judgement: + severely impaired judgement Vital Signs (Past 24 Hours) Last Vital Signs Temp 36.9 C 05/27/20 06:33 Pulse 102 H 05/27/20 06:33 Resp 16 05/27/20 06:33 BP 108/73 05/27/20 06:33 Pulse Ox 98 05/23/20 01:05 Results & Data ([facility]) Current Inpatient Medications Current Inpatient Medications: Current Inpatient Medications Acetaminophen (Acetaminophen 325 Mg Tab) 650 mg PO Q4H PRN PRN Reason: Headache or Minor Fever Stop: 06/22/20 01:13 Al Hydrox/Mg Hydrox/Simethicone (Aluminum/Magnesium Susp 30 Ml Udc) 30 ml PO Q4 H PRN PRN Reason: GI Upset Stop: 06/22/20 01:13 Benztropine Mesylate (Benztropine Mesylate 1 Mg Tab) 2 mg PO BID PRN PRN Reason: Dystonia Stop: 06/24/20 20:08 Benztropine Mesylate (Benztropine Mesylate 1 Mg/Ml 2 Ml Amp) 2 mg IM BID PRN PRN Reason: Dystonic Reaction Stop: 06/24/20 20:08 Bismuth Subsalicylate (Bismuth Subsalicylate Liqd 236 Ml) 15 ml PO PRN PRN PRN Reason: Loose Stool Stop: 06/22/20 01:13 Haloperidol (Haloperidol 5 Mg Tab) 5 mg PO BID [facility] Stop: 06/24/20 20:59 Last Admin: 05/27/20 08:48 Dose: 5 mg Documented by: Haloperidol Lactate (Haloperidol Lactate 5 Mg/Ml 1 Ml Vial) 5 mg IM QAM PRN PRN Reason: Refusal of PO meds Stop: 06/25/20 09:12 Hydroxyzine HCl (Hydroxyzine Hcl 25 Mg Tab) 50 mg PO HSZ PRN PRN Reason: Insomnia Stop: 06/22/20 01:13 Hydroxyzine HCl (Hydroxyzine Hcl 25 Mg Tab) 25 mg PO Q4H PRN PRN Reason: Anxiety Stop: 06/22/20 01:13 Magnesium Hydroxide (Magnesium Hydroxide Susp 30 Ml Udc) 30 ml PO DAILY PRN PRN Reason: Constipation Stop: 06/22/20 01:13 Miscellaneous (Remove Nicoderm Patch) 1 ea N/A DAILY@0859 [facility] Stop: 06/23/20 08:58 Last Admin: 05/27/20 08:48 Dose: Not Given Documented by: Nicotine (Nicotine 21 Mg/24 Hr Tdsy) 21 mg TD QAM [facility] Stop: 06/22/20 08:59 Last Admin: 05/27/20 08:51 Dose: Not Given Documented by: Rivaroxaban (Rivaroxaban 15 Mg Tab) 15 mg PO QDD [facility] Stop: 06/22/20 17:44 Last Admin: 05/26/20 17:14 Dose: 15 mg Documented by: Sodium Chloride (Sodium Chloride 0.65% Na Soln 45 Ml ([place])) 1 - 2 sprays NA PRN PRN PRN Reason: Nasal Dryness/Congestion Stop: 06/22/20 01:13 Mental Health & Subst Abuse Tx Psychiatrist Name of Psychiatrist: Dr Williamson-[facility] Psychiatrist's Psychiatric Appointment Comment: [address], [address], [place], [place] Wastewater Project Manager Name of Wastewater Project Manager: Nelia Phone Number for Wastewater Project Manager: [phone] Case Management Appointment Comment: [address], [address], [place], [place] Post Discharge Appointments Primary Care Physician Name Of Family Doctor: Dr. Mcadams Primary Care Provider Appointment Comment: [address] [facility], [place], [place]
[2020-05-27] MEDS: RIVAROXABAN 15 MG TAB PO SCH (17:13)
[2020-05-28] MEDS: haloperidoL 5 MG TAB PO SCH ×2 (09:51→20:46)
[2020-05-28] MEDS: NICOTINE 21 MG/24 HR TDSY TD SCH (09:56)
--- NOTE | 2020-05-28 12:28 | Psychiatric Progress Note ---
Date of Service May 28, 2020 Impression / Recommendations Impression 39-year-old female who lives with her boyfriend in [place], has a long history of schizophrenia and treatment noncompliance, who presents with psychosis in the context of noncompliance with antipsychotic medication. She was found by police walking for hours in the rain, with creatinine kinase of 825, and potassium of 2.6, indicating poor p.o. intake. She said she was trying to find a space ship to take her to outer space, and per family had made comments about taking her young nephew with her. Here she is expressing delusions that her father is following her, wants to harm her, and that the staff here are not real doctors and nurses. She has been engaging in erratic and unsafe behavior in the context of psychosis, including walking long distances, not eating or sleeping, hitchhiking, trying to steal a car, and refusing to take her psychotropic and anticoagulant medication. She has a history of multiple DVTs and PEs, and requires lifelong anticoagulation. She locked her boyfriend, whom she lives with, in her room in their home prior to leaving. She is disorganized, paranoid, delusional, and hallucinating, and is clearly unable to provide for her own safety, health, welfare, [facility], and nutrition without the care and assistance of others. She is on a 303 involuntary commitment as of today, with a first recommendation for medications over objection. Reviewed 05/26/2020. Imp: 05/28--improving but sedated Plan: 05/28--continue current meds, if remains so sedated throughout day tomorrow consider shifting dose (may also be avoidance, clozaril d/c yesterday). Dr. Bustillos to reassess and determine if Haldol dec most appropriate or if should be converted to an atypical as clears. Patient is not able to fully process that choice for today. Risk Factors Assessment Male: No : Yes Do You Have Access To A Gun?: No Health Problems: Yes Mental Health Diagnoses: Yes Substance Use Disorders: No Previous Attempt: No Family History of Suicide: No Previous Psychiatric Hospitalization: Yes Hopelessness: No Smoker: Yes Protective Factors Assessment : No Responsible for Young Children: No Employed: No Stable Relationships: No Supportive Family: Yes Good Rapport with Provider: No Interval History Identifying Information ROSMERY TALBERT is a 39-year-old F who currently lives in [place] with her boyfriend, has a history of schizophrenia and treatment noncompliance, and was admitted on 05/23/20 00:19 on a 302 involuntary commitment for psychosis and erratic and unsafe behavior in the context of treatment noncompliance. Reviewed 05/26/2020. Chief Complaint "I'm OK". Review of Systems Sleep Information Total Hours of Sleep: 2.5 Sleep Comments: pt appeared to be asleep @0400 and thereafter. pt remained in her room most of the night. pt on q-15 minute checks Meal Information Percent Meal Consumed - Breakfast: 0 Percent Meal Consumed - Lunch: 90 Percent Meal Consumed - Dinner: 100 Nutrition Comment: pt. requested a banana but fell asleep. Fluids provided Subjective Subjective Patient was seen & assessed and interval progress reviewed with treatment team. Taking medications as prescribed, sleeping alot during the day but coming out for meals and attended group briefly yesterday and was appropriate. Quick to decompensate to paranoia but no specific statements. Physical Exam Psychiatric Orientation: alert Apperance: + disheveled Eye Contact: + poor eye contact Motor Behavior: steady gait and station speech is nonspontaneous Affect: + blunted affect "fine" Thought Process: + concrete thought process Thought Content: + paranoid and + delusions Suicidal Thoughts: denies suicidal thoughts Homicidal Thoughts: denies homicidal thoughts Hallucinations: no auditory hallucinations and no visual hallucinations Vital Signs (Past 24 Hours) Last Vital Signs Temp 36.3 C L 05/28/20 06:30 Pulse 81 05/28/20 06:31 Resp 16 05/28/20 06:30 BP 111/75 05/28/20 06:31 Pulse Ox 98 05/23/20 01:05 Results & Data ([facility]) Current Inpatient Medications Current Inpatient Medications: Current Inpatient Medications Acetaminophen (Acetaminophen 325 Mg Tab) 650 mg PO Q4H PRN PRN Reason: Headache or Minor Fever Stop: 06/22/20 01:13 Al Hydrox/Mg Hydrox/Simethicone (Aluminum/Magnesium Susp 30 Ml Udc) 30 ml PO Q4H PRN PRN Reason: GI Upset Stop: 06/22/20 01:13 Benztropine Mesylate (Benztropine Mesylate 1 Mg Tab) 2 mg PO BID PRN PRN Reason: Dystonia Stop: 06/24/20 20:08 Benztropine Mesylate (Benztropine Mesylate 1 Mg/Ml 2 Ml Amp) 2 mg IM BID PRN PRN Reason: Dystonic Reaction Stop: 06/24/20 20:08 Bismuth Subsalicylate (Bismuth Subsalicylate Liqd 236 Ml) 15 ml PO PRN PRN PRN Reason: Loose Stool Stop: 06/22/20 01:13 Haloperidol (Haloperidol 5 Mg Tab) 5 mg PO BID [facility] Stop: 06/24/20 20:59 Last Admin: 05/28/20 09:51 Dose: 5 mg Documented by: Haloperidol Lactate (Haloperidol Lactate 5 Mg/Ml 1 Ml Vial) 5 mg IM QAM PRN PRN Reason: Refusal of PO meds Stop: 06/25/20 09:12 Hydroxyzine HCl (Hydroxyzine Hcl 25 Mg Tab) 50 mg PO HSZ PRN PRN Reason: Insomnia Stop: 06/22/20 01:13 Hydroxyzine HCl (Hydroxyzine Hcl 25 Mg Tab) 25 mg PO Q4H PRN PRN Reason: Anxiety Stop: 06/22/20 01:13 Magnesium Hydroxide (Magnesium Hydroxide Susp 30 Ml Udc) 30 ml PO DAILY PRN PRN Reason: Constipation Stop: 06/22/20 01:13 Miscellaneous (Remove Nicoderm Patch) 1 ea N/A DAILY@0859 [facility] Stop: 06/23/20 08:58 Last Admin: 05/28/20 09:56 Dose: Not Given Documented by: Nicotine (Nicotine 21 Mg/24 Hr Tdsy) 21 mg TD QAM [facility] Stop: 06/22/20 08:59 Last Admin: 05/28/20 09:56 Dose: Not Given Documented by: Rivaroxaban (Rivaroxaban 15 Mg Tab) 15 mg PO QDD [facility] Stop: 06/22/20 17:44 Last Admin: 05/27/20 17:13 Dose: 15 mg Documented by: Sodium Chloride (Sodium Chloride 0.65% Na Soln 45 Ml ([place])) 1 - 2 sprays NA PRN PRN PRN Reason: Nasal Dryness/Congestion Stop: 06/22/20 01:13 Mental Health & Subst Abuse Tx Psychiatrist Name of Psychiatrist: Dr Williamson-[facility] Psychiatrist's Psychiatric Appointment Comment: [address], [place], [place] Printer Slotter Helper Name of Printer Slotter Helper: Nelia Phone Number for Printer Slotter Helper: [phone] Case Management Appointment Comment: [address] [facility], [address], [place], [place] Post Discharge Appointments Primary Care Physician Name Of Family Doctor: Dr. Mcadams Primary Care Provider Appointment Comment: [address] [facility] [facility], [place], [place]
[2020-05-28] MEDS: RIVAROXABAN 15 MG TAB PO SCH (17:40)
[2020-05-29] MEDS: haloperidoL 5 MG TAB PO SCH ×2 (09:50→21:49)
[2020-05-29] MEDS: NICOTINE 21 MG/24 HR TDSY TD SCH (09:51)
--- NOTE | 2020-05-29 10:19 | Psychiatric Progress Note ---
Date of Service May 29, 2020 Impression / Recommendations Impression 39-year-old female who lives with her boyfriend in [place], has a long history of schizophrenia and treatment noncompliance, who presents with psychosis in the context of noncompliance with antipsychotic medication. She was found by police walking for hours in the rain, with creatinine kinase of 825, and potassium of 2.6, indicating poor p.o. intake. She said she was trying to find a space ship to take her to outer space, and per family had made comments about taking her young nephew with her. Here she is expressing delusions that her father is following her, wants to harm her, and that the staff here are not real doctors and nurses. She has been engaging in erratic and unsafe behavior in the context of psychosis, including walking long distances, not eating or sleeping, hitchhiking, trying to steal a car, and refusing to take her psychotropic and anticoagulant medication. She has a history of multiple DVTs and PEs, and requires lifelong anticoagulation. She locked her boyfriend, whom she lives with, in her room in their home prior to leaving. On admission, she was disorganized, paranoid, delusional, and hallucinating, and is clearly unable to provide for her own safety, health, welfare, half-way, and nutrition without the care and assistance of others. She continues to demonstrate poor insight and remains unable to adequately articulate or understand the concerns resulting in her admission. She is chronically noncompliant with oral medications and recommendation would be for an RAMON and 304 IOC on discharge. She is on a 303 involuntary commitment, and two physician opinions for recommendation for medications over objection have been given. Thus far, patient has been taking oral medications here in the structured hospital setting. She remains as very high risk of medication noncompliance and rapid decompensation outside of a structured setting and therefore inpatient psychiatric treatment continues to be medically necessary. (1) Paranoid schizophrenia: 05/23 -admitted with delusions, hallucinations, paranoia, and erratic behavior. Unable to reality test, refusing all antipsychotic medications. Patient is at imminent risk to both herself and others without treatment with antipsychotic medication to address her psychotic symptoms. Recommend medications over objection, as she has responded positively to treatment with antipsychotics in the past, and her symptoms are unlikely to remit without said treatment. -She has reportedly been noncompliant with clozapine for months, so will have to be re-titrated starting with 25 mg daily. She is unfortunately refusing all medications at this time, and is also refusing blood work. We may need to consider a long-acting injectable antipsychotic if she remains nonadherent. -I have called outpatient psychiatrist, Dr. Williamson's, office, explaining that the patient is here involuntarily, refusing to sign all releases, and that we are requesting records in order to treat her emergency medical condition. -Coordinate care with her BCM, Yuliet, and family/boyfriend. -Medically necessary private room due to psychosis and acting on delusional thoughts. -File for 303 involuntary commitment, hearing to be held tomorrow. 05/24 -303 hearing held and granted. -Continue to encourage her to take medications orally, which she is adamantly refusing. I recommend medications over objection to target her psychotic symptoms, as she has schizophrenia, presents with paranoia, delusions, hallucinations, and is acting on these thoughts, has no insight or ability to reality test, and symptoms have responded to antipsychotics in the past. She is at acute risk of harm to both herself and others if her symptoms are not treated, due to her behavior (not eating adequately with hypokalemia, walking long distances with rhabdomyolysis, hitchhiking, no concern for her own safety, attempting to steal a car, and believing that if spaceship is taking her to outer space and she wants to take her nephew with her). She does not feel safe returning to her home in [place] due to persecute Sergio delusions, and is likely to flee the area if released and her current mental state. She has responded well to clozapine in the past, but is it is not available in an injectable form, we will have to utilize another agent such as haloperidol or olanzapine, which is available as an immediate release IM. We could also consider placing her on a long-acting injectable antipsychotic, given her history of repeated nonadherence with treatment. -Reviewed case with Yuliet, her lead case manager through [facility], who believes the patient needs an involuntary outpatient commitment, and states her outpatient psychiatrist would not complete paperwork and said he was unable to do so. 05/25 -Today, the patient did agree to take a single dose of clozapine, although she indicated that she believed that we were giving her a placebo and refused to believe the nurses explanation that, in fact, she was being given clozapine. The patient was not shown the label of the medication, and it is not clear if she took the medication because she thought it was a placebo or because she realized what it was and wanted to take it. She did say, "my psychiatrist wants me to take clozapine." -The patient is currently floridly psychotic and unable to evidence a reasonable choice in terms of whether or not to take psychiatric medications. She has repeatedly told us that she would refuse to take her medications, including her anticoagulant medication and any psychiatric medicine. She notes that she only is willing to consume "natural things, like herbs." In my opinion, the patient is suffering from a severe mental illness, namely schizophrenia. She is delusional, dangerous to herself as a function of her inability to care for herself, and she is unlikely to enjoy any substantial improvement without the use of psychiatric medications. I agree with the finding that the patient will require medications, if necessary over objection, and intramuscular form, and that antipsychotic medications over objection are medically necessary and appropriate in this case. I will order Haldol 5 mg by mouth twice a day, and will also order Haldol 5 mg intramuscularly by mouth twice a day as needed for refusal of p.o. Haldol. 05/26--Seems more cooperative today, will increase Clozaril to 25 mg BID as per Dr. Zuniga, titration may be limited if refuses labs. Will keep Haldol ordered BID as well while titrating Clozaril but only inject in am if objects rather than BID as not acutely agitated. 05/27--d/c Clozaril as will not comply with labs and seems quite sedating, Haldol can be adjusted and hope is for conversion to RAMON (atypical vs Haldol). 05/28--improving but sedated. --Continue current meds, if remains so sedated throughout day tomorrow consider shifting dose (may also be avoidance, clozaril d/c yesterday). Dr. Bustillos to reassess and determine if Haldol dec most appropriate or if should be converted to an atypical as clears. Patient is not able to fully process that choice for today. 05/29 --Discussed further titration of haloperidol with patient - will increase HS dose due to concerns for daytime sedation. Pt agreeable with increasing dose to 7.5mg, continuing 5mg each morning. Consider further titration as indicated/to lerated --Though patient is in appropriate behavioral control and does not openly verbalize delusional thought content, she still demonstrates considerable lack of insight regarding the severity of her condition and need for appropriate treatment. Discussed recommendation for an RAMON, which patient is not interested in. Reasoning for recommendation was provided to the patient and patient was encouraged to compile questions so that this could be discussed in greater detail. --Atypical agents may be better tolerated snf, however, patient is still not demonstrating adequate insight to be able to discuss this in detail. (2) MTHFR mutation: 05/23 -patient has a history of multiple DVTs and PE, at least 2 requiring hospitalization. She has been informed multiple times in the past that she will need to be on lifelong anticoagulant medication, but has repeatedly been noncompliant with it when psychotic. -Xarelto has been reordered, if patient remains unwilling to take it, may have to consult the hospitalist and explore other options. PT/INR ordered, but patient refused. -Coordinate care with PCP, Dr. Mcdowell, and patient will need follow-up after discharge. 05/24 -patient continues to refuse to take any anticoagulant medication or allow a blood draw for PT/INR. 05/24 -The patient is continuing to refuse to take anticoagulant medication or allow blood draws. This is 1 of the reasons why we are convinced that medications over objection are medically necessary in this case in order to stabilize the patient's condition and improve her insight and the need for treatment. Reviewed 05/26/2020. (3) Pulmonary embolism: (4) Hypokalemia: 05/23 - Potassium was 2.6 in the ER, patient received po potassium chloride 40meq x 2. Refusing additional labs today, but will continue to encourage compliance and will re-order for tomorrow. Monitor PO intake and encourage good nutrition. 05/24 -patient is eating some food here, but refusing to allow a blood draw to recheck potassium. 05/25 -the patient is continuing to eat on the unit, but is still refusing to allow blood draws to recheck her potassium. Reviewed 05/26/2020. 05/27--patient refused lab draw. (5) Vitamin B12 deficiency: 05/23 -patient started on vitamin B12 500 mcg daily during last hospitalization, when she was seen by the hospitalist service for recommendations regarding her anticoagulant. Folate and vitamin B12 were checked due to their association with high homocystine levels, which is associated with VTE. Vitamin B12 was low at 130. -We will hold off on resuming vitamin B12 and folic acid, as patient is currently refusing all medications and want to focus on her antipsychotic and anticoagulant first, but can resume these once she is less psychotic/more adherent. Reviewed 05/26/2020. (6) Folate deficiency: 05/23 -folate checked during December hospitalization due to the above, was low at 3.42, and folic acid 20 mg daily was started. Reviewed 05/26/2020. (7) Nicotine dependence: 05/23 -patient unable to participate in smoking cessation education due to severity of psychosis. Offer patch and gum as needed for cravings. Reviewed 05/26/2020. Risk Factors Assessment Male: No : Yes Do You Have Access To A Gun?: No Health Problems: Yes Mental Health Diagnoses: Yes Substance Use Disorders: No Previous Attempt: No Family History of Suicide: No Previous Psychiatric Hospitalization: Yes Hopelessness: No Smoker: Yes Protective Factors Assessment : No Responsible for Young Children: No Employed: No Stable Relationships: No Supportive Family: Yes Good Rapport with Provider: No Interval History Identifying Information ROSMERY TALBERT is a 39-year-old F who currently lives in [place] with her boyfriend, has a history of schizophrenia and treatment noncompliance, and was admitted on 05/23/20 00:19 on a 302 involuntary commitment for psychosis and erratic and unsafe behavior in the context of treatment noncompliance. Chief Complaint "Um, I'm alright." Review of Systems Notes Constitutional: denied Cardiovascular: denied Respiratory: denied Gastrointestinal: denied Neurological: denied Psychiatric: denies symptoms other than stated above Total of at least 10 systems reviewed, pertinent positives as above and in HPI. Sleep Information Total Hours of Sleep: 6.25 Sleep Comments: pt appeared to be asleep @0400 and thereafter. pt remained in her room most of the night. pt on q-15 minute checks Meal Information Percent Meal Consumed - Breakfast: 0 Percent Meal Consumed - Lunch: 100 Percent Meal Consumed - Dinner: 80 Nutrition Comment: pt. requested a banana but fell asleep. Fluids provided Subjective Subjective Patient was seen & assessed and interval progress reviewed with nursing and so sul work. Staff report the patient has been attending group programming and has been taking PO medications when offered. She continues to verbalize her belief that she does not need to be in the hospital and occasionally continues to verbalize clearly delusional thought content. Pt was seen today to assess progress since admission. Pt states she is feeling "alright", but also reports the last few days have been "sad" as she misses her family. Pt was asked to share what led to her hospitalization, and she stated "I don't even know. My mom and dad were just worried about me. They can't keep sending me to the hospital for just walking around at night." Pt was unable to comment on the reports that it was her delusional thought content leading her to leave the house in the evenings and participate in other unsafe behavior. She maintains "I only walked to [facility] once at 1:30, and that was to get a vessel welder." She is claiming "I wasn't mentally unstable or anything." She continues to demonstrate a lack of insight regarding events leading to her admissions. Pt does admit that she feels the haloperidol is "good" and helping to "normalize my thoughts." Pt does believe her thoughts are at baseline, although reported to a staff member yesterday that she still believes a 'spaceship is waiting for her'. We did discuss recommendation that patient's medications be converted to an RAMON. Explanation was provided to the patient, who stated "I think I want to try just taking the pills instead." Pt was reminded of chronic history of poor medication compliance and that this is a very serious recommendation from our team. She seems simultaneously focused on keeping her "thoughts stable" but also on feeling she does not need consistent medications to do this. Pt was encouraged to think of questions regarding Carmen that we can answer for her. Otherwise, she is denying physical concerns. She did agree to increasing her HS dose of haloperidol. Pt denied other needs at this time, stating her goal is to "do what you guys tell me to, keep taking the medications and keep going to groups". Physical Exam Psychiatric Orientation: alert, oriented x 3 and + guarded (superficially cooperative ) Apperance: appropriately dressed (casually, in hoodie and scrub pants), + disheveled (appearing somewhat unkempt, hair unbrushed and oily ) and appeared stated age Eye Contact: good eye contact Motor Behavior: no abnormal motor movements (observed while sitting on bed) Speech: normal rate/rhythm/volume of speech Affect: + blunted affect (appearring subdued, somewhat suspicious ) Mood: + depressed mood (reports feeling "sad" as she misses her family) Thought Process: goal directed thought process and + concrete thought process Thought Content: + delusions; no hopelessness Suicidal Thoughts: denies suicidal thoughts and denies suicidal intent Homicidal Thoughts: denies homicidal thoughts Hallucinations: no auditory hallucinations and no visual hallucinations Cognition: attention grossly intact and language grossly intact Insight: + impaired insight Judgement: + impaired judgement Vital Signs (Past 24 Hours) Last Vital Signs Temp 36.7 C 05/29/20 06:00 Pulse 90 05/29/20 06:35 Resp 16 05/29/20 06:00 BP 97/66 L 05/29/20 06:35 Pulse Ox 98 05/23/20 01:05 Results & Data ([facility]) Current Inpatient Medications Current Inpatient Medications: Current Inpatient Medications Acetaminophen (Acetaminophen 325 Mg Tab) 650 mg PO Q4H PRN PRN Reason: Headache or Minor Fever Stop: 06/22/20 01:13 Al Hydrox/Mg Hydrox/Simethicone (Aluminum/Magnesium Susp 30 Ml Udc) 30 ml PO Q4H PRN PRN Reason: GI Upset Stop: 06/22/20 01:13 Benztropine Mesylate (Benztropine Mesylate 1 Mg Tab) 2 mg PO BID PRN PRN Reason: Dystonia Stop: 06/24/20 20:08 Benztropine Mesylate (Benztropine Mesylate 1 Mg/Ml 2 Ml Amp) 2 mg IM BID PRN PRN Reason: Dystonic Reaction Stop: 06/24/20 20:08 Bismuth Subsalicylate (Bismuth Subsalicylate Liqd 236 Ml) 15 ml PO PRN PRN PRN Reason: Loose Stool Stop: 06/22/20 01:13 Haloperidol (Haloperidol 5 Mg Tab) 5 mg PO QAM SIMONA Stop: 06/29/20 08:59 Haloperidol (Haloperidol 5 Mg Tab) 7.5 mg PO HS SIMONA Stop: 06/28/20 21:59 Haloperidol Lactate (Haloperidol Lactate 5 Mg/Ml 1 Ml Vial) 5 mg IM QAM PRN PRN Reason: Refusal of PO meds Stop: 06/25/20 09:12 Hydroxyzine HCl (Hydroxyzine Hcl 25 Mg Tab) 50 mg PO HSZ PRN PRN Reason: Insomnia Stop: 06/22/20 01:13 Hydroxyzine HCl (Hydroxyzine Hcl 25 Mg Tab) 25 mg PO Q4H PRN PRN Reason: Anxiety Stop: 06/22/20 01:13 Magnesium Hydroxide (Magnesium Hydroxide Susp 30 Ml Udc) 30 ml PO DAILY PRN PRN Reason: Constipation Stop: 06/22/20 01:13 Miscellaneous (Remove Nicoderm Patch) 1 ea N/A DAILY@[id number] [facility] Stop: 06/23/20 08:58 Last Admin: 05/28/20 09:56 Dose: Not Given Documented by: Nicotine (Nicotine 21 Mg/24 Hr Tdsy) 21 mg TD QAM SIMONA Stop: 06/22/20 08:59 Last Admin: 05/28/20 09:56 Dose: Not Given Documented by: Rivaroxaban (Rivaroxaban 15 Mg Tab) 15 mg PO QDD [facility] Stop: 06/22/20 17:44 Last Admin: 05/28/20 17:40 Dose: 15 mg Documented by: Sodium Chloride (Sodium Chloride 0.65% Na Soln 45 Ml ([place])) 1 - 2 sprays NA PRN PRN PRN Reason: Nasal Dryness/Congestion Stop: 06/22/20 01:13 Mental Health & Subst Abuse Tx Psychiatrist Name of Psychiatrist: Dr [facility] Psychiatrist's Psychiatric Appointment Comment: [phone], [address], [place], [place] Treatment Plant Mechanic Name of Treatment Plant Mechanic: Nelia Phone Number for Treatment Plant Mechanic: [phone] Case Management Appointment Comment: [id number] [facility], [address], [place], [place] Post Discharge Appointments Primary Care Physician Name Of Family Doctor: Dr. Mcadams Primary Care Provider Appointment Comment: [id number] [facility], [place], [place]
[2020-05-29] MEDS ORDERED: HALOPERIDOL LACTATE 5 MG/ML 1 ML VIAL IM PRN (10:20)
[2020-05-29] MEDS: RIVAROXABAN 15 MG TAB PO SCH (17:09)
--- NOTE | 2020-05-30 09:55 | Psychiatric Progress Note ---
Date of Service May 30, 2020 Impression / Recommendations Impression 39-year-old female who lives with her boyfriend in [place], has a long history of schizophrenia and treatment noncompliance, who presents with psychosis in the context of noncompliance with antipsychotic medication. She was found by police walking for hours in the rain, with creatinine kinase of 825, and potassium of 2.6, indicating poor p.o. intake. She said she was trying to find a space ship to take her to outer space, and per family had made comments about taking her young nephew with her. Here she is expressing delusions that her father is following her, wants to harm her, and that the staff here are not real doctors and nurses. She has been engaging in erratic and unsafe behavior in the context of psychosis, including walking long distances, not eating or sleeping, hitchhiking, trying to steal a car, and refusing to take her psychotropic and anticoagulant medication. She has a history of multiple DVTs and PEs, and requires lifelong anticoagulation. She locked her boyfriend, whom she lives with, in her room in their home prior to leaving. On admission, she was disorganized, paranoid, delusional, and hallucinating, and is clearly unable to provide for her own safety, health, welfare, alf, and nutrition without the care and assistance of others. She continues to demonstrate poor insight and remains unable to adequately articulate or understand the concerns resulting in her admission. She is chronically noncompliant with oral medications and recommendation would be for an RAMON and 304 IOC on discharge. She is on a 303 involuntary commitment, and two physician opinions for recommendation for medications over objection have been given. Thus far, patient has been taking oral medications here in the structured hospital setting. She remains as very high risk of medication noncompliance and rapid decompensation outside of a structured setting and therefore inpatient psychiatric treatment continues to be medically necessary. (1) Paranoid schizophrenia: 05/23 -admitted with delusions, hallucinations, paranoia, and erratic behavior. Unable to reality test, refusing all antipsychotic medications. Patient is at imminent risk to both herself and others without treatment with antipsychotic medication to address her psychotic symptoms. Recommend medications over objection, as she has responded positively to treatment with antipsychotics in the past, and her symptoms are unlikely to remit without said treatment. -She has reportedly been noncompliant with clozapine for months, so will have to be re-titrated starting with 25 mg daily. She is unfortunately refusing all medications at this time, and is also refusing blood work. We may need to consider a long-acting injectable antipsychotic if she remains nonadherent. -I have called outpatient psychiatrist, Dr. Williamson's, office, explaining that the patient is here involuntarily, refusing to sign all releases, and that we are requesting records in order to treat her emergency medical condition. -Coordinate care with her BCM, Yuliet, and family/boyfriend. -Medically necessary private room due to psychosis and acting on delusional thoughts. -File for 303 involuntary commitment, hearing to be held tomorrow. 05/24 -303 hearing held and granted. -Continue to encourage her to take medications orally, which she is adamantly refusing. I recommend medications over objection to target her psychotic symptoms, as she has schizophrenia, presents with paranoia, delusions, hallucinations, and is acting on these thoughts, has no insight or ability to reality test, and symptoms have responded to antipsychotics in the past. She is at acute risk of harm to both herself and others if her symptoms are not treated, due to her behavior (not eating adequately with hypokalemia, walking long distances with rhabdomyolysis, hitchhiking, no concern for her own safety, attempting to steal a car, and believing that if spaceship is taking her to outer space and she wants to take her nephew with her). She does not feel safe returning to her home in [place] due to persecute [place] delusions, and is likely to flee the area if released and her current mental state. She has responded well to clozapine in the past, but is it is not available in an injectable form, we will have to utilize another agent such as haloperidol or olanzapine, which is available as an immediate release IM. We could also consider placing her on a long-acting injectable antipsychotic, given her history of repeated nonadherence with treatment. -Reviewed case with Yuliet, her corrections caseworker through [facility], who believes the patient needs an involuntary outpatient commitment, and states her outpatient psychiatrist would not complete paperwork and said he was unable to do so. 05/25 -Today, the patient did agree to take a single dose of clozapine, although she indicated that she believed that we were giving her a placebo and refused to believe the nurses explanation that, in fact, she was being given clozapine. The patient was not shown the label of the medication, and it is not clear if she took the medication because she thought it was a placebo or because she realized what it was and wanted to take it. She did say, "my psychiatrist wants me to take clozapine." -The patient is currently floridly psychotic and unable to evidence a reasonable choice in terms of whether or not to take psychiatric medications. She has repeatedly told us that she would refuse to take her medications, including her anticoagulant medication and any psychiatric medicine. She notes that she only is willing to consume "natural things, like herbs." In my opinion, the patient is suffering from a severe mental illness, namely schizophrenia. She is delusional, dangerous to herself as a function of her inability to care for herself, and she is unlikely to enjoy any substantial improvement without the use of psychiatric medications. I agree with the finding that the patient will require medications, if necessary over objection, and intramuscular form, and that antipsychotic medications over objection are medically necessary and appropriate in this case. I will order Haldol 5 mg by mouth twice a day, and will also order Haldol 5 mg intramuscularly by mouth twice a day as needed for refusal of p.o. Haldol. 05/26--Seems more cooperative today, will increase Clozaril to 25 mg BID as per Dr. Zuniga, titration may be limited if refuses labs. Will keep Haldol ordered BID as well while titrating Clozaril but only inject in am if objects rather than BID as not acutely agitated. 05/27--d/c Clozaril as will not comply with labs and seems quite sedating, Haldol can be adjusted and hope is for conversion to RAMON (atypical vs Haldol). 05/28--improving but sedated. --Continue current meds, if remains so sedated throughout day tomorrow consider shifting dose (may also be avoidance, clozaril d/c yesterday). Dr. Bustillos to reassess and determine if Haldol dec most appropriate or if should be converted to an atypical as clears. Patient is not able to fully process that choice for today. 05/29 --Discussed further titration of haloperidol with patient - will increase HS dose due to concerns for daytime sedation. Pt agreeable with increasing dose to 7.5mg, continuing 5mg each morning. Consider further titration as indicated/t olerated --Though patient is in appropriate behavioral control and does not openly verbalize delusional thought content, she still demonstrates considerable lack of insight regarding the severity of her condition and need for appropriate treatment. Discussed recommendation for an RAMON, which patient is not interested in. Reasoning for recommendation was provided to the patient and patient was encouraged to compile questions so that this could be discussed in greater detail. --Atypical agents may be better tolerated fci, however, patient is still not demonstrating adequate insight to be able to discuss this in detail. 05/30 - Continue current doses of haloperidol - continue titration as indicated. Pt continues to be superficially reality-based when meeting with providers, but is continuing to verbalize delusional thought content to staff when in group programming. - Pt continues to decline RAMON (2) MTHFR mutation: 05/23 -patient has a history of multiple DVTs and PE, at least 2 requiring hospitalization. She has been informed multiple times in the past that she will need to be on lifelong anticoagulant medication, but has repeatedly been noncompliant with it when psychotic. -Xarelto has been reordered, if patient remains unwilling to take it, may have to consult the hospitalist and explore other options. PT/INR ordered, but daphney ent refused. -Coordinate care with PCP, Dr. Mcdowell, and patient will need follow-up after discharge. 05/24 -patient continues to refuse to take any anticoagulant medication or allow a blood draw for PT/INR. 05/24 -The patient is continuing to refuse to take anticoagulant medication or allow blood draws. This is 1 of the reasons why we are convinced that medications over objection are medically necessary in this case in order to stabilize the patient's condition and improve her insight and the need for treatment. Reviewed 05/26/2020. (3) Pulmonary embolism: (4) Hypokalemia: 05/23 - Potassium was 2.6 in the ER, patient received po potassium chloride 40meq x 2. Refusing additional labs today, but will continue to encourage compliance and will re-order for tomorrow. Monitor PO intake and encourage good nutrition. 05/24 -patient is eating some food here, but refusing to allow a blood draw to recheck potassium. 05/25 -the patient is continuing to eat on the unit, but is still refusing to allow blood draws to recheck her potassium. Reviewed 05/26/2020. 05/27--patient refused lab draw. (5) Vitamin B12 deficiency: 05/23 -patient started on vitamin B12 500 mcg daily during last hospitalization, when she was seen by the hospitalist service for ximena mmendations regarding her anticoagulant. Folate and vitamin B12 were checked due to their association with high homocystine levels, which is associated with VTE. Vitamin B12 was low at 130. -We will hold off on resuming vitamin B12 and folic acid, as patient is currently refusing all medications and want to focus on her antipsychotic and anticoagulant first, but can resume these once she is less psychotic/more adherent. Reviewed 05/26/2020. (6) Folate deficiency: 05/23 -folate checked during December hospitalization due to the above, was low at 3.42, and folic acid 20 mg daily was started. Reviewed 05/26/2020. (7) Nicotine dependence: 05/23 -patient unable to participate in smoking cessation education due to severity of psychosis. Offer patch and gum as needed for cravings. Reviewed 05/26/2020. Risk Factors Assessment Male: No : Yes Do You Have Access To A Gun?: No Health Problems: Yes Mental Health Diagnoses: Yes Substance Use Disorders: No Previous Attempt: No Family History of Suicide: No Previous Psychiatric Hospitalization: Yes Hopelessness: No Smoker: Yes Protective Factors Assessment : No Responsible for Young Children: No Employed: No Stable Relationships: No Supportive Family: Yes Good Rapport with Provider: No Interval History Identifying Information ROSMERY TALBERT is a 39-year-old F who currently lives in [place] with her boyfriend, has a history of schizophrenia and treatment noncompliance, and was admitted on 05/23/20 00:19 on a 302 involuntary commitment for psychosis and erratic and unsafe behavior in the context of treatment noncompliance. Chief Complaint "I'm ok. Just trying to get caught up on sleep." Review of Systems Notes Constitutional: reports feeling "more tired" today Cardiovascular: denied Respiratory: denied Gastrointestinal: denied Neurological: denied Psychiatric: denies symptoms other than stated above Total of at least 10 systems reviewed, pertinent positives as above and in HPI. Sleep Information Total Hours of Sleep: 3 Sleep Comments: pt appeared to be asleep @0400 and thereafter. pt remained in her room most of the night. pt on q-15 minute checks Meal Information Percent Meal Consumed - Breakfast: 0 Percent Meal Consumed - Lunch: 100 Percent Meal Consumed - Dinner: 100 Nutrition Comment: pt. requested a banana but fell asleep. Fluids provided Subjective Subjective Patient was seen & assessed and interval progress reviewed with treatment team. Staff report the patient has been participating in groups and has continued to verbalize delusional thought content. Specifically, patient had been insinuating that she needed to be given her badge and keys, and was making statements that her "job is exhausting." Pt verbalized this to numerous staff, giving the impression the patient believed she works here. Pt also commented that her sister is "Nikki". Pt rated her mood a 9/10 and "excited" last ev ening, as the patient reported she was to be discharged the next day (information not communicated to her by any staff). Pt was seen today to assess progress since admission. Pt states she is "ok, just trying to get caught up on sleep." Pt reports she is feeling better overall, but is more fatigued this morning. Pt reports she would be planning to return to her apartment when she is discharged. Pt was somewhat evasive when talking about the male roommate (previous boyfriend), stating she is not sure if he is still living there. Pt reports the medications are helpful, stating "I know I'm getting better." Pt states her "thoughts, emotions, and attitude" are all "more stable." Pt continues to verbalize to this provider that she was not mentally unstable when she first arrived to the hospital, and that it was just that her parents were worried about her. Pt was asked her current thoughts regarding her statements that she was heading toward a spaceship. Pt states "Everyone keeps saying that, I don't know where that came from." Pt was reminded of concerns for medication non compliance, and that concern is increased due to the fact that the patient is not able to recognize these thoughts/statements. Pt maintains she wants to "try the pills first." This provider was clear with the patient that our very strong recommendation is that she be converted to an RAMON in order for us to ensure medication compliance and stability, and therefore safe discharge. Physical Exam Psychiatric Orientation: alert, oriented x 3 and + guarded (only engaging in superficial conversation) Apperance: appropriately dressed (casually but somewhat bizarrely, wearing scrubs and two hoodies) Eye Contact: good eye contact Motor Behavior: steady gait and station and no abnormal motor movements Speech: normal rate/rhythm/volume of speech (rather brief responses to questions) Affect: + blunted affect (appearing subdued/fatigued) Mood: no depressed mood ("I'm good") Thought Process: + concrete thought process Thought Content: + delusions (though only engages in superficial conversation with this provider) staff report patient has continued to make statements suggestive of delusional thought content during groups Suicidal Thoughts: denies suicidal thoughts Homicidal Thoughts: denies homicidal thoughts Hallucinations: no auditory hallucinations and no visual hallucinations Cognition: attention grossly intact and language grossly intact Insight: + impaired insight Judgement: + impaired judgement Vital Signs (Past 24 Hours) Last Vital Signs Temp 36.9 C 05/30/20 06:45 Pulse 84 05/30/20 06:46 Resp 16 05/30/20 06:45 BP 102/71 05/30/20 06:46 Pulse Ox 98 05/23/20 01:05 Results & Data ([facility]) Current Inpatient Medications Current Inpatient Medications: Current Inpatient Medications Acetaminophen (Acetaminophen 325 Mg Tab) 650 mg PO Q4H PRN PRN Reason: Headache or Minor Fever Stop: 06/22/20 01:13 Al Hydrox/Mg Hydrox/Simethicone (Aluminum/Magnesium Susp 30 Ml Udc) 30 ml PO Q4H PRN PRN Reason: GI Upset Stop: 06/22/20 01:13 Benztropine Mesylate (Benztropine Mesylate 1 Mg Tab) 2 mg PO BID PRN PRN Reason: Dystonia Stop: 06/24/20 20:08 Benztropine Mesylate (Benztropine Mesylate 1 Mg/Ml 2 Ml Amp) 2 mg IM BID PRN PRN Reason: Dystonic Reaction Stop: 06/24/20 20:08 Bismuth Subsalicylate (Bismuth Subsalicylate Liqd 236 Ml) 15 ml PO PRN PRN PRN Reason: Loose Stool Stop: 06/22/20 01:13 Haloperidol (Haloperidol 5 Mg Tab) 5 mg PO QAM SIMONA Stop: 06/29/20 08:59 Haloperidol (Haloperidol 5 Mg Tab) 7.5 mg PO HS SIMONA Stop: 06/28/20 21:59 Last Admin: 05/29/20 21:49 Dose: 7.5 mg Documented by: Haloperidol Lactate (Haloperidol Lactate 5 Mg/Ml 1 Ml Vial) 5 mg IM QAM PRN PRN Reason: Refusal of PO meds Stop: 06/25/20 09:12 Haloperidol Lactate (Haloperidol Lactate 5 Mg/Ml 1 Ml Vial) 7.5 mg IM HS PRN PRN Reason: Refusal of PO meds Stop: 06/28/20 10:19 Hydroxyzine HCl (Hydroxyzine Hcl 25 Mg Tab) 50 mg PO HSZ PRN PRN Reason: Insomnia Stop: 06/22/20 01:13 Hydroxyzine HCl (Hydroxyzine Hcl 25 Mg Tab) 25 mg PO Q4H PRN PRN Reason: Anxiety Stop: 06/22/20 01:13 Magnesium Hydroxide (Magnesium Hydroxide Susp 30 Ml Udc) 30 ml PO DAILY PRN PRN Reason: Constipation Stop: 06/22/20 01:13 Miscellaneous (Remove Nicoderm Patch) 1 ea N/A DAILY@0859 [facility] Stop: 06/23/20 08:58 Last Admin: 05/29/20 09:51 Dose: Not Given Documented by: Nicotine (Nicotine 21 Mg/24 Hr Tdsy) 21 mg TD QAM [facility] Stop: 06/22/20 08:59 Last Admin: 05/29/20 09:51 Dose: Not Given Documented by: Rivaroxaban (Rivaroxaban 15 Mg Tab) 15 mg PO QDD [facility] Stop: 06/22/20 17:44 Last Admin: 05/29/20 17:09 Dose: 15 mg Documented by: Sodium Chloride (Sodium Chloride 0.65% Na Soln 45 Ml (Ware)) 1 - 2 sprays NA PRN PRN PRN Reason: Nasal Dryness/Congestion Stop: 06/22/20 01:13 Mental Health & Subst Abuse Tx Psychiatrist Name of Psychiatrist: Dr [facility] Psychiatrist's Psychiatric Appointment Comment: [facility] [address], [place], [place] Fan Blade Aligner Name of Fan Blade Aligner: Nelia Phone Number for Fan Blade Aligner: [phone] Case Management Appointment Comment: [address], [address], [place], [place] Post Discharge Appointments Primary Care Physician Name Of Family Doctor: Dr. Mcadams Primary Care Provider Appointment Comment: [address], [place], [place]
[2020-05-30] MEDS: haloperidoL 5 MG TAB PO SCH ×2 (10:15→21:25)
[2020-05-30] MEDS: NICOTINE 21 MG/24 HR TDSY TD SCH (10:15)
[2020-05-30] MEDS: NICOTINE POLACRILEX 2 MG GUM MT PRN ×2 (15:37→19:48)
[2020-05-30] MEDS: RIVAROXABAN 15 MG TAB PO SCH (17:24)
--- NOTE | 2020-05-31 09:42 | Psychiatric Progress Note ---
Date of Service May 31, 2020 Impression / Recommendations Impression 39-year-old female who lives with her boyfriend in [place], has a long history of schizophrenia and treatment noncompliance, who presents with psychosis in the context of noncompliance with antipsychotic medication. She was found by police walking for hours in the rain, with creatinine kinase of 825, and potassium of 2.6, indicating poor p.o. intake. She said she was trying to find a space ship to take her to outer space, and per family had made comments about taking her young nephew with her. Here she is expressing delusions that her father is following her, wants to harm her, and that the staff here are not real doctors and nurses. She has been engaging in erratic and unsafe behavior in the context of psychosis, including walking long distances, not eating or sleeping, hitchhiking, trying to steal a car, and refusing to take her psychotropic and anticoagulant medication. She has a history of multiple DVTs and PEs, and requires lifelong anticoagulation. She locked her boyfriend, whom she lives with, in her room in their home prior to leaving. On admission, she was disorganized, paranoid, delusional, and hallucinating, and is clearly unable to provide for her own safety, health, welfare, assisted, and nutrition without the care and assistance of others. She continues to demonstrate poor insight and remains unable to adequately articulate or understand the concerns resulting in her admission. She is chronically noncompliant with oral medications and recommendation would be for an RAMON and 304 IOC on discharge. She is on a 303 involuntary commitment, and two physician opinions for recommendation for medications over objection have been given. Thus far, patient has been taking oral medications here in the structured hospital setting. She remains as very high risk of medication noncompliance and rapid decompensation outside of a structured setting and therefore inpatient psychiatric treatment continues to be medically necessary. (1) Paranoid schizophrenia: 05/23 -admitted with delusions, hallucinations, paranoia, and erratic behavior. Unable to reality test, refusing all antipsychotic medications. Patient is at imminent risk to both herself and others without treatment with antipsychotic medication to address her psychotic symptoms. Recommend medications over objection, as she has responded positively to treatment with antipsychotics in the past, and her symptoms are unlikely to remit without said treatment. -She has reportedly been noncompliant with clozapine for months, so will have to be re-titrated starting with 25 mg daily. She is unfortunately refusing all medications at this time, and is also refusing blood work. We may need to consider a long-acting injectable antipsychotic if she remains nonadherent. -I have called outpatient psychiatrist, Dr. Williamson's, office, explaining that the patient is here involuntarily, refusing to sign all releases, and that we are requesting records in order to treat her emergency medical condition. -Coordinate care with her BCM, Yuliet, and family/boyfriend. -Medically necessary private room due to psychosis and acting on delusional thoughts. -File for 303 involuntary commitment, hearing to be held tomorrow. 05/24 -303 hearing held and granted. -Continue to encourage her to take medications orally, which she is adamantly refusing. I recommend medications over objection to target her psychotic symptoms, as she has schizophrenia, presents with paranoia, delusions, hallucinations, and is acting on these thoughts, has no insight or ability to reality test, and symptoms have responded to antipsychotics in the past. She is at acute risk of harm to both herself and others if her symptoms are not treated, due to her behavior (not eating adequately with hypokalemia, walking long distances with rhabdomyolysis, hitchhiking, no concern for her own safety, attempting to steal a car, and believing that if spaceship is taking her to outer space and she wants to take her nephew with her). She does not feel safe returning to her home in [place] due to persecute Sergio delusions, and is likely to flee the area if released and her current mental state. She has responded well to clozapine in the past, but is it is not available in an injectable form, we will have to utilize another agent such as haloperidol or olanzapine, which is available as an immediate release IM. We could also consider placing her on a long-acting injectable antipsychotic, given her history of repeated nonadherence with treatment. -Reviewed case with Yuliet, her family independence case manager through [facility], who believes the patient needs an involuntary outpatient commitment, and states her outpatient psychiatrist would not complete paperwork and said he was unable to do so. 05/25 -Today, the patient did agree to take a single dose of clozapine, although she indicated that she believed that we were giving her a placebo and refused to believe the nurses explanation that, in fact, she was being given clozapine. The patient was not shown the label of the medication, and it is not clear if she took the medication because she thought it was a placebo or because she realized what it was and wanted to take it. She did say, "my psychiatrist wants me to take clozapine." -The patient is currently floridly psychotic and unable to evidence a reasonable choice in terms of whether or not to take psychiatric medications. She has repeatedly told us that she would refuse to take her medications, including her anticoagulant medication and any psychiatric medicine. She notes that she only is willing to consume "natural things, like herbs." In my opinion, the patient is suffering from a severe mental illness, namely schizophrenia. She is delusional, dangerous to herself as a function of her inability to care for herself, and she is unlikely to enjoy any substantial improvement without the use of psychiatric medications. I agree with the finding that the patient will require medications, if necessary over objection, and intramuscular form, and that antipsychotic medications over objection are medically necessary and appropriate in this case. I will order Haldol 5 mg by mouth twice a day, and will also order Haldol 5 mg intramuscularly by mouth twice a day as needed for refusal of p.o. Haldol. 05/26--Seems more cooperative today, will increase Clozaril to 25 mg BID as per Dr. Zuniga, titration may be limited if refuses labs. Will keep Haldol ordered BID as well while titrating Clozaril but only inject in am if objects rather than BID as not acutely agitated. 05/27--d/c Clozaril as will not comply with labs and seems quite sedating, Haldol can be adjusted and hope is for conversion to RAMON (atypical vs Haldol). 05/28--improving but sedated. --Continue current meds, if remains so sedated throughout day tomorrow consider shifting dose (may also be avoidance, clozaril d/c yesterday). Dr. Bustillos to reassess and determine if Haldol dec most appropriate or if should be converted to an atypical as clears. Patient is not able to fully process that choice for today. 05/29 --Discussed further titration of haloperidol with patient - will increase HS dose due to concerns for daytime sedation. Pt agreeable with increasing dose to 7.5mg, continuing 5mg each morning. Consider further titration as indicated/t olerated --Though patient is in appropriate behavioral control and does not openly verbalize delusional thought content, she still demonstrates considerable lack of insight regarding the severity of her condition and need for appropriate treatment. Discussed recommendation for an RAMON, which patient is not interested in. Reasoning for recommendation was provided to the patient and patient was encouraged to compile questions so that this could be discussed in greater detail. --Atypical agents may be better tolerated penitentiary, however, patient is still not demonstrating adequate insight to be able to discuss this in detail. 05/30 - Continue current doses of haloperidol - continue titration as indicated. Pt continues to be superficially reality-based when meeting with providers, but is continuing to verbalize delusional thought content to staff when in group programming. - Pt continues to decline RAMON 05/31 - Suggested titrating HS haloperidol to 10mg and maintaining 5mg morning dose - patient unwilling at this time for this adjustment. Psychotic symptoms were not quite as prevalent today, so waited on making this adjustment to allow additional time for observation. Continue to strongly encourage RAMON which patient continues to decline. We can certainly engage patient in conversation about alternative antipsychotic medication options, but she has not yet been able to/agreeable with participating in this conversation - Pt is benefiting from the structured and supervised hospital setting, but has continued to be resistant to suggests that would allow her to maintain stability in the outpatient setting. She continues to be at acute risk of rapid decompensation if discharged (2) MTHFR mutation: 05/23 -patient has a history of multiple DVTs and PE, at least 2 requiring hospitalization. She has been informed multiple times in the past that she will need to be on lifelong anticoagulant medication, but has repeatedly been nonco mpliant with it when psychotic. -Xarelto has been reordered, if patient remains unwilling to take it, may have to consult the hospitalist and explore other options. PT/INR ordered, but patient refused. -Coordinate care with PCP, Dr. Mcdowell, and patient will need follow-up after discharge. 05/24 -patient continues to refuse to take any anticoagulant medication or allow a blood draw for PT/INR. 05/24 -The patient is continuing to refuse to take anticoagulant medication or allow blood draws. This is 1 of the reasons why we are convinced that medications over objection are medically necessary in this case in order to stabilize the patient's condition and improve her insight and the need for treatment. Reviewed 05/26/2020. 05/31 - Pt continues to be compliant with Xarelto when offered - compliance likely strongly related to the structured hospital setting (3) Pulmonary embolism: (4) Hypokalemia: 05/23 - Potassium was 2.6 in the ER, patient received po potassium chloride 40meq x 2. Refusing additional labs today, but will continue to encourage compliance and will re-order for tomorrow. Monitor PO intake and encourage good nutrition. 05/24 -patient is eating some food here, but refusing to allow a blood draw to recheck potassium. 05/25 -the patient is continuing to eat on the unit, but is still refusing to allow blood draws to recheck her potassium. Reviewed 05/26/2020. 05/27--patient refused lab draw. (5) Vitamin B12 deficiency: 05/23 -patient started on vitamin B12 500 mcg daily during last hospitalization, when she was seen by the hospitalist service for recommendations regarding her anticoagulant. Folate and vitamin B12 were checke d due to their association with high homocystine levels, which is associated with VTE. Vitamin B12 was low at 130. -We will hold off on resuming vitamin B12 and folic acid, as patient is currently refusing all medications and want to focus on her antipsychotic and anticoagulant first, but can resume these once she is less psychotic/more adherent. Reviewed 05/26/2020. (6) Folate deficiency: 05/23 -folate checked during December hospitalization due to the above, was low at 3.42, and folic acid 20 mg daily was started. Reviewed 05/26/2020. (7) Nicotine dependence: 05/23 -patient unable to participate in smoking cessation education due to severity of psychosis. Offer patch and gum as needed for cravings. Reviewed 05/26/2020. Risk Factors Assessment Male: No : Yes Do You Have Access To A Gun?: No Health Problems: Yes Mental Health Diagnoses: Yes Substance Use Disorders: No Previous Attempt: No Family History of Suicide: No Previous Psychiatric Hospitalization: Yes Hopelessness: No Smoker: Yes Protective Factors Assessment : No Responsible for Young Children: No Employed: No Stable Relationships: No Supportive Family: Yes Good Rapport with Provider: No Interval History Identifying Information ROSMERY TALBERT is a 39-year-old F who currently lives in [place] with her boyfriend, has a history of schizophrenia and treatment noncompliance, and was admitted on 05/23/20 00:19 on a 302 involuntary commitment for psychosis and erratic and unsafe behavior in the context of treatment noncompliance. 303 was granted on 05/24. Chief Complaint "Um, I'm ok. I just need to get out of here." Review of Systems Notes Constitutional: reports daytime fatigue Cardiovascular: denied Respiratory: denied Gastrointestinal: denied Neurological: denied Psychiatric: denies symptoms other than stated above Total of at least 10 systems reviewed, pertinent positives as above and in HPI. Sleep Information Total Hours of Sleep: 6.75 Sleep Comments: pt appeared to be asleep @0400 and thereafter. pt remained in her room most of the night. pt on q-15 minute checks Meal Information Percent Meal Consumed - Breakfast: 75 Percent Meal Consumed - Lunch: 100 Percent Meal Consumed - Dinner: 75 Nutrition Comment: pt. requested a banana but fell asleep. Fluids provided Subjective Subjective Patient was seen & assessed and interval progress reviewed with nursing and social work. Staff report the patient reported being upset about her anticipated length of stay and diagnosis listed on her treatment plan. Pt reportedly continued to maintain the delusion that she is actually an employee of our unit. Pt was seen today to assess progress since admission. 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 Pt admits she has still not signed ROIs to allow for communication with her family or her outpatient providers, and states "maybe I'll work on that today." Pt continues to state she would prefer to go home to her apartment. She is verbalizing willingness to comply with oral medications, but is not able to understand that compliance has been a chronic issue which generally leads to her hospitalizations. Pt continues to refuse to consider an RAMON, laughing and stating "you are the most stubborn doctor I have ever talked to." She does not offer concerns contributing to her refusal, but simply states "I'm good with the pills." Pt is at least able to state, "I think switching to the Haldol was a good choice, I'm good with the Haldol." Pt remains unable to recognize and identify with the concern regarding her pattern for non compliance and decompensation when she is discharged from the hospital setting. Other than "I really want to go home", she denies concerns or needs at this time. Physical Exam Psychiatric Orientation: alert, oriented x 3 and + guarded Apperance: appropriately dressed, + disheveled and appeared stated age Eye Contact: good eye contact Motor Behavior: steady gait and station and no abnormal motor movements Speech: normal rate/rhythm/volume of speech Affect: + blunted affect (with an irritable edge at times) Mood: no depressed mood ("I'm fine") Thought Process: + perseveration (on discharge ) and + confabulations (patient blaming father who "always calls the police on me" for admission) Pt continues to verbalize thoughts that are inconsistent with reports of her behavior prior to admission. Thought Content: + delusions and + persecution (suspicious of father and his intentions, blames him for admission) Suicidal Thoughts: denies suicidal thoughts Homicidal Thoughts: denies homicidal thoughts Hallucinations: no auditory hallucinations and no visual hallucinations Cognition: attention grossly intact and language grossly intact Insight: + impaired insight Judgement: + impaired judgement Vital Signs (Past 24 Hours) Last Vital Signs Temp 36.8 C 05/31/20 06:22 Pulse 85 05/31/20 06:23 Resp 16 05/31/20 06:22 BP 96/68 L 05/31/20 06:23 Pulse Ox 98 05/23/20 01:05 Results & Data ([facility]) Current Inpatient Medications Current Inpatient Medications: Current Inpatient Medications Acetaminophen (Acetaminophen 325 Mg Tab) 650 mg PO Q4H PRN PRN Reason: Headache or Minor Fever Stop: 06/22/20 01:13 Al Hydrox/Mg Hydrox/Simethicone (Aluminum/Magnesium Susp 30 Ml Udc) 30 ml PO Q4H PRN PRN Reason: GI Upset Stop: 10/30/20 01:13 Benztropine Mesylate (Benztropine Mesylate 1 Mg Tab) 2 mg PO BID PRN PRN Reason: Dystonia Stop: 06/24/20 20:08 Benztropine Mesylate (Benztropine Mesylate 1 Mg/Ml 2 Ml Amp) 2 mg IM BID PRN PRN Reason: Dystonic Reaction Stop: 06/24/20 20:08 Bismuth Subsalicylate (Bismuth Subsalicylate Liqd 236 Ml) 15 ml PO PRN PRN PRN Reason: Loose Stool Stop: 06/22/20 01:13 Haloperidol (Haloperidol 5 Mg Tab) 5 mg PO QAM SIMONA Stop: 06/29/20 08:59 Last Admin: 05/30/20 10:15 Dose: 5 mg Documented by: Haloperidol (Haloperidol 5 Mg Tab) 7.5 mg PO HS SIMONA Stop: 06/28/20 21:59 Last Admin: 05/30/20 21:25 Dose: 7.5 mg Documented by: Haloperidol Lactate (Haloperidol Lactate 5 Mg/Ml 1 Ml Vial) 5 mg IM QAM PRN PRN Reason: Refusal of PO meds Stop: 06/25/20 09:12 Haloperidol Lactate (Haloperidol Lactate 5 Mg/Ml 1 Ml Vial) 7.5 mg IM HS PRN PRN Reason: Refusal of PO meds Stop: 06/28/20 10:19 Hydroxyzine HCl (Hydroxyzine Hcl 25 Mg Tab) 50 mg PO HSZ PRN PRN Reason: Insomnia Stop: 06/22/20 01:13 Hydroxyzine HCl (Hydroxyzine Hcl 25 Mg Tab) 25 mg PO Q4H PRN PRN Reason: Anxiety Stop: 06/22/20 01:13 Magnesium Hydroxide (Magnesium Hydroxide Susp 30 Ml Udc) 30 ml PO DAILY PRN PRN Reason: Constipation Stop: 06/22/20 01:13 Miscellaneous (Remove Nicoderm Patch) 1 ea N/A DAILY@[id number] [facility] Stop: 06/23/20 08:58 Last Admin: 05/30/20 10:15 Dose: Not Given Documented by: Nicotine (Nicotine 21 Mg/24 Hr Tdsy) 21 mg TD QAM [facility] Stop: 06/22/20 08:59 Last Admin: 05/30/20 10:15 Dose: Not Given Documented by: Nicotine Polacrilex (Nicotine Polacrilex 2 Mg Gum) 1 piece MT PRN PRN PRN Reason: nicotine cravings Stop: 06/29/20 14:03 Last Admin: 05/30/20 19:48 Dose: 1 piece Documented by: Rivaroxaban (Rivaroxaban 15 Mg Tab) 15 mg PO QDD SIMONA Stop: 06/22/20 17:44 Last Admin: 05/30/20 17:24 Dose: 15 mg Documented by: Sodium Chloride (Sodium Chloride 0.65% Na Soln 45 Ml ([place])) 1 - 2 sprays NA PRN PRN PRN Reason: Nasal Dryness/Congestion Stop: 06/22/20 01:13 Mental Health & Subst Abuse Tx Psychiatrist Name of Psychiatrist: Dr Williamson-[facility] Psychiatrist's Psychiatric Appointment Comment: [address] [place] [address], [address], [place] Weed Thinner Name of Weed Thinner: Nelia Phone Number for Weed Thinner: [phone] Case Management Appointment Comment: [address] [facility] [address], [address], [place], [place] Post Discharge Appointments Primary Care Physician Name Of Family Doctor: Dr. Mcadams Primary Care Provider Appointment Comment: [address] [facility], [place], [place]
[2020-05-31] MEDS: haloperidoL 5 MG TAB PO SCH ×2 (10:12→21:30)
[2020-05-31] MEDS: NICOTINE 21 MG/24 HR TDSY TD SCH (10:14)
[2020-05-31] MEDS: RIVAROXABAN 15 MG TAB PO SCH (17:23)
--- NOTE | 2020-06-01 09:31 | Psychiatric Progress Note ---
Date of Service June 01, 2020 Impression / Recommendations Impression 39-year-old female who lives with her boyfriend in [place], has a long history of schizophrenia and treatment noncompliance, who presents with psychosis in the context of noncompliance with antipsychotic medication. She was found by police walking for hours in the rain, with creatinine kinase of 825, and potassium of 2.6, indicating poor p.o. intake. She said she was trying to find a space ship to take her to outer space, and per family had made comments about taking her young nephew with her. Here she is expressing delusions that her father is following her, wants to harm her, and that the staff here are not real doctors and nurses. She has been engaging in erratic and unsafe behavior in the context of psychosis, including walking long distances, not eating or sleeping, hitchhiking, trying to steal a car, and refusing to take her psychotropic and anticoagulant medication. She has a history of multiple DVTs and PEs, and requires lifelong anticoagulation. She locked her boyfriend, whom she lives with, in her room in their home prior to leaving. On admission, she was disorganized, paranoid, delusional, and hallucinating, and is clearly unable to provide for her own safety, health, welfare, half-way, and nutrition without the care and assistance of others. She continues to demonstrate poor insight and remains unable to adequately articulate or understand the concerns resulting in her admission. She is chronically noncompliant with oral medications and recommendation would be for an RAMON and 304 IOC on discharge. She is on a 303 involuntary commitment, and two physician opinions for recommendation for medications over objection have been given. Thus far, patient has been taking oral medications here in the structured hospital setting. She remains as very high risk of medication noncompliance and rapid decompensation outside of a structured setting and therefore inpatient psychiatric treatment continues to be medically necessary. (1) Paranoid schizophrenia: 05/23 -admitted with delusions, hallucinations, paranoia, and erratic behavior. Unable to reality test, refusing all antipsychotic medications. Patient is at imminent risk to both herself and others without treatment with antipsychotic medication to address her psychotic symptoms. Recommend medications over objection, as she has responded positively to treatment with antipsychotics in the past, and her symptoms are unlikely to remit without said treatment. -She has reportedly been noncompliant with clozapine for months, so will have to be re-titrated starting with 25 mg daily. She is unfortunately refusing all medications at this time, and is also refusing blood work. We may need to consider a long-acting injectable antipsychotic if she remains nonadherent. -I have called outpatient psychiatrist, Dr. Williamson's, office, explaining that the patient is here involuntarily, refusing to sign all releases, and that we are requesting records in order to treat her emergency medical condition. -Coordinate care with her BCM, Yuliet, and family/boyfriend. -Medically necessary private room due to psychosis and acting on delusional thoughts. -File for 303 involuntary commitment, hearing to be held tomorrow. 05/24 -303 hearing held and granted. -Continue to encourage her to take medications orally, which she is adamantly refusing. I recommend medications over objection to target her psychotic symptoms, as she has schizophrenia, presents with paranoia, delusions, hallucinations, and is acting on these thoughts, has no insight or ability to reality test, and symptoms have responded to antipsychotics in the past. She is at acute risk of harm to both herself and others if her symptoms are not treated, due to her behavior (not eating adequately with hypokalemia, walking long distances with rhabdomyolysis, hitchhiking, no concern for her own safety, attempting to steal a car, and believing that if spaceship is taking her to outer space and she wants to take her nephew with her). She does not feel safe returning to her home in [place] due to persecute Sergio delusions, and is likely to flee the area if released and her current mental state. She has responded well to clozapine in the past, but is it is not available in an injectable form, we will have to utilize another agent such as haloperidol or olanzapine, which is available as an immediate release IM. We could also consider placing her on a long-acting injectable antipsychotic, given her history of repeated nonadherence with treatment. -Reviewed case with Yuliet, her shoe caser through [facility], who believes the patient needs an involuntary outpatient commitment, and states her outpatient psychiatrist would not complete paperwork and said he was unable to do so. 05/25 -Today, the patient did agree to take a single dose of clozapine, although she indicated that she believed that we were giving her a placebo and refused to believe the nurses explanation that, in fact, she was being given clozapine. The patient was not shown the label of the medication, and it is not clear if she took the medication because she thought it was a placebo or because she realized what it was and wanted to take it. She did say, "my psychiatrist wants me to take clozapine." -The patient is currently floridly psychotic and unable to evidence a reasonable choice in terms of whether or not to take psychiatric medications. She has repeatedly told us that she would refuse to take her medications, including her anticoagulant medication and any psychiatric medicine. She notes that she only is willing to consume "natural things, like herbs." In my opinion, the patient is suffering from a severe mental illness, namely schizophrenia. She is delusional, dangerous to herself as a function of her inability to care for herself, and she is unlikely to enjoy any substantial improvement without the use of psychiatric medications. I agree with the finding that the patient will require medications, if necessary over objection, and intramuscular form, and that antipsychotic medications over objection are medically necessary and appropriate in this case. I will order Haldol 5 mg by mouth twice a day, and will also order Haldol 5 mg intramuscularly by mouth twice a day as needed for refusal of p.o. Haldol. 05/26--Seems more cooperative today, will increase Clozaril to 25 mg BID as per Dr. Zuniga, titration may be limited if refuses labs. Will keep Haldol ordered BID as well while titrating Clozaril but only inject in am if objects rather than BID as not acutely agitated. 05/27--d/c Clozaril as will not comply with labs and seems quite sedating, Haldol can be adjusted and hope is for conversion to RAMON (atypical vs Haldol). 05/28--improving but sedated. --Continue current meds, if remains so sedated throughout day tomorrow consider shifting dose (may also be avoidance, clozaril d/c yesterday). Dr. Bustillos to reassess and determine if Haldol dec most appropriate or if should be converted to an atypical as clears. Patient is not able to fully process that choice for today. 05/29 --Discussed further titration of haloperidol with patient - will increase HS dose due to concerns for daytime sedation. Pt agreeable with increasing dose to 7.5mg, continuing 5mg each morning. Consider further titration as indicated/t olerated --Though patient is in appropriate behavioral control and does not openly verbalize delusional thought content, she still demonstrates considerable lack of insight regarding the severity of her condition and need for appropriate treatment. Discussed recommendation for an RAMON, which patient is not interested in. Reasoning for recommendation was provided to the patient and patient was encouraged to compile questions so that this could be discussed in greater detail. --Atypical agents may be better tolerated fdc, however, patient is still not demonstrating adequate insight to be able to discuss this in detail. 05/30 - Continue current doses of haloperidol - continue titration as indicated. Pt continues to be superficially reality-based when meeting with providers, but is continuing to verbalize delusional thought content to staff when in group programming. - Pt continues to decline RAMON 05/31 - Suggested titrating HS haloperidol to 10mg and maintaining 5mg morning dose - patient unwilling at this time for this adjustment. Psychotic symptoms were not quite as prevalent today, so waited on making this adjustment to allow additional time for observation. Continue to strongly encourage RAMON which patient continues to decline. We can certainly engage patient in conversation about alternative antipsychotic medication options, but she has not yet been able to/agreeable with participating in this conversation - Pt is benefiting from the structured and supervised hospital setting, but has continued to be resistant to suggests that would allow her to maintain stability in the outpatient setting. She continues to be at acute risk of rapid decompensation if discharged 06/01 - Titrating haloperidol to 5mg qAM and 10mg qHS due to ongoing delusional statements made to staff during group programming. Yesterday, patient had reported that she owns numerous houses and is again stating the belief that her father is not her true father. - Pt continues to refuse an RAMON, but did verbalize willingness for mobile medical management - Pt continues to demonstrate poor insight as to the pattern of behaviors that contributes to frequent hospitalizations. (2) MTHFR mutation: 05/23 -patient has a history of multiple DVTs and PE, at least 2 requiring hospitalization. She has been informed multiple times in the past that she will need to be on lifelong anticoagulant medication, but has repeatedly been noncompliant with it when psychotic. -Xarelto has been reordered, if patient remains unwilling to take it, may have to consult the hospitalist and explore other options. PT/INR ordered, but patient refused. -Coordinate care with PCP, Dr. Mcdowell, and patient will need follow-up after discharge. 05/24 -patient continues to refuse to take any anticoagulant medication or allow a blood draw for PT/INR. 05/24 -The patient is continuing to refuse to take anticoagulant medication or allow blood draws. This is 1 of the reasons why we are convinced that medications over objection are medically necessary in this case in order to stabilize the patient's condition and improve her insight and the need for treatment. Reviewed 05/26/2020. 05/31 - Pt continues to be compliant with Xarelto when offered - compliance likely strongly related to the structured hospital setting (3) Pulmonary embolism: (4) Hypokalemia: 05/23 - Potassium was 2.6 in the ER, patient received po potassium chloride 40meq x 2. Refusing additional labs today, but will continue to encourage compliance and will re-order for tomorrow. Monitor PO intake and encourage good nutrition. 05/24 -patient is eating some food here, but refusing to allow a blood draw to recheck potassium. 05/25 -the patient is continuing to eat on the unit, but is still refusing to allow blood draws to recheck her potassium. Reviewed 05/26/2020. 05/27--patient refused lab draw. (5) Vitamin B12 deficiency: 05/23 -patient started on vitamin B12 500 mcg daily during last hospitalization, when she was seen by the hospitalist service for recommendations regarding her anticoagulant. Folate and vitamin B12 were checked due to their association with high homocystine levels, which is associated with VTE. Vitamin B12 was low at 130. -We will hold off on resuming vitamin B12 and folic acid, as patient is currently refusing all medications and want to focus on her antipsychotic and anticoagulant first, but can resume these once she is less psychotic/more adherent. Reviewed 05/26/2020. (6) Folate deficiency: 05/23 -folate checked during December hospitalization due to the above, was low at 3.42, and folic acid 20 mg daily was started. Reviewed 05/26/2020. (7) Nicotine dependence: 05/23 -patient unable to participate in smoking cessation education due to severity of psychosis. Offer patch and gum as needed for cravings. Reviewed 05/26/2020. Risk Factors Assessment Male: No : Yes Do You Have Access To A Gun?: No Health Problems: Yes Mental Health Diagnoses: Yes Substance Use Disorders: No Previous Attempt: No Family History of Suicide: No Previous Psychiatric Hospitalization: Yes Hopelessness: No Smoker: Yes Protective Factors Assessment : No Responsible for Young Children: No Employed: No Stable Relationships: No Supportive Family: Yes Good Rapport with Provider: No Interval History Identifying Information ROSMERY TALBERT is a 39-year-old F who currently lives in [place] with her boyfriend, has a history of schizophrenia and treatment noncompliance, and was admitted on 05/23/20 00:19 on a 302 involuntary commitment for psychosis and erratic and unsafe behavior in the context of treatment noncompliance. 303 was granted on 05/24. Chief Complaint When asked 'What's new?' - "Nothing really, just ready to get out of here." Review of Systems Notes Constitutional: denied Cardiovascular: denied Respiratory: denied Gastrointestinal: denied Neurological: denied Psychiatric: denies symptoms other than stated above Total of at least 10 systems reviewed, pertinent positives as above and in HPI. Sleep Information Total Hours of Sleep: 6 Sleep Comments: pt appeared to be asleep @0400 and thereafter. pt remained in her room most of the night. pt on q-15 minute checks Meal Information Percent Meal Consumed - Breakfast: 0 Percent Meal Consumed - Lunch: 100 Percent Meal Consumed - Dinner: 100 Nutrition Comment: pt. does not typically eat breakfast Subjective Subjective Patient was seen & assessed and interval progress reviewed with treatment team. Staff report the patient has been participating in groups, but continues to refuse recommendations regarding discharge planning. Pt continues to verbalize delusional thought content to staff. During group therapy, she reported that she would be moving with her cats to "one of my many houses" and she continues to believe that her father is not her dad - a consistent delusion that emerges during episodes of psychosis. She continues to refuse to allow her family to participate in her treatment. Pt was seen today to assess progress since admission. Pt was asked what was new, and stated "nothing really, just ready to get out of here." Pt was asked what she felt was still necessary in order to formulate a discharge plan. She appropriately stated, "you guys have to coordinate with my shoe caser, get my outpatient appointments, and I have to make sure I take my meds." Pt is able to verbalize these steps during superficial conversation, but it was pointed out by this provider that there are behaviors that prevent the patient from continuing her medications when she is discharged. Pt reports she would be willing to explore mobile medication management, but continues to express she is not willing for an RAMON. The patient maintains that "I'm only here because of my parents. They don't know what it's like to be young. It's not weird to walk to [facility] at 1:30 in the morning, it's just weird to them." This provider reminded the patient that concerns were reported to suggest that it was not simply patient walking around at night that was the concern. Pt continues to superficially agree with recommendations for increased outpatient supports, but does not seem to have the insight to understand the consequences of her poor medication compliance. Pt denies SI/HI as well as other perceived concerns. Despite a lengthy conversation as described above, the patient stated her goal for today was to "talk to the doctor about why I still need to be here." This provider reviewed the concerns again, as previously discussed. She denied other needs today and said, "I'm just really hoping I can get out of here soon." Physical Exam Psychiatric Orientation: alert, oriented x 3 and + guarded (superficially cooperative ) Apperance: appropriately dressed and + disheveled; + inappropriately groomed Eye Contact: + fair eye contact Motor Behavior: steady gait and station and no abnormal motor movements Speech: normal rate/rhythm/volume of speech Affect: + blunted affect and + irritable affect (at times, especially when attempting to request discharge) Mood: no depressed mood ("I'm fine, I just am ready to go") Thought Process: goal directed thought process and + concrete thought process Thought Content: + delusions and + persecution; no hopelessness not openly verbalizing delusions during encounter with this provider, but co ntinues to suggest delusional thought content during group programming Suicidal Thoughts: denies suicidal thoughts Homicidal Thoughts: denies homicidal thoughts Hallucinations: no auditory hallucinations and no visual hallucinations Cognition: attention grossly intact and language grossly intact Insight: + impaired insight Judgement: + impaired judgement Vital Signs (Past 24 Hours) Last Vital Signs Temp 36.8 C 06/01/20 06:26 Pulse 101 H 06/01/20 06:26 Resp 16 06/01/20 06:26 BP 108/72 06/01/20 06:26 Pulse Ox 98 05/23/20 01:05 Results & Data ([facility]) Current Inpatient Medications Current Inpatient Medications: Current Inpatient Medications Acetaminophen (Acetaminophen 325 Mg Tab) 650 mg PO Q4H PRN PRN Reason: Headache or Minor Fever Stop: 06/22/20 01:13 Al Hydrox/Mg Hydrox/Simethicone (Aluminum/Magnesium Susp 30 Ml Udc) 30 ml PO Q4H PRN PRN Reason: GI Upset Stop: 06/22/20 01:13 Benztropine Mesylate (Benztropine Mesylate 1 Mg Tab) 2 mg PO BID PRN PRN Reason: Dystonia Stop: 06/24/20 20:08 Benztropine Mesylate (Benztropine Mesylate 1 Mg/Ml 2 Ml Amp) 2 mg IM BID PRN PRN Reason: Dystonic Reaction Stop: 06/24/20 20:08 Bismuth Subsalicylate (Bismuth Subsalicylate Liqd 236 Ml) 15 ml PO PRN PRN PRN Reason: Loose Stool Stop: 06/22/20 01:13 Haloperidol (Haloperidol 5 Mg Tab) 5 mg PO QAM SIMONA Stop: 06/29/20 08:59 Last Admin: 05/31/20 10:12 Dose: 5 mg Documented by: Haloperidol (Haloperidol 5 Mg Tab) 7.5 mg PO HS SIMONA Stop: 06/28/20 21:59 Last Admin: 05/31/20 21:30 Dose: 7.5 mg Documented by: Haloperidol Lactate (Haloperidol Lactate 5 Mg/Ml 1 Ml Vial) 5 mg IM QAM PRN PRN Reason: Refusal of PO meds Stop: 06/25/20 09:12 Haloperidol Lactate (Haloperidol Lactate 5 Mg/Ml 1 Ml Vial) 7.5 mg IM HS PRN PRN Reason: Refusal of PO meds Stop: 06/28/20 10:19 Hydroxyzine HCl (Hydroxyzine Hcl 25 Mg Tab) 50 mg PO HSZ PRN PRN Reason: Insomnia Stop: 06/22/20 01:13 Hydroxyzine HCl (Hydroxyzine Hcl 25 Mg Tab) 25 mg PO Q4H PRN PRN Reason: Anxiety Stop: 06/22/20 01:13 Magnesium Hydroxide (Magnesium Hydroxide Susp 30 Ml Udc) 30 ml PO DAILY PRN PRN Reason: Constipation Stop: 06/22/20 01:13 Miscellaneous (Remove Nicoderm Patch) 1 ea N/A DAILY@[id number] [facility] Stop: 06/23/20 08:58 Last Admin: 05/31/20 10:13 Dose: Not Given Documented by: Nicotine (Nicotine 21 Mg/24 Hr Tdsy) 21 mg TD QAM [facility] Stop: 06/22/20 08:59 Last Admin: 05/31/20 10:14 Dose: Not Given Documented by: Nicotine Polacrilex (Nicotine Polacrilex 2 Mg Gum) 1 piece MT PRN PRN PRN Reason: nicotine cravings Stop: 06/29/20 14:03 Last Admin: 05/30/20 19:48 Dose: 1 piece Documented by: Rivaroxaban (Rivaroxaban 15 Mg Tab) 15 mg PO QDD [facility] Stop: 06/22/20 17:44 Last Admin: 05/31/20 17:23 Dose: 15 mg Documented by: Sodium Chloride (Sodium Chloride 0.65% Na Soln 45 Ml ([place])) 1 - 2 sprays NA PRN PRN PRN Reason: Nasal Dryness/Congestion Stop: 06/22/20 01:13 Mental Health & Subst Abuse Tx Psychiatrist Name of Psychiatrist: Dr [facility] Psychiatrist's Psychiatric Appointment Comment: [address] [place] [address], [facility], [address], [place], or Mortgage Lender Name of Mortgage Lender: Nelia Phone Number for Mortgage Lender: [phone] Case Management Appointment Comment: [address] [facility], [address], [place], [place] Post Discharge Appointments Primary Care Physician Name Of Family Doctor: Dr. Mcadams Primary Care Provider Appointment Comment: [address] [facility], [place], [place]
[2020-06-01] MEDS ORDERED: HALOPERIDOL LACTATE 5 MG/ML 1 ML VIAL IM PRN (10:13)
[2020-06-01] MEDS: NICOTINE 21 MG/24 HR TDSY TD SCH (11:01)
[2020-06-01] MEDS: haloperidoL 5 MG TAB PO SCH ×2 (11:01→22:17)
[2020-06-01] MEDS: RIVAROXABAN 15 MG TAB PO SCH (17:23)
[2020-06-02] MEDS: haloperidoL 5 MG TAB PO SCH ×2 (09:35→21:39)
--- NOTE | 2020-06-02 14:18 | Psychiatric Progress Note ---
Date of Service June 02, 2020 Impression / Recommendations Impression 39-year-old female who lives with her boyfriend in [place], has a long history of schizophrenia and treatment noncompliance, who presents with psychosis in the context of noncompliance with antipsychotic medication. She was found by police walking for hours in the rain, with creatinine kinase of 825, and potassium of 2.6, indicating poor p.o. intake. She said she was trying to find a space ship to take her to outer space, and per family had made comments about taking her young nephew with her. Here she is expressing delusions that her father is following her, wants to harm her, and that the staff here are not real doctors and nurses. She has been engaging in erratic and unsafe behavior in the context of psychosis, including walking long distances, not eating or sleeping, hitchhiking, trying to steal a car, and refusing to take her psychotropic and anticoagulant medication. She has a history of multiple DVTs and PEs, and requires lifelong anticoagulation. She locked her boyfriend, whom she lives with, in her room in their home prior to leaving. On admission, she was disorganized, paranoid, delusional, and hallucinating, and is clearly unable to provide for her own safety, health, welfare, usp, and nutrition without the care and assistance of others. She continues to demonstrate poor insight and remains unable to adequately articulate or understand the concerns resulting in her admission. She is chronically noncompliant with oral medications and recommendation would be for an RAMON and 304 IOC on discharge. She is on a 303 involuntary commitment, and two physician opinions for recommendation for medications over objection have been given. Thus far, patient has been taking oral medications here in the structured hospital setting. She remains as very high risk of medication noncompliance and rapid decompensation outside of a structured setting and therefore inpatient psychiatric treatment continues to be medically necessary. (1) Paranoid schizophrenia: 05/23 -admitted with delusions, hallucinations, paranoia, and erratic behavior. Unable to reality test, refusing all antipsychotic medications. Patient is at imminent risk to both herself and others without treatment with antipsychotic medication to address her psychotic symptoms. Recommend medications over objection, as she has responded positively to treatment with antipsychotics in the past, and her symptoms are unlikely to remit without said treatment. -She has reportedly been noncompliant with clozapine for months, so will have to be re-titrated starting with 25 mg daily. She is unfortunately refusing all medications at this time, and is also refusing blood work. We may need to consider a long-acting injectable antipsychotic if she remains nonadherent. -I have called outpatient psychiatrist, Dr. Williamson's, office, explaining that the patient is here involuntarily, refusing to sign all releases, and that we are requesting records in order to treat her emergency medical condition. -Coordinate care with her BCM, Yuliet, and family/boyfriend. -Medically necessary private room due to psychosis and acting on delusional thoughts. -File for 303 involuntary commitment, hearing to be held tomorrow. 05/24 -303 hearing held and granted. -Continue to encourage her to take medications orally, which she is adamantly refusing. I recommend medications over objection to target her psychotic symptoms, as she has schizophrenia, presents with paranoia, delusions, hallucinations, and is acting on these thoughts, has no insight or ability to reality test, and symptoms have responded to antipsychotics in the past. She is at acute risk of harm to both herself and others if her symptoms are not treated, due to her behavior (not eating adequately with hypokalemia, walking long distances with rhabdomyolysis, hitchhiking, no concern for her own safety, attempting to steal a car, and believing that if spaceship is taking her to outer space and she wants to take her nephew with her). She does not feel safe returning to her home in [place] due to persecute Sergio delusions, and is likely to flee the area if released and her current mental state. She has responded well to clozapine in the past, but is it is not available in an injectable form, we will have to utilize another agent such as haloperidol or olanzapine, which is available as an immediate release IM. We could also consider placing her on a long-acting injectable antipsychotic, given her history of repeated nonadherence with treatment. -Reviewed case with Yuliet, her adult protective caseworker through [facility], who believes the patient needs an involuntary outpatient commitment, and states her outpatient psychiatrist would not complete paperwork and said he was unable to do so. 05/25 -Today, the patient did agree to take a single dose of clozapine, although she indicated that she believed that we were giving her a placebo and refused to believe the nurses explanation that, in fact, she was being given clozapine. The patient was not shown the label of the medication, and it is not clear if she took the medication because she thought it was a placebo or because she realized what it was and wanted to take it. She did say, "my psychiatrist wants me to take clozapine." -The patient is currently floridly psychotic and unable to evidence a reasonable choice in terms of whether or not to take psychiatric medications. She has repeatedly told us that she would refuse to take her medications, including her anticoagulant medication and any psychiatric medicine. She notes that she only is willing to consume "natural things, like herbs." In my opinion, the patient is suffering from a severe mental illness, namely schizophrenia. She is delusional, dangerous to herself as a function of her inability to care for herself, and she is unlikely to enjoy any substantial improvement without the use of psychiatric medications. I agree with the finding that the patient will require medications, if necessary over objection, and intramuscular form, and that antipsychotic medications over objection are medically necessary and appropriate in this case. I will order Haldol 5 mg by mouth twice a day, and will also order Haldol 5 mg intramuscularly by mouth twice a day as needed for refusal of p.o. Haldol. 05/26--Seems more cooperative today, will increase Clozaril to 25 mg BID as per Dr. Zuniga, titration may be limited if refuses labs. Will keep Haldol ordered BID as well while titrating Clozaril but only inject in am if objects rather than BID as not acutely agitated. 05/27--d/c Clozaril as will not comply with labs and seems quite sedating, Haldol can be adjusted and hope is for conversion to RAMON (atypical vs Haldol). 05/28--improving but sedated. --Continue current meds, if remains so sedated throughout day tomorrow consider shifting dose (may also be avoidance, clozaril d/c yesterday). Dr. Bustillos to reassess and determine if Haldol dec most appropriate or if should be converted to an atypical as clears. Patient is not able to fully process that choice for today. 05/29 --Discussed further titration of haloperidol with patient - will increase HS dose due to concerns for daytime sedation. Pt agreeable with increasing dose to 7.5mg, continuing 5mg each morning. Consider further titration as indicated/ tolerated --Though patient is in appropriate behavioral control and does not openly verbalize delusional thought content, she still demonstrates considerable lack of insight regarding the severity of her condition and need for appropriate treatment. Discussed recommendation for an RAMON, which patient is not interested in. Reasoning for recommendation was provided to the patient and patient was en couraged to compile questions so that this could be discussed in greater detail. --Atypical agents may be better tolerated group home, however, patient is still not demonstrating adequate insight to be able to discuss this in detail. 05/30 - Continue current doses of haloperidol - continue titration as indicated. Pt continues to be superficially reality-based when meeting with providers, but is continuing to verbalize delusional thought content to staff when in group programming. - Pt continues to decline RAMON 05/31 - Suggested titrating HS haloperidol to 10mg and maintaining 5mg morning dose - patient unwilling at this time for this adjustment. Psychotic symptoms were not quite as prevalent today, so waited on making this adjustment to allow additional time for observation. Continue to strongly encourage RAMON which patient continues to decline. We can certainly engage patient in conversation about alternative antipsychotic medication options, but she has not yet been able to/agreeable with participating in this conversation - Pt is benefiting from the structured and supervised hospital setting, but has continued to be resistant to suggests that would allow her to maintain stability in the outpatient setting. She continues to be at acute risk of rapid decompensation if discharged 06/01 - Titrating haloperidol to 5mg qAM and 10mg qHS due to ongoing delusional statements made to staff during group programming. Yesterday, patient had reported that she owns numerous houses and is again stating the belief that her father is not her true father. - Pt continues to refuse an RAMON, but did verbalize willingness for mobile medical management - Pt continues to demonstrate poor insight as to the pattern of behaviors that contributes to frequent hospitalizations. 06/02 - Continue current doses of haloperidol. - Patient still expresses delusional thoughts to the staff but denies any delusional thoughts on today's assessment. - Patient shows impaired insight into her psychiatric issues and providers hate her because they cannot find good reasons to keep her hospitalized at this point. - Patient continues to refuse an RAMON. (2) MTHFR mutation: 9/30 -patient has a history of multiple DVTs and PE, at least 2 requiring hospitalization. She has been informed multiple times in the past that she will need to be on lifelong anticoagulant medication, but has repeatedly been noncompliant with it when psychotic. -Xarelto has been reordered, if patient remains unwilling to take it, may have to consult the hospitalist and explore other options. PT/INR ordered, but patient refused. -Coordinate care with PCP, Dr. Mcdowell, and patient will need follow-up after discharge. 05/24 -patient continues to refuse to take any anticoagulant medication or allow a blood draw for PT/INR. 05/24 -The patient is continuing to refuse to take anticoagulant medication or allow blood draws. This is 1 of the reasons why we are convinced that medications over objection are medically necessary in this case in order to stabilize the patient's condition and improve her insight and the need for treatment. Reviewed 05/26/2020. 05/31 - Pt continues to be compliant with Xarelto when offered - compliance likely strongly related to the structured hospital setting (3) Pulmonary embolism: (4) Hypokalemia: 05/23 - Potassium was 2.6 in the ER, patient received po potassium chloride 40meq x 2. Refusing additional labs today, but will continue to encourage compliance and will re-order for tomorrow. Monitor PO intake and encourage good nutrition. 05/24 -patient is eating some food here, but refusing to allow a blood draw to recheck potassium. 05/25 -the patient is continuing to eat on the unit, but is still refusing to allow blood draws to recheck her potassium. Reviewed 05/26/2020. 05/27--patient refused lab draw. (5) Vitamin B12 deficiency: 05/23 -patient started on vitamin B12 500 mcg daily during last hospitalization, when she was seen by the hospitalist service for recommendations regarding her anticoagulant. Folate and vitamin B12 were checked due to their association with high homocystine levels, which is associated with VTE. Vitamin B12 was low at 130. -We will hold off on resuming vitamin B12 and folic acid, as patient is currently refusing all medications and want to focus on her antipsychotic and anticoagulant first, but can resume these once she is less psychotic/more adherent. Reviewed 05/26/2020. (6) Folate deficiency: 05/23 -folate checked during December hospitalization due to the above, was low at 3.42, and folic acid 20 mg daily was started. Reviewed 05/26/2020. (7) Nicotine dependence: 05/23 -patient unable to participate in smoking cessation education due to severity of psychosis. Offer patch and gum as needed for cravings. Reviewed 05/26/2020. Risk Factors Assessment Male: No : Yes Do You Have Access To A Gun?: No Health Problems: Yes Mental Health Diagnoses: Yes Substance Use Disorders: No Previous Attempt: No Family History of Suicide: No Previous Psychiatric Hospitalization: Yes Hopelessness: No Smoker: Yes Protective Factors Assessment : No Responsible for Young Children: No Employed: No Stable Relationships: No Supportive Family: Yes Good Rapport with Provider: No Interval History Identifying Information ROSMERY TALBERT is a 39-year-old F who currently lives in [place] with her boyfriend, has a history of schizophrenia and treatment noncompliance, and was admitted on 05/23/20 00:19 on a 302 involuntary commitment for psychosis and erratic and unsafe behavior in the context of treatment noncompliance. 303 was granted on 05/24. Chief Complaint "[I do not have delusional thoughts or am not a danger to myself or anyone]". Review of Systems Notes Constitutional: [denied] cardiovascular: denied Respiratory: denied GI: denied Neurologic: denied Psychiatric: denies symptoms other than stated above Remainder of 10 body systems also reviewed and denied other than noted above. Sleep Information Total Hours of Sleep: 7 Sleep Comments: pt appeared to be asleep @0400 and thereafter. pt remained in her room most of the night. pt on q-15 minute checks Meal Information Percent Meal Consumed - Breakfast: 100 Percent Meal Consumed - Lunch: 75 Percent Meal Consumed - Dinner: 90 Nutrition Comment: pt. does not typically eat breakfast Subjective Subjective Patient was seen & assessed and interval progress reviewed with nursing and social work. Staff report the patient has been participating in groups, and continues to express delusional thought content to staff. She continues to refuse to have a family meeting for her treatment. Pt was seen today to assess progress since admission. Patient reports that she does not want to stay here anymore, saying "I had been here 15 days since May 20 and I miss my kitties." Even though she was corrected that today's date is June 02 and she has been staying for 10 days, she is not convinced with this. She feels she gets more stressed out as she stays here longer because she feels confided, is around weird people with anger, and cannot smoke, and cannot see her cats. She does not think that she needs to be here anymore because she has never had any delusional thoughts or been a danger to herself. She reports that she is here because of her father and her father has been giving her hard time intentionally even though she did not do anything wrong. When she was challenged about her delusional thought, she states that she just wants to live far away from her father or bad people who want to keep her in the hospital but does not want to discuss this more at all. Patient was informed that she could be discharged if she does not have any significant delusional thoughts or she can be compliant with medications after being discharged but she keeps saying that she needs to go home for her kitties. She is still adamant that she does not want to get RAMON but states that she will take oral medications at home. She is okay with the current medication regimen without side effects. Physical Exam Psychiatric Orientation: alert, oriented x 3, oriented to person, oriented to place (Oriented to town but not to the hospital. She is also not oriented to situation.), oriented to time and + guarded (superficially cooperative ); + uncooperative Superficially cooperative Apperance: appropriately dressed, appropriately groomed and appeared stated age; not disheveled Eye Contact: good eye contact Motor Behavior: steady gait and station, no abnormal motor movements and + psychomotor retardation Speech: normal rate/rhythm/volume of speech Affect: + flat affect, + irritable affect (at times, especially when attempting to request discharge) and mood congruent with affect (more spontaneous "mood good") Mood: + irritable mood Thought Process: goal directed thought process, + looseness of associations and + perseveration (on discharge ) Thought Content: + paranoid, + delusions and + persecution; no hopelessness Suicidal Thoughts: denies suicidal thoughts and denies suicidal intent Homicidal Thoughts: denies homicidal thoughts Hallucinations: no auditory hallucinations and no visual hallucinations Cognition: attention grossly intact and language grossly intact; + recent memory not intact Estimated Intelligence: average estimated intelligence Insight: + impaired insight Judgement: + impaired judgement Vital Signs (Past 24 Hours) Last Vital Signs Temp 36.9 C 06/02/20 06:30 Pulse 89 06/02/20 06:31 Resp 16 06/02/20 06:30 BP 104/73 06/02/20 06:31 Pulse Ox 98 05/23/20 01:05 Results & Data ([facility]) Current Inpatient Medications Current Inpatient Medications: Current Inpatient Medications Acetaminophen (Acetaminophen 325 Mg Tab) 650 mg PO Q4H PRN PRN Reason: Headache or Minor Fever Stop: 06/22/20 01:13 Al Hydrox/Mg Hydrox/Simethicone (Aluminum/Magnesium Susp 30 Ml Udc) 30 ml PO Q4H PRN PRN Reason: GI Upset Stop: 06/22/20 01:13 Benztropine Mesylate (Benztropine Mesylate 1 Mg Tab) 2 mg PO BID PRN PRN Reason: Dystonia Stop: 06/24/20 20:08 Benztropine Mesylate (Benztropine Mesylate 1 Mg/Ml 2 Ml Amp) 2 mg IM BID PRN PRN Reason: Dystonic Reaction Stop: 06/24/20 20:08 Bismuth Subsalicylate (Bismuth Subsalicylate Liqd 236 Ml) 15 ml PO PRN PRN PRN Reason: Loose Stool Stop: 06/22/20 01:13 Haloperidol (Haloperidol 5 Mg Tab) 5 mg PO QAM SIMONA Stop: 06/29/20 08:59 Last Admin: 06/02/20 09:35 Dose: 5 mg Documented by: Haloperidol (Haloperidol 5 Mg Tab) 10 mg PO HS SIMONA Stop: 07/01/20 21:59 Last Admin: 06/01/20 22:17 Dose: 10 mg Documented by: Haloperidol Lactate (Haloperidol Lactate 5 Mg/Ml 1 Ml Vial) 5 mg IM QAM PRN PRN Reason: Refusal of PO meds Stop: 06/25/20 09:12 Haloperidol Lactate (Haloperidol Lactate 5 Mg/Ml 1 Ml Vial) 10 mg IM HS PRN PRN Reason: Refusal of PO meds Stop: 06/28/20 10:19 Hydroxyzine HCl (Hydroxyzine Hcl 25 Mg Tab) 50 mg PO HSZ PRN PRN Reason: Insomnia Stop: 06/22/20 01:13 Hydroxyzine HCl (Hydroxyzine Hcl 25 Mg Tab) 25 mg PO Q4H PRN PRN Reason: Anxiety Stop: 06/22/20 01:13 Magnesium Hydroxide (Magnesium Hydroxide Susp 30 Ml Udc) 30 ml PO DAILY PRN PRN Reason: Constipation Stop: 06/22/20 01:13 Nicotine Polacrilex (Nicotine Polacrilex 2 Mg Gum) 1 piece MT PRN PRN PRN Reason: nicotine cravings Stop: 06/29/20 14:03 Last Admin: 05/30/20 19:48 Dose: 1 piece Documented by: Rivaroxaban (Rivaroxaban 15 Mg Tab) 15 mg PO QDD SIMONA Stop: 06/22/20 17:44 Last Admin: 06/01/20 17:23 Dose: 15 mg Documented by: Sodium Chloride (Sodium Chloride 0.65% Na Soln 45 Ml (Galax)) 1 - 2 sprays NA PRN PRN PRN Reason: Nasal Dryness/Congestion Stop: 06/22/20 01:13 Mental Health & Subst Abuse Tx Psychiatrist Name of Psychiatrist: Dr [facility] Psychiatrist's Psychiatric Appointment Comment: [address] [facility] [address], [address], [place], [place] Television Operator Name of Television Operator: Nelia Phone Number for Television Operator: [phone] Case Management Appointment Comment: [address] [facility] [facility], [address], [place], [place] Post Discharge Appointments Primary Care Physician Name Of Family Doctor: Dr. Mcadams Primary Care Provider Appointment Comment: [id number] [facility] [facility], [place], [place]
[2020-06-02] MEDS: RIVAROXABAN 15 MG TAB PO SCH (17:11)
[2020-06-03] MEDS: haloperidoL 5 MG TAB PO SCH ×2 (08:59→22:46)
--- NOTE | 2020-06-03 10:17 | Psychiatric Progress Note ---
Date of Service June 03, 2020 Impression / Recommendations Impression 39-year-old female who lives with her boyfriend in [place], has a long history of schizophrenia and treatment noncompliance, who presents with psychosis in the context of noncompliance with antipsychotic medication. She was found by police walking for hours in the rain, with creatinine kinase of 825, and potassium of 2.6, indicating poor p.o. intake. She said she was trying to find a space ship to take her to outer space, and per family had made comments about taking her young nephew with her. Here she is expressing delusions that her father is following her, wants to harm her, and that the staff here are not real doctors and nurses. She has been engaging in erratic and unsafe behavior in the context of psychosis, including walking long distances, not eating or sleeping, hitchhiking, trying to steal a car, and refusing to take her psychotropic and anticoagulant medication. She has a history of multiple DVTs and PEs, and requires lifelong anticoagulation. She locked her boyfriend, whom she lives with, in her room in their home prior to leaving. On admission, she was disorganized, paranoid, delusional, and hallucinating, and is clearly unable to provide for her own safety, health, welfare, [facility], and nutrition without the care and assistance of others. She continues to demonstrate poor insight and remains unable to adequately articulate or understand the concerns resulting in her admission. She is chronically noncompliant with oral medications and recommendation would be for an RAMON and 304 IOC on discharge. She is on a 303 involuntary commitment, and two physician opinions for recommendation for medications over objection have been given. Thus far, patient has been taking oral medications here in the structured hospital setting. She remains as very high risk of medication noncompliance and rapid decompensation outside of a structured setting and therefore inpatient psychiatric treatment continues to be medically necessary. (1) Paranoid schizophrenia: 05/23 -admitted with delusions, hallucinations, paranoia, and erratic behavior. Unable to reality test, refusing all antipsychotic medications. Patient is at imminent risk to both herself and others without treatment with antipsychotic medication to address her psychotic symptoms. Recommend medications over objection, as she has responded positively to treatment with antipsychotics in the past, and her symptoms are unlikely to remit without said treatment. -She has reportedly been noncompliant with clozapine for months, so will have to be re-titrated starting with 25 mg daily. She is unfortunately refusing all medications at this time, and is also refusing blood work. We may need to consider a long-acting injectable antipsychotic if she remains nonadherent. -I have called outpatient psychiatrist, Dr. Williamson's, office, explaining that the patient is here involuntarily, refusing to sign all releases, and that we are requesting records in order to treat her emergency medical condition. -Coordinate care with her BCM, Yuliet, and family/boyfriend. -Medically necessary private room due to psychosis and acting on delusional thoughts. -File for 303 involuntary commitment, hearing to be held tomorrow. 05/24 -303 hearing held and granted. -Continue to encourage her to take medications orally, which she is adamantly refusing. I recommend medications over objection to target her psychotic symptoms, as she has schizophrenia, presents with paranoia, delusions, hallucinations, and is acting on these thoughts, has no insight or ability to reality test, and symptoms have responded to antipsychotics in the past. She is at acute risk of harm to both herself and others if her symptoms are not treated, due to her behavior (not eating adequately with hypokalemia, walking long distances with rhabdomyolysis, hitchhiking, no concern for her own safety, attempting to steal a car, and believing that if spaceship is taking her to outer space and she wants to take her nephew with her). She does not feel safe returning to her home in [place] due to persecute Sergio delusions, and is likely to flee the area if released and her current mental state. She has responded well to clozapine in the past, but is it is not available in an injectable form, we will have to utilize another agent such as haloperidol or olanzapine, which is available as an immediate release IM. We could also consider placing her on a long-acting injectable antipsychotic, given her history of repeated nonadherence with treatment. -Reviewed case with Yuliet, her egg caser through [facility], who believes the patient needs an involuntary outpatient commitment, and states her outpatient psychiatrist would not complete paperwork and said he was unable to do so. 05/25 -Today, the patient did agree to take a single dose of clozapine, although she indicated that she believed that we were giving her a placebo and refused to believe the nurses explanation that, in fact, she was being given clozapine. The patient was not shown the label of the medication, and it is not clear if she took the medication because she thought it was a placebo or because she realized what it was and wanted to take it. She did say, "my psychiatrist wants me to take clozapine." -The patient is currently floridly psychotic and unable to evidence a reasonable choice in terms of whether or not to take psychiatric medications. She has repeatedly told us that she would refuse to take her medications, including her anticoagulant medication and any psychiatric medicine. She notes that she only is willing to consume "natural things, like herbs." In my opinion, the patient is suffering from a severe mental illness, namely schizophrenia. She is delusional, dangerous to herself as a function of her inability to care for herself, and she is unlikely to enjoy any substantial improvement without the use of psychiatric medications. I agree with the finding that the patient will require medications, if necessary over objection, and intramuscular form, and that antipsychotic medications over objection are medically necessary and appropriate in this case. I will order Haldol 5 mg by mouth twice a day, and will also order Haldol 5 mg intramuscularly by mouth twice a day as needed for refusal of p.o. Haldol. 05/26--Seems more cooperative today, will increase Clozaril to 25 mg BID as per Dr. Zuniga, titration may be limited if refuses labs. Will keep Haldol ordered BID as well while titrating Clozaril but only inject in am if objects rather than BID as not acutely agitated. 05/27--d/c Clozaril as will not comply with labs and seems quite sedating, Haldol can be adjusted and hope is for conversion to RAMON (atypical vs Haldol). 05/28--improving but sedated. --Continue current meds, if remains so sedated throughout day tomorrow consider shifting dose (may also be avoidance, clozaril d/c yesterday). Dr. Bustillos to reassess and determine if Haldol dec most appropriate or if should be converted to an atypical as clears. Patient is not able to fully process that choice for today. 05/29 --Discussed further titration of haloperidol with patient - will increase HS dose due to concerns for daytime sedation. Pt agreeable with increasing dose to 7.5mg, continuing 5mg each morning. Consider further titration as indicated/ tolerated --Though patient is in appropriate behavioral control and does not openly verbalize delusional thought content, she still demonstrates considerable lack of insight regarding the severity of her condition and need for appropriate treatment. Discussed recommendation for an RAMON, which patient is not interested in. Reasoning for recommendation was provided to the patient and patient was en couraged to compile questions so that this could be discussed in greater detail. --Atypical agents may be better tolerated snf, however, patient is still not demonstrating adequate insight to be able to discuss this in detail. 05/30 - Continue current doses of haloperidol - continue titration as indicated. Pt continues to be superficially reality-based when meeting with providers, but is continuing to verbalize delusional thought content to staff when in group programming. - Pt continues to decline RAMON 05/31 - Suggested titrating HS haloperidol to 10mg and maintaining 5mg morning dose - patient unwilling at this time for this adjustment. Psychotic symptoms were not quite as prevalent today, so waited on making this adjustment to allow additional time for observation. Continue to strongly encourage RAMON which patient continues to decline. We can certainly engage patient in conversation about alternative antipsychotic medication options, but she has not yet been able to/agreeable with participating in this conversation - Pt is benefiting from the structured and supervised hospital setting, but has continued to be resistant to suggests that would allow her to maintain stability in the outpatient setting. She continues to be at acute risk of rapid decompensation if discharged 06/01 - Titrating haloperidol to 5mg qAM and 10mg qHS due to ongoing delusional statements made to staff during group programming. Yesterday, patient had reported that she owns numerous houses and is again stating the belief that her father is not her true father. - Pt continues to refuse an RAMON, but did verbalize willingness for mobile medical management - Pt continues to demonstrate poor insight as to the pattern of behaviors that contributes to frequent hospitalizations. 06/02 - Continue current doses of haloperidol. - Patient still expresses delusional thoughts to the staff but denies any delusional thoughts on today's assessment. - Patient shows impaired insight into her psychiatric issues and providers hate her because they cannot find good reasons to keep her hospitalized at this point. 06/03 - Continue current doses of haloperidol. - Patient reports that she is hospitalized because of her father's claim that she is mentally ill and she will contact a quality engineer medical device tomorrow to be discharged as soon as possible. She failed reality challenge and she thinks that she does not need medications for her psychiatric illness and medications are only placebo. With this statement, her compliance with medications is questionable after being discharged and it would be beneficial staying in psych rehab or using a RAMON to increase compliance with medications, which have been discussed in treatment team. (2) MTHFR mutation: 05/23 -patient has a history of multiple DVTs and PE, at least 2 requiring hospitalization. She has been informed multiple times in the past that she will need to be on lifelong anticoagulant medication, but has repeatedly been noncompliant with it when psychotic. -Xarelto has been reordered, if patient remains unwilling to take it, may have to consult the hospitalist and explore other options. PT/INR ordered, but patient refused. -Coordinate care with PCP, Dr. Mcdowell, and patient will need follow-up after discharge. 05/24 -patient continues to refuse to take any anticoagulant medication or allow a blood draw for PT/INR. 05/24 -The patient is continuing to refuse to take anticoagulant medication or allow blood draws. This is 1 of the reasons why we are convinced that medications over objection are medically necessary in this case in order to stabilize the patient's condition and improve her insight and the need for treatment. Reviewed 05/26/2020. 05/31 - Pt continues to be compliant with Xarelto when offered - compliance likely strongly related to the structured hospital setting (3) Pulmonary embolism: (4) Hypokalemia: 05/23 - Potassium was 2.6 in the ER, patient received po potassium chloride 40meq x 2. Refusing additional labs today, but will continue to encourage compliance and will re-order for tomorrow. Monitor PO intake and encourage good nutrition. 05/24 -patient is eating some food here, but refusing to allow a blood draw to recheck potassium. 05/25 -the patient is continuing to eat on the unit, but is still refusing to allow blood draws to recheck her potassium. Reviewed 05/26/2020. 05/27--patient refused lab draw. (5) Vitamin B12 deficiency: 05/23 -patient started on vitamin B12 500 mcg daily during last hospitalization, when she was seen by the hospitalist service for recommendations regarding her anticoagulant. Folate and vitamin B12 were checked due to their association with high homocystine levels, which is associated with VTE. Vitamin B12 was low at 130. -We will hold off on resuming vitamin B12 and folic acid, as patient is currently refusing all medications and want to focus on her antipsychotic and anticoagulant first, but can resume these once she is less psychotic/more adherent. Reviewed 05/26/2020. (6) Folate deficiency: 05/23 -folate checked during December hospitalization due to the above, was low at 3.42, and folic acid 20 mg daily was started. Reviewed 05/26/2020. (7) Nicotine dependence: 05/23 -patient unable to participate in smoking cessation education due to severity of psychosis. Offer patch and gum as needed for cravings. Reviewed 05/26/2020. Risk Factors Assessment Male: No : Yes Do You Have Access To A Gun?: No Health Problems: Yes Mental Health Diagnoses: Yes Substance Use Disorders: No Previous Attempt: No Family History of Suicide: No Previous Psychiatric Hospitalization: Yes Hopelessness: No Smoker: Yes Protective Factors Assessment : No Responsible for Young Children: No Employed: No Stable Relationships: No Supportive Family: Yes Good Rapport with Provider: No Interval History Identifying Information ROSMERY TALBERT is a 39-year-old F who currently lives in [place] with her boyfriend, has a history of schizophrenia and treatment noncompliance, and was admitted on 05/23/20 00:19 on a 302 involuntary commitment for psychosis and erratic and unsafe behavior in the context of treatment noncompliance. 303 was granted on 05/24. Chief Complaint "[I finally found out the truth why I should stay here. It was my that.]". Review of Systems Notes Constitutional: denied cardiovascular: denied Respiratory: denied GI: denied Neurologic: denied Psychiatric: denies symptoms other than stated above Remainder of 10 body systems also reviewed and denied other than noted above. Sleep Information Total Hours of Sleep: 6.5 Sleep Comments: pt appeared to be asleep @0400 and thereafter. pt remained in her room most of the night. pt on q-15 minute checks Meal Information Percent Meal Consumed - Breakfast: 100 Percent Meal Consumed - Lunch: 75 Percent Meal Consumed - Dinner: 60 Nutrition Comment: pt. does not typically eat breakfast Subjective Subjective Patient was seen & assessed and interval progress reviewed with nursing and social work. Staff report the patient has been participating in groups, and attended community meeting. Pt rated her mood 9/10. Patient also has been socializing and interacting with other people more frequently but still reluctant to reveal her thoughts to staff. She did not express any delusional thoughts to the staff. Pt was seen today to assess progress since admission. Patient reports that she feels much better today because she slept well last night and she finally found out "the truth "why she should stay here. She sta solis that she went to [facility], which is 0.5 miles away from home, at 1:30 AM to get a turret punch operator before she was brought in the ED by the police and her father asked the police to arrest her and to put her in psychiatric unit. He did the same things last time and she could be discharged right away when she contacted a quality engineer medical device. She will call a quality engineer medical device tomorrow and she believes that she can get out of here pretty quickly. She states that her father does not want her to leave her house, or [place] and whenever she gets out of her house, this happens to her. She keeps stating that she does not have any psychiatric issues and she is not a danger to other people or herself. When she was questioned why she takes current medications for her psychiatric issues, she states that medications are placebo and she does not think she needs any psychiatric medications. She also feels her psychiatric issues have been controlled well without medications since she already took medications for a long time and everything is okay currently. Sleep and appetite have been good. Denies any side effects from current medication regimen. Physical Exam Psychiatric Orientation: alert and oriented x 3 Apperance: appropriately dressed, appropriately groomed, + disheveled and appeared stated age Eye Contact: good eye contact Motor Behavior: steady gait and station, no abnormal motor movements and + tremor Speech: normal rate/rhythm/volume of speech Affect: euthymic affect; no depressed affect and no anxious affect Mood: no depressed mood and no anxious mood Thought Process: + perseveration (about her father) Thought Content: + preoccupation and + cognitive distortions (stating she is here due to her father's claim that she is ill mentally ) Suicidal Thoughts: denies suicidal thoughts and denies suicidal intent Homicidal Thoughts: denies homicidal thoughts Hallucinations: no auditory hallucinations and no visual hallucinations Cognition: recent memory grossly intact, remote memory grossly intact, attention grossly intact and language grossly intact Estimated Intelligence: average estimated intelligence Insight: + impaired insight Judgement: + impaired judgement Vital Signs (Past 24 Hours) Last Vital Signs Temp 37.3 C 06/03/20 06:30 Pulse 120 H 06/03/20 06:30 Resp 16 06/03/20 06:30 BP 108/64 06/03/20 06:30 Pulse Ox 98 05/23/20 01:05 Results & Data ([facility]) Current Inpatient Medications Current Inpatient Medications: Current Inpatient Medications Acetaminophen (Acetaminophen 325 Mg Tab) 650 mg PO Q4H PRN PRN Reason: Headache or Minor Fever Stop: 06/22/20 01:13 Al Hydrox/Mg Hydrox/Simethicone (Aluminum/Magnesium Susp 30 Ml Udc) 30 ml PO Q4H PRN PRN Reason: GI Upset Stop: 06/22/20 01:13 Benztropine Mesylate (Benztropine Mesylate 1 Mg Tab) 2 mg PO BID PRN PRN Reason: Dystonia Stop: 06/24/20 20:08 Benztropine Mesylate (Benztropine Mesylate 1 Mg/Ml 2 Ml Amp) 2 mg IM BID PRN PRN Reason: Dystonic Reaction Stop: 06/24/20 20:08 Bismuth Subsalicylate (Bismuth Subsalicylate Liqd 236 Ml) 15 ml PO PRN PRN PRN Reason: Loose Stool Stop: 06/22/20 01:13 Haloperidol (Haloperidol 5 Mg Tab) 5 mg PO QAM SIMONA Stop: 06/29/20 08:59 Last Admin: 06/03/20 08:59 Dose: 5 mg Documented by: Haloperidol (Haloperidol 5 Mg Tab) 10 mg PO HS SIMONA Stop: 07/01/20 21:59 Last Admin: 06/02/20 21:39 Dose: 10 mg Documented by: Haloperidol Lactate (Haloperidol Lactate 5 Mg/Ml 1 Ml Vial) 5 mg IM QAM PRN PRN Reason: Refusal of PO meds Stop: 06/25/20 09:12 Haloperidol Lactate (Haloperidol Lactate 5 Mg/Ml 1 Ml Vial) 10 mg IM HS PRN PRN Reason: Refusal of PO meds Stop: 06/28/20 10:19 Hydroxyzine HCl (Hydroxyzine Hcl 25 Mg Tab) 50 mg PO HSZ PRN PRN Reason: Insomnia Stop: 06/22/20 01:13 Hydroxyzine HCl (Hydroxyzine Hcl 25 Mg Tab) 25 mg PO Q4H PRN PRN Reason: Anxiety Stop: 06/22/20 01:13 Magnesium Hydroxide (Magnesium Hydroxide Susp 30 Ml Udc) 30 ml PO DAILY PRN PRN Reason: Constipation Stop: 06/22/20 01:13 Nicotine Polacrilex (Nicotine Polacrilex 2 Mg Gum) 1 piece MT PRN PRN PRN Reason: nicotine cravings Stop: 06/29/20 14:03 Last Admin: 05/30/20 19:48 Dose: 1 piece Documented by: Rivaroxaban (Rivaroxaban 15 Mg Tab) 15 mg PO QDD SIMONA Stop: 06/22/20 17:44 Last Admin: 06/02/20 17:11 Dose: 15 mg Documented by: Sodium Chloride (Sodium Chloride 0.65% Na Soln 45 Ml ([place])) 1 - 2 sprays NA PRN PRN PRN Reason: Nasal Dryness/Congestion Stop: 06/22/20 01:13 Mental Health & Subst Abuse Tx Psychiatrist Name of Psychiatrist: Dr Williamson[facility] Psychiatrist's Psychiatric Appointment Comment: [address], [place], [place] Manager Facility Name of Manager Facility: [facility] Phone Number for Manager Facility: [phone] Case Management Appointment Comment: [id number], [address], [place], [place] Post Discharge Appointments Primary Care Physician Name Of Family Doctor: Dr. Mcadams Primary Care Provider Appointment Comment: [id number] [facility], [place]
[2020-06-03] MEDS: RIVAROXABAN 15 MG TAB PO SCH (17:28)
[2020-06-04] MEDS: haloperidoL 5 MG TAB PO SCH ×2 (08:51→21:29)
--- NOTE | 2020-06-04 12:14 | Psychiatric Progress Note ---
Date of Service June 04, 2020 Impression / Recommendations Impression 39-year-old female who lives with her boyfriend in [place], has a long history of schizophrenia and treatment noncompliance, who presents with psychosis in the context of noncompliance with antipsychotic medication. She was found by police walking for hours in the rain, with creatinine kinase of 825, and potassium of 2.6, indicating poor p.o. intake. She said she was trying to find a space ship to take her to outer space, and per family had made comments about taking her young nephew with her. Here she is expressing delusions that her father is following her, wants to harm her, and that the staff here are not real doctors and nurses. She has been engaging in erratic and unsafe behavior in the context of psychosis, including walking long distances, not eating or sleeping, hitchhiking, trying to steal a car, and refusing to take her psychotropic and anticoagulant medication. She has a history of multiple DVTs and PEs, and requires lifelong anticoagulation. She locked her boyfriend, whom she lives with, in her room in their home prior to leaving. On admission, she was disorganized, paranoid, delusional, and hallucinating, and is clearly unable to provide for her own safety, health, welfare, jail, and nutrition without the care and assistance of others. She continues to demonstrate poor insight and remains unable to adequately articulate or understand the concerns resulting in her admission. She is chronically noncompliant with oral medications and recommendation would be for an RAMON and 304 IOC on discharge. She is on a 303 involuntary commitment, and two physician opinions for recommendation for medications over objection have been given. Thus far, patient has been taking oral medications here in the structured hospital setting. She remains as very high risk of medication noncompliance and rapid decompensation outside of a structured setting and therefore inpatient psychiatric treatment continues to be medically necessary. (1) Paranoid schizophrenia: 05/23 -admitted with delusions, hallucinations, paranoia, and erratic behavior. Unable to reality test, refusing all antipsychotic medications. Patient is at imminent risk to both herself and others without treatment with antipsychotic medication to address her psychotic symptoms. Recommend medications over objection, as she has responded positively to treatment with antipsychotics in the past, and her symptoms are unlikely to remit without said treatment. -She has reportedly been noncompliant with clozapine for months, so will have to be re-titrated starting with 25 mg daily. She is unfortunately refusing all medications at this time, and is also refusing blood work. We may need to consider a long-acting injectable antipsychotic if she remains nonadherent. -I have called outpatient psychiatrist, Dr. Williamson's, office, explaining that the patient is here involuntarily, refusing to sign all releases, and that we are requesting records in order to treat her emergency medical condition. -Coordinate care with her BCM, Yuliet, and family/boyfriend. -Medically necessary private room due to psychosis and acting on delusional thoughts. -File for 303 involuntary commitment, hearing to be held tomorrow. 05/24 -303 hearing held and granted. -Continue to encourage her to take medications orally, which she is adamantly refusing. I recommend medications over objection to target her psychotic symptoms, as she has schizophrenia, presents with paranoia, delusions, hallucinations, and is acting on these thoughts, has no insight or ability to reality test, and symptoms have responded to antipsychotics in the past. She is at acute risk of harm to both herself and others if her symptoms are not treated, due to her behavior (not eating adequately with hypokalemia, walking long distances with rhabdomyolysis, hitchhiking, no concern for her own safety, attempting to steal a car, and believing that if spaceship is taking her to outer space and she wants to take her nephew with her). She does not feel safe returning to her home in [place] due to persecute Sergio delusions, and is likely to flee the area if released and her current mental state. She has responded well to clozapine in the past, but is it is not available in an injectable form, we will have to utilize another agent such as haloperidol or olanzapine, which is available as an immediate release IM. We could also consider placing her on a long-acting injectable antipsychotic, given her history of repeated nonadherence with treatment. -Reviewed case with Yuliet, her case sealer through [facility], who believes the patient needs an involuntary outpatient commitment, and states her outpatient psychiatrist would not complete paperwork and said he was unable to do so. 05/25 -Today, the patient did agree to take a single dose of clozapine, although she indicated that she believed that we were giving her a placebo and refused to believe the nurses explanation that, in fact, she was being given clozapine. The patient was not shown the label of the medication, and it is not clear if she took the medication because she thought it was a placebo or because she realized what it was and wanted to take it. She did say, "my psychiatrist wants me to take clozapine." -The patient is currently floridly psychotic and unable to evidence a reasonable choice in terms of whether or not to take psychiatric medications. She has repeatedly told us that she would refuse to take her medications, including her anticoagulant medication and any psychiatric medicine. She notes that she only is willing to consume "natural things, like herbs." In my opinion, the patient is suffering from a severe mental illness, namely schizophrenia. She is delusional, dangerous to herself as a function of her inability to care for herself, and she is unlikely to enjoy any substantial improvement without the use of psychiatric medications. I agree with the finding that the patient will require medications, if necessary over objection, and intramuscular form, and that antipsychotic medications over objection are medically necessary and appropriate in this case. I will order Haldol 5 mg by mouth twice a day, and will also order Haldol 5 mg intramuscularly by mouth twice a day as needed for refusal of p.o. Haldol. 05/26--Seems more cooperative today, will increase Clozaril to 25 mg BID as per Dr. Zuniga, titration may be limited if refuses labs. Will keep Haldol ordered BID as well while titrating Clozaril but only inject in am if objects rather than BID as not acutely agitated. 05/27--d/c Clozaril as will not comply with labs and seems quite sedating, Haldol can be adjusted and hope is for conversion to RAMON (atypical vs Haldol). 05/28--improving but sedated. --Continue current meds, if remains so sedated throughout day tomorrow consider shifting dose (may also be avoidance, clozaril d/c yesterday). Dr. Bustillos to reassess and determine if Haldol dec most appropriate or if should be converted to an atypical as clears. Patient is not able to fully process that choice for today. 05/29 --Discussed further titration of haloperidol with patient - will increase HS dose due to concerns for daytime sedation. Pt agreeable with increasing dose to 7.5mg, continuing 5mg each morning. Consider further titration as indicated/ tolerated --Though patient is in appropriate behavioral control and does not openly verbalize delusional thought content, she still demonstrates considerable lack of insight regarding the severity of her condition and need for appropriate treatment. Discussed recommendation for an RAMON, which patient is not interested in. Reasoning for recommendation was provided to the patient and patient was en couraged to compile questions so that this could be discussed in greater detail. --Atypical agents may be better tolerated prison, however, patient is still not demonstrating adequate insight to be able to discuss this in detail. 05/30 - Continue current doses of haloperidol - continue titration as indicated. Pt continues to be superficially reality-based when meeting with providers, but is continuing to verbalize delusional thought content to staff when in group programming. - Pt continues to decline RAMON 05/31 - Suggested titrating HS haloperidol to 10mg and maintaining 5mg morning dose - patient unwilling at this time for this adjustment. Psychotic symptoms were not quite as prevalent today, so waited on making this adjustment to allow additional time for observation. Continue to strongly encourage RAMON which patient continues to decline. We can certainly engage patient in conversation about alternative antipsychotic medication options, but she has not yet been able to/agreeable with participating in this conversation - Pt is benefiting from the structured and supervised hospital setting, but has continued to be resistant to suggests that would allow her to maintain stability in the outpatient setting. She continues to be at acute risk of rapid decompensation if discharged 06/01 - Titrating haloperidol to 5mg qAM and 10mg qHS due to ongoing delusional statements made to staff during group programming. Yesterday, patient had reported that she owns numerous houses and is again stating the belief that her father is not her true father. - Pt continues to refuse an RAMON, but did verbalize willingness for mobile medical management - Pt continues to demonstrate poor insight as to the pattern of behaviors that contributes to frequent hospitalizations. 06/02 - Continue current doses of haloperidol. - Patient still expresses delusional thoughts to the staff but denies any delusional thoughts on today's assessment. - Patient shows impaired insight into her psychiatric issues and providers hate her because they cannot find good reasons to keep her hospitalized at this point. 06/03 - Continue current doses of haloperidol. - Patient reports that she is hospitalized because of her father's claim that she is mentally ill and she will contact a recruitment specialist tomorrow to be discharged as soon as possible. She failed reality challenge and she thinks that she does not need medications for her psychiatric illness and medications are only placebo. With this statement, her compliance with medications is questionable after being discharged and it would be beneficial staying in psych rehab or using a RAMON to increase compliance with medications, which have been discussed in treatment team. 06/04 - Continue current medication regimen - Pt agreeable with scheduling a discharge planning meeting with case sealer and family - she has agreed to only a few recommendations regarding outpatient support. Referral is being sent for [facility] - Pt continues to refuse RAMON - Anticipate filing for a 304 IOC on discharge (2) MTHFR mutation: 05/23 -patient has a history of multiple DVTs and PE, at least 2 requiring hospitalization. She has been informed multiple times in the past that she will need to be on lifelong anticoagulant medication, but has repeatedly been noncompliant with it when psychotic. -Xarelto has been reordered, if patient remains unwilling to take it, may have to consult the hospitalist and explore other options. PT/INR ordered, but patient refused. -Coordinate care with PCP, Dr. Mcdowlel, and patient will need follow-up after discharge. 05/24 -patient continues to refuse to take any anticoagulant medication or allow a blood draw for PT/INR. 05/24 -The patient is continuing to refuse to take anticoagulant medication or allow blood draws. This is 1 of the reasons why we are convinced that medications over objection are medically necessary in this case in order to stabilize the patient's condition and improve her insight and the need for treatment. Reviewed 05/26/2020. 05/31 - Pt continues to be compliant with Xarelto when offered - compliance likely strongly related to the structured hospital setting (3) Pulmonary embolism: (4) Hypokalemia: 05/23 - Potassium was 2.6 in the ER, patient received po potassium chloride 40meq x 2. Refusing additional labs today, but will continue to encourage compliance and will re-order for tomorrow. Monitor PO intake and encourage good nutrition. 05/24 -patient is eating some food here, but refusing to allow a blood draw to recheck potassium. 05/25 -the patient is continuing to eat on the unit, but is still refusing to allow blood draws to recheck her potassium. Reviewed 05/26/2020. 05/27--patient refused lab draw. (5) Vitamin B12 deficiency: 05/23 -patient started on vitamin B12 500 mcg daily during last hospitalization, when she was seen by the hospitalist service for recommendations regarding her anticoagulant. Folate and vitamin B12 were checked due to their association with high homocystine levels, which is associated with VTE. Vitamin B12 was low at 130. -We will hold off on resuming vitamin B12 and folic acid, as patient is currently refusing all medications and want to focus on her antipsychotic and anticoagulant first, but can resume these once she is less psychotic/more adherent. Reviewed 05/26/2020. (6) Folate deficiency: 05/23 -folate checked during December hospitalization due to the above, was low at 3.42, and folic acid 20 mg daily was started. Reviewed 05/26/2020. (7) Nicotine dependence: 05/23 -patient unable to participate in smoking cessation education due to severity of psychosis. Offer patch and gum as needed for cravings. Reviewed 05/26/2020. Risk Factors Assessment Male: No : Yes Do You Have Access To A Gun?: No Health Problems: Yes Mental Health Diagnoses: Yes Substance Use Disorders: No Previous Attempt: No Family History of Suicide: No Previous Psychiatric Hospitalization: Yes Hopelessness: No Smoker: Yes Protective Factors Assessment : No Responsible for Young Children: No Employed: No Stable Relationships: No Supportive Family: Yes Good Rapport with Provider: No Interval History Identifying Information ROSMERY TALBERT is a 39-year-old F who currently lives in [place] with her boyfriend, has a history of schizophrenia and treatment noncompliance, and was admitted on 05/23/20 00:19 on a 302 involuntary commitment for psychosis and erratic and unsafe behavior in the context of treatment noncompliance. 303 was granted on 05/24. Chief Complaint "I need to meet with the doctor, I was told that maybe I could be discharged." Review of Systems Notes Constitutional: reports fatigue today Cardiovascular: denied Respiratory: denied Gastrointestinal: denied Neurological: denied Psychiatric: denies symptoms other than stated above Total of at least 10 systems reviewed, pertinent positives as above and in HPI. Sleep Information Total Hours of Sleep: 6.5 Sleep Comments: pt on q-15 minute checks Meal Information Percent Meal Consumed - Breakfast: 100 Percent Meal Consumed - Lunch: 100 Percent Meal Consumed - Dinner: 100 Nutrition Comment: pt. does not typically eat breakfast Subjective Subjective Patient was seen & assessed and interval progress reviewed with treatment team. Staff report the patient has continued with appropriate behavior on the unit. She has not verbalized delusional thought content to staff recently, but her lack of insight into the severity of her condition remains concerning. She continues to believe she is being discharged sooner than our team has been discussing, and last evening reportedly rated her mood a 9/10 and "excited for discharge." Pt was seen today to assess progress since admission. Pt states "I need to meet with the doctor, I was told that maybe I could be discharged." Pt was reminded that we are not anticipating discharge in the next few days, and was asked to share her understanding of what would need to be completed for us to arrange an appropriate discharge plan. Pt reports "I don't know, I just really want to go." This provider informed her of plan to schedule a discharge planning meeting with her family and mental health case sealer. Pt stated she would be agreeable with this. Pt denies SI/HI and is reporting that she no long er needs to be here. She does admit to feeling tired today, but also implies that she is not overly interested in participating in groups. Pt denied other needs or concerns today. Physical Exam Psychiatric Orientation: alert, oriented x 3 and + guarded (only superficially cooperative ) Apperance: appropriately dressed and + disheveled; + inappropriately groomed Eye Contact: + fair eye contact Motor Behavior: no abnormal motor movements (observed while sitting upright on bed) Speech: normal rate/rhythm/volume of speech (rather brief responses to questions) Affect: + blunted affect (appearing fatigued) Mood: no depressed mood ("I'm fine. Just tired") Thought Process: goal directed thought process and + concrete thought process Thought Content: + preoccupation (with discharge ) and reality based without delusions; no hopelessness and no worthlessness Pt has been less preoccupied with delusional thoughts - has not been openly verbalizing to staff. It is unclear if patient is simply hopeful for discharge, or if there is a delusional component to patient believing she is being discharged soon Suicidal Thoughts: denies suicidal thoughts Homicidal Thoughts: denies homicidal thoughts Hallucinations: no auditory hallucinations and no visual hallucinations Cognition: attention grossly intact and language grossly intact Insight: + impaired insight Judgement: + impaired judgement Vital Signs (Past 24 Hours) Last Vital Signs Temp 36.8 C 06/04/20 06:36 Pulse 88 06/04/20 06:37 Resp 16 06/04/20 06:36 BP 101/71 06/04/20 06:37 Pulse Ox 98 05/23/20 01:05 Results & Data ([facility]) Current Inpatient Medications Current Inpatient Medications: Current Inpatient Medications Acetaminophen (Acetaminophen 325 Mg Tab) 650 mg PO Q4H PRN PRN Reason: Headache or Minor Fever Stop: 06/22/20 01:13 Al Hydrox/Mg Hydrox/Simethicone (Aluminum/Magnesium Susp 30 Ml Udc) 30 ml PO Q4H PRN PRN Reason: GI Upset Stop: 06/22/20 01:13 Benztropine Mesylate (Benztropine Mesylate 1 Mg Tab) 2 mg PO BID PRN PRN Reason: Dystonia Stop: 06/24/20 20:08 Benztropine Mesylate (Benztropine Mesylate 1 Mg/Ml 2 Ml Amp) 2 mg IM BID PRN PRN Reason: Dystonic Reaction Stop: 06/24/20 20:08 Bismuth Subsalicylate (Bismuth Subsalicylate Liqd 236 Ml) 15 ml PO PRN PRN PRN Reason: Loose Stool Stop: 06/22/20 01:13 Haloperidol (Haloperidol 5 Mg Tab) 5 mg PO QAM SIMONA Stop: 06/29/20 08:59 Last Admin: 06/04/20 08:51 Dose: 5 mg Documented by: Haloperidol (Haloperidol 5 Mg Tab) 10 mg PO HS SIMONA Stop: 07/01/20 21:59 Last Admin: 06/03/20 22:46 Dose: 10 mg Documented by: Haloperidol Lactate (Haloperidol Lactate 5 Mg/Ml 1 Ml Vial) 5 mg IM QAM PRN PRN Reason: Refusal of PO meds Stop: 06/25/20 09:12 Haloperidol Lactate (Haloperidol Lactate 5 Mg/Ml 1 Ml Vial) 10 mg IM HS PRN PRN Reason: Refusal of PO meds Stop: 06/28/20 10:19 Hydroxyzine HCl (Hydroxyzine Hcl 25 Mg Tab) 50 mg PO HSZ PRN PRN Reason: Insomnia Stop: 06/22/20 01:13 Hydroxyzine HCl (Hydroxyzine Hcl 25 Mg Tab) 25 mg PO Q4H PRN PRN Reason: Anxiety Stop: 06/22/20 01:13 Magnesium Hydroxide (Magnesium Hydroxide Susp 30 Ml Udc) 30 ml PO DAILY PRN PRN Reason: Constipation Stop: 06/22/20 01:13 Nicotine Polacrilex (Nicotine Polacrilex 2 Mg Gum) 1 piece MT PRN PRN PRN Reason: nicotine cravings Stop: 06/29/20 14:03 Last Admin: 05/30/20 19:48 Dose: 1 piece Documented by: Rivaroxaban (Rivaroxaban 15 Mg Tab) 15 mg PO QDD SIMONA Stop: 06/22/20 17:44 Last Admin: 06/03/20 17:28 Dose: 15 mg Documented by: Sodium Chloride (Sodium Chloride 0.65% Na Soln 45 Ml ([place])) 1 - 2 sprays NA PRN PRN PRN Reason: Nasal Dryness/Congestion Stop: 06/22/20 01:13 Mental Health & Subst Abuse Tx Psychiatrist Name of Psychiatrist: Dr [facility] Psychiatrist's Psychiatric Appointment Comment: [address], [place], [place] [facility]rer [facility] Name of Burrer Hand: Nelia Phone Number for Burrer Hand: [phone] Case Management Appointment Comment: [address], [address], [place], [place] Post Discharge Appointments Primary Care Physician Name Of Family Doctor: Dr. Mcadams Primary Care Provider Appointment Comment: [id number] [facility], [place]
[2020-06-04] MEDS: RIVAROXABAN 15 MG TAB PO SCH (17:26)
[2020-06-05] MEDS: haloperidoL 5 MG TAB PO SCH ×2 (10:01→21:30)
--- NOTE | 2020-06-05 10:51 | Psychiatric Progress Note ---
Date of Service June 05, 2020 Impression / Recommendations Impression 39-year-old female who lives with her boyfriend in [place], has a long history of schizophrenia and treatment noncompliance, who presents with psychosis in the context of noncompliance with antipsychotic medication. She was found by police walking for hours in the rain, with creatinine kinase of 825, and potassium of 2.6, indicating poor p.o. intake. She said she was trying to find a space ship to take her to outer space, and per family had made comments about taking her young nephew with her. Here she is expressing delusions that her father is following her, wants to harm her, and that the staff here are not real doctors and nurses. She has been engaging in erratic and unsafe behavior in the context of psychosis, including walking long distances, not eating or sleeping, hitchhiking, trying to steal a car, and refusing to take her psychotropic and anticoagulant medication. She has a history of multiple DVTs and PEs, and requires lifelong anticoagulation. She locked her boyfriend, whom she lives with, in her room in their home prior to leaving. On admission, she was disorganized, paranoid, delusional, and hallucinating, and is clearly unable to provide for her own safety, health, welfare, senior living, and nutrition without the care and assistance of others. She continues to demonstrate poor insight and remains unable to adequately articulate or understand the concerns resulting in her admission. She is chronically noncompliant with oral medications and recommendation would be for an RAMON and 304 IOC on discharge. She is on a 303 involuntary commitment, and two physician opinions for recommendation for medications over objection have been given. Thus far, patient has been taking oral medications here in the structured hospital setting. Discharge planning meeting scheduled for this afternoon with mother and nurse case management. She remains as very high risk of medication noncompliance and rapid decompensation outside of a structured setting and therefore inpatient psychiatric treatment continues to be medically necessary. (1) Paranoid schizophrenia: 05/23 -admitted with delusions, hallucinations, paranoia, and erratic behavior. Unable to reality test, refusing all antipsychotic medications. Patient is at imminent risk to both herself and others without treatment with antipsychotic medication to address her psychotic symptoms. Recommend medications over objection, as she has responded positively to treatment with antipsychotics in the past, and her symptoms are unlikely to remit without said treatment. -She has reportedly been noncompliant with clozapine for months, so will have to be re-titrated starting with 25 mg daily. She is unfortunately refusing all medications at this time, and is also refusing blood work. We may need to consider a long-acting injectable antipsychotic if she remains nonadherent. -I have called outpatient psychiatrist, Dr. Williamson's, office, explaining that the patient is here involuntarily, refusing to sign all releases, and that we are requesting records in order to treat her emergency medical condition. -Coordinate care with her BCM, Yuliet, and family/boyfriend. -Medically necessary private room due to psychosis and acting on delusional thoughts. -File for 303 involuntary commitment, hearing to be held tomorrow. 05/24 -303 hearing held and granted. -Continue to encourage her to take medications orally, which she is adamantly refusing. I recommend medications over objection to target her psychotic symptoms, as she has schizophrenia, presents with paranoia, delusions, hallucin ations, and is acting on these thoughts, has no insight or ability to reality test, and symptoms have responded to antipsychotics in the past. She is at acute risk of harm to both herself and others if her symptoms are not treated, due to her behavior (not eating adequately with hypokalemia, walking long distances with rhabdomyolysis, hitchhiking, no concern for her own safety, attempting to steal a car, and believing that if spaceship is taking her to outer space and she wants to take her nephew with her). She does not feel safe returning to her home in [place] due to persecute Sergio delusions, and is likely to flee the area if released and her current mental state. She has responded well to clozapine in the past, but is it is not available in an injectable form, we will have to utilize another agent such as haloperidol or olanzapine, which is available as an immediate release IM. We could also consider placing her on a long-acting injectable antipsychotic, given her history of repeated nonadherence with treatment. -Reviewed case with Yuliet, her nurse case management through [facility], who believes the patient needs an involuntary outpatient commitment, and states her outpatient psychiatrist would not complete paperwork and said he was unable to do so. 05/25 -Today, the patient did agree to take a single dose of clozapine, although she indicated that she believed that we were giving her a placebo and refused to believe the nurses explanation that, in fact, she was being given clozapine. The patient was not shown the label of the medication, and it is not clear if she took the medication because she thought it was a placebo or because she realized what it was and wanted to take it. She did say, "my psychiatrist wants me to take clozapine." -The patient is currently floridly psychotic and unable to evidence a reasonable choice in terms of whether or not to take psychiatric medications. She has repeatedly told us that she would refuse to take her medications, including her anticoagulant medication and any psychiatric medicine. She notes that she only is willing to consume "natural things, like herbs." In my opinion, the patient is suffering from a severe mental illness, namely schizophrenia. She is delusional, dangerous to herself as a function of her inability to care for herself, and she is unlikely to enjoy any substantial improvement without the use of psychiatric medications. I agree with the finding that the patient will require medications, if necessary over objection, and intramuscular form, and that antipsychotic medications over objection are medically necessary and appropriate in this case. I will order Haldol 5 mg by mouth twice a day, and will also order Haldol 5 mg intramuscularly by mouth twice a day as needed for refusal of p.o. Haldol. 05/26--Seems more cooperative today, will increase Clozaril to 25 mg BID as per Dr. Zuniga, titration may be limited if refuses labs. Will keep Haldol ordered BID as well while titrating Clozaril but only inject in am if objects rather than BID as not acutely agitated. 05/27--d/c Clozaril as will not comply with labs and seems quite sedating, Haldol can be adjusted and hope is for conversion to RAMON (atypical vs Haldol). 05/28--improving but sedated. --Continue current meds, if remains so sedated throughout day tomorrow consider shifting dose (may also be avoidance, clozaril d/c yesterday). Dr. Bustillos to reassess and determine if Haldol dec most appropriate or if should be converted to an atypical as clears. Patient is not able to fully process that choice for today. 05/29 --Discussed further titration of haloperidol with patient - will increase HS dose due to concerns for daytime sedation. Pt agreeable with increasing dose to 7.5mg, continuing 5mg each morning. Consider further titration as indicated/tolerated --Though patient is in appropriate behavioral control and does not openly verbalize delusional thought content, she still demonstrates considerable lack of insight regarding the severity of her condition and need for appropriate treatment. Discussed recommendation for an RAMON, which patient is not interested in. Reasoning for recommendation was provided to the patient and patient was encouraged to compile questions so that this could be discussed in greater detail. --Atypical agents may be better tolerated mcc, however, patient is still not demonstrating adequate insight to be able to discuss this in detail. 05/30 - Continue current doses of haloperidol - continue titration as indicated. Pt continues to be superficially reality-based when meeting with providers, but is continuing to verbalize delusional thought content to staff when in group programming. - Pt continues to decline RAMON 05/31 - Suggested titrating HS haloperidol to 10mg and maintaining 5mg morning dose - patient unwilling at this time for this adjustment. Psychotic symptoms were not quite as prevalent today, so waited on making this adjustment to allow additional time for observation. Continue to strongly encourage RAMON which patient continues to decline. We can certainly engage patient in conversation about alternative antipsychotic medication options, but she has not yet been able to/agreeable with participating in this conversation - Pt is benefiting from the structured and supervised hospital setting, but has continued to be resistant to suggests that would allow her to maintain stability in the outpatient setting. She continues to be at acute risk of rapid decompensation if discharged 06/01 - Titrating haloperidol to 5mg qAM and 10mg qHS due to ongoing delusional statements made to staff during group programming. Yesterday, patient had reported that she owns numerous houses and is again stating the belief that her father is not her true father. - Pt continues to refuse an RAMON, but did verbalize willingness for mobile medical management - Pt continues to demonstrate poor insight as to the pattern of behaviors that contributes to frequent hospitalizations. 06/02 - Continue current doses of haloperidol. - Patient still expresses delusional thoughts to the staff but denies any del usional thoughts on today's assessment. - Patient shows impaired insight into her psychiatric issues and providers hate her because they cannot find good reasons to keep her hospitalized at this point . 06/03 - Continue current doses of haloperidol. - Patient reports that she is hospitalized because of her father's claim that she is mentally ill and she will contact a welder fitter apprentice tomorrow to be discharged as soon as possible. She failed reality challenge and she thinks that she does not need medications for her psychiatric illness and medications are only placebo. With this statement, her compliance with medications is questionable after being discharged and it would be beneficial staying in psych rehab or using a RAMON to increase compliance with medications, which have been discussed in treatment team. 06/04 - Continue current medication regimen - Pt agreeable with scheduling a discharge planning meeting with nurse case management and family - she has agreed to only a few recommendations regarding outpatient support. Referral is being sent for [employer] [facility] - Pt continues to refuse RAMON - Anticipate filing for a 304 IOC on discharge 06/05 - Continue current medication regimen. Pt continues to refuse RAMON options, but did agree to mobile medication management - Discharge planning meeting this afternoon with patient, nurse case management, and mother - Will likely file for 304 IOC tomorrow, depending on outcome of support meeting (2) MTHFR mutation: 05/23 -patient has a history of multiple DVTs and PE, at least 2 requiring hospitalization. She has been informed multiple times in the past that she will need to be on lifelong anticoagulant medication, but has repeatedly been noncompliant with it when psychotic. -Xarelto has been reordered, if patient remains unwilling to take it, may have to consult the hospitalist and explore other options. PT/INR ordered, but patient refused. -Coordinate care with PCP, Dr. Mcdowell, and patient will need follow-up after discharge. 05/24 -patient continues to refuse to take any anticoagulant medication or allow a blood draw for PT/INR. 05/24 -The patient is continuing to refuse to take anticoagulant medication or allow blood draws. This is 1 of the reasons why we are convinced that medications over objection are medically necessary in this case in order to stabilize the pa tia's condition and improve her insight and the need for treatment. Reviewed 05/26/2020. 05/31 - Pt continues to be compliant with Xarelto when offered - compliance likely s trongly related to the structured hospital setting (3) Pulmonary embolism: (4) Hypokalemia: 05/23 - Potassium was 2.6 in the ER, patient received po potassium chloride 40meq x 2. Refusing additional labs today, but will continue to encourage compliance and will re-order for tomorrow. Monitor PO intake and encourage good nutrition. 05/24 -patient is eating some food here, but refusing to allow a blood draw to recheck potassium. 05/25 -the patient is continuing to eat on the unit, but is still refusing to allow blood draws to recheck her potassium. Reviewed 05/26/2020. 05/27--patient refused lab draw. (5) Vitamin B12 deficiency: 05/23 -patient started on vitamin B12 500 mcg daily during last hospitalization, when she was seen by the hospitalist service for recommendations regarding her anticoagulant. Folate and vitamin B12 were checked due to their association with high homocystine levels, which is associated with VTE. Vitamin B12 was low at 130. -We will hold off on resuming vitamin B12 and folic acid, as patient is currently refusing all medications and want to focus on her antipsychotic and anticoagulant first, but can resume these once she is less psychotic/more adherent. Reviewed 05/26/2020. (6) Folate deficiency: 05/23 -folate checked during December hospitalization due to the above, was low at 3.42, and folic acid 20 mg daily was started. Reviewed 05/26/2020. (7) Nicotine dependence: 05/23 -patient unable to participate in smoking cessation education due to severity of psychosis. Offer patch and gum as needed for cravings. Reviewed 05/26/2020. Risk Factors Assessment Male: No : Yes Do You Have Access To A Gun?: No Health Problems: Yes Mental Health Diagnoses: Yes Substance Use Disorders: No Previous Attempt: No Family History of Suicide: No Previous Psychiatric Hospitalization: Yes Hopelessness: No Smoker: Yes Protective Factors Assessment : No Responsible for Young Children: No Employed: No Stable Relationships: No Supportive Family: Yes Good Rapport with Provider: No Interval History Identifying Information ROSMERY TALBERT is a 39-year-old F who currently lives in [place] with her boyfriend, has a history of schizophrenia and treatment noncompliance, and was admitted on 05/23/20 00:19 on a 302 involuntary commitment for psychosis and erratic and unsafe behavior in the context of treatment noncompliance. 303 was granted on 05/24. Chief Complaint "I'm okay. Just keeping busy with groups, I think we have a really good group of people right now." Review of Systems Notes Constitutional: reports usual amount of morning fatigue Cardiovascular: denied Respiratory: denied Gastrointestinal: denied Neurological: denied Psychiatric: denies symptoms other than stated above Total of at least 10 systems reviewed, pertinent positives as above and in HPI. Sleep Information Total Hours of Sleep: 6 Sleep Comments: pt on q-15 minute checks Meal Information Percent Meal Consumed - Breakfast: 100 Percent Meal Consumed - Lunch: 75 Percent Meal Consumed - Dinner: 80 Nutrition Comment: pt. does not typically eat breakfast Subjective Subjective Patient was seen & assessed and interval progress reviewed with nursing and social work. Staff report the patient has been participating in groups. She has not verbalized any delusional thought content to staff recently. Discharge planning meeting scheduled for this afternoon with mother and nurse case management. Pt was seen today to assess progress since admission. Pt states she is "ok" and admits to attending group programming. Pt reports "I think we have a really good group of people right now." She denies any concerns related to mood or anxiety. She continues to deny SI and other safety concerns. Pt reports feeling comfortable with her current medication regimen. She remains unwilling to pursue an RAMON, but continues to be willing for mobile medication management. We discussed need to review tools for medication compliance during family meeting this afternoon. Pt denied any additional needs at this time. Physical Exam Psychiatric Orientation: alert, oriented x 3 and cooperative Apperance: appropriately dressed, appropriately groomed and appeared stated age Eye Contact: good eye contact Motor Behavior: steady gait and station and no abnormal motor movements Speech: normal rate/rhythm/volume of speech Affect: + blunted affect (subdued, but not overtly depressed) Mood: no depressed mood ("I'm ok") and no anxious mood Thought Process: goal directed thought process and + concrete thought process Thought Content: reality based without delusions (not verbalizing any delusional thought content to staff); no hopelessness and no worthlessness Suicidal Thoughts: denies suicidal thoughts Homicidal Thoughts: denies homicidal thoughts Hallucinations: no auditory hallucinations and no visual hallucinations Cognition: attention grossly intact and language grossly intact Estimated Intelligence: consistent with education level Insight: + limited insight Judgement: + limited judgement Vital Signs (Past 24 Hours) Last Vital Signs Temp 36.7 C 06/05/20 06:49 Pulse 81 06/05/20 06:49 Resp 16 06/05/20 06:49 BP 92/65 L 06/05/20 06:49 Pulse Ox 98 05/23/20 01:05 Results & Data ([facility]) Current Inpatient Medications Current Inpatient Medications: Current Inpatient Medications Acetaminophen (Acetaminophen 325 Mg Tab) 650 mg PO Q4H PRN PRN Reason: Headache or Minor Fever Stop: 06/22/20 01:13 Al Hydrox/Mg Hydrox/Simethicone (Aluminum/Magnesium Susp 30 Ml Udc) 30 ml PO Q4H PRN PRN Reason: GI Upset Stop: 06/22/20 01:13 Benztropine Mesylate (Benztropine Mesylate 1 Mg Tab) 2 mg PO BID PRN PRN Reason: Dystonia Stop: 06/24/20 20:08 Benztropine Mesylate (Benztropine Mesylate 1 Mg/Ml 2 Ml Amp) 2 mg IM BID PRN PRN Reason: Dystonic Reaction Stop: 06/24/20 20:08 Bismuth Subsalicylate (Bismuth Subsalicylate Liqd 236 Ml) 15 ml PO PRN PRN PRN Reason: Loose Stool Stop: 06/22/20 01:13 Haloperidol (Haloperidol 5 Mg Tab) 5 mg PO QAM SIMONA Stop: 06/29/20 08:59 Last Admin: 06/05/20 10:01 Dose: 5 mg Documented by: Haloperidol (Haloperidol 5 Mg Tab) 10 mg PO HS SIMONA Stop: 07/01/20 21:59 Last Admin: 06/04/20 21:29 Dose: 10 mg Documented by: Haloperidol Lactate (Haloperidol Lactate 5 Mg/Ml 1 Ml Vial) 5 mg IM QAM PRN PRN Reason: Refusal of PO meds Stop: 06/25/20 09:12 Haloperidol Lactate (Haloperidol Lactate 5 Mg/Ml 1 Ml Vial) 10 mg IM HS PRN PRN Reason: Refusal of PO meds Stop: 06/28/20 10:19 Hydroxyzine HCl (Hydroxyzine Hcl 25 Mg Tab) 50 mg PO HSZ PRN PRN Reason: Insomnia Stop: 06/22/20 01:13 Hydroxyzine HCl (Hydroxyzine Hcl 25 Mg Tab) 25 mg PO Q4H PRN PRN Reason: Anxiety Stop: 06/22/20 01:13 Magnesium Hydroxide (Magnesium Hydroxide Susp 30 Ml Udc) 30 ml PO DAILY PRN PRN Reason: Constipation Stop: 06/22/20 01:13 Nicotine Polacrilex (Nicotine Polacrilex 2 Mg Gum) 1 piece MT PRN PRN PRN Reason: nicotine cravings Stop: 06/29/20 14:03 Last Admin: 05/30/20 19:48 Dose: 1 piece Documented by: Rivaroxaban (Rivaroxaban 15 Mg Tab) 15 mg PO QDD SIMONA Stop: 06/22/20 17:44 Last Admin: 06/04/20 17:26 Dose: 15 mg Documented by: Sodium Chloride (Sodium Chloride 0.65% Na Soln 45 Ml (Cuming)) 1 - 2 sprays NA PRN PRN PRN Reason: Nasal Dryness/Congestion Stop: 06/22/20 01:13 Mental Health & Subst Abuse Tx Psychiatrist Name of Psychiatrist: Dr Williamson-[facility] Psychiatry Psychiatrist's Psychiatric Appointment Comment: [facility] [address], [place], [place] Supervisor [employer] Name of Supervisor [employer]: Nelia Phone Number for Supervisor [employer]: [phone] Case Management Appointment Comment: [address] [facility], [address], [place], [place] Post Discharge Appointments Primary Care Physician Name Of Family Doctor: Dr. Mcadams Primary Care Provider Appointment Comment: [id number] [facility], [place]
[2020-06-05] MEDS: RIVAROXABAN 15 MG TAB PO SCH (17:18)
--- NOTE | 2020-06-06 08:45 | Psychiatric Progress Note ---
Date of Service June 06, 2020 Impression / Recommendations Impression 39-year-old female who lives with her boyfriend in [place], has a long history of schizophrenia and treatment noncompliance, and presented with psychosis in the context of noncompliance with antipsychotic medication (clozapine). She was found by police walking for hours in the rain, with creatinine kinase of 825, and potassium of 2.6, indicating poor p.o. intake. She said she was trying to find a space ship to take her to outer space, and per family had made comments about taking her young nephew with her. On admission she expressed delusions that her father is following her, wants to harm her, that the staff here are not real doctors and nurses, and up until last week was endorsing delusions that she is an employee on the inpatient unit. She has been engaging in erratic and unsafe behavior in the context of psychosis, including walking long distances, not eating or sleeping, hitchhiking, trying to steal a car, and refusing to take her psychotropic and anticoagulant medication. She has a history of multiple DVTs and PEs, and requires lifelong anticoagulation. She locked her boyfriend, whom she lives with, in her room in their home prior to leaving. On admission, she was disorganized, paranoid, delusional, and hallucinating, and clearly unable to provide for her own safety, health, welfare, residential, and nutrition without the care and assistance of others. She has now been taking oral Haldol for 11 days, is tolerating it well, and stating it has been helpful. She is certainly less paranoid and no longer appears to be responding to hallucinations. She is often quite guarded in her interactions with staff and clinicians, as she wants to be discharged soon as possible. She had a discharge planning meeting with her nurse case management and mother yesterday, and agreed to referrals for therapy and [facility]. Today I will file for 304 involuntary outpatient commitment, with a plan to discharge her to home after the proceedings. She remains at risk of medication noncompliance and rapid decompensation outside of a structured setting and therefore inpatient psychiatric treatment continues to be medically necessary. (1) Paranoid schizophrenia: 05/23 -admitted with delusions, hallucinations, paranoia, and erratic behavior. Unable to reality test, refusing all antipsychotic medications. Patient is at imminent risk to both herself and others without treatment with antipsychotic medication to address her psychotic symptoms. Recommend medications over objection, as she has responded positively to treatment with antipsychotics in the past, and her symptoms are unlikely to remit without said treatment. -She has reportedly been noncompliant with clozapine for months, so will have to be re-titrated starting with 25 mg daily. She is unfortunately refusing all medications at this time, and is also refusing blood work. We may need to consider a long-acting injectable antipsychotic if she remains nonadherent. -I have called outpatient psychiatrist, Dr. Williamson's, office, explaining that the patient is here involuntarily, refusing to sign all releases, and that we are requesting records in order to treat her emergency medical condition. -Coordinate care with her BCM, Yuliet, and family/boyfriend. -Medically necessary private room due to psychosis and acting on delusional thoughts. -File for 303 involuntary commitment, hearing to be held tomorrow. 05/24 -303 hearing held and granted. -Continue to encourage her to take medications orally, which she is adamantly refusing. I recommend medications over objection to target her psychotic symptoms, as she has schizophrenia, presents with paranoia, delusions, hallucinations, and is acting on these thoughts, has no insight or ability to reality test, and symptoms have responded to antipsychotics in the past. She is at acute risk of harm to both herself and others if her symptoms are not treated, due to her behavior (not eating adequately with hypokalemia, walking long distances with rhabdomyolysis, hitchhiking, no concern for her own safety, attempting to steal a car, and believing that if spaceship is taking her to outer space and she wants to take her nephew with her). She does not feel safe returning to her home in [place] due to persecute Sergio delusions, and is likely to flee the area if released and her current mental state. She has responded well to clozapine in the past, but is it is not available in an injectable form, we will have to utilize another agent such as haloperidol or olanzapine, which is available as an immediate release IM. We could also consider placing her on a long-acting injectable antipsychotic, given her history of repeated nonadherence with treatment. -Reviewed case with Yuliet, her nurse case management through [facility], who believes the patient needs an involuntary outpatient commitment, and states her outpatient psychiatrist would not complete paperwork and said he was unable to do so. 05/25 -Today, the patient did agree to take a single dose of clozapine, although she indicated that she believed that we were giving her a placebo and refused to believe the nurses explanation that, in fact, she was being given clozapine. The patient was not shown the label of the medication, and it is not clear if she took the medication because she thought it was a placebo or because she realized what it was and wanted to take it. She did say, "my psychiatrist wants me to take clozapine." -The patient is currently floridly psychotic and unable to evidence a reasonable choice in terms of whether or not to take psychiatric medications. She has repeatedly told us that she would refuse to take her medications, including her anticoagulant medication and any psychiatric medicine. She notes that she only is willing to consume "natural things, like herbs." In my opinion, the patient is suffering from a severe mental illness, namely schizophrenia. She is delusional, dangerous to herself as a function of her inability to care for herself, and she is unlikely to enjoy any substantial improvement without the use of psychiatric medications. I agree with the finding that the patient will require medications, if necessary over objection, and intramuscular form, and that antipsychotic medications over objection are medically necessary and appropriate in this case. I will order Haldol 5 mg by mouth twice a day, and will also order Haldol 5 mg intramuscularly by mouth twice a day as needed for refusal of p.o. Haldol. 05/26--Seems more cooperative today, will increase Clozaril to 25 mg BID as per Dr. Zuniga, titration may be limited if refuses labs. Will keep Haldol ordered BID as well while titrating Clozaril but only inject in am if objects rather than BID as not acutely agitated. 05/27--d/c Clozaril as will not comply with labs and seems quite sedating, Haldol can be adjusted and hope is for conversion to RAMON (atypical vs Haldol). 05/28--improving but sedated. --Continue current meds, if remains so sedated throughout day tomorrow consider shifting dose (may also be avoidance, clozaril d/c yesterday). Dr. Tressa to reas sess and determine if Haldol dec most appropriate or if should be converted to an atypical as clears. Patient is not able to fully process that choice for today. 05/29 --Discussed further titration of haloperidol with patient - will increase HS dose due to concerns for daytime sedation. Pt agreeable with increasing dose to 7.5mg, continuing 5mg each morning. Consider further titration as indicat ed/tolerated --Though patient is in appropriate behavioral control and does not openly verbalize delusional thought content, she still demonstrates considerable lack of insight regarding the severity of her condition and need for appropriate treatment. Discussed recommendation for an RAMON, which patient is not interested in. Reasoning for recommendation was provided to the patient and patient was encouraged to compile questions so that this could be discussed in greater detail. --Atypical agents may be better tolerated intermediate manager, however, patient is still not demonstrating adequate insight to be able to discuss this in detail. 05/30 - Continue current doses of haloperidol - continue titration as indicated. Pt continues to be superficially reality-based when meeting with providers, but is continuing to verbalize delusional thought content to staff when in group programming. - Pt continues to decline RAMON 05/31 - Suggested titrating HS haloperidol to 10mg and maintaining 5mg morning dose - patient unwilling at this time for this adjustment. Psychotic symptoms were not quite as prevalent today, so waited on making this adjustment to allow additional time for observation. Continue to strongly encourage RAMON which patient continues to decline. We can certainly engage patient in conversation about alternative antipsychotic medication options, but she has not yet been able to/agreeable with participating in this conversation - Pt is benefiting from the structured and supervised hospital setting, but has continued to be resistant to suggests that would allow her to maintain stability in the outpatient setting. She continues to be at acute risk of rapid decompensation if discharged 06/01 - Titrating haloperidol to 5mg qAM and 10mg qHS due to ongoing delusional statements made to staff during group programming. Yesterday, patient had reported that she owns numerous houses and is again stating the belief that her father is not her true father. - Pt continues to refuse an RAMON, but did verbalize willingness for mobile medical management - Pt continues to demonstrate poor insight as to the pattern of behaviors that contributes to frequent hospitalizations. 06/02 - Continue current doses of haloperidol. - Patient still expresses delusional thoughts to the staff but denies any delusional thoughts on today's assessment. - Patient shows impaired insight into her psychiatric issues and providers hate her because they cannot find good reasons to keep her hospitalized at this point. 06/03 - Continue current doses of haloperidol. - Patient reports that she is hospitalized because of her father's claim that she is mentally ill and she will contact a road roller operator tomorrow to be discharged as soon as possible. She failed reality challenge and she thinks that she does not need medications for her psychiatric illness and medications are only placebo. With this statement, her compliance with medications is questionable after being discharged and it would be beneficial staying in psych rehab or using a RAMON to increase compliance with medications, which have been discussed in treatment team. 06/04 - Continue current medication regimen - Pt agreeable with scheduling a discharge planning meeting with nurse case management and family - she has agreed to only a few recommendations regarding outpatient support. Referral is being sent for [facility] - Pt continues to refuse RAMON - Anticipate filing for a 304 IOC on discharge 06/05 - Continue current medication regimen. Pt continues to refuse RAMON options, but did agree to mobile medication management - Discharge planning meeting this afternoon with patient, nurse case management, and mother - Will likely file for 304 IOC tomorrow, depending on outcome of support meeting 06/06 -Continue Haldol 5 mg every morning and 10 mg at bedtime. AIMS 0. Fasting labs reviewed from 01/11/2020. Strongly encourage the patient to transition to Haldol Decanoate, reviewed all of the benefits of an RAMON including better symptom control, decreased hospitalizations, decreased mortality, reduction in by suicide, decreased rate of cardio metabolic illness and from cardio metabolic illness, and decreased side effects, but unfortunately she continues to refuse to even consider or discussed the use of an RAMON. We could consider putting her on an RAMON over her objection, as I do believe she would benefit substantially and her pattern of behavior demonstrates that she is unlikely to remain compliant with oral medications. Do not believe that she currently meets the threshold criteria for giving a long-acting injectable over objection, as she is taking oral medications and stating a willingness (even if her past behavior does not support this) to continue oral medication after discharge. S he has also agreed to mobile med management services, and while they do not directly supervise or monitor her medications, they do check in with her regularly and discuss medication concerns/issues. -File for 304 involuntary outpatient commitment hearing. Schedule outpatient appointments, including referral to [facility] for psychotherapy. (2) MTHFR mutation: 05/23 -patient has a history of multiple DVTs and PE, at least 2 requiring hospitalization. She has been informed multiple times in the past that she will need to be on lifelong anticoagulant medication, but has repeatedly been noncompliant with it when psychotic. -Xarelto has been reordered, if patient remains unwilling to take it, may have to consult the hospitalist and explore other options. PT/INR ordered, but patient refused. -Coordinate care with PCP, Dr. Mcdowell, and patient will need follow-up after discharge. 05/24 -patient continues to refuse to take any anticoagulant medication or allow a blood draw for PT/INR. 05/24 -The patient is continuing to refuse to take anticoagulant medication or allow blood draws. This is 1 of the reasons why we are convinced that medications over objection are medically necessary in this case in order to stabilize the patient's condition and improve her insight and the need for treatment. Reviewed 05/26/2020. 05/31 - Pt continues to be compliant with Xarelto when offered - compliance likely strongly related to the structured hospital setting (3) Pulmonary embolism: (4) Hypokalemia: 05/23 - Potassium was 2.6 in the ER, patient received po potassium chloride 40meq x 2. Refusing additional labs today, but will continue to encourage compliance and will re-order for tomorrow. Monitor PO intake and encourage good nutrition. 05/24 -patient is eating some food here, but refusing to allow a blood draw to recheck potassium. 05/25 -the patient is continuing to eat on the unit, but is still refusing to allow blood draws to recheck her potassium. Reviewed 05/26/2020. 05/27--patient refused lab draw. (5) Vitamin B12 deficiency: 05/23 -patient started on vitamin B12 500 mcg daily during last hospitalization, when she was seen by the hospitalist service for recommendations regarding her anticoagulant. Folate and vitamin B12 were checked due to their association with high homocystine levels, which is associated with VTE. Vitamin B12 was low at 130. -We will hold off on resuming vitamin B12 and folic acid, as patient is currently refusing all medications and want to focus on her antipsychotic and anticoagulant first, but can resume these once she is less psychotic/more a dherent. Reviewed 05/26/2020. (6) Folate deficiency: 05/23 -folate checked during December hospitalization due to the above, was low at 3.42, and folic acid 20 mg daily was started. Reviewed 05/26/2020. (7) Nicotine dependence: 05/23 -patient unable to participate in smoking cessation education due to severity of psychosis. Offer patch and gum as needed for cravings. Reviewed 05/26/2020. Risk Factors Assessment Male: No : Yes Do You Have Access To A Gun?: No Health Problems: Yes Mental Health Diagnoses: Yes Substance Use Disorders: No Previous Attempt: No Family History of Suicide: No Previous Psychiatric Hospitalization: Yes Hopelessness: No Smoker: Yes Protective Factors Assessment : No Responsible for Young Children: No Employed: No Stable Relationships: No Supportive Family: Yes Good Rapport with Provider: No Interval History Identifying Information ROSMERY TALBERT is a 39-year-old F who currently lives in [place] with her boyfriend, has a history of schizophrenia and treatment noncompliance, and was admitted on 05/23/20 00:19 on a 302 involuntary commitment for psychosis and erratic and unsafe behavior in the context of treatment noncompliance. 303 was granted on 05/24. Chief Complaint " So much better". Review of Systems Sleep Information Total Hours of Sleep: 5.5 Sleep Comments: pt on q-15 minute checks Meal Information Percent Meal Consumed - Breakfast: 100 Percent Meal Consumed - Lunch: 90 Percent Meal Consumed - Dinner: 75 Nutrition Comment: pt. does not typically eat breakfast Subjective Subjective Patient was seen & assessed and interval progress reviewed with treatment team. Staff report she had a meeting with her mother and nurse case management and agreed to take po medications, although family expressed concerns about her true willingness to do that. She agreed to referrals for therapy and mobile med management. On my assessment, she states that she feels treatment of medications have been beneficial, as her mood is "so much better." When asked to say more about what is better compared to the time of admission, she says "talkative, groups, playing games, reading books." Sleep has improved, and she thinks that the Haldol is helpful, and denies side effects. She denies paranoia, states she is no longer concerned about her housing, and plans to return to her apartment in [place] with her ex-boyfriend, Tunde. She denies feeling fearful or that people are following or plotting against her. She states she may want to move to [place] in the future for "a change of scenery, and there is more going on here." She reports good support from her mother and nurse case management, and feels that her discharge planning meeting yesterday went well. She continues to adamantly refuse recommendations for a long-acting injectable, stating she does not like needles and "I do not believe in them" with respect to long-acting medications. Reviewed all of the benefits of the RAMON's, including better symptom control, decreased hospitalizations, decreased mortality, reduction in by suicide, decreased rate of cardio metabolic illness and from cardio metabolic illness, and decreased side effects. She continues to refuse to even consider her discussed the use of an RAMON. She did agree to a referral to [facility], but will not allow anyone to administer her medications to her daily, stating "oh no, I'll do that." Reviewed my concerns, including that she has been repeatedly noncompliant with oral antipsychotics in the past, and I am concerned that if this continues to happen that her symptoms will become more severe and more resistant to treatment. She states that she now knows she needs to take medication, as she had been stable and stayed out of the hospital for "years" when she was taking medication, but since she has been noncompliant this year has had multiple hospitalizations. Reviewed the plan for [address] [place] [address], and she expressed understanding and agreement. Physical Exam Psychiatric Orientation: alert and cooperative Apperance: appropriately dressed and appropriately groomed Very thin, wearing a hoodie with the del angel pulled up. Seated on her bed crosslegged in no acute distress. Eye Contact: good eye contact Motor Behavior: no abnormal motor movements Speech: normal rate/rhythm/volume of speech Affect: + blunted affect But brighter than earlier in hospital stay, less irritated, smiles appropriately. "Better." Thought Process: goal directed thought process Thought Content: reality based without delusions Suicidal Thoughts: denies suicidal thoughts Homicidal Thoughts: denies homicidal thoughts Hallucinations: no auditory hallucinations and no visual hallucinations Cognition: recent memory grossly intact, attention grossly intact and language grossly intact Estimated Intelligence: average estimated intelligence Insight: + limited insight Judgement: + limited judgement Vital Signs (Past 24 Hours) Last Vital Signs Temp 36.9 C 06/06/20 07:01 Pulse 85 06/06/20 07:01 Resp 16 06/06/20 07:01 BP 91/65 L 06/06/20 07:01 Pulse Ox 98 05/23/20 01:05 Results & Data ([facility]) Current Inpatient Medications Current Inpatient Medications: Current Inpatient Medications Acetaminophen (Acetaminophen 325 Mg Tab) 650 mg PO Q4H PRN PRN Reason: Headache or Minor Fever Stop: 06/22/20 01:13 Al Hydrox/Mg Hydrox/Simethicone (Aluminum/Magnesium Susp 30 Ml Udc) 30 ml PO Q4H PRN PRN Reason: GI Upset Stop: 06/22/20 01:13 Benztropine Mesylate (Benztropine Mesylate 1 Mg Tab) 2 mg PO BID PRN PRN Reason: Dystonia Stop: 06/24/20 20:08 Benztropine Mesylate (Benztropine Mesylate 1 Mg/Ml 2 Ml Amp) 2 mg IM BID PRN PRN Reason: Dystonic Reaction Stop: 06/24/20 20:08 Bismuth Subsalicylate (Bismuth Subsalicylate Liqd 236 Ml) 15 ml PO PRN PRN PRN Reason: Loose Stool Stop: 06/22/20 01:13 Haloperidol (Haloperidol 5 Mg Tab) 5 mg PO QAM SIMONA Stop: 06/29/20 08:59 Last Admin: 06/05/20 10:01 Dose: 5 mg Documented by: Haloperidol (Haloperidol 5 Mg Tab) 10 mg PO HS SIMONA Stop: 07/01/20 21:59 Last Admin: 06/05/20 21:30 Dose: 10 mg Documented by: Haloperidol Lactate (Haloperidol Lactate 5 Mg/Ml 1 Ml Vial) 5 mg IM QAM PRN PRN Reason: Refusal of PO meds Stop: 06/25/20 09:12 Haloperidol Lactate (Haloperidol Lactate 5 Mg/Ml 1 Ml Vial) 10 mg IM HS PRN PRN Reason: Refusal of PO meds Stop: 06/28/20 10:19 Hydroxyzine HCl (Hydroxyzine Hcl 25 Mg Tab) 50 mg PO HSZ PRN PRN Reason: Insomnia Stop: 06/22/20 01:13 Hydroxyzine HCl (Hydroxyzine Hcl 25 Mg Tab) 25 mg PO Q4H PRN PRN Reason: Anxiety Stop: 06/22/20 01:13 Magnesium Hydroxide (Magnesium Hydroxide Susp 30 Ml Udc) 30 ml PO DAILY PRN PRN Reason: Constipation Stop: 06/22/20 01:13 Nicotine Polacrilex (Nicotine Polacrilex 2 Mg Gum) 1 piece MT PRN PRN PRN Reason: nicotine cravings Stop: 06/29/20 14:03 Last Admin: 05/30/20 19:48 Dose: 1 piece Documented by: Rivaroxaban (Rivaroxaban 15 Mg Tab) 15 mg PO QDD SIMONA Stop: 06/22/20 17:44 Last Admin: 06/05/20 17:18 Dose: 15 mg Documented by: Sodium Chloride (Sodium Chloride 0.65% Na Soln 45 Ml ([place])) 1 - 2 sprays NA PRN PRN PRN Reason: Nasal Dryness/Congestion Stop: 06/22/20 01:13 Mental Health & Subst Abuse Tx Psychiatrist Name of Psychiatrist: Dr [facility] Psychiatrist's Psychiatric Appointment Comment: [address] [facility], [facility] [address], [address], [place], [place] Safety Investigator/Cause Analyst Name of Safety Investigator/Cause Analyst: Nelia Phone Number for Safety Investigator/Cause Analyst: [phone] Case Management Appointment Comment: [address] [facility], [address], [place], [place] Post Discharge Appointments Primary Care Physician Name Of Family Doctor: Dr. Mcadams Primary Care Provider Appointment Comment: [id number] [facility], [place]
[2020-06-06] MEDS: haloperidoL 5 MG TAB PO SCH ×2 (09:40→22:03)
[2020-06-06] MEDS: RIVAROXABAN 15 MG TAB PO SCH (17:19)
[2020-06-07] MEDS: haloperidoL 5 MG TAB PO SCH ×2 (08:56→21:48)
--- NOTE | 2020-06-07 09:37 | Psychiatric Progress Note ---
Date of Service June 07, 2020 Impression / Recommendations Impression 39-year-old female who lives with her boyfriend in [place], has a long history of schizophrenia and treatment noncompliance, and presented with psychosis in the context of noncompliance with antipsychotic medication (clozapine). She was found by police walking for hours in the rain, with creatinine kinase of 825, and potassium of 2.6, indicating poor p.o. intake. She said she was trying to find a space ship to take her to outer space, and per family had made comments about taking her young nephew with her. On admission she expressed delusions that her father is following her, wants to harm her, that the staff here are not real doctors and nurses, and up until last week was endorsing delusions that she is an employee on the inpatient unit. She has been engaging in erratic and unsafe behavior in the context of psychosis, including walking long distances, not eating or sleeping, hitchhiking, trying to steal a car, and refusing to take her psychotropic and anticoagulant medication. She has a history of multiple DVTs and PEs, and requires lifelong anticoagulation. She locked her boyfriend, whom she lives with, in her room in their home prior to leaving. On admission, she was disorganized, paranoid, delusional, and hallucinating, and clearly unable to provide for her own safety, health, welfare, retirement, and nutrition without the care and assistance of others. She has now been taking oral Haldol for 11 days, is tolerating it well, and stating it has been helpful. She is certainly less paranoid and no longer appears to be responding to hallucinations. She is often quite guarded in her interactions with staff and clinicians, as she wants to be discharged soon as possible. She had a discharge planning meeting with her foster care case manager and mother yesterday, and agreed to referrals for therapy and [facility] management. 304 involuntary outpatient commitment paperwork has been filed, and a hearing has been scheduled for 06/11 with subsequent discharge home. She remains at risk of medication noncompliance and rapid decompensation outside of a structured setting and therefore inpatient psychiatric treatment continues to be medically necessary. (1) Paranoid schizophrenia: 05/23 -admitted with delusions, hallucinations, paranoia, and erratic behavior. Unable to reality test, refusing all antipsychotic medications. Sven brookent is at imminent risk to both herself and others without treatment with antipsychotic medication to address her psychotic symptoms. Recommend medications over objection, as she has responded positively to treatment with antipsychotics in the past, and her symptoms are unlikely to remit without said treatment. -She has reportedly been noncompliant with clozapine for months, so will have to be re-titrated starting with 25 mg daily. She is unfortunately refusing all medications at this time, and is also refusing blood work. We may need to consider a long-acting injectable antipsychotic if she remains nonadherent. -I have called outpatient psychiatrist, Dr. Williamson's, office, explaining that the patient is here involuntarily, refusing to sign all releases, and that we are requesting records in order to treat her emergency medical condition. -Coordinate care with her BCM, Yuliet, and family/boyfriend. -Medically necessary private room due to psychosis and acting on delusional thoughts. -File for 303 involuntary commitment, hearing to be held tomorrow. 05/24 -303 hearing held and granted. -Continue to encourage her to take medications orally, which she is adamantly refusing. I recommend medications over objection to target her psychotic symptoms, as she has schizophrenia, presents with paranoia, delusions, hallucinations, and is acting on these thoughts, has no insight or ability to reality test, and symptoms have responded to antipsychotics in the past. She is at acute risk of harm to both herself and others if her symptoms are not treated, due to her behavior (not eating adequately with hypokalemia, walking long distances with rhabdomyolysis, hitchhiking, no concern for her own safety, attempting to steal a car, and believing that if spaceship is taking her to outer space and she wants to take her nephew with her). She does not feel safe returning to her home in [place] due to persecute Sergio delusions, and is likely to flee the area if released and her current mental state. She has responded well to clozapine in the past, but is it is not available in an injectable form, we will have to utilize another agent such as haloperidol or olanzapine, which is available as an immediate release IM. We could also consider placing her on a long-acting injectable antipsychotic, given her history of repeated nonadherence with treatment. -Reviewed case with Yuliet, her foster care case manager through [facility], who believes the patient needs an involuntary outpatient commitment, and states her outpatient psychiatrist would not complete paperwork and said he was unable to do so. 05/25 -Today, the patient did agree to take a single dose of clozapine, although she indicated that she believed that we were giving her a placebo and refused to believe the nurses explanation that, in fact, she was being given clozapine. The patient was not shown the label of the medication, and it is not clear if she took the medication because she thought it was a placebo or because she realized what it was and wanted to take it. She did say, "my psychiatrist wants me to take clozapine." -The patient is currently floridly psychotic and unable to evidence a reasonable choice in terms of whether or not to take psychiatric medications. She has repeatedly told us that she would refuse to take her medications, including her anticoagulant medication and any psychiatric medicine. She notes that she only is willing to consume "natural things, like herbs." In my opinion, the patient is suffering from a severe mental illness, namely schizophrenia. She is de lusional, dangerous to herself as a function of her inability to care for herself, and she is unlikely to enjoy any substantial improvement without the use of psychiatric medications. I agree with the finding that the patient will require medications, if necessary over objection, and intramuscular form, and that antipsychotic medications over objection are medically necessary and appropriate in this case. I will order Haldol 5 mg by mouth twice a day, and will also order Haldol 5 mg intramuscularly by mouth twice a day as needed for refusal of p.o. Haldol. 05/26--Seems more cooperative today, will increase Clozaril to 25 mg BID as per Dr. Zuniga, titration may be limited if refuses labs. Will keep Haldol ordered BID as well while titrating Clozaril but only inject in am if objects rather than BID as not acutely agitated. 05/27--d/c Clozaril as will not comply with labs and seems quite sedating, Haldol can be adjusted and hope is for conversion to RAMON (atypical vs Haldol). 05/28--improving but sedated. --Continue current meds, if remains so sedated throughout day tomorrow consider shifting dose (may also be avoidance, clozaril d/c yesterday). Dr. Bustillos to reassess and determine if Haldol dec most appropriate or if should be converted to an atypical as clears. Patient is not able to fully process that choice for today. 05/29 --Discussed further titration of haloperidol with patient - will increase HS dose due to concerns for daytime sedation. Pt agreeable with increasing dose to 7.5mg, continuing 5mg each morning. Consider further titration as indicated/tolerated --Though patient is in appropriate behavioral control and does not openly verbalize delusional thought content, she still demonstrates considerable lack of insight regarding the severity of her condition and need for appropriate treatment. Discussed recommendation for an RAMON, which patient is not interested in. Reasoning for recommendation was provided to the patient and patient was encouraged to compile questions so that this could be discussed in greater detail. --Atypical agents may be better tolerated voltage tester, however, patient is still not demonstrating adequate insight to be able to discuss this in detail. 05/30 - Continue current doses of haloperidol - continue titration as indicated. Pt continues to be superficially reality-based when meeting with providers, but is continuing to verbalize delusional thought content to staff when in group programming. - Pt continues to decline RAMON 05/31 - Suggested titrating HS haloperidol to 10mg and maintaining 5mg morning dose - patient unwilling at this time for this adjustment. Psychotic symptoms were not quite as prevalent today, so waited on making this adjustment to allow additional time for observation. Continue to strongly encourage RAMNO which patient continues to decline. We can certainly engage patient in conversation about alternative antipsychotic medication options, but she has not yet been able to/agreeable with participating in this conversation - Pt is benefiting from the structured and supervised hospital setting, but has continued to be resistant to suggests that would allow her to maintain stability in the outpatient setting. She continues to be at acute risk of rapid decompensation if discharged 06/01 - Titrating haloperidol to 5mg qAM and 10mg qHS due to ongoing delusional statements made to staff during group programming. Yesterday, patient had reported that she owns numerous houses and is again stating the belief that her father is not her true father. - Pt continues to refuse an RAMON, but did verbalize willingness for mobile medical management - Pt continues to demonstrate poor insight as to the pattern of behaviors that contributes to frequent hospitalizations. 06/02 - Continue current doses of haloperidol. - Patient still expresses delusional thoughts to the staff but denies any delusional thoughts on today's assessment. - Patient shows impaired insight into her psychiatric issues and providers hate her because they cannot find good reasons to keep her hospitalized at this point. 06/03 - Continue current doses of haloperidol. - Patient reports that she is hospitalized because of her father's claim that she is mentally ill and she will contact a interface engineer tomorrow to be discharged as soon as possible. She failed reality challenge and she thinks that she does not need medications for her psychiatric illness and medications are only placebo. With this statement, her compliance with medications is questionable after being discharged and it would be beneficial staying in psych rehab or using a RAMON to increase compliance with medications, which have been discussed in treatment team. 06/04 - Continue current medication regimen - Pt agreeable with scheduling a discharge planning meeting with foster care case manager and family - she has agreed to only a few recommendations regarding outpatient support. Referral is being sent for [facility] - Pt continues to refuse RAMON - Anticipate filing for a 304 IOC on discharge 06/05 - Continue current medication regimen. Pt continues to refuse RAMON options, but did agree to mobile medication management - Discharge planning meeting this afternoon with patient, foster care case manager, and mother - Will likely file for 304 IOC tomorrow, depending on outcome of support meeting 06/06 -Continue Haldol 5 mg every morning and 10 mg at bedtime. AIMS 0. Fasting labs reviewed from 01/11/2020. Strongly encourage the patient to transition to Haldol Decanoate, reviewed all of the benefits of an RAMON including better symptom control, decreased hospitalizations, decreased mortality, reduction in by suicide, decreased rate of cardio metabolic illness and from cardio metabolic illness, and decreased side effects, but unfortunately she continues to refuse to even consider or discussed the use of an RAMON. We could consider putting her on an RAMON over her objection, as I do believe she would benefit substantially and her pattern of behavior demonstrates that she is unlikely to remain compliant with oral medications. Do not believe that she currently meets the threshold criteria for giving a long-acting injectable over objection, as she is taking oral medications and stating a willingness (even if her past behavior does not support this) to continue oral medication after discharge. She has also agreed to mobile med management services, and while they do not directly supervise or monitor her medications, they do check in with her regularly and discuss medication concerns/issues. -File for 304 involuntary outpatient commitment hearing. Schedule outpatient appointments, including referral to [facility] for psychotherapy. 06/07 - Continue current medication regimen and treatment plan - 304 hearing scheduled for 06/11 at 9:30, with anticipated discharge after hearing - Outpatient appointments have been scheduled (2) MTHFR mutation: 05/23 -patient has a history of multiple DVTs and PE, at least 2 requiring hospitalization. She has been informed multiple times in the past that she will need to be on lifelong anticoagulant medication, but has repeatedly been noncompliant with it when psychotic. -Xarelto has been reordered, if patient remains unwilling to take it, may have to consult the hospitalist and explore other options. PT/INR ordered, but patient refused. -Coordinate care with PCP, Dr. Mcdowell, and patient will need follow-up after discharge. 05/24 -patient continues to refuse to take any anticoagulant medication or allow a blood draw for PT/INR. 05/24 -The patient is continuing to refuse to take anticoagulant medication or allow blood draws. This is 1 of the reasons why we are convinced that medications over objection are medically necessary in this case in order to stabilize the patient's condition and improve her insight and the need for treatment. Reviewed 05/26/2020. 05/31 - Pt continues to be compliant with Xarelto when offered - compliance likely strongly related to the structured hospital setting 06/07 - Pt continues to be compliant with Xarelto as scheduled - she has not verbalized any aversion to continuing the medication on discharge - Referral for [facility] in place to continue to encourage medication compliance (3) Pulmonary embolism: (4) Hypokalemia: 05/23 - Potassium was 2.6 in the ER, patient received po potassium chloride 40meq x 2. Refusing additional labs today, but will continue to encourage compliance and will re-order for tomorrow. Monitor PO intake and encourage good nutrition. 05/24 -patient is eating some food here, but refusing to allow a blood draw to recheck potassium. 05/25 -the patient is continuing to eat on the unit, but is still refusing to allow blood draws to recheck her potassium. Reviewed 05/26/2020. 05/27--patient refused lab draw. (5) Vitamin B12 deficiency: 05/23 -patient started on vitamin B12 500 mcg daily during last hospitalization, when she was seen by the hospitalist service for recommendations regarding her anticoagulant. Folate and vitamin B12 were checked due to their association with high homocystine levels, which is assoc iated with VTE. Vitamin B12 was low at 130. -We will hold off on resuming vitamin B12 and folic acid, as patient is currently refusing all medications and want to focus on her antipsychotic and anticoagulant first, but can resume these once she is less psychotic/more adherent. Reviewed 05/26/2020. (6) Folate deficiency: 05/23 -folate checked during December hospitalization due to the above, was low at 3.42, and folic acid 20 mg daily was started. Reviewed 05/26/2020. (7) Nicotine dependence: 05/23 -patient unable to participate in smoking cessation education due to severity of psychosis. Offer patch and gum as needed for cravings. Reviewed 05/26/2020. Risk Factors Assessment Male: No : Yes Do You Have Access To A Gun?: No Health Problems: Yes Mental Health Diagnoses: Yes Substance Use Disorders: No Previous Attempt: No Family History of Suicide: No Previous Psychiatric Hospitalization: Yes Hopelessness: No Smoker: Yes Protective Factors Assessment : No Responsible for Young Children: No Employed: No Stable Relationships: No Supportive Family: Yes Good Rapport with Provider: No Interval History Identifying Information ROSMERY TALBERT is a 39-year-old F who currently lives in [place] with her boyfriend, has a history of schizophrenia and treatment noncompliance, and was a dmitted on 05/23/20 00:19 on a 302 involuntary commitment for psychosis and erratic and unsafe behavior in the context of treatment noncompliance. 303 was granted on 05/24. Chief Complaint "Pretty good." Review of Systems Notes Constitutional: denied Cardiovascular: denied Respiratory: denied Gastrointestinal: denied Neurological: denied Psychiatric: denies symptoms other than stated above Total of at least 10 systems reviewed, pertinent positives as above and in HPI. Sleep Information Total Hours of Sleep: 5.5 Sleep Comments: pt on q-15 minute checks Meal Information Percent Meal Consumed - Breakfast: 100 Percent Meal Consumed - Lunch: 85 Percent Meal Consumed - Dinner: 100 Nutrition Comment: pt. does not typically eat breakfast Subjective Subjective Patient was seen & assessed and interval progress reviewed with nursing and social work. Staff report the patient has been appropriate in groups, but does spend a significant amount of time sleeping during the day. She has not v erbalized delusional thought content to staff in several days and is demonstrating improvement overall in the structured setting. Pt is aware of 304 [facility] hearing scheduled for 06/11 with anticipated discharge after. Pt was seen today to assess progress since admission. Pt reports she is feeling "pretty good." She admits to some daytime fatigue, but is also reporting feeling "bored and ready to get out of here." She has been attending some group programming which she admits is helpful. Pt reports feeling comfortable continuing her current dose of haloperidol and continues to state she plans to continue the medication on discharge. Pt reports "I just want to get home to my kitties." Pt does admit that her "fiance" (the label for this relationship has regularly changed) will still be living with her on discharge. Pt denies SI/HI and hallucinations. She denies other needs or concerns at this time. Physical Exam Psychiatric Orientation: alert, oriented x 3 and cooperative Apperance: appropriately dressed, + disheveled and appeared stated age Eye Contact: good eye contact Motor Behavior: no abnormal motor movements (observed while laying in bed) Speech: normal rate/rhythm/volume of speech Affect: + blunted affect (subdued, but not depressed) Mood: no depressed mood ("just bored") and no anxious mood Thought Process: clear/coherent thought process and + concrete thought process Thought Content: reality based without delusions Suicidal Thoughts: denies suicidal thoughts, denies suicidal plan and denies suicidal intent Homicidal Thoughts: denies homicidal thoughts Hallucinations: no auditory hallucinations and no visual hallucinations Cognition: attention grossly intact and language grossly intact Insight: + limited insight Judgement: + limited judgement Vital Signs (Past 24 Hours) Last Vital Signs Temp 36.7 C 06/07/20 06:45 Pulse 91 H 06/07/20 06:46 Resp 16 06/07/20 06:45 BP 101/70 06/07/20 06:46 Pulse Ox 98 05/23/20 01:05 Results & Data ([facility]) Current Inpatient Medications Current Inpatient Medications: Current Inpatient Medications Acetaminophen (Acetaminophen 325 Mg Tab) 650 mg PO Q4H PRN PRN Reason: Headache or Minor Fever Stop: 06/22/20 01:13 Al Hydrox/Mg Hydrox/Simethicone (Aluminum/Magnesium Susp 30 Ml Udc) 30 ml PO Q4H PRN PRN Reason: GI Upset Stop: 06/22/20 01:13 Benztropine Mesylate (Benztropine Mesylate 1 Mg Tab) 2 mg PO BID PRN PRN Reason: Dystonia Stop: 06/24/20 20:08 Benztropine Mesylate (Benztropine Mesylate 1 Mg/Ml 2 Ml Amp) 2 mg IM BID PRN PRN Reason: Dystonic Reaction Stop: 06/24/20 20:08 Bismuth Subsalicylate (Bismuth Subsalicylate Liqd 236 Ml) 15 ml PO PRN PRN PRN Reason: Loose Stool Stop: 06/22/20 01:13 Haloperidol (Haloperidol 5 Mg Tab) 5 mg PO QAM SIMONA Stop: 06/29/20 08:59 Last Admin: 06/07/20 08:56 Dose: 5 mg Documented by: Haloperidol (Haloperidol 5 Mg Tab) 10 mg PO HS SIMONA Stop: 07/01/20 21:59 Last Admin: 06/06/20 22:03 Dose: 10 mg Documented by: Haloperidol Lactate (Haloperidol Lactate 5 Mg/Ml 1 Ml Vial) 5 mg IM QAM PRN PRN Reason: Refusal of PO meds Stop: 06/25/20 09:12 Haloperidol Lactate (Haloperidol Lactate 5 Mg/Ml 1 Ml Vial) 10 mg IM HS PRN PRN Reason: Refusal of PO meds Stop: 06/28/20 10:19 Hydroxyzine HCl (Hydroxyzine Hcl 25 Mg Tab) 50 mg PO HSZ PRN PRN Reason: Insomnia Stop: 06/22/20 01:13 Hydroxyzine HCl (Hydroxyzine Hcl 25 Mg Tab) 25 mg PO Q4H PRN PRN Reason: Anxiety Stop: 06/22/20 01:13 Magnesium Hydroxide (Magnesium Hydroxide Susp 30 Ml Udc) 30 ml PO DAILY PRN PRN Reason: Constipation Stop: 06/22/20 01:13 Nicotine Polacrilex (Nicotine Polacrilex 2 Mg Gum) 1 piece MT PRN PRN PRN Reason: nicotine cravings Stop: 06/29/20 14:03 Last Admin: 05/30/20 19:48 Dose: 1 piece Documented by: Rivaroxaban (Rivaroxaban 15 Mg Tab) 15 mg PO QDD [facility] Stop: 06/22/20 17:44 Last Admin: 06/06/20 17:19 Dose: 15 mg Documented by: Sodium Chloride (Sodium Chloride 0.65% Na Soln 45 Ml ([place])) 1 - 2 sprays NA PRN PRN PRN Reason: Nasal Dryness/Congestion Stop: 06/22/20 01:13 Mental Health & Subst Abuse Tx Psychiatrist Name of Psychiatrist: [facility] - Dr. Williamson Psychiatrist's Date of Appointment with Psychiatrist: 06/14/20 Time of Appointment with Psychiatrist: 2:20 Psychiatric Appointment Comment: in person appt, [address] [facility] [facility] [address], [address], [place], [place] Therapist Name of Therapist: [facility] Therapist's Date of Therapist Appointment: 06/27/20 Time of Therapist Appointment: 12:45 p.m. - [address] [place] [address] Therapy Appointment Comment: Please complete new pt info they are sending you and bring to appt) Child Care Center Administrator Name of Child Care Center Administrator: [facility] - Yuliet Phone Number for Child Care Center Administrator: [phone] Date of Appointment with Child Care Center Administrator: 06/11/20 Time of Appointment with Child Care Center Administrator: 1:30 p.m. Case Management Appointment Comment: Will call you/see you each Thursday at 1:30 p.m. Post Discharge Appointments Primary Care Physician Name Of Family Doctor: KENAN - Dr. Mcdowell Primary Care Time of Appointment with PCP: Please follow up as needed Provider Appointment Comment: [address] [facility], [place], [place] Other #1: Name of Aftercare Appointment: [facility] - [facility] Phone Number of Aftercare Appointment: [phone] Date of Aftercare Appointment: 06/12/20 Time of Aftercare Appointment: 9:15 a.m. Aftercare Appointment Comment: Will come see you at your apartment Contact Information Discharge Discharge Address: [address] [place] [id number]
[2020-06-07] MEDS: RIVAROXABAN 15 MG TAB PO SCH (17:23)
--- NOTE | 2020-06-08 08:47 | Psychiatric Progress Note ---
Date of Service June 08, 2020 Impression / Recommendations Impression 39-year-old female who lives with her boyfriend in [place], has a long history of schizophrenia and treatment noncompliance, and presented with psychosis in the context of noncompliance with antipsychotic medication (clozapine). She was found by police walking for hours in the rain, with creatinine kinase of 825, and potassium of 2.6, indicating poor p.o. intake. She said she was trying to find a space ship to take her to outer space, and per family had made comments about taking her young nephew with her. On admission she expressed delusions that her father is following her, wants to harm her, that the staff here are not real doctors and nurses, and up until last week was endorsing delusions that she is an employee on the inpatient unit. She has been engaging in erratic and unsafe behavior in the context of psychosis, including walking long distances, not eating or sleeping, hitchhiking, trying to steal a car, and refusing to take her psychotropic and anticoagulant medication. She has a history of multiple DVTs and PEs, and requires lifelong anticoagulation. She locked her boyfriend, whom she lives with, in her room in their home prior to leaving. On admission, she was disorganized, paranoid, delusional, and hallucinating, and clearly unable to provide for her own safety, health, welfare, custodial, and nutrition without the care and assistance of others. She has now been taking oral Haldol for 11 days, is tolerating it well, and stating it has been helpful. She is certainly less paranoid and no longer appears to be responding to hallucinations. She is often quite guarded in her interactions with staff and clinicians, as she wants to be discharged soon as possible. She had a discharge planning meeting with her case supervisor and mother yesterday, and agreed to referrals for therapy and [facility] med management. 304 involuntary outpatient commitment paperwork has been filed, and a hearing has been scheduled for 06/11 with subsequent discharge home. She remains at risk of medication noncompliance and rapid decompensation outside of a structured setting and therefore inpatient psychiatric treatment continues to be medically necessary. (1) Paranoid schizophrenia: 05/23 -admitted with delusions, hallucinations, paranoia, and erratic behavior. Unable to reality test, refusing all antipsychotic medications. Sven brookent is at imminent risk to both herself and others without treatment with antipsychotic medication to address her psychotic symptoms. Recommend medications over objection, as she has responded positively to treatment with antipsychotics in the past, and her symptoms are unlikely to remit without said treatment. -She has reportedly been noncompliant with clozapine for months, so will have to be re-titrated starting with 25 mg daily. She is unfortunately refusing all medications at this time, and is also refusing blood work. We may need to consider a long-acting injectable antipsychotic if she remains nonadherent. -I have called outpatient psychiatrist, Dr. Williamson's, office, explaining that the patient is here involuntarily, refusing to sign all releases, and that we are requesting records in order to treat her emergency medical condition. -Coordinate care with her BCM, Yuliet, and family/boyfriend. -Medically necessary private room due to psychosis and acting on delusional thoughts. -File for 303 involuntary commitment, hearing to be held tomorrow. 05/24 -303 hearing held and granted. -Continue to encourage her to take medications orally, which she is adamantly refusing. I recommend medications over objection to target her psychotic symptoms, as she has schizophrenia, presents with paranoia, delusions, hallucinations, and is acting on these thoughts, has no insight or ability to reality test, and symptoms have responded to antipsychotics in the past. She is at acute risk of harm to both herself and others if her symptoms are not treated, due to her behavior (not eating adequately with hypokalemia, walking long distances with rhabdomyolysis, hitchhiking, no concern for her own safety, attempting to steal a car, and believing that if spaceship is taking her to outer space and she wants to take her nephew with her). She does not feel safe returning to her home in [place] due to persecute Sergio delusions, and is likely to flee the area if released and her current mental state. She has responded well to clozapine in the past, but is it is not available in an injectable form, we will have to utilize another agent such as haloperidol or olanzapine, which is available as an immediate release IM. We could also consider placing her on a long-acting injectable antipsychotic, given her history of repeated nonadherence with treatment. -Reviewed case with Yuliet, her case supervisor through [facility], who believes the patient needs an involuntary outpatient commitment, and states her outpatient psychiatrist would not complete paperwork and said he was unable to do so. 05/25 -Today, the patient did agree to take a single dose of clozapine, although she indicated that she believed that we were giving her a placebo and refused to believe the nurses explanation that, in fact, she was being given clozapine. The patient was not shown the label of the medication, and it is not clear if she took the medication because she thought it was a placebo or because she realized what it was and wanted to take it. She did say, "my psychiatrist wants me to take clozapine." -The patient is currently floridly psychotic and unable to evidence a reasonable choice in terms of whether or not to take psychiatric medications. She has repeatedly told us that she would refuse to take her medications, including her anticoagulant medication and any psychiatric medicine. She notes that she only is willing to consume "natural things, like herbs." In my opinion, the patient is suffering from a severe mental illness, namely schizophrenia. She is de lusional, dangerous to herself as a function of her inability to care for herself, and she is unlikely to enjoy any substantial improvement without the use of psychiatric medications. I agree with the finding that the patient will require medications, if necessary over objection, and intramuscular form, and that antipsychotic medications over objection are medically necessary and appropriate in this case. I will order Haldol 5 mg by mouth twice a day, and will also order Haldol 5 mg intramuscularly by mouth twice a day as needed for refusal of p.o. Haldol. 05/26--Seems more cooperative today, will increase Clozaril to 25 mg BID as per Dr. Zuniga, titration may be limited if refuses labs. Will keep Haldol ordered BID as well while titrating Clozaril but only inject in am if objects rather than BID as not acutely agitated. 05/27--d/c Clozaril as will not comply with labs and seems quite sedating, Haldol can be adjusted and hope is for conversion to RAMON (atypical vs Haldol). 05/28--improving but sedated. --Continue current meds, if remains so sedated throughout day tomorrow consider shifting dose (may also be avoidance, clozaril d/c yesterday). Dr. Bustillos to reassess and determine if Haldol dec most appropriate or if should be converted to an atypical as clears. Patient is not able to fully process that choice for today. 05/29 --Discussed further titration of haloperidol with patient - will increase HS dose due to concerns for daytime sedation. Pt agreeable with increasing dose to 7.5mg, continuing 5mg each morning. Consider further titration as indicated/tolerated --Though patient is in appropriate behavioral control and does not openly verbalize delusional thought content, she still demonstrates considerable lack of insight regarding the severity of her condition and need for appropriate treatment. Discussed recommendation for an RAMON, which patient is not interested in. Reasoning for recommendation was provided to the patient and patient was encouraged to compile questions so that this could be discussed in greater detail. --Atypical agents may be better tolerated manager intermediate, however, patient is still not demonstrating adequate insight to be able to discuss this in detail. 05/30 - Continue current doses of haloperidol - continue titration as indicated. Pt continues to be superficially reality-based when meeting with providers, but is continuing to verbalize delusional thought content to staff when in group programming. - Pt continues to decline RAMON 05/31 - Suggested titrating HS haloperidol to 10mg and maintaining 5mg morning dose - patient unwilling at this time for this adjustment. Psychotic symptoms were not quite as prevalent today, so waited on making this adjustment to allow additional time for observation. Continue to strongly encourage RAMON which patient continues to decline. We can certainly engage patient in conversation about alternative antipsychotic medication options, but she has not yet been able to/agreeable with participating in this conversation - Pt is benefiting from the structured and supervised hospital setting, but has continued to be resistant to suggests that would allow her to maintain stability in the outpatient setting. She continues to be at acute risk of rapid decompensation if discharged 06/01 - Titrating haloperidol to 5mg qAM and 10mg qHS due to ongoing delusional statements made to staff during group programming. Yesterday, patient had reported that she owns numerous houses and is again stating the belief that her father is not her true father. - Pt continues to refuse an RAMON, but did verbalize willingness for mobile medical management - Pt continues to demonstrate poor insight as to the pattern of behaviors that contributes to frequent hospitalizations. 06/02 - Continue current doses of haloperidol. - Patient still expresses delusional thoughts to the staff but denies any delusional thoughts on today's assessment. - Patient shows impaired insight into her psychiatric issues and providers hate her because they cannot find good reasons to keep her hospitalized at this point. 06/03 - Continue current doses of haloperidol. - Patient reports that she is hospitalized because of her father's claim that she is mentally ill and she will contact a real estate rep tomorrow to be discharged as soon as possible. She failed reality challenge and she thinks that she does not need medications for her psychiatric illness and medications are only placebo. With this statement, her compliance with medications is questionable after being discharged and it would be beneficial staying in psych rehab or using a RAMON to increase compliance with medications, which have been discussed in treatment team. 06/04 - Continue current medication regimen - Pt agreeable with scheduling a discharge planning meeting with case supervisor and family - she has agreed to only a few recommendations regarding outpatient support. Referral is being sent for [facility] - Pt continues to refuse RAMON - Anticipate filing for a 304 IOC on discharge 06/05 - Continue current medication regimen. Pt continues to refuse RAMON options, but did agree to mobile medication management - Discharge planning meeting this afternoon with patient, case supervisor, and mother - Will likely file for 304 IOC tomorrow, depending on outcome of support meeting 06/06 -Continue Haldol 5 mg every morning and 10 mg at bedtime. AIMS 0. Fasting labs reviewed from 01/11/2020. Strongly encourage the patient to transition to Haldol Decanoate, reviewed all of the benefits of an RAMON including better symptom control, decreased hospitalizations, decreased mortality, reduction in by suicide, decreased rate of cardio metabolic illness and from cardio metabolic illness, and decreased side effects, but unfortunately she continues to refuse to even consider or discussed the use of an RAMON. We could consider putting her on an RAMON over her objection, as I do believe she would benefit substantially and her pattern of behavior demonstrates that she is unlikely to remain compliant with oral medications. Do not believe that she currently meets the threshold criteria for giving a long-acting injectable over objection, as she is taking oral medications and stating a willingness (even if her past behavior does not support this) to continue oral medication after discharge. She has also agreed to mobile med management services, and while they do not directly supervise or monitor her medications, they do check in with her regularly and discuss medication concerns/issues. -File for 304 involuntary outpatient commitment hearing. Schedule outpatient appointments, including referral to [facility] for psychotherapy. 06/07 - 06/08 - Continue current medication regimen and treatment plan - 304 hearing scheduled for 06/11 at 9:30, with anticipated discharge after hearing - Outpatient appointments have been scheduled (2) MTHFR mutation: 05/23 -patient has a history of multiple DVTs and PE, at least 2 requiring hospitalization. She has been informed multiple times in the past that she will need to be on lifelong anticoagulant medication, but has repeatedly been noncompliant with it when psychotic. -Xarelto has been reordered, if patient remains unwilling to take it, may have to consult the hospitalist and explore other options. PT/INR ordered, but patient refused. -Coordinate care with PCP, Dr. Mcdowell, and patient will need follow-up after discharge. 05/24 -patient continues to refuse to take any anticoagulant medication or allow a blood draw for PT/INR. 05/24 -The patient is continuing to refuse to take anticoagulant medication or allow blood draws. This is 1 of the reasons why we are convinced that medications over objection are medically necessary in this case in order to stabilize the patient's condition and improve her insight and the need for treatment. Reviewed 05/26/2020. 05/31 - Pt continues to be compliant with Xarelto when offered - compliance likely strongly related to the structured hospital setting 06/07 - Pt continues to be compliant with Xarelto as scheduled - she has not verbalized any aversion to continuing the medication on discharge - Referral for [facility] in place to continue to encourage medication compliance (3) Pulmonary embolism: (4) Hypokalemia: 05/23 - Potassium was 2.6 in the ER, patient received po potassium chloride 40meq x 2. Refusing additional labs today, but will continue to encourage compliance and will re-order for tomorrow. Monitor PO intake and encourage good nutrition. 05/24 -patient is eating some food here, but refusing to allow a blood draw to recheck potassium. 05/25 -the patient is continuing to eat on the unit, but is still refusing to allow blood draws to recheck her potassium. Reviewed 05/26/2020. 05/27--patient refused lab draw. (5) Vitamin B12 deficiency: 05/23 -patient started on vitamin B12 500 mcg daily during last hospitali zation, when she was seen by the hospitalist service for recommendations regarding her anticoagulant. Folate and vitamin B12 were checked due to their association with high homocystine levels, which is associated with VTE. Vitamin B12 was low at 130. -We will hold off on resuming vitamin B12 and folic acid, as patient is currently refusing all medications and want to focus on her antipsychotic and anticoagulant first, but can resume these once she is less psychotic/more adherent. Reviewed 05/26/2020. (6) Folate deficiency: 05/23 -folate checked during December hospitalization due to the above, was low at 3.42, and folic acid 20 mg daily was started. Reviewed 05/26/2020. (7) Nicotine dependence: 05/23 -patient unable to participate in smoking cessation education due to severity of psychosis. Offer patch and gum as needed for cravings. Reviewed 05/26/2020. Risk Factors Assessment Male: No : Yes Do You Have Access To A Gun?: No Health Problems: Yes Mental Health Diagnoses: Yes Substance Use Disorders: No Previous Attempt: No Family History of Suicide: No Previous Psychiatric Hospitalization: Yes Hopelessness: No Smoker: Yes Protective Factors Assessment : No Responsible for Young Children: No Employed: No Stable Relationships: No Supportive Family: Yes Good Rapport with Provider: No Interval History Identifying Information ROSMERY TALBERT is a 39-year-old F who currently lives in [place] with her boyfriend, has a history of schizophrenia and treatment noncompliance, and was admitted on 05/23/20 00:19 on a 302 involuntary commitment for psychosis and erratic and unsafe behavior in the context of treatment noncompliance. 303 was granted on 05/24. Chief Complaint "Two more days!" Review of Systems Notes Constitutional: denied Cardiovascular: denied Respiratory: denied Gastrointestinal: denied Neurological: denied Psychiatric: denies symptoms other than stated above Total of at least 10 systems reviewed, pertinent positives as above and in HPI. Sleep Information Total Hours of Sleep: 7 Sleep Comments: pt on q-15 minute checks Meal Information Percent Meal Consumed - Breakfast: 100 Percent Meal Consumed - Lunch: 80 Percent Meal Consumed - Dinner: 90 Nutrition Comment: pt. does not typically eat breakfast Subjective Subjective Patient was seen & assessed and interval progress reviewed with treatment team. Staff report the patient continues to participate appropriate with group programming. She is not continuing to verbalize any delusional thought content and does appear to be much improved from admission. Pt is aware of and agreeable with 304 [facility], and was reminded of anticipated hearing and discharge on 06/11. Pt was seen today to assess progress since admission. Pt states "two more days!" She states she is excited to go home to her cats, and only request of staff is to "help me stay busy this weekend." Pt reports continued benefit from haloperidol and continues to verbalize a willingness to take the medication consistently on discharge. Pt denies SI/HI and signs of psychosis. She denies any physical complaints or other concerns today. Physical Exam Psychiatric Orientation: alert, oriented x 3 and cooperative Apperance: appropriately dressed (casually, wearing scrub pants and a hoodie), + disheveled (hair appearing unkempt, but del angel covering hair most of the time) and appeared stated age Eye Contact: good eye contact Motor Behavior: no abnormal motor movements (observed while laying in bed) Speech: normal rate/rhythm/volume of speech Affect: euthymic affect Mood: no depressed mood and no anxious mood Thought Process: goal directed thought process and + concrete thought process Thought Content: reality based without delusions; not paranoid, no hopelessness and no worthlessness participates in rather superficial conversation, but no delusional thoughts are being verbalized Suicidal Thoughts: denies suicidal thoughts, denies suicidal plan and denies suicidal intent Homicidal Thoughts: denies homicidal thoughts Hallucinations: no auditory hallucinations and no visual hallucinations Cognition: attention grossly intact and language grossly intact Estimated Intelligence: consistent with education level Insight: + limited insight chronically limited insight into her condition, but improved with regard to recognition of need to comply with medication regimen and outpatient treatment. Judgement: + limited judgement Vital Signs (Past 24 Hours) Last Vital Signs Temp 36.7 C 06/08/20 06:34 Pulse 82 06/08/20 06:34 Resp 18 06/08/20 06:34 BP 103/71 06/08/20 06:34 Pulse Ox 98 05/23/20 01:05 Results & Data ([facility]) Current Inpatient Medications Current Inpatient Medications: Current Inpatient Medications Acetaminophen (Acetaminophen 325 Mg Tab) 650 mg PO Q4H PRN PRN Reason: Headache or Minor Fever Stop: 06/22/20 01:13 Al Hydrox/Mg Hydrox/Simethicone (Aluminum/Magnesium Susp 30 Ml Udc) 30 ml PO Q4H PRN PRN Reason: GI Upset Stop: 06/22/20 01:13 Benztropine Mesylate (Benztropine Mesylate 1 Mg Tab) 2 mg PO BID PRN PRN Reason: Dystonia Stop: 06/24/20 20:08 Benztropine Mesylate (Benztropine Mesylate 1 Mg/Ml 2 Ml Amp) 2 mg IM BID PRN PRN Reason: Dystonic Reaction Stop: 06/24/20 20:08 Bismuth Subsalicylate (Bismuth Subsalicylate Liqd 236 Ml) 15 ml PO PRN PRN PRN Reason: Loose Stool Stop: 06/22/20 01:13 Haloperidol (Haloperidol 5 Mg Tab) 5 mg PO QAM SIMONA Stop: 06/29/20 08:59 Last Admin: 06/07/20 08:56 Dose: 5 mg Documented by: Haloperidol (Haloperidol 5 Mg Tab) 10 mg PO HS SIMONA Stop: 07/01/20 21:59 Last Admin: 06/07/20 21:48 Dose: 10 mg Documented by: Haloperidol Lactate (Haloperidol Lactate 5 Mg/Ml 1 Ml Vial) 5 mg IM QAM PRN PRN Reason: Refusal of PO meds Stop: 06/25/20 09:12 Haloperidol Lactate (Haloperidol Lactate 5 Mg/Ml 1 Ml Vial) 10 mg IM HS PRN PRN Reason: Refusal of PO meds Stop: 06/28/20 10:19 Hydroxyzine HCl (Hydroxyzine Hcl 25 Mg Tab) 50 mg PO HSZ PRN PRN Reason: Insomnia Stop: 06/22/20 01:13 Hydroxyzine HCl (Hydroxyzine Hcl 25 Mg Tab) 25 mg PO Q4H PRN PRN Reason: Anxiety Stop: 06/22/20 01:13 Magnesium Hydroxide (Magnesium Hydroxide Susp 30 Ml Udc) 30 ml PO DAILY PRN PRN Reason: Constipation Stop: 06/22/20 01:13 Nicotine Polacrilex (Nicotine Polacrilex 2 Mg Gum) 1 piece MT PRN PRN PRN Reason: nicotine cravings Stop: 06/29/20 14:03 Last Admin: 05/30/20 19:48 Dose: 1 piece Documented by: Rivaroxaban (Rivaroxaban 15 Mg Tab) 15 mg PO QDD SIMONA Stop: 06/22/20 17:44 Last Admin: 06/07/20 17:23 Dose: 15 mg Documented by: Sodium Chloride (Sodium Chloride 0.65% Na Soln 45 Ml ([place])) 1 - 2 sprays NA PRN PRN PRN Reason: Nasal Dryness/Congestion Stop: 06/22/20 01:13 Mental Health & Subst Abuse Tx Psychiatrist Name of Psychiatrist: [facility] [place] [facility] - Dr. Williamson Psychiatrist's Date of Appointment with Psychiatrist: 06/14/20 Time of Appointment with Psychiatrist: 2:20 p.m. (In person) Psychiatric Appointment Comment: Luis Amaya, [address], [address], [place], [place] Therapist Name of Therapist: [facility] [email or web address] [facility] Therapist's Date of Therapist Appointment: 06/27/20 Time of Therapist Appointment: 12:45 p.m. - [address] [place] [address] Therapy Appointment Comment: Please complete new pt info they are sending you and bring to appt) [place] [facility] Name of [place] [facility]: [facility] Yuliet Phone Number for [place] Seamer: [phone] Date of Appointment with [place] Seamer: 06/11/20 Time of Appointment with [place] Seamer: 1:30 p.m. Case Management Appointment Comment: Will call you/see you each Thursday at 1:30 p.m. Post Discharge Appointments Primary Care Physician Name Of Family Doctor: KENAN Mcdowell [facility] Time of Appointment with PCP: Please follow up as needed Provider Appointment Comment: [address], [place] Other #1: Name of Aftercare Appointment: [facility] - [place] Phone Number of Aftercare Appointment: [phone] Date of Aftercare Appointment: 06/12/20 Time of Aftercare Appointment: 9:15 a.m. Aftercare Appointment Comment: Will come see you at your apartment Contact Information Discharge Discharge Address: [address] [place] [id number]
[2020-06-08] MEDS: haloperidoL 5 MG TAB PO SCH ×2 (08:52→21:04)
[2020-06-08] MEDS: RIVAROXABAN 15 MG TAB PO SCH (17:21)
[2020-06-09] MEDS: haloperidoL 5 MG TAB PO SCH ×2 (09:26→21:51)
--- NOTE | 2020-06-09 11:25 | Psychiatric Progress Note ---
Date of Service June 09, 2020 Impression / Recommendations Impression 39-year-old female who lives with her boyfriend in [place], has a long history of schizophrenia and treatment noncompliance, and presented with psychosis in the context of noncompliance with antipsychotic medication (clozapine). She was found by police walking for hours in the rain, with creatinine kinase of 825, and potassium of 2.6, indicating poor p.o. intake. She said she was trying to find a space ship to take her to outer space, and per family had made comments about taking her young nephew with her. On admission she expressed delusions that her father is following her, wants to harm her, that the staff here are not real doctors and nurses, and up until last week was endorsing delusions that she is an employee on the inpatient unit. She has been engaging in erratic and unsafe behavior in the context of psychosis, including walking long distances, not eating or sleeping, hitchhiking, trying to steal a car, and refusing to take her psychotropic and anticoagulant medication. She has a history of multiple DVTs and PEs, and requires lifelong anticoagulation. She locked her boyfriend, whom she lives with, in her room in their home prior to leaving. On admission, she was disorganized, paranoid, delusional, and hallucinating, and clearly unable to provide for her own safety, health, welfare, halfway, and nutrition without the care and assistance of others. She has now been taking oral Haldol for 11 days, is tolerating it well, and stating it has been helpful. She is certainly less paranoid and no longer appears to be responding to hallucinations. She is often quite guarded in her interactions with staff and clinicians, as she wants to be discharged soon as possible. She had a discharge planning meeting with her casework specialist and mother yesterday, and agreed to referrals for therapy and [employer] med management. 304 involuntary outpatient commitment paperwork has been filed, and a hearing has been scheduled for 06/11 with subsequent discharge home. She remains at risk of medication noncompliance and rapid decompensation outside of a structured setting and therefore inpatient psychiatric treatment continues to be medically necessary. 06/09--reviewed. Impression: ongoing improvement. Plan: continue current meds and treatment plan pending anticipated hearing/discharge on 06/11. Risk Factors Assessment Male: No : Yes Do You Have Access To A Gun?: No Health Problems: Yes Mental Health Diagnoses: Yes Substance Use Disorders: No Previous Attempt: No Family History of Suicide: No Previous Psychiatric Hospitalization: Yes Hopelessness: No Smoker: Yes Protective Factors Assessment : No Responsible for Young Children: No Employed: No Stable Relationships: No Supportive Family: Yes Good Rapport with Provider: No Interval History Identifying Information ROSMERY TALBERT is a 39-year-old F who currently lives in [place] with her boyfriend, has a history of schizophrenia and treatment noncompliance, and was admitted on 05/23/20 00:19 on a 302 involuntary commitment for psychosis and erratic and unsafe behavior in the context of treatment noncompliance. 303 was granted on 05/24. Reviewed 06/09, patient known to me from earlier in stay. Chief Complaint "I'm great thanks". Review of Systems Sleep Information Total Hours of Sleep: 7.5 Sleep Comments: pt on q-15 minute checks Meal Information Percent Meal Consumed - Breakfast: 0 Percent Meal Consumed - Lunch: 90 Percent Meal Consumed - Dinner: 90 Nutrition Comment: pt. does not typically eat breakfast and usually has a snack and fluids mid-morning Subjective Subjective Patient was seen & assessed and interval progress reviewed with nursing. She remains compliant with meds and increased insight into condition. 304 IOC hearing on Monday 06/11. Physical Exam Psychiatric Orientation: alert Apperance: appropriately dressed Eye Contact: + fair eye contact Motor Behavior: no abnormal motor movements Speech: normal rate/rhythm/volume of speech Affect: euthymic affect Thought Process: + concrete thought process Thought Content: reality based without delusions Suicidal Thoughts: denies suicidal thoughts Homicidal Thoughts: denies homicidal thoughts Hallucinations: no auditory hallucinations and no visual hallucinations Insight: + limited insight Judgement: + limited judgement Vital Signs (Past 24 Hours) Last Vital Signs Temp 36.7 C 06/09/20 06:28 Pulse 94 H 06/09/20 06:28 Resp 17 06/09/20 06:28 BP 111/77 06/09/20 06:29 Pulse Ox 98 05/23/20 01:05 Results & Data (U) Current Inpatient Medications Current Inpatient Medications: Current Inpatient Medications Acetaminophen (Acetaminophen 325 Mg Tab) 650 mg PO Q4H PRN PRN Reason: Headache or Minor Fever Stop: 06/22/20 01:13 Al Hydrox/Mg Hydrox/Simethicone (Aluminum/Magnesium Susp 30 Ml Udc) 30 ml PO Q4H PRN PRN Reason: GI Upset Stop: 06/22/20 01:13 Benztropine Mesylate (Benztropine Mesylate 1 Mg Tab) 2 mg PO BID PRN PRN Reason: Dystonia Stop: 06/24/20 20:08 Benztropine Mesylate (Benztropine Mesylate 1 Mg/Ml 2 Ml Amp) 2 mg IM BID PRN PRN Reason: Dystonic Reaction Stop: 06/24/20 20:08 Bismuth Subsalicylate (Bismuth Subsalicylate Liqd 236 Ml) 15 ml PO PRN PRN PRN Reason: Loose Stool Stop: 06/22/20 01:13 Haloperidol (Haloperidol 5 Mg Tab) 5 mg PO QAM SIMONA Stop: 06/29/20 08:59 Last Admin: 06/09/20 09:26 Dose: 5 mg Documented by: Haloperidol (Haloperidol 5 Mg Tab) 10 mg PO HS SIMONA Stop: 07/01/20 21:59 Last Admin: 06/08/20 21:04 Dose: 10 mg Documented by: Haloperidol Lactate (Haloperidol Lactate 5 Mg/Ml 1 Ml Vial) 5 mg IM QAM PRN PRN Reason: Refusal of PO meds Stop: 06/25/20 09:12 Haloperidol Lactate (Haloperidol Lactate 5 Mg/Ml 1 Ml Vial) 10 mg IM HS PRN PRN Reason: Refusal of PO meds Stop: 06/28/20 10:19 Hydroxyzine HCl (Hydroxyzine Hcl 25 Mg Tab) 50 mg PO HSZ PRN PRN Reason: Insomnia Stop: 06/22/20 01:13 Hydroxyzine HCl (Hydroxyzine Hcl 25 Mg Tab) 25 mg PO Q4H PRN PRN Reason: Anxiety Stop: 06/22/20 01:13 Magnesium Hydroxide (Magnesium Hydroxide Susp 30 Ml Udc) 30 ml PO DAILY PRN PRN Reason: Constipation Stop: 06/22/20 01:13 Nicotine Polacrilex (Nicotine Polacrilex 2 Mg Gum) 1 piece MT PRN PRN PRN Reason: nicotine cravings Stop: 06/29/20 14:03 Last Admin: 05/30/20 19:48 Dose: 1 piece Documented by: Rivaroxaban (Rivaroxaban 15 Mg Tab) 15 mg PO QDD [facility] Stop: 06/22/20 17:44 Last Admin: 06/08/20 17:21 Dose: 15 mg Documented by: Sodium Chloride (Sodium Chloride 0.65% Na Soln 45 Ml ([place])) 1 - 2 sprays NA PRN PRN PRN Reason: Nasal Dryness/Congestion Stop: 06/22/20 01:13 Mental Health & Subst Abuse Tx Psychiatrist Name of Psychiatrist: [facility] - Dr. Williamson Psychiatrist's Date of Appointment with Psychiatrist: 06/14/20 Time of Appointment with Psychiatrist: 2:20 p.m. (In person) Psychiatric Appointment Comment: [address], [address], [place], [place] Therapist Name of Therapist: [facility] Therapist's Date of Therapist Appointment: 06/27/20 Time of Therapist Appointment: 12:45 p.m. - [address] [place] [address] Therapy Appointment Comment: Please complete new pt info they are sending you and bring to appt) Tissue Specialist Name of Tissue Specialist: [facility] [place] Phone Number for Tissue Specialist: [phone] Date of Appointment with Tissue Specialist: 06/11/20 Time of Appointment with Tissue Specialist: 1:30 p.m. Case Management Appointment Comment: Will call you/see you each Thursday at 1:30 p.m. Post Discharge Appointments Primary Care Physician Name Of Family Doctor: KENAN - Dr. Mcdowell [facility] Time of Appointment with PCP: Please follow up as needed Provider Appointment Comment: [address] [facility], [place] Contact Information Discharge Discharge Address: [address] [place] [id number]
[2020-06-09] MEDS: RIVAROXABAN 15 MG TAB PO SCH (17:37)
[2020-06-10] MEDS: haloperidoL 5 MG TAB PO SCH ×2 (08:57→21:49)
[2020-06-10] MEDS: BENZTROPINE MESYLATE 1 MG TAB PO PRN ×2 (11:04→15:35)
--- NOTE | 2020-06-10 12:48 | Psychiatric Progress Note ---
Date of Service June 10, 2020 Impression / Recommendations Impression 39-year-old female who lives with her boyfriend in [place], has a long history of schizophrenia and treatment noncompliance, and presented with psychosis in the context of noncompliance with antipsychotic medication (clozapine). She was found by police walking for hours in the rain, with creatinine kinase of 825, and potassium of 2.6, indicating poor p.o. intake. She said she was trying to find a space ship [place] take her to outer space, and per family had made comments about taking her young nephew with her. On admission she expressed delusions that her father is following her, wants to harm her, that the staff here are not real doctors and nurses, and up until last week was endorsing delusions that she is an employee on the inpatient unit. She has been engaging in erratic and unsafe behavior in the context of psychosis, including walking long distances, not eating or sleeping, hitchhiking, trying to steal a car, and refusing to take her psychotropic and anticoagulant medication. She has a history of multiple DVTs and PEs, and requires lifelong anticoagulation. She locked her boyfriend, whom she lives with, in her room in their home prior to leaving. On admission, she was disorganized, paranoid, delusional, and hallucinating, and clearly unable to provide for her own safety, health, welfare, [facility], and nutrition without the care and assistance of others. She has now been taking oral Haldol for 11 days, is tolerating it well, and stating it has been helpful. She is certainly less paranoid and no longer appears to be responding to hallucinations. She is often quite guarded in her interactions with staff and clinicians, as she wants to be discharged soon as possible. She had a discharge planning meeting with her case maker and mother yesterday, and agreed to referrals for therapy and [facility]: [facility] med management. 304 involuntary outpatient commitment paperwork has been filed, and a hearing has been scheduled for 06/11 with subsequent discharge home. She remains at risk of medication noncompliance and rapid decompensation outside of a structured setting and therefore inpatient psychiatric treatment continues to be medically necessary. 06/09--reviewed. Impression: ongoing improvement. Plan: continue current meds and treatment plan pending anticipated hearing/discharge on 06/11. 06/10--stable over night, continue same. Risk Factors Assessment Male: No : Yes Do You Have Access To A Gun?: No Health Problems: Yes Mental Health Diagnoses: Yes Substance Use Disorders: No Previous Attempt: No Family History of Suicide: No Previous Psychiatric Hospitalization: Yes Hopelessness: No Smoker: Yes Protective Factors Assessment : No Responsible for Young Children: No Employed: No Stable Relationships: No Supportive Family: Yes Good Rapport with Provider: No Interval History Identifying Information ROSMERY TALBERT is a 39-year-old F who currently lives in [place] with her boyfriend, has a history of schizophrenia and treatment noncompliance, and was admitted on 05/23/20 00:19 on a 302 involuntary commitment for psychosis and erratic and unsafe behavior in the context of treatment noncompliance. 303 was granted on 05/24. Reviewed 06/09, patient known to me from earlier in stay. Chief Complaint "I'm good, thanks". Review of Systems Sleep Information Total Hours of Sleep: 6.75 Sleep Comments: pt on q-15 minute checks Meal Information Percent Meal Consumed - Breakfast: 100 Percent Meal Consumed - Lunch: 60 Percent Meal Consumed - Dinner: 50 Nutrition Comment: pt. does not typically eat breakfast and usually has a snack and fluids mid-morning Subjective Subjective Patient was seen & assessed and interval progress reviewed with nursing and social work. Patient was helpful with group activities and continues to voice commitment to taking medications. Asked appropriate questions about prescriptions upon discharge. Later did complain of some stiffness which responded to Cogentin prn. Physical Exam Psychiatric Orientation: alert Apperance: appropriately groomed Eye Contact: + fair eye contact Motor Behavior: no abnormal motor movements Speech: normal rate/rhythm/volume of speech Affect: euthymic affect Thought Process: goal directed thought process Thought Content: reality based without delusions Suicidal Thoughts: denies suicidal thoughts Homicidal Thoughts: denies homicidal thoughts Hallucinations: no auditory hallucinations and no visual hallucinations Vital Signs (Past 24 Hours) Last Vital Signs Temp 36.6 C 06/10/20 06:28 Pulse 74 06/10/20 06:28 Resp 17 06/10/20 06:28 BP 102/73 06/10/20 06:29 Pulse Ox 98 05/23/20 01:05 Results & Data ([facility]) Current Inpatient Medications Current Inpatient Medications: Current Inpatient Medications Acetaminophen (Acetaminophen 325 Mg Tab) 650 mg PO Q4H PRN PRN Reason: Headache or Minor Fever Stop: 10/30/20 01:13 Al Hydrox/Mg Hydrox/Simethicone (Aluminum/Magnesium Susp 30 Ml Udc) 30 ml PO Q4H PRN PRN Reason: GI Upset Stop: 06/22/20 01:13 Benztropine Mesylate (Benztropine Mesylate 1 Mg Tab) 2 mg PO BID PRN PRN Reason: Dystonia Stop: 06/24/20 20:08 Last Admin: 06/10/20 11:04 Dose: 2 mg Documented by: Benztropine Mesylate (Benztropine Mesylate 1 Mg/Ml 2 Ml Amp) 2 mg IM BID PRN PRN Reason: Dystonic Reaction Stop: 06/24/20 20:08 Bismuth Subsalicylate (Bismuth Subsalicylate Liqd 236 Ml) 15 ml PO PRN PRN PRN Reason: Loose Stool Stop: 06/22/20 01:13 Haloperidol (Haloperidol 5 Mg Tab) 5 mg PO QAM SIMONA Stop: 06/29/20 08:59 Last Admin: 06/10/20 08:57 Dose: 5 mg Documented by: Haloperidol (Haloperidol 5 Mg Tab) 10 mg PO HS SIMONA Stop: 07/01/20 21:59 Last Admin: 06/09/20 21:51 Dose: 10 mg Documented by: Haloperidol Lactate (Haloperidol Lactate 5 Mg/Ml 1 Ml Vial) 5 mg IM QAM PRN PRN Reason: Refusal of PO meds Stop: 06/25/20 09:12 Haloperidol Lactate (Haloperidol Lactate 5 Mg/Ml 1 Ml Vial) 10 mg IM HS PRN PRN Reason: Refusal of PO meds Stop: 06/28/20 10:19 Hydroxyzine HCl (Hydroxyzine Hcl 25 Mg Tab) 50 mg PO HSZ PRN PRN Reason: Insomnia Stop: 06/22/20 01:13 Hydroxyzine HCl (Hydroxyzine Hcl 25 Mg Tab) 25 mg PO Q4H PRN PRN Reason: Anxiety Stop: 06/22/20 01:13 Magnesium Hydroxide (Magnesium Hydroxide Susp 30 Ml Udc) 30 ml PO DAILY PRN PRN Reason: Constipation Stop: 06/22/20 01:13 Nicotine Polacrilex (Nicotine Polacrilex 2 Mg Gum) 1 piece MT PRN PRN PRN Reason: nicotine cravings Stop: 06/29/20 14:03 Last Admin: 05/30/20 19:48 Dose: 1 piece Documented by: Rivaroxaban (Rivaroxaban 15 Mg Tab) 15 mg PO QDD SIMONA Stop: 06/22/20 17:44 Last Admin: 06/09/20 17:37 Dose: 15 mg Documented by: Sodium Chloride (Sodium Chloride 0.65% Na Soln 45 Ml ([place])) 1 - 2 sprays NA PRN PRN PRN Reason: Nasal Dryness/Congestion Stop: 06/22/20 01:13 Mental Health & Subst Abuse Tx Psychiatrist Name of Psychiatrist: [facility] - Dr. Williamson Psychiatrist's Date of Appointment with Psychiatrist: 06/14/20 Time of Appointment with Psychiatrist: 2:20 p.m. (In person) Psychiatric Appointment Comment: [address], [address], [place], [place] Therapist Name of Therapist: [facility] Therapist's Date of Therapist Appointment: 06/27/20 Time of Therapist Appointment: 12:45 p.m. - [address] [facility], [place] [address] Therapy Appointment Comment: Please complete new pt info they are sending you and bring to appt) Lead Applier Name of Lead Applier: [facility] Phone Number for Lead Applier: [phone] Date of Appointment with Lead Applier: 06/11/20 Time of Appointment with Lead Applier: 1:30 p.m. Case Management Appointment Comment: Will call you/see you each Thursday at 1:30 p.m. Post Discharge Appointments Primary Care Physician Name Of Family Doctor: KENAN - Dr. Mcdowell [facility] Time of Appointment with PCP: Please follow up as needed Provider Appointment Comment: [address] [facility], [place], [place] Contact Information Discharge Discharge Address: [address] [address]
[2020-06-10] MEDS: RIVAROXABAN 15 MG TAB PO SCH (17:36)
[2020-06-10] MEDS ORDERED: BENZTROPINE MESYLATE 1 MG TAB PO STA (22:34)
[2020-06-11] MEDS: haloperidoL 5 MG TAB PO SCH (08:56)
[2020-06-11] MEDS: BENZTROPINE MESYLATE 1 MG TAB PO PRN (08:57)
--- NOTE | 2020-06-11 09:44 | Discharge Summary ---
Date of Service June 11, 2020 History of Present Illness Patient is well-known to me from multiple previous hospitalizations, most recently on our unit for 15 days in December, and discharged on a 304 IOC, on clozapine 100 mg daily and Xarelto 20 mg daily, due to chronic clotting disorder with a history of multiple DVTs and PEs. She presented to the ER yesterday, 05/22/2020, with police on a 302 warrant, after she walked for hours in the rain, and said she needed to say goodbye to her family as she was going into outer space. Her Blended Software Applications Specialist Yuliet Kaminski completed a petitioning statement that reads: I am Arianna Chavezreese Blended [employer] Applications Specialist and I received a CIT report from police stating Arianna was in [place] and called dispatch stating she needed a ride off of [place] and into space. Arianna told BCM that she call police and needed a ride to [place] because she wanted to say goodbye to her family, when BCM asked what she meant, Arianna stated she was probably moving. When asked why she was in [place] Arianna said to check things out but would not explain what she meant. Arianna was previously on a 304 IOC that ended in March 2020 and is showing a lot of decompensation. Arianna told BCM Just tell them they are ready but would not clarify what she meant. Negrito mother states that Arianna is not taking her medications or sleeping and she is on Xarelto for blood clots and told her mother on 05/21 that her legs were swollen. Negrito mother states she has not slept for a few days. Due to her vast history with non-compliance and lethality if she discontinues her blood thinner medication, I believe that if she is not treated it would result in , especially due to her hx of critical blood clots. She also has been taking rides from strangers and had police called on her because she was going around trying to open car doors on various vehicles." The sheriff's officer that brought her in reported she was delusional and paranoid, said she was not taking medication, and had locked her boyfriend in a room in the residence. The patient told ER staff that she will not take medications will use only "natural things." she reported she had not slept in days, and appeared to be hallucinating. She endorsed delusions that "things were being pumped into the air," and that her vein would break if blood was drawn. Her mother was contacted by the ER rn case mgr, and said the patient had not taken her medications for the past 6 months, had been taking rides with people "to go nowhere," and has been talking about taking her nephew away with her on a space ship. She believes this patient is coming to get her, and has been asking people to take her to a motel to wait for this patient. She has been advised that she needs to stay on an anticoagulant for the rest of her life due to at least 2 hospitalizations for blood clots, but has not been taking that medication either. The patient was a limited historian and unable/unwilling to provide information, appeared preoccupied, looking around the room as if responding to unseen others. She was admitted involuntarily. Admission labs notable for potassium of 2.6, creatinine kinase of 825, TSH 1.300, UA with trace blood and 5-10 epithelial cells, negative test, negative UDS, and negative COVID-19. She received potassium chloride 40 mEq X2 doses yesterday. Repeat CK, PT/INR, APTT, and clozapine level were ordered for this morning, but patient has adamantly refused to allow a blood draw. She was restarted on clozapine 25 mg daily, and Xarelto was ordered, but she is refusing medications. She also refused to sign releases for anyone, including outpatient clinicians or family. She told staff she was waiting for a spaceship to come get her, then moments later denied saying this. She was observed laughing and smiling inappropriately, appears to be hallucinating. Her BCM was involved in her involuntary commitment, and is coming to see her this afternoon. On my assessment, the patient was seen in her room, where she is seated crosslegged on her bed, looking at paperwork. She avoided eye contact, and was poorly cooperative with the assessment, answering questions vaguely or with "I don't know," and conflicting reports, and was generally not forthcoming with information. She said she is here because "everyone saw me walking, were concerned, called the tar worker." When informed that the records indicates she herself called police, she said "well I thought about it," but seems unsure about whether she called them or not. She says that she was walking all around [place] and then [place], going to different businesses, "trying to find a place to live." She cannot explain how walking around different businesses would help her find housing, or how she got from [place] to [place]. She says she wants to move because "it's time for me to live my life without my mom and dad, without my family, it's time for me to do that. I tried to move to [place], but my parents followed me there. It's time for me to get new people in my life." She states that the man she lives with is not her boyfriend, and denied that she locked him in a room. She says she has not seen her outpatient psychiatrist or rn case mgr in months, and has not taken any medications in months, because "I decided that meds are harmful to the human body." She denies recreational drug and caffeine use, but reports smoking heavily. She admits to not sleeping in days, unable to be more specific, "a while." Sleep was better last night, and she describes mood as "all right I guess." She endorses anxiety about moving, stated she is "worried about moving, getting all my stuff there. 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 Is unwilling to sign releases for outpatient clinicians her family, starting she does not need treatment and does not need her family to be involved in her life. She is refusing to take medications, both Xarelto and antipsychotic medication, and is refusing blood draws, despite repeated explanations of the risks if she refuses. Physical Exam Psychiatric Orientation: alert and cooperative Apperance: appropriately dressed, appropriately groomed and appeared stated age Wearing multiple hooded shirts with the hoods up. Eye Contact: good eye contact Motor Behavior: steady gait and station and no abnormal motor movements Speech: normal rate/rhythm/volume of speech Affect: euthymic affect and mood congruent with affect "Good." Thought Process: goal directed thought process Thought Content: reality based without delusions Suicidal Thoughts: denies suicidal thoughts Homicidal Thoughts: denies homicidal thoughts Hallucinations: no auditory hallucinations and no visual hallucinations Cognition: recent memory grossly intact, attention grossly intact and language grossly intact Estimated Intelligence: average estimated intelligence Insight: + limited insight Judgement: + limited judgement Vital Signs (Past 24 Hours) Last Vital Signs Temp 36.8 C 06/11/20 06:47 Pulse 97 H 06/11/20 06:48 Resp 16 06/11/20 06:47 BP 102/67 06/11/20 06:48 Pulse Ox 98 05/23/20 01:05 Principal Diagnosis Schizophrenia Treatment nonadherence Psychiatric Data The patient was hospitalized for 19 days. She initially refused antipsychotic medication, so medications over objection were started after she was placed on a 303 involuntary commitment and was seen by 2 psychiatrists who recommended medicating over objection. She refused to allow any lab work, despite concerns about rhabdomyolysis and hypokalemia. Her p.o. intake was observed and noted to be adequate. Her outpatient psychiatrist was contacted and concerns about her nonadherence with treatment and recommendations for involuntary outpatient commitment and an RAMON were discussed. She was initially restarted on clozapine, but given her ongoing noncompliance and unwillingness for blood work, it was discontinued and she was started on haloperidol, which was titrated to a total of 15 mg daily. She responded well to this medication, and recommendations to switch to an RAMON were reviewed with her on multiple occasions, but she refused, so she was continued on oral medication. During the first part of her stay, she continued to endorse paranoia, delusions of persecution, and appeared to be responding to auditory hallucinations. At one point, she told staff that she believes she was an employee on the behavioral health unit, and was requesting keys and a badge, and talking about how stressful her job was. She continued to demonstrate very poor insight, did not believe she had a mental illness or needed treatment. She remained psychotic and paranoid about her father and living in [place], thinking that she was being followed and targeted by people there, and that because of this, she needed to move to [place]. As her paranoia improved, she stated that she planned to return to her apartment in [place], and was no longer focused on delusions of persecution. She had a family meeting with the health social work professor, her mother, and her blended rn case mgr on 06/05/2020. Her mother indicated that the patient sounded better, and the patient agreed to meet with her rn case mgr weekly. She refused recommendations for day programming, but excepted a referral for mobile medication management and individual therapy. A 304 involuntary outpatient commitment hearing was scheduled for the day of discharge, given that the patient has repeatedly been noncompliant with treatment as an outpatient. Day of Discharge Assessment Staff report the patient is eating and sleeping well, performing ADLs independently, and taking medications as prescribed. She is attending and participating in groups, and states she is excited to return home. On my assessment, she reports mood is "so much better," she is looking forward to returning home, and denies any side effects to medications. She denies hallucinations, paranoia, and thoughts of harming herself and others. She does not endorse any delusions. She reports willingness to adhere with outpatient treatment and oral medication. Transition of Care Transition Of Care Record: was reviewed with the patient Advance Directives Advance Directives Information Provided: Yes Advance Directives: No Mental Health Advance Directive: No Advance Directives on File: No Living Will: No Power of Kier Operator: No Advance Directives Reason:: Declines as Mental Health Visit. Risk Factors Assessment Risk factors were mitigated by admission to the inpatient unit, use of medications to target psychotic symptoms, education about her diagnosis and the recommended treatment, ongoing involuntary commitment due to noncompliance with treatment/lack of insight, placing her on a 304 IOC at discharge to try to improve adherence to treatment, family meeting with her outpatient supports, referral for higher level of outpatient care (individual therapy and mobile med management), participation in groups and therapy, and working on healthy coping skills and a discharge safety plan. She has demonstrated improvement in psychotic symptoms, is willingly taking oral medications and indicates she will continue to do so after discharge, is eating and sleeping well, tending to ADLs independently, and consistently denying thoughts of harming herself and others. She is no longer at acute risk of harm to herself or others, so can be managed as an outpatient at this time. Male: No : Yes Do You Have Access To A Gun?: No Health Problems: Yes Mental Health Diagnoses: Yes Substance Use Disorders: No Previous Attempt: No Family History of Suicide: No Previous Psychiatric Hospitalization: Yes Hopelessness: No Smoker: Yes Protective Factors Assessment : No Responsible for Young Children: No Employed: No Stable Relationships: No Supportive Family: Yes Good Rapport with Provider: No Tobacco Cessation at Discharge Tobacco Cessation Medication Prescribed at Discharge: Offered & Pt Refused Practical counseling provided including: recognizing danger situations, developing coping skills and providing basic information about quitting Tobacco Cessation Outpatient Followup: Outpatient referral made to (Dr. Williamson) Total Time Total Time Spent: Greater Than 30 Minutes Total Time Includes: Examination of the patient, Discharge Planning, Medication Reconciliation and As well as (304 IO hearing) Discharge Data Lab Results 05/22/20 05/22/20 05/22/20 19:57 19:57 19:57 WBC RBC Hgb Hct MCV MCH MCHC RDW Std Deviation RDW Coeff of Ashanti Plt Count MPV Immature Gran % (Auto) Neut % (Auto) Lymph % (Auto) [place] % (Auto) Eos % (Auto) Baso % (Auto) Neut # (Auto) Lymph # (Auto) [place] # (Auto) Eos # (Auto) Baso # (Auto) Immature Gran # (Auto) Sodium Potassium Chloride Carbon Dioxide Anion Gap BUN Creatinine Est Cr Clr Drug Dosing Est GFR ( Amer) Est GFR (Non-Af Amer) BUN/Creatinine Ratio Glucose Calcium Total Bilirubin AST ALT Alkaline Phosphatase Total Creatine Kinase Total Protein Albumin Globulin Albumin/Globulin Ratio TSH Urine Color Yellow Urine Appearance Clear Urine pH 6.5 Ur Specific [place] 1.004 Urine Protein Negative Urine Glucose (UA) Negative Urine Ketones Negative Urine Blood Trace H Urine Nitrite Negative Urine Bilirubin Negative Urine Urobilinogen Negative Ur Leukocyte Esterase Negative Urine WBC (Auto) 0 Urine RBC (Auto) 0-4 U Hyaline Cast (Auto) 0 U Epithel Cells (Auto) 5-10 H Urine Bacteria (Auto) Negative Urine Test Negative Salicylates Urine Opiates Screen Neg Ur Methadone, Qual Neg Acetaminophen Urine Barbiturates Neg Ur Phencyclidine (PCP) Neg U Amphetamin/Meth Scrn Neg MDMA (Ecstasy) Screen Neg U Benzodiazepines Scrn Neg Ur Cocaine Metabolite Neg U Marijuana (THC) Screen Neg Ethyl Alcohol mg/dL COVID-19 Eval Order COVID-19 PCR 05/22/20 05/22/20 05/22/20 20:03 20:03 20:03 WBC 8.63 RBC 4.34 Hgb 15.2 Hct 41.2 MCV 94.9 MCH 35.0 H MCHC 36.9 H RDW Std Deviation 43.9 RDW Coeff of Ashanti 12.7 Plt Count 314 MPV 8.8 Immature Gran % (Auto) 0.2 Neut % (Auto) 77.2 Lymph % (Auto) 13.8 [place] % (Auto) 8.6 Eos % (Auto) 0.1 Baso % (Auto) 0.1 Neut # (Auto) 6.66 H Lymph # (Auto) 1.19 L [place] # (Auto) 0.74 H Eos # (Auto) 0.01 Baso # (Auto) 0.01 Immature Gran # (Auto) 0.02 Sodium 136 Potassium 2.6 L Chloride 102 Carbon Dioxide 28 Anion Gap 7.0 BUN 1 L Creatinine 0.81 Est Cr Clr Drug Dosing 82.6 Est GFR ( Amer) 105.3 Est GFR (Non-Af Amer) 90.8 BUN/Creatinine Ratio 1.6 L Glucose 95 Calcium 9.5 Total Bilirubin 1.0 AST 35 ALT 23 Alkaline Phosphatase 101 Total Creatine Kinase 825 H Total Protein 7.4 Albumin 4.0 Globulin 3.4 Albumin/Globulin Ratio 1.2 TSH 1.300 Urine Color Urine Appearance Urine pH Ur Specific [place] Urine Protein Urine Glucose (UA) Urine Ketones Urine Blood Urine Nitrite Urine Bilirubin Urine Urobilinogen Ur Leukocyte Esterase Urine WBC (Auto) Urine RBC (Auto) U Hyaline Cast (Auto) U Epithel Cells (Auto) Urine Bacteria (Auto) Urine Test Salicylates 3.8 Urine Opiates Screen Ur Methadone, Qual Acetaminophen < 2 L Urine Barbiturates Ur Phencyclidine (PCP) U Amphetamin/Meth Scrn MDMA (Ecstasy) Screen U Benzodiazepines Scrn Ur Cocaine Metabolite U Marijuana (THC) Screen Ethyl Alcohol mg/dL COVID-19 Eval Order COVID-19 PCR 05/22/20 05/22/20 05/22/20 20:03 21:56 21:56 WBC RBC Hgb Hct MCV MCH MCHC RDW Std Deviation RDW Coeff of Ashanti Plt Count MPV Immature Gran % (Auto) Neut % (Auto) Lymph % (Auto) [place] % (Auto) Eos % (Auto) Baso % (Auto) Neut # (Auto) Lymph # (Auto) [place] # (Auto) Eos # (Auto) Baso # (Auto) Immature Gran # (Auto) Sodium Potassium Chloride Carbon Dioxide Anion Gap BUN Creatinine Est Cr Clr Drug Dosing Est GFR ( Amer) Est GFR (Non-Af Amer) BUN/Creatinine Ratio Glucose Calcium Total Bilirubin AST ALT Alkaline Phosphatase Total Creatine Kinase Total Protein Albumin Globulin Albumin/Globulin Ratio TSH Urine Color Urine Appearance Urine pH Ur Specific [place] Urine Protein Urine Glucose (UA) Urine Ketones Urine Blood Urine Nitrite Urine Bilirubin Urine Urobilinogen Ur Leukocyte Esterase Urine WBC (Auto) Urine RBC (Auto) U Hyaline Cast (Auto) U Epithel Cells (Auto) Urine Bacteria (Auto) Urine Test Salicylates Urine Opiates Screen Ur Methadone, Qual Acetaminophen Urine Barbiturates Ur Phencyclidine (PCP) U Amphetamin/Meth Scrn MDMA (Ecstasy) Screen U Benzodiazepines Scrn Ur Cocaine Metabolite U Marijuana (THC) Screen Ethyl Alcohol mg/dL < 3.0 COVID-19 Eval Order Covid[address] [facility] COVID-19 PCR NEGATIVE Hospital Course (1) Paranoid schizophrenia: 05/23 -admitted with delusions, hallucinations, paranoia, and erratic behavior. Unable to reality test, refusing all antipsychotic medications. Patient is at imminent risk to both herself and others without treatment with antipsychotic medication to address her psychotic symptoms. Recommend medications over objection, as she has responded positively to treatment with antipsychotics in the past, and her symptoms are unlikely to remit without said treatment. -She has reportedly been noncompliant with clozapine for months, so will have to be re-titrated starting with 25 mg daily. She is unfortunately refusing all medications at this time, and is also refusing blood work. We may need to consider a long-acting injectable antipsychotic if she remains nonadherent. -I have called outpatient psychiatrist, Dr. Williamson's, office, explaining that the patient is here involuntarily, refusing to sign all releases, and that we are requesting records in order to treat her emergency medical condition. -Coordinate care with her BCM, Yuliet, and family/boyfriend. -Medically necessary private room due to psychosis and acting on delusional thoughts. -File for 303 involuntary commitment, hearing to be held tomorrow. 05/24 -303 hearing held and granted. -Continue to encourage her to take medications orally, which she is adamantly refusing. I recommend medications over objection to target her psychotic symptoms, as she has schizophrenia, presents with paranoia, delusions, hallucinations, and is acting on these thoughts, has no insight or ability to reality test, and symptoms have responded to antipsychotics in the past. She is at acute risk of harm to both herself and others if her symptoms are not treated, due to her behavior (not eating adequately with hypokalemia, walking long distances with rhabdomyolysis, hitchhiking, no concern for her own safety, attempting to steal a car, and believing that if spaceship is taking her to outer space and she wants to take her nephew with her). She does not feel safe returning to her home in [place] due to persecute Sergio delusions, and is likely to flee the area if released and her current mental state. She has responded well to clozapine in the past, but is it is not available in an injectable form, we will have to utilize another agent such as haloperidol or olanzapine, which is available as an immediate release IM. We could also co nsider placing her on a long-acting injectable antipsychotic, given her history of repeated nonadherence with treatment. -Reviewed case with Yuliet, her rn case mgr through [facility], who bel ieves the patient needs an involuntary outpatient commitment, and states her outpatient psychiatrist would not complete paperwork and said he was unable to do so. 05/25 -Today, the patient did agree to take a single dose of clozapine, although she indicated that she believed that we were giving her a placebo and refused to believe the nurses explanation that, in fact, she was being given clozapine. The patient was not shown the label of the medication, and it is not clear if she took the medication because she thought it was a placebo or because she realized what it was and wanted to take it. She did say, "my psychiatrist wants me to take clozapine." -The patient is currently floridly psychotic and unable to evidence a reasonable choice in terms of whether or not to take psychiatric medications. She has repeatedly told us that she would refuse to take her medications, including her anticoagulant medication and any psychiatric medicine. She notes that she only is willing to consume "natural things, like herbs." In my opinion, the patient is suffering from a severe mental illness, namely schizophrenia. She is delusional, dangerous to herself as a function of her inability to care for herself, and she is unlikely to enjoy any substantial improvement without the use of psychiatric medications. I agree with the finding that the patient will require medications, if necessary over objection, and intramuscular form, and that antipsychotic medications over objection are medically necessary and appropriate in this case. I will order Haldol 5 mg by mouth twice a day, and will also order Haldol 5 mg intramuscularly by mouth twice a day as needed for refusal of p.o. Haldol. 05/26--Seems more cooperative today, will increase Clozaril to 25 mg BID as per Dr. Zuniga, titration may be limited if refuses labs. Will keep Haldol ordered BID as well while titrating Clozaril but only inject in am if objects rather than BID as not acutely agitated. 05/27--d/c Clozaril as will not comply with labs and seems quite sedating, Haldol can be adjusted and hope is for conversion to RAMON (atypical vs Haldol). 05/28--improving but sedated. --Continue current meds, if remains so sedated throughout day tomorrow consider shifting dose (may also be avoidance, clozaril d/c yesterday). Dr. Bustillos to reassess and determine if Haldol dec most appropriate or if should be converted to an atypical as clears. Patient is not able to fully process that choice for today. 05/29 --Discussed further titration of haloperidol with patient - will increase HS dose due to concerns for daytime sedation. Pt agreeable with increasing dose to 7.5mg, continuing 5mg each morning. Consider further titration as indicated/tolerated --Though patient is in appropriate behavioral control and does not openly verbalize delusional thought content, she still demonstrates considerable lack of insight regarding the severity of her condition and need for appropriate treatment. Discussed recommendation for an RAMON, which patient is not interested in. Reasoning for recommendation was provided to the patient and patient was encouraged to compile questions so that this could be discussed in greater detail. --Atypical agents may be better tolerated termite control service representative, however, patient is still not demonstrating adequate insight to be able to discuss this in detail. 05/30 - Continue current doses of haloperidol - continue titration as indicated. Pt continues to be superficially reality-based when meeting with providers, but is continuing to verbalize delusional thought content to staff when in group programming. - Pt continues to decline RAMON 05/31 - Suggested titrating HS haloperidol to 10mg and maintaining 5mg morning dose - patient unwilling at this time for this adjustment. Psychotic symptoms were not quite as prevalent today, so waited on making this adjustment to allow additional time for observation. Continue to strongly encourage RAMON which patie nt continues to decline. We can certainly engage patient in conversation about alternative antipsychotic medication options, but she has not yet been able to/agreeable with participating in this conversation - Pt is benefiting from the structured and supervised hospital setting, but has continued to be resistant to suggests that would allow her to maintain stability in the outpatient setting. She continues to be at acute risk of rapid decompensation if discharged 06/01 - Titrating haloperidol to 5mg qAM and 10mg qHS due to ongoing delusional statements made to staff during group programming. Yesterday, patient had reported that she owns numerous houses and is again stating the belief that her father is not her true father. - Pt continues to refuse an RAMON, but did verbalize willingness for mobile medical management - Pt continues to demonstrate poor insight as to the pattern of behaviors that contributes to frequent hospitalizations. 06/02 - Continue current doses of haloperidol. - Patient still expresses delusional thoughts to the staff but denies any delusional thoughts on today's assessment. - Patient shows impaired insight into her psychiatric issues and providers hate her because they cannot find good reasons to keep her hospitalized at this point. 06/03 - Continue current doses of haloperidol. - Patient reports that she is hospitalized because of her father's claim that she is mentally ill and she will contact a beet end supervisor tomorrow to be discharged as soon as possible. She failed reality challenge and she thinks that she does not need medications for her psychiatric illness and medications are only placebo. With this statement, her compliance with medications is questionable after being discharged and it would be beneficial staying in psych rehab or using a RAMON to increase compliance with medications, which have been discussed in treatment team. 06/04 - Continue current medication regimen - Pt agreeable with scheduling a discharge planning meeting with rn case mgr and family - she has agreed to only a few recommendations regarding outpatient support. Referral is being sent for [employer] [facility] - Pt continues to refuse RAMON - Anticipate filing for a 304 IOC on discharge 06/05 - Continue current medication regimen. Pt continues to refuse RAMON options, but did agree to mobile medication management - Discharge planning meeting this afternoon with patient, rn case mgr, and mother - Will likely file for 304 IOC tomorrow, depending on outcome of support meeting 06/06 -Continue Haldol 5 mg every morning and 10 mg at bedtime. AIMS 0. Fasting labs reviewed from 01/11/2020. Strongly encourage the patient to transition to Haldol Decanoate, reviewed all of the benefits of an RAMON including better symptom control, decreased hospitalizations, decreased mortality, reduction in by suicide, decreased rate of cardio metabolic illness and from cardio metabolic illness, and decreased side effects, but unfortunately she continues to refuse to even consider or discussed the use of an RAMON. We could consider putting her on an RAMON over her objection, as I do believe she would benefit substantially and her pattern of behavior demonstrates that she is unlikely to remain compliant with oral medications. Do not believe that she currently meets the threshold criteria for giving a long-acting injectable over objection, as she is taking oral medications and stating a willingness (even if her past behavior does not support this) to continue oral medication after discharge. She has also agreed to mobile med management services, and while they do not directly supervise or monitor her medications, they do check in with her regularly and discuss medication concerns/issues. -File for 304 involuntary outpatient commitment hearing. Schedule outpatient appointments, including referral to [facility] for psychotherapy. 06/07 - 06/08 - Continue current medication regimen and treatment plan - 304 hearing scheduled for 06/11 at 9:30, with anticipated discharge after hearing - Outpatient appointments have been scheduled 06/11 -304 involuntary outpatient hearing held and granted. Prescription sent for #30-day supply of haloperidol and benztropine as needed. We have strongly recommended transition to Haldol Decanoate, which the patient is refusing. -Patient referred for individual therapy and [facility] [employer] mobile med management. Her BCM was involved in inpatient treatment and discharge planning, and will follow up with her after discharge. (2) MTHFR mutation: 05/23 -patient has a history of multiple DVTs and PE, at least 2 requiring hospitalization. She has been informed multiple times in the past that she will need to be on lifelong anticoagulant medication, but has repeatedly been noncompliant with it when psychotic. -Xarelto has been reordered, if patient remains unwilling to take it, may have to consult the hospitalist and explore other options. PT/INR ordered, but patient refused. -Coordinate care with PCP, Dr. Mcdowell, and patient will need follow-up after discharge. 05/24 -patient continues to refuse to take any anticoagulant medication or allow a blood draw for PT/INR. 05/24 -The patient is continuing to refuse to take anticoagulant medication or allow blood draws. This is 1 of the reasons why we are convinced that medications over objection are medically necessary in this case in order to stabilize the patient's condition and improve her insight and the need for treatment. Reviewed 05/26/2020. 05/31 - Pt continues to be compliant with Xarelto when offered - compliance likely strongly related to the structured hospital setting 06/07 - Pt continues to be compliant with Xarelto as scheduled - she has not verbalized any aversion to continuing the medication on discharge - Referral for [facility]ication Management in place to continue to encourage medication compliance (3) Pulmonary embolism: (4) Hypokalemia: 05/23 - Potassium was 2.6 in the ER, patient received po potassium chloride 40meq x 2. Refusing additional labs today, but will continue to encourage compliance and will re-order for tomorrow. Monitor PO intake and encourage good nutrition. 05/24 -patient is eating some food here, but refusing to allow a blood draw to recheck potassium. 05/25 -the patient is continuing to eat on the unit, but is still refusing to allow blood draws to recheck her potassium. Reviewed 05/26/2020. 05/27--patient refused lab draw. (5) Vitamin B12 deficiency: 05/23 -patient started on vitamin B12 500 mcg daily during last hospitalization, when she was seen by the hospitalist service for recommendations regarding her anticoagulant. Folate and vitamin B12 were checked due to their association with high homocystine levels, which is associated with VTE. Vitamin B12 was low at 130. -We will hold off on resuming vitamin B12 and folic acid, as patient is currently refusing all medications and want to focus on her antipsychotic and anticoagulant first, but can resume these once she is less psychotic/more adherent. Reviewed 05/26/2020. (6) Folate deficiency: 05/23 -folate checked during December hospitalization due to the above, was low at 3.42, and folic acid 20 mg daily was started. Reviewed 05/26/2020. (7) Nicotine dependence: 05/23 -patient unable to participate in smoking cessation education due to severity of psychosis. Offer patch and gum as needed for cravings. Reviewed 05/26/2020. Mental Health & Subst Abuse Tx Psychiatrist Name of Psychiatrist: [facility] - Dr. Williamson Psychiatrist's Date of Appointment with Psychiatrist: 06/14/20 Time of Appointment with Psychiatrist: 2:20 p.m. (In person) Psychiatric Appointment Comment: [address], [facility] [address], [address], [place], [place] Psychiatrist Release of Information: Obtained, Reviewed and Signed Therapist Name of Therapist: [facility] Therapist's Date of Therapist Appointment: 06/27/20 Time of Therapist Appointment: 12:45 p.m. - [address] [place] [address] Therapy Appointment Comment: Please complete new pt info they are sending you and bring to appt) Therapist Release of Information: Obtained, Reviewed and Signed Software Applications Specialist Name of Software Applications Specialist: [facility] Phone Number for Software Applications Specialist: [phone] Date of Appointment with Software Applications Specialist: 06/11/20 Time of Appointment with Software Applications Specialist: 1:30 p.m. Case Management Appointment Comment: Will call you/see you each Thursday at 1:30 p.m. Software Applications Specialist Release of Information: Obtained, Reviewed and Signed Post Discharge Appointments Primary Care Physician Name Of Family Doctor: KE[facility] Mcdowell [facility] Time of Appointment with PCP: Please follow up as needed Provider Appointment Comment: [address], [place] Primary Care Release of Information: Obtained, Reviewed and Signed Smoking Cessation Counseling Tobacco Cessation Medication Prescribed at Discharge: Offered & Pt Refused Contact Information Discharge Discharge Address: [address] [address] Discharge Plan Discharge Items Patient Disposition: Home - Self-Care Reason For Visit: SCHIZOPHRENIA Discharge Diagnosis: Schizophrenia Treatment nonadherence Activity: Per Instructions section Non-emergency contact: Primary Care Provider, Psychiatrist, Therapist and Wastewater Plant Civil Engineer Call non-emergency contact if: you have any medication questions and your symptoms worsen Follow-up/Referrals: Darci Cuello MD [Primary Care Provider] - Diet: Regular Addtl Attending Provider Instructions: SPECIAL CARE INSTRUCTIONS: 1. Follow through with your scheduled aftercare appointments. If unable to keep an appointment, please call to reschedule. You are being discharged on a 304 involuntary outpatient commitment. Please see attached paperwork. 2. Take your medication only as prescribed. Medication should not be changed or stopped without the approval of your doctor. In the event of worsening symptoms or concerns about side effects, contact your doctor immediately. 3. Utilize new healthy coping skills, anger management skills, and stress management skills learned during your hospitalization. Journal feelings and process them with a support person. Identify stressors or situations that may result in relapse, deterioration or inappropriate behaviors and develop a plan to deal with those issues. 4. If your coping skills are ineffective and you are in crisis, contact your outpatient providers for direction. If unable to reach your providers, please call the [facility] CRISIS LINE AT , go to the [facility] walk-in center at [address], [place], or go to the closest Emergency Room. 5. Avoid alcohol and un-prescribed drugs. 6. You have been provided with the Mental Health Advance Directives Pamphlet for your review. AFTERCARE APPOINTMENTS: * Please call your insurance company prior to your scheduled appointment to confirm your aftercare providers are covered. Take your insurance information to your appointments. WHO TO CALL AND WHEN: Medical Emergencies: For questions or emergencies related to your hospital stay, please contact the Inpatient Behavioral Health Unit at [phone]. A biomedical engineering supervisor is on-call 16/03 for the Behavioral Health Unit for emergencies At any time you feel your situation is an emergency, you may also call 911 immediately. Pending Studies at Discharge: No Stand-Alone Forms: My [facility], Smoking Cessation, Suicide Prevention Resources Medications and DC Order Prescriptions: New benztropine 1 mg Tablet 2 mg PO BID PRN (Reason: stiffness/dystonia) Qty: 30 RF: 0 haloperidol 5 mg Tablet 5 mg PO QAM Qty: 30 RF: 0 haloperidol 5 mg Tablet 10 mg PO HS Qty: 30 RF: 0 Continued folic acid 20 mg capsule 20 mg PO DAILY RF: 0 Xarelto 15 mg tablet 15 mg PO DAILY RF: 0 cyanocobalamin (vitamin B-12) 500 mcg Tablet 500 mcg PO QAM Qty: 30 RF: 0 Discontinued clozapine [Clozaril] 100 mg tablet 100 mg PO QAM RF: 0 clozapine 50 mg tablet 50 mg PO HS RF: 0 zolpidem [Ambien] 10 mg tablet 10 mg PO HS PRN (Reason: Insomnia) RF: 0 Discharge Orders: Discharge Order (Routine); Ordered 06/11/20 Ordered By: Tiana Bustillos Admission Data Admit Date/Time: 05/23/20 00:19 Attending Provider: Tiana Bustillos Admit Provider: Melita Lang Primary Care Provider: Darci Cuello V. Other Interventions: PSY Interdisciplinary Discharge Planning Last Done: 06/11/20 09:08 Coding Level of Care Code 24164 D/C day mgmt > 30 min Diagnoses Paranoid schizophrenia F20.0 MTHFR mutation E72.12 Pulmonary embolism I26.99 Hypokalemia E87.6 Vitamin B12 deficiency E53.8 Folate deficiency E53.8 Nicotine dependence F17.200
== END 2020-06-11 10:09 | disposition home or self-care (01) | DRG 885 ==
LOC: ED 19:20 → 3S 05-23 00:19